=== PATIENT | male | born 1985 | race Caucasian/White ===

== ENCOUNTER → 2018-05-05 10:52 | Outpatient (CLI) | payer OTHER, SELFPAY ==
--- NOTE | 2018-05-05 15:41 | RAD_ITS ---
STUDY: X-RAY CHEST REASON FOR EXAM: Male, 33 years old. Cough TECHNIQUE: PA and lateral views of the chest. COMPARISON: 07/14/2015 FINDINGS: The lungs are clear and expanded. There is no demonstrated pleural abnormality. Normal size heart. Normal mediastinum and brie. Normal visualized pulmonary arteries. Normal visualized aortic arch and descending thoracic aorta. Normal visualized thoracic spine. Normal visualized ribs, clavicles, and shoulders. There is no demonstrated abnormality of the visualized soft tissue structures of the upper abdomen. RAD/Chest PA and Lateral IMPRESSION: No airspace consolidation or pleural effusion. Electronically Signed: Mushtaq Steele MD at 16:48 EST , Service support ,
[2018-05-10 04:09] LABS: Alternaria tenuis 0.23 kU/L (Class 0/I); Ash, White <0.10 kU/L (Class 0); Aspergillus fumigatus 0.19 kU/L (Class 0/I); Bermuda Grass <0.10 kU/L (Class 0); Birch <0.10 kU/L (Class 0); Black Walnut <0.10 kU/L (Class 0); Cat Hair / Dander,Stand 6.62 kU/L (Class IV); Cedar, Mountain <0.10 kU/L (Class 0); Cladosporium herbarum <0.10 kU/L (Class 0); Cottonwood <0.10 kU/L (Class 0); D farinae Mite 4.16 kU/L (Class IV); D pteronyssinus 4.68 kU/L (Class IV); Dog Epithelia 2.27 kU/L (Class III); Elm, American White 0.16 kU/L (Class 0/I); Maple/Box Elder 0.51 kU/L (Class I); Mulberry, White <0.10 kU/L (Class 0); Oak, White <0.10 kU/L (Class 0); Pecan <0.10 kU/L (Class 0); Pigweed, Rough <0.10 kU/L (Class 0); Russian Thistle <0.10 kU/L (Class 0); Sheep Sorrel <0.10 kU/L (Class 0); Sycamore, American <0.10 kU/L (Class 0); Timothy Grass 3.92 kU/L (Class IV)
[2018-05-10 05:07] LABS: Banana <0.10 kU/L (Class 0); Barley, Whole Grain 0.54 kU/L (Class I); Beef <0.10 kU/L (Class 0); Carrot <0.10 kU/L (Class 0); Cashew <0.10 kU/L (Class 0); Chicken <0.10 kU/L (Class 0); Clam <0.10 kU/L (Class 0); Codfish <0.10 kU/L (Class 0); Corn <0.10 kU/L (Class 0); Crab <0.10 kU/L (Class 0); Egg, White <0.10 kU/L (Class 0); Egg, Whole <0.10 kU/L (Class 0); Egg, Yolk <0.10 kU/L (Class 0); Garlic <0.10 kU/L (Class 0); Gluten <0.10 kU/L (Class 0); Hazelnut/Filbert <0.10 kU/L (Class 0); Lobster <0.10 kU/L (Class 0); Milk (Cow) <0.10 kU/L (Class 0); Oat <0.10 kU/L (Class 0); Onion <0.10 kU/L (Class 0); Orange <0.10 kU/L (Class 0); Pea <0.10 kU/L (Class 0); Peanut <0.10 kU/L (Class 0); Pecan <0.10 kU/L (Class 0); Pork <0.10 kU/L (Class 0); Potato, White <0.10 kU/L (Class 0); Rice <0.10 kU/L (Class 0); SCALLOP <0.10 kU/L (Class 0); SESAME SEED 0.12 kU/L (Class 0/I); Salmon <0.10 kU/L (Class 0); Shrimp 0.12 kU/L (Class 0/I); Soybean <0.10 kU/L (Class 0); Strawberry <0.10 kU/L (Class 0); Tomato <0.10 kU/L (Class 0); Tuna <0.10 kU/L (Class 0); Wheat <0.10 kU/L (Class 0); Yeast 0.24 kU/L (Class 0/I)
[2018-05-10 11:42] LABS: Peanut <0.10 kU/L (Class 0); Turkey <0.10 kU/L (Class 0); Wheat <0.10 kU/L (Class 0)
[2018-05-10 11:43] LABS: Immunoglobulin E 423 IU/mL (6-495); Mouse Urine <0.10 kU/L (Class 0)
[2018-05-12 17:45] LABS: Milk (Cow) <0.10; Soybean <0.10
== END ==
PROVIDERS: Family Provider Internal Medicine; PCP Internal Medicine; Referring Provider Otolaryngology; Visit Provider Otolaryngology
DX: T78.40XA Allergy, unspecified, initial encounter (principal); R05 Cough
CPT/HCPCS: 36415; 71046; 82785; 86003

== ENCOUNTER → 2018-05-06 07:40 | Outpatient (CLI) | payer OTHER, SELFPAY ==
[2018-05-06 09:44] LABS: Absolute Lymphocyte Count 1.82 X10^3/ul (0.83-4.51); Absolute Neutrophil Count 3.9 X10^3/uL (2.0-7.7); Basophil# 0.15 X10^3/uL; Basophil% 1.9 % (0-1); Eosinophil# 0.97 X10^3/uL; Eosinophils% 12.5 % (0-5); Hematocrit 47.4 % (40-54); Hemoglobin 15.7 g/dl (13.0-16.5); Lymphocyte # 1.82 X10^3/ul (4.0); Lymphocyte % 23.4 % (19-41); Mean Corp Hgb Conc 33.1 g/gl (32-36); Mean Corpuscular Hgb 30.6 pg (27.0-32.0); Mean Corpuscular Volume 92.4 fL (80-94); Monocyte# 0.88 X10^3/uL; Monocyte% 11.3 % (0-10); Neutrophil # 3.93 X10^3/uL (2.7-7.7); Neutrophil % 50.4 % (47-70); Platelet Count 238 K/mm3 (150-450); RBC Distribution Width CV 12.5 % (11.6-14.6); RBC Distribution Width SD 41.8 fl (35.1-43.9); Red Blood Count 5.13 M/mm3 (4.6-6.2); White Blood Count 7.8 K/mm3 (4.4-11.0)
[2018-05-06 09:54] LABS: POSITIVE COUNT NO; POSITIVE DIFFERENTIAL NO; POSITIVE MORPHOLOGY NO
[2018-05-06 09:59] LABS: ALB/GLOB Ratio 1.2 RATIO (0.9-2.4); AST(SGOT) 23 U/L (15-37); Alanine Aminotransfer ALT/SGPT 64 U/L (16-61); Albumin, Serum 3.8 g/dL (3.2-5.0); Alkaline Phosphatase 60 U/L (45-117); Anion Gap 7 (5-15); BUN 15 mg/dL (7-18); BUN/Creat Ratio 16.8 RATIO (10-20); Calcium,Total 8.4 mg/dL (8.5-10.1); Chloride 107 mmol/L (98-107); Cholesterol 170 mg/dL (200); Creatinine, Serum 0.89 mg/dL (0.70-1.30); EST Glomerular Filtration Rate 103 mL/min (>60); Est Glom Filt Rate - Afr Amer 124 mL/min (>60); Globulin 3.2 g/dL (2.2-4.2); Glucose 107 mg/dL (74-106); High Density Lipoprotein 36 mg/dL; Potassium 4.1 mmol/L (3.5-5.1); Sodium Level 141 mmol/L (136-145); Triglycerides 118 mg/dL; Very Low Density Lipoprotein 24 mg/dL (5-40)
[2018-05-06 10:38] LABS: Vitamin D,25 Hydroxy 18.5 ng/mL (29.95-100.01)
== END ==
PROVIDERS: Family Provider Nurse Practitioner; PCP Nurse Practitioner; Referring Provider Nurse Practitioner; Visit Provider Nurse Practitioner
DX: E78.00 Pure hypercholesterolemia, unspecified (principal); E55.9 Vitamin D deficiency, unspecified; R05 Cough
CPT/HCPCS: 36415; 80053; 80061; 82306; 85025

== ENCOUNTER → 2018-05-13 07:48 | Outpatient (CLI) | payer OTHER, SELFPAY ==
[2016-11-23 13:29] VITALS: BMI 35.3
[2018-05-15 14:32] LABS: PROEL- A/G Ratio 1.5 (0.7-1.7); PROEL- Albumin 3.8 g/dL (2.9-4.4); PROEL- Alpha-1 Globulin 0.2 g/dL (0.0-0.4); PROEL- Alpha-2 Globulin 0.7 g/dL (0.4-1.0); PROEL- Gamma Globulin 0.7 g/dL (0.4-1.8); PROEL- Globulin, Total 2.5 g/dL (2.2-3.9); PROEL- TOTAL PROTEIN 6.3 g/dL (6.0-8.5)
[2018-05-16 22:07] LABS: PROELU- Albumin, Urine 28.6 % (.); PROELU- Alpha-2-Globulin,Ur 22.5 % (.); PROELU- Beta Globulin, Ur 22.6 % (.); PROELU- Gamma Globulin, Ur 20.3 % (.); Total Protein, Ur 12.2 mg/dL (Not Estab.)
== END ==
PROVIDERS: Family Provider Nurse Practitioner; PCP Nurse Practitioner; Referring Provider Nurse Practitioner; Visit Provider Nurse Practitioner
DX: D72.1 Eosinophilia (principal)
CPT/HCPCS: 36415; 84165; 84166

== ENCOUNTER 2018-05-19 20:29 | Inpatient (IN) | payer OTHER, SELFPAY ==
[2018-05-19] VITALS (8 sets, daily range): BP systolic 127–154; BP diastolic 75–90; PULSE 88–118; RESP 16–20; TEMP 36.7–36.9; O2SAT 91–97; BMI 37.0
[2018-05-19] MEDS: Acetaminophen 325 MG Tablet 650 MG PO (20:49)
[2018-05-19] MEDS: Ipratropium/Albuterol Sulfate 3 ML AMPUL.NEB INHALATION (21:04)
[2018-05-19] MEDS: Albuterol 2.5 MG/3 ML VIAL.NEB. INHALATION ×5 (21:21→23:39)
[2018-05-19 21:28] LABS: Absolute Lymphocyte Count 2.07 X10^3/ul (0.83-4.51); Absolute Neutrophil Count 4.2 X10^3/uL (2.0-7.7); Basophil# 0.11 X10^3/uL; Basophil% 1.2 % (0-1); Eosinophil# 1.41 X10^3/uL; Hematocrit 45.7 % (40-54); Lymphocyte # 2.07 X10^3/ul (4.0); Lymphocyte % 23.5 % (19-41); Mean Corpuscular Hgb 31.3 pg (27.0-32.0); Mean Corpuscular Volume 89.4 fL (80-94); Mean Platelet Vol. 9.5 fl (6.2-12.0); Monocyte# 1.04 X10^3/uL; Monocyte% 11.8 % (0-10); Neutrophil # 4.15 X10^3/uL (2.7-7.7); Platelet Count 245 K/mm3 (150-450); RBC Distribution Width CV 12.4 % (11.6-14.6); RBC Distribution Width SD 40.1 fl (35.1-43.9); Red Blood Count 5.11 M/mm3 (4.6-6.2); White Blood Count 8.8 K/mm3 (4.4-11.0)
[2018-05-19 21:29] LABS: POSITIVE COUNT NO; POSITIVE DIFFERENTIAL NO; POSITIVE MORPHOLOGY NO
[2018-05-19 21:35] LABS: Anion Gap 3 (5-15); BUN 15 mg/dL (7-18); BUN/Creat Ratio 16.6 RATIO (10-20); Calcium,Total 8.3 mg/dL (8.5-10.1); Chloride 109 mmol/L (98-107); EST Glomerular Filtration Rate 101 mL/min (>60); Est Glom Filt Rate - Afr Amer 123 mL/min (>60); Estimated Creatinine Clearance 125.74 ml/min; Glucose 105 mg/dL (74-106); Potassium 3.6 mmol/L (3.5-5.1); Sodium Level 140 mmol/L (136-145)
--- NOTE | 2018-05-19 21:39 | ED.DCSUM_ITS ---
History of Present Illness Chief Complaint: Shortness of Breath Detail of Chief Complaint: History of asthma and respiratory failure Informant: Patient Context: Onset with activity, Sudden Onset Timing: Continuous Quality: Difficulty breathing with wheezing and cough Location: Respiratory Current Severity: Severe Maximum Severity: Severe Worsened by: Activity and coughing Relieved by: Nothing Associated Symptoms: Runny nose, aches, subjective fever Narrative: Patient is a 33-year-old gentleman has history of asthma. He presents with difficult to breathing and wheezing. Onset several days ago. He does have URI type symptoms. Denies headache, photophobia, neck pain or neck stiffness. He denies chest pain. He denies GI or symptoms. He denies rash. He denies any neurologic symptoms. - Past Medical History (1) Acute asthma exacerbation Status: Acute (2) Acute hypoxic respiratory insufficiency Status: Resolved (3) Allergic rhinitis Status: Chronic (4) Bronchial asthma Status: Chronic Past Medical History - Allergies and Home Meds Allergies/Adverse Reactions: Allergies No Known Allergies Allergy (Verified 05/19/18 20:31) Primary Care Physician: Marleni Holly NP-C [Primary Care Provider] - Prior records reviewed: Yes Surgical History: no surgical history Lives: Alone Smoking Status: Former smoker Alcohol: None - Family History Maternal Family History: Family History (Last Updated 05/18/18 @ 10:54 by Leia Boykin) Father Asthma Diabetes Hypertension Grandmother Asthma Family History: Reports: No pertinent history Paternal Family History: Family History (Last Updated 05/18/18 @ 10:54 by Leia Boykin) Father Asthma Diabetes Hypertension Grandmother Asthma Family History: Reports: Asthma, Diabetes, Hypertension Review of Systems General: Reports: Chills, Fever, Subjective, Sweats. Denies: Weight loss Eyes: Denies: Visual changes - bilaterally, Blurred vision - left, Diplopia ENT: Denies: Rhinorrhea, Sore throat Cardiovascular: Reports: Palpitations. Denies: Chest pain Respiratory: Reports: Dyspnea, Cough, Sputum, Dyspnea on exertion. Denies: Orthopnea, Paroxysmal nocturnal dyspnea Gastrointestinal: Denies: Abdominal pain, Nausea, Vomiting, Diarrhea, Melena, Hematochezia Genitourinary: Denies: Dysuria, Hematuria, Frequency Musculoskeletal: Denies: Back pain, Extremity Pain Skin: Denies: Rash, Wounds Neurological: Denies: Headache, Weakness, Numbness Allergy: Denies: Uticaria, Swelling of the mouth Physical Exam Vital Signs/Narrative: Vital Signs Temp Pulse Resp BP Pulse Ox 05/19/18 21:23 118 H 20 H 95 05/19/18 20:45 98.4 F 95 18 154/83 H 94 05/19/18 20:36 102 H 16 138/88 H 97 05/19/18 20:30 98.1 F 110 H 16 127/90 H 91 Inital Vital Signs reviewed: Yes General: Well nourished, Well developed, Acute Distress Head: Normocephalic, Atraumatic Eyes: Perrl, EOMI. Negative for: Pale conjunctiva, Scleral icterus ENT: Moist mucous membranes, TM's clear, Nasal congestion Neck: Supple, Nontender, No lymphadenopathy, No JVD Cardiovascular: Regular rhythm, No murmurs, Normal S1, Normal S2, Tachycardia Respiratory: Wheezing, Decreased Air Movement, - - With respiratory distress and use of accessory muscles. Abdomen: Soft, Nontender, Nondistended, Normal bowel sounds, No masses Rectal: Deferred Back: Nontender, Normal Inspection Extremities: Nontender, No edema. Negative for: Calf Tenderness Skin: Normal color, No rash, - - Face is flushed Neurological: Alert, Oriented x3, Cranial nerves II-XII grossly intact, Normal Strength, Normal Sensation Psychological: Normal affect, Normal Mood Diagnostic/Tx/Re-eval Chest X-Ray - ED: 2 View, Read by ED Physician, Normal, Heart, Lungs, Mediastinum, Bony Structures, No Acute Disease 05/19/18 21:55 Chest PA and Lateral [RAD] Stat 05/19/18 20:37 Mucosa - Nasopharyngeal Influenza Types A,B Direct FA (DEUCE) - Final Laboratory Results 05/19/18 05/19/18 05/19/18 21:00 21:00 21:00 WBC 8.8 RBC 5.11 Hgb 16.0 Hct 45.7 MCV 89.4 MCH 31.3 MCHC 35.0 RDW 12.4 RDW Differential 40.1 Plt Count 245 MPV 9.5 Immature Gran % (Auto) 0.500 Neut % (Auto) 47.0 Lymph % (Auto) 23.5 [place] % (Auto) 11.8 H Eos % (Auto) 16.0 H Baso % (Auto) 1.2 H Absolute Neuts (auto) 4.2 Absolute Lymphs (auto) 2.07 Total Counted Not Reportable Sodium 140 Potassium 3.6 Chloride 109 H Carbon Dioxide 28.0 Anion Gap 3 L BUN 15 Creatinine 0.90 Estim Creat Clear Calc 125.74 Est GFR (MDRD) Af Amer 123 Est GFR (MDRD) Non-Af 101 BUN/Creatinine Ratio 16.6 Glucose 105 Lactic Acid 0.7 Calcium 8.3 L - Medical Decision Making Patient with acute exacerbation of asthma secondary to respiratory infection. Baseline blood work was obtained and chest x-ray to evaluate for pneumonia. He was treated with DuoNeb, albuterol systemic steroids. He was reassessed at 21: 35. He is still tachypneic with wheezing heard throughout. He is still tachycardic. Patient has been examined multiple times. He is presently on oxygen. He still tachypneic with significant wheezing. Will administer fourth and fifth aerosol treatment and hospitalist has been paged for admission. ED Disposition - Plan for ED Patient: Disposition: Acute Care Hospital [facility] Diagnosis: Asthma with status asthmaticus, Viral upper respiratory infection Referrals: Marleni Holly, CRUSHER AND BLENDER OPERATOR-C [Primary Care Provider] -
[2018-05-19 21:42] LABS: Lactic Acid 0.7 mmol/L (0.4-2.0)
--- NOTE | 2018-05-19 21:55 | RAD_ITS ---
STUDY: X-RAY CHEST REASON FOR EXAM: Male, 33 years old. Cough, fever and hypoxia. TECHNIQUE: PA and lateral views of the chest. COMPARISON: 05/05/2018. FINDINGS: The lungs are clear and expanded. There is no demonstrated pleural abnormality. Normal size heart. Normal mediastinum and brie. Normal visualized pulmonary arteries. Normal visualized aortic arch and descending thoracic aorta. Normal visualized thoracic spine. Normal visualized ribs, clavicles, and shoulders. There is no demonstrated abnormality of the visualized soft tissue structures of the upper abdomen. RAD/Chest PA and Lateral IMPRESSION: Normal x-ray examination of the chest. Electronically Signed: Pop Helms MD at 23:26 EDT Tel , Service support ,
[2018-05-19] MEDS: MethylPREDNISolone 125 MG/2 ML Vial IV (22:22)
--- NOTE | 2018-05-19 23:11 | HP.PCM_ITS ---
Problem List (1) Asthma with status asthmaticus Status: Acute (2) Allergic rhinitis Status: Chronic (3) Viral upper respiratory infection Status: Inactive History of Present Illness Date of Admission: 05/20/18 Chief Complaint: Shortness of breath The patient is a 33 year old M with a significant history of tobacco abuse;allergic rhinitis; nasal polyps status post removal; asthma who presented with with 2 weeks of progressively worsening shortness of breath at rest which increases markedly with exertion. Associated with his symptoms is chest tightness, wheezing and nonproductive cough. Patient has been using his breathing treatments without any real relief. Also he recently completed clarithromycin treatment. His home treatment includes Breo Ellipta; albuterol inhaler and nebulizer. Patient follows up with Dr. Muniz, cyber defense forensics analyst and he has a scheduled appointment on May 25 2018. Also he has a schedule appointment with an ENT doctor for allergy test. At the emergency department patient received Solu-Medrol and breathing treatment. Because his symptoms persisted he received magnesium and terbutaline. He has a family history of asthma and allergies. Past Medical History Past Medical History (Chronic Problems): Chronic Problems (Last Reviewed 05/20/18 @ 06:10 by Sha Young MD) Allergic rhinitis (Chronic) Bronchial asthma (Chronic) Medical History: Medical History (Last Reviewed 05/20/18 @ 06:10 by Sha Young MD) Acute hypoxic respiratory insufficiency (Resolved) Acute asthma exacerbation (Acute) J45.901 Allergic rhinitis (Chronic) J30.9 Bronchial asthma (Chronic) J45.909 Acute bronchitis J20.9 Maxillary sinusitis J32.0 Allergies No Known Allergies Allergy (Verified 05/19/18 20:31) Home Medications: Ambulatory Orders Medication Instructions Recorded Albuterol Inhaler [Ventolin Hfa] 2 puff INHALATION Q4H PRN PRN 05/20/13 Fexofenadine/Pseudoephedrine 1 each PO DAILY 11/16/16 [Chelly-D 12 Hour Tablet] fluticasone 100 mcg-vilanterol 25 1 inh INHALATION DAILY #1 device 02/07/17 mcg/dose powder for inhalation Surgical History: Surgical History (Last Updated 05/18/18 @ 10:54 by Leia Boykin) H/O sinus surgery Z98.890 08/07/2015 Surgical History: - - Sinus polyps were removed. Patient has bilateral knee surgery for ACL/MENISCUS. Patient has had a jaw surgery and right earlobe surgery. Lives: Alone Smoking Status: Current every day smoker Tobacco Use: Chew Alcohol: None - *Family History Maternal Family History: Family History (Last Reviewed 05/20/18 @ 06:04 by Sha Young MD) Father Asthma Diabetes Hypertension Grandmother Asthma History Items: No pertinent history Paternal Family History: Family History (Last Reviewed 05/20/18 @ 06:04 by Sha Young MD) Father Asthma Diabetes Hypertension Grandmother Asthma History Items: Asthma, Diabetes, Hypertension Review of Systems Constitutional: Denies: Chills, Fever, Weight Change HEENT: Reports: Sinus Drainage. Denies: Head Aches, Sinus Congestion Cardiovascular: Denies: Chest Pain, Palpitations Respiratory: Reports: Cough, Shortness of breath at rest. Denies: Sputum production Gastrointestinal: Denies: Abdominal Pain, Nausea, Vomiting Genitourinary: Denies: Dysuria Musculoskeletal: Denies: Joint Pain, Joint Tenderness Skin: Denies: Rash, Wounds Neurological: Denies: Numbness, Tingling, Focal weakness Psychiatric: Denies: Anxiety, Depression, Homicidal Ideations, Suicidal Ideations Hematologic/ Lymphatic: Denies: Easy Bruising, Easy Bleeding VTE Information - Inpt Only VTE Present on Admission: No VTE Pharm Prophylaxis ordered?: No Reason prophylaxis not ordered:: Treatment Not Indicated - Low risk ambulate Patient Problems: Active and Suspected Problems (Last Reviewed 05/20/18 @ 06:10 by Sha Young MD) Asthma with status asthmaticus (Acute) - Physical Exam General: Alert, Oriented x3, Cooperative HEENT: Atraumatic, PERRLA, EOMI, Normocephalic Neck: Supple, No JVD, Negative Carotid Bruits Lungs: Tachypneic, Wheezes Cardiovascular: No murmurs, Tachycardic Abdomen: Bowel Sounds Present, Soft, Non Tender Extremities: No edema, Capillary Refill Less than 3 Seconds Skin: No rashes, No breakdown Musculoskeletal: No Tenderness to Palpation of Joints or Extremities Neurological: Neuro grossly intact Psych/Mental Status: Normal Affect, Appropriate Vital Signs Temp Pulse Resp BP Pulse Ox 98.4 F 118 H 20 H 154/83 H 95 05/19/18 20:45 05/19/18 21:23 05/19/18 21:23 05/19/18 20:45 05/19/18 21:23 Oxygen Flow Rate (L/min) 2 Oxygen Delivery Method Nasal Cannula Weight: 123.8 kg Body Mass Index (BMI) 37.0 Microbiology Past 72 Hours 05/19/18 20:37 Influenza Types A,B Direct FA (DEUCE) - Final Mucosa - Nasopharyngeal Laboratory Tests Past 24 Hrs 05/19/18 05/19/18 05/19/18 21:00 21:00 21:00 WBC 8.8 RBC 5.11 Hgb 16.0 Hct 45.7 MCV 89.4 MCH 31.3 MCHC 35.0 RDW 12.4 RDW Differential 40.1 Plt Count 245 MPV 9.5 Immature Gran % (Auto) 0.500 Neut % (Auto) 47.0 Lymph % (Auto) 23.5 [place] % (Auto) 11.8 H Eos % (Auto) 16.0 H Baso % (Auto) 1.2 H Absolute Neuts (auto) 4.2 Absolute Lymphs (auto) 2.07 Total Counted Not Reportable Sodium 140 Potassium 3.6 Chloride 109 H Carbon Dioxide 28.0 Anion Gap 3 L BUN 15 Creatinine 0.90 Estim Creat Clear Calc 125.74 Est GFR (MDRD) Af Amer 123 Est GFR (MDRD) Non-Af 101 BUN/Creatinine Ratio 16.6 Glucose 105 Lactic Acid 0.7 Calcium 8.3 L Assessment/Plan All Active Problems (Last Reviewed 05/20/18 @ 06:10 by Sha Young MD) Asthma with status asthmaticus (Acute) Acute hypoxic respiratory insufficiency (Resolved) Acute asthma exacerbation (Acute) The patient is a 33 year old M with a significant history of allergic rhinitis; nasal polyps status post removal; asthma who presented with with 2 weeks of progressively worsening shortness of breath at rest which increases markedly with exertion; and who continued to wheeze after steroid treatment; multiple inhalers; terbutaline and magnesium infusion consistent with status asthmaticus. Status asthmaticus We will admit patient to the PCU stepdown. Patient noted to be talking in short sentences and with use of accessory muscles of respiration with diffuse wheezing. We will continue patient on Solu-Medrol. Scheduled DuoNeb and albuterol. Chest physiotherapy ordered. Patient is a known patient of Dr. Muniz and has a scheduled appointment coming up with Dr. Muniz. Emergency department doctor ordered inpatient consult. Rapid influenza screen was negative. Will order a comprehensive respiratory pathogen panel. Home fluticasone-vilanterol held since patient is on DuoNeb and is getting systemic steroids. Mucinex ordered Allergic rhinitis On home Chelly-D. While inpatient loratadine and pseudoephedrine ordered. Flonase ordered. Tobacco abuse Patient is a former smoker. He used to smoke cigarettes. He quit smoking about 8 years ago. Presently he chews tobacco. Smoking cessation was discussed. Patient declined nicotine patch patch stating that he will request a nicotine patch if he has intense craving. Patient chews tobacco. DVT Prophylaxis Low risk. Encouraged to ambulate.. Code Visit Inpatient E&M: 68856 Init Hosp L3
[2018-05-19] MEDS: Terbutaline 1 MG/ML Vial 0.25 MG SC (23:58)
[2018-05-20] VITALS (23 sets, daily range): BP systolic 104–181; BP diastolic 44–80; PULSE 82–125; RESP 13–21; TEMP 36.7–37.2; O2SAT 91–99; BMI 37.2
[2018-05-20] MEDS: Ipratropium/Albuterol Sulfate 3 ML AMPUL.NEB INHALATION ×6 (03:06→22:51)
[2018-05-20] MEDS: 0.9% NaCl Peripheral Flush Adult/Peds IV ×3 (05:18→21:42)
[2018-05-20 06:41] LABS: Anion Gap 10 (5-15); BUN 14 mg/dL (7-18); Calcium,Total 8.3 mg/dL (8.5-10.1); Chloride 108 mmol/L (98-107); Creatinine, Serum 1.17 mg/dL (0.70-1.30); EST Glomerular Filtration Rate 75 mL/min (>60); Est Glom Filt Rate - Afr Amer 91 mL/min (>60); Estimated Creatinine Clearance 96.72 ml/min; Glucose 226 mg/dL (74-106); Potassium 3.9 mmol/L (3.5-5.1); Sodium Level 141 mmol/L (136-145)
[2018-05-20] MEDS: guaiFENesin 1,200 MG Tablet 1200 MG PO ×2 (08:44→21:41)
[2018-05-20] MEDS: Loratadine 10 MG Tablet PO (08:44)
[2018-05-20] MEDS: Fluticasone 0.05% 1 SPRAY NASAL.SRY 2 SPRAY NASAL (08:44)
--- NOTE | 2018-05-20 09:56 | CON.PCM_ITS ---
Problem List (1) Asthma with status asthmaticus Status: Acute Qualifiers: Asthma severity: moderate Asthma persistence: persistent Qualified Code(s): J45.42 - Moderate persistent asthma with status asthmaticus (2) Viral upper respiratory infection Status: Suspected (3) Allergic rhinitis Status: Chronic Qualifiers: Allergic rhinitis trigger: pollen Allergic rhinitis seasonality: seasonal Qualified Code(s): J30.1 - Allergic rhinitis due to pollen Reason for Consult Date of Consultation: 05/20/18 Reason for Consultation: Asthma exacerbation History of Present Illness: The patient is a 33 year old M, with past medical history listed below and well- known to me from outpatient office, who presented to [facility] on 05/20/2018 secondary to 2 weeks of progressive shortness of breath. Patient states he started to have some sinus congestion that fell into his chest and had developed a nonproductive cough and wheezing. Patient has been using nebulized aerosols at home with no real relief. Patient was recently on clarithromycin, but reported very little change in overall condition. Patient had called our office for evaluation, but did not report that he was in exacerbation, so was given an appointment for this week. In the emergency room, patient was treated with aerosols and IV steroids. Patient continues to had significant wheezing, so was admitted to the floor for further evaluation. Patient reports subjective improvement in overall condition, but still has significant coughing and shortness of breath with minimal exertion. Patient denies any current nausea or vomiting, but reports history of threatened posttussive emesis. Patient typically uses a combination inhaler at home. Patient does have albuterol and a nebulizer for breakthrough. Patient states his nebulizers have not been working very well up and to this point. Patient does have an appointment scheduled with an ENT doctor for allergy testing. Patient denies any new medical history since her last visit. Review of systems otherwise negative x10 systems. Patient continues to use smokeless tobacco. Past Medical History Past Medical History (Chronic Problems): Chronic Problems (Last Reviewed 05/20/18 @ 06:10 by Sha Young MD) Allergic rhinitis (Chronic) Bronchial asthma (Chronic) Medical History: Medical History (Last Reviewed 05/20/18 @ 06:10 by Sha Young MD) Acute hypoxic respiratory insufficiency (Resolved) Acute asthma exacerbation (Acute) J45.901 Allergic rhinitis (Chronic) J30.9 Bronchial asthma (Chronic) J45.909 Acute bronchitis J20.9 Maxillary sinusitis J32.0 Allergies No Known Allergies Allergy (Verified 05/19/18 20:31) Home Medications: Ambulatory Orders Medication Instructions Recorded Albuterol Inhaler [Ventolin Hfa] 2 puff INHALATION Q4H PRN PRN 05/20/13 Fexofenadine/Pseudoephedrine 1 each PO DAILY 11/16/16 [Chelly-D 12 Hour Tablet] fluticasone 100 mcg-vilanterol 25 1 inh INHALATION DAILY #1 device 02/07/17 mcg/dose powder for inhalation Surgical History: Surgical History (Last Updated 05/18/18 @ 10:54 by Leia Boykin) H/O sinus surgery Z98.890 08/07/2015 Surgical History: - - Sinus polyps were removed. Patient has bilateral knee surgery for ACL/MENISCUS. Patient has had a jaw surgery and right earlobe surgery. Lives: Alone Smoking Status: Current every day smoker Tobacco Use: Chew Alcohol: None - *Family History Maternal Family History: Family History (Last Reviewed 05/20/18 @ 06:04 by Sha Young MD) Father Asthma Diabetes Hypertension Grandmother Asthma History Items: No pertinent history Paternal Family History: Family History (Last Reviewed 05/20/18 @ 06:04 by Sha Young MD) Father Asthma Diabetes Hypertension Grandmother Asthma History Items: Asthma, Diabetes, Hypertension Review of Systems Comment: See HPI Patient Problems: Active and Suspected Problems (Last Reviewed 05/20/18 @ 06:10 by Sha Young MD) Asthma with status asthmaticus (Acute) Viral upper respiratory infection (Suspected) Objective: Chest x-ray was personally reviewed and shows no acute infiltrate. - Physical Exam General: Alert, Oriented x3, Cooperative, - - Mild respiratory distress and conversational dyspnea. Obese. HEENT: Atraumatic, PERRLA, EOMI, Normocephalic, - - Slight scleral injection without icterus Oral: Moist Mucosa, No Gingival or Mucosal Lesions/ Ulcerations, - - Good dentition. Neck: Supple, No JVD, No Nodes, Trachea Midline Lungs: No rhonchi, No rales, Diminished, Wheezes - Globally with fair air exchange, - - Symmetric expansion. No dullness to percussion. Cardiovascular: Normal S1, Normal S2, No murmurs, No rub noted, No Gallop, Tachycardic Abdomen: Bowel Sounds Present, Soft, Non Tender, Non-Distended, Obese Extremities: No clubbing, No cyanosis, No edema Skin: No rashes, No breakdown Musculoskeletal: No Tenderness to Palpation of Joints or Extremities Lymphatic: No Cervical, Supraclavicular, or Inguinal Adenopathy Neurological: Cranial nerves II-XII grossly intact, Neuro grossly intact, Motor Exam 5/5 strength throughout Psych/Mental Status: Alert and oriented to time, place, person, mood and affect Vital Signs Temp Pulse Resp BP Pulse Ox 36.7 C 93 16 142/75 H 94 05/20/18 05:00 05/20/18 07:07 05/20/18 07:07 05/20/18 06:40 05/20/18 07:07 Oxygen Flow Rate (L/min) 1 Oxygen Delivery Method Room Air Weight: 124.5 kg Body Mass Index (BMI) 37.2 Intake and Output for Last 24 Hours 05/18/18 05/19/18 05/20/18 23:59 23:59 23:59 Intake Total 480 / 480 Balance 480 / 480 Microbiology Past 72 Hours 05/19/18 20:37 Influenza Types A,B Direct FA (DEUCE) - Final Mucosa - Nasopharyngeal Laboratory Tests Past 24 Hrs 05/19/18 05/19/18 05/19/18 21:00 21:00 21:00 WBC 8.8 RBC 5.11 Hgb 16.0 Hct 45.7 MCV 89.4 MCH 31.3 MCHC 35.0 RDW 12.4 RDW Differential 40.1 Plt Count 245 MPV 9.5 Immature Gran % (Auto) 0.500 Neut % (Auto) 47.0 Lymph % (Auto) 23.5 [place] % (Auto) 11.8 H Eos % (Auto) 16.0 H Baso % (Auto) 1.2 H Absolute Neuts (auto) 4.2 Absolute Lymphs (auto) 2.07 Total Counted Not Reportable Sodium 140 Potassium 3.6 Chloride 109 H Carbon Dioxide 28.0 Anion Gap 3 L BUN 15 Creatinine 0.90 Estim Creat Clear Calc 125.74 Est GFR (MDRD) Af Amer 123 Est GFR (MDRD) Non-Af 101 BUN/Creatinine Ratio 16.6 Glucose 105 Lactic Acid 0.7 Calcium 8.3 L 05/20/18 05:20 WBC RBC Hgb Hct MCV MCH MCHC RDW RDW Differential Plt Count MPV Immature Gran % (Auto) Neut % (Auto) Lymph % (Auto) [place] % (Auto) Eos % (Auto) Baso % (Auto) Absolute Neuts (auto) Absolute Lymphs (auto) Total Counted Sodium 141 Potassium 3.9 Chloride 108 H Carbon Dioxide 23.0 Anion Gap 10 BUN 14 Creatinine 1.17 Estim Creat Clear Calc 96.72 Est GFR (MDRD) Af Amer 91 Est GFR (MDRD) Non-Af 75 BUN/Creatinine Ratio 12.0 Glucose 226 H Lactic Acid Calcium 8.3 L Clinical Impression(s) from Imaging Studies Chest X-Ray 05/19/18 21:55 IMPRESSION: Normal x-ray examination of the chest. Electronically Signed: Pop Helms MD at 23:26 EDT Tel , Service support , Assessment/Plan All Active Problems (Last Reviewed 05/20/18 @ 06:10 by Sha Young MD) Asthma with status asthmaticus (Acute) Acute hypoxic respiratory insufficiency (Resolved) Acute asthma exacerbation (Acute) RECOMMENDATIONS: 1. Continue IV steroids, mucolytic and bronchodilators 2. Await respiratory viral panel 3. Increase activity as tolerated 4. Walking oximetry prior to discharge IMPRESSIONS: 1. Acute exacerbation of moderate persistent asthma secondary to suspected viral illness Patient was treated with antibiotics previously, but has continued to decompensate. Patient was appropriately given bronchodilators and IV steroids in the emergency room and has had some improvement. We will continue with this therapy for now. Viral panel is currently pending. Patient does not show any signs or symptoms of respiratory muscle fatigue requiring noninvasive therapy at this time. Anticipate 24-48 hours of hospital care prior to discharge. Patient will need a walking oximetry prior to discharge given amount of wheezing and diminished breath sounds on exam. Code Visit Inpatient E&M: 42363 Init Hosp L2
--- NOTE | 2018-05-20 11:41 | PCM.PROGNOTE ---
<Darwin Rosen - Last Filed: 05/20/18 11:41> Patient Problems: Active and Suspected Problems (Last Reviewed 05/20/18 @ 06:10 by Sha Young MD) Asthma with status asthmaticus (Acute) Viral upper respiratory infection (Suspected) Subjective: Pt has been sick with sinus congestion and wheezing worsening for about 2 weeks. He is feeling improved already. He does follow [facility] as an outpatient. He is still wheezy with paroxysmal coughing bouts. No fever or chills. Pain in chest and back with coughing - Physical Exam General: Alert, Oriented x3, Cooperative HEENT: Atraumatic, PERRLA, EOMI, Normocephalic Neck: Supple, No JVD, Negative Carotid Bruits Lungs: Normal air movement, Wheezes - diffuse Cardiovascular: Regular rate, No murmurs Abdomen: Bowel Sounds Present, Soft, Non Tender, Obese Extremities: No edema, Capillary Refill Less than 3 Seconds Skin: No rashes, No breakdown Musculoskeletal: No Tenderness to Palpation of Joints or Extremities Neurological: Cranial nerves II-XII grossly intact Psych/Mental Status: Normal Affect, Appropriate, Alert and oriented to time, place, person, mood and affect Vital Signs Temp Pulse Resp BP Pulse Ox 98.1 F 108 H 16 112/56 L 96 05/20/18 11:00 05/20/18 11:00 05/20/18 11:00 05/20/18 11:00 05/20/18 11:00 Oxygen Flow Rate (L/min) 1 Oxygen Delivery Method Room Air Weight: 274 lb 7.608 oz Body Mass Index (BMI) 37.2 Intake and Output for Last 24 Hours 05/18/18 05/19/18 05/20/18 23:59 23:59 23:59 Intake Total 480 / 480 Balance 480 / 480 Microbiology Past 72 Hours 05/20/18 03:02 Respiratory Panel (PCR) - Final Mucosa - Nasopharyngeal Human [place] 05/19/18 20:37 Influenza Types A,B Direct FA (DEUCE) - Final Mucosa - Nasopharyngeal Laboratory Tests Past 24 Hrs 05/19/18 05/19/18 05/19/18 21:00 21:00 21:00 WBC 8.8 RBC 5.11 Hgb 16.0 Hct 45.7 MCV 89.4 MCH 31.3 MCHC 35.0 RDW 12.4 RDW Differential 40.1 Plt Count 245 MPV 9.5 Immature Gran % (Auto) 0.500 Neut % (Auto) 47.0 Lymph % (Auto) 23.5 [place] % (Auto) 11.8 H Eos % (Auto) 16.0 H Baso % (Auto) 1.2 H Absolute Neuts (auto) 4.2 Absolute Lymphs (auto) 2.07 Total Counted Not Reportable Sodium 140 Potassium 3.6 Chloride 109 H Carbon Dioxide 28.0 Anion Gap 3 L BUN 15 Creatinine 0.90 Estim Creat Clear Calc 125.74 Est GFR (MDRD) Af Amer 123 Est GFR (MDRD) Non-Af 101 BUN/Creatinine Ratio 16.6 Glucose 105 Lactic Acid 0.7 Calcium 8.3 L 05/20/18 05:20 WBC RBC Hgb Hct MCV MCH MCHC RDW RDW Differential Plt Count MPV Immature Gran % (Auto) Neut % (Auto) Lymph % (Auto) [place] % (Auto) Eos % (Auto) Baso % (Auto) Absolute Neuts (auto) Absolute Lymphs (auto) Total Counted Sodium 141 Potassium 3.9 Chloride 108 H Carbon Dioxide 23.0 Anion Gap 10 BUN 14 Creatinine 1.17 Estim Creat Clear Calc 96.72 Est GFR (MDRD) Af Amer 91 Est GFR (MDRD) Non-Af 75 BUN/Creatinine Ratio 12.0 Glucose 226 H Lactic Acid Calcium 8.3 L Medical Necessity - Tobacco Use Smoking Status: Current every day smoker Tobacco Use: Chew Assessment/Plan All Active Problems (Last Reviewed 05/20/18 @ 06:10 by Sha Young MD) Asthma with status asthmaticus (Acute) Acute hypoxic respiratory insufficiency (Resolved) Acute asthma exacerbation (Acute) 1. Asthma exacerbation 2/2 Human metapneumovirus - improved. Continue steroids and duonebs overnight. + resp panel. Anion gap is normalizing. 2. Hx nicotine abuse, former smoker, now chews. Patch if desired. 3. Obesity - dietary eval. Several instances of hyperglycemia in past. Will check a1c. Current rise is 2/2 steroids, however it is significantly elevated for a non diabetic. DVT ppx: early ambulation DC planning: Likely home tomorrow, walking pulse ox prior to dc. This patient was seen by Darwin Rosen PA-C under the supervision of Doctor John. <Navarro Lopez - Last Filed: 05/20/18 12:25> Subjective: Feeling better, but to baseline yet. - Physical Exam General: Alert, Cooperative HEENT: Atraumatic, Normocephalic Oral: Moist Mucosa, No Gingival or Mucosal Lesions/ Ulcerations Lungs: Normal air movement, Wheezes Cardiovascular: Regular rate, Regular Rhythm, Normal S1, Normal S2, No murmurs Abdomen: Soft, Non Tender, Obese Vital Signs Temp Pulse Resp BP Pulse Ox 36.7 C 108 H 16 112/56 L 96 05/20/18 11:00 05/20/18 11:00 05/20/18 11:00 05/20/18 11:00 05/20/18 11:00 Oxygen Flow Rate (L/min) 1 Oxygen Delivery Method Room Air Weight: 124.5 kg Body Mass Index (BMI) 37.2 Intake and Output for Last 24 Hours 05/18/18 05/19/18 05/20/18 23:59 23:59 23:59 Intake Total 820 / 820 Balance 820 / 820 Microbiology Past 72 Hours 05/20/18 03:02 Respiratory Panel (PCR) - Final Mucosa - Nasopharyngeal Human [place] 05/19/18 20:37 Influenza Types A,B Direct FA (DEUCE) - Final Mucosa - Nasopharyngeal Laboratory Tests Past 24 Hrs 05/19/18 05/19/18 05/19/18 21:00 21:00 21:00 WBC 8.8 RBC 5.11 Hgb 16.0 Hct 45.7 MCV 89.4 MCH 31.3 MCHC 35.0 RDW 12.4 RDW Differential 40.1 Plt Count 245 MPV 9.5 Immature Gran % (Auto) 0.500 Neut % (Auto) 47.0 Lymph % (Auto) 23.5 [place] % (Auto) 11.8 H Eos % (Auto) 16.0 H Baso % (Auto) 1.2 H Absolute Neuts (auto) 4.2 Absolute Lymphs (auto) 2.07 Total Counted Not Reportable Sodium 140 Potassium 3.6 Chloride 109 H Carbon Dioxide 28.0 Anion Gap 3 L BUN 15 Creatinine 0.90 Estim Creat Clear Calc 125.74 Est GFR (MDRD) Af Amer 123 Est GFR (MDRD) Non-Af 101 BUN/Creatinine Ratio 16.6 Glucose 105 Hemoglobin A1c Lactic Acid 0.7 Calcium 8.3 L 05/20/18 05/20/18 05:20 05:20 WBC RBC Hgb Hct MCV MCH MCHC RDW RDW Differential Plt Count MPV Immature Gran % (Auto) Neut % (Auto) Lymph % (Auto) [place] % (Auto) Eos % (Auto) Baso % (Auto) Absolute Neuts (auto) Absolute Lymphs (auto) Total Counted Sodium 141 Potassium 3.9 Chloride 108 H Carbon Dioxide 23.0 Anion Gap 10 BUN 14 Creatinine 1.17 Estim Creat Clear Calc 96.72 Est GFR (MDRD) Af Amer 91 Est GFR (MDRD) Non-Af 75 BUN/Creatinine Ratio 12.0 Glucose 226 H Hemoglobin A1c 5.4 Lactic Acid Calcium 8.3 L Assessment/Plan Patient seen and examined independently. Data reviewed. I agree with the above note by the physician engineer first assistant. 1. Acute asthma exacerbation: improved likely exacerbated by UTI (Human metapneumovirus) continue steroids and BDs pulm on consult Code Visit Inpatient E&M: 13846 Subs Hosp L2
--- NOTE | 2018-05-20 11:48 | PN_ITS ---
<Darwin Rosen - Last Filed: 05/20/18 11:41> Patient Problems: Active and Suspected Problems (Last Reviewed 05/20/18 @ 06:10 by Sha Young MD) Asthma with status asthmaticus (Acute) Viral upper respiratory infection (Suspected) Subjective: Pt has been sick with sinus congestion and wheezing worsening for about 2 weeks. He is feeling improved already. He does follow [facility] as an outpatient. He is still wheezy with paroxysmal coughing bouts. No fever or chills. Pain in chest and back with coughing - Physical Exam General: Alert, Oriented x3, Cooperative HEENT: Atraumatic, PERRLA, EOMI, Normocephalic Neck: Supple, No JVD, Negative Carotid Bruits Lungs: Normal air movement, Wheezes - diffuse Cardiovascular: Regular rate, No murmurs Abdomen: Bowel Sounds Present, Soft, Non Tender, Obese Extremities: No edema, Capillary Refill Less than 3 Seconds Skin: No rashes, No breakdown Musculoskeletal: No Tenderness to Palpation of Joints or Extremities Neurological: Cranial nerves II-XII grossly intact Psych/Mental Status: Normal Affect, Appropriate, Alert and oriented to time, place, person, mood and affect Vital Signs Temp Pulse Resp BP Pulse Ox 98.1 F 108 H 16 112/56 L 96 05/20/18 11:00 05/20/18 11:00 05/20/18 11:00 05/20/18 11:00 05/20/18 11:00 Oxygen Flow Rate (L/min) 1 Oxygen Delivery Method Room Air Weight: 274 lb 7.608 oz Body Mass Index (BMI) 37.2 Intake and Output for Last 24 Hours 05/18/18 05/19/18 05/20/18 23:59 23:59 23:59 Intake Total 480 / 480 Balance 480 / 480 Microbiology Past 72 Hours 05/20/18 03:02 Respiratory Panel (PCR) - Final Mucosa - Nasopharyngeal Human [place] 05/19/18 20:37 Influenza Types A,B Direct FA (DEUCE) - Final Mucosa - Nasopharyngeal Laboratory Tests Past 24 Hrs 05/19/18 05/19/18 05/19/18 21:00 21:00 21:00 WBC 8.8 RBC 5.11 Hgb 16.0 Hct 45.7 MCV 89.4 MCH 31.3 MCHC 35.0 RDW 12.4 RDW Differential 40.1 Plt Count 245 MPV 9.5 Immature Gran % (Auto) 0.500 Neut % (Auto) 47.0 Lymph % (Auto) 23.5 [place] % (Auto) 11.8 H Eos % (Auto) 16.0 H Baso % (Auto) 1.2 H Absolute Neuts (auto) 4.2 Absolute Lymphs (auto) 2.07 Total Counted Not Reportable Sodium 140 Potassium 3.6 Chloride 109 H Carbon Dioxide 28.0 Anion Gap 3 L BUN 15 Creatinine 0.90 Estim Creat Clear Calc 125.74 Est GFR (MDRD) Af Amer 123 Est GFR (MDRD) Non-Af 101 BUN/Creatinine Ratio 16.6 Glucose 105 Lactic Acid 0.7 Calcium 8.3 L 05/20/18 05:20 WBC RBC Hgb Hct MCV MCH MCHC RDW RDW Differential Plt Count MPV Immature Gran % (Auto) Neut % (Auto) Lymph % (Auto) [place] % (Auto) Eos % (Auto) Baso % (Auto) Absolute Neuts (auto) Absolute Lymphs (auto) Total Counted Sodium 141 Potassium 3.9 Chloride 108 H Carbon Dioxide 23.0 Anion Gap 10 BUN 14 Creatinine 1.17 Estim Creat Clear Calc 96.72 Est GFR (MDRD) Af Amer 91 Est GFR (MDRD) Non-Af 75 BUN/Creatinine Ratio 12.0 Glucose 226 H Lactic Acid Calcium 8.3 L Medical Necessity - Tobacco Use Smoking Status: Current every day smoker Tobacco Use: Chew Assessment/Plan All Active Problems (Last Reviewed 05/20/18 @ 06:10 by Sha Young MD) Asthma with status asthmaticus (Acute) Acute hypoxic respiratory insufficiency (Resolved) Acute asthma exacerbation (Acute) 1. Asthma exacerbation 2/2 Human metapneumovirus - improved. Continue steroids and duonebs overnight. + resp panel. Anion gap is normalizing. 2. Hx nicotine abuse, former smoker, now chews. Patch if desired. 3. Obesity - dietary eval. Several instances of hyperglycemia in past. Will check a1c. Current rise is 2/2 steroids, however it is significantly elevated for a non diabetic. DVT ppx: early ambulation DC planning: Likely home tomorrow, walking pulse ox prior to dc. This patient was seen by Darwin Rosen PA-C under the supervision of Doctor John. <Navarro Lopez - Last Filed: 05/20/18 12:25> Subjective: Feeling better, but to baseline yet. - Physical Exam General: Alert, Cooperative HEENT: Atraumatic, Normocephalic Oral: Moist Mucosa, No Gingival or Mucosal Lesions/ Ulcerations Lungs: Normal air movement, Wheezes Cardiovascular: Regular rate, Regular Rhythm, Normal S1, Normal S2, No murmurs Abdomen: Soft, Non Tender, Obese Vital Signs Temp Pulse Resp BP Pulse Ox 36.7 C 108 H 16 112/56 L 96 05/20/18 11:00 05/20/18 11:00 05/20/18 11:00 05/20/18 11:00 05/20/18 11:00 Oxygen Flow Rate (L/min) 1 Oxygen Delivery Method Room Air Weight: 124.5 kg Body Mass Index (BMI) 37.2 Intake and Output for Last 24 Hours 05/18/18 05/19/18 05/20/18 23:59 23:59 23:59 Intake Total 820 / 820 Balance 820 / 820 Microbiology Past 72 Hours 05/20/18 03:02 Respiratory Panel (PCR) - Final Mucosa - Nasopharyngeal Human [place] 05/19/18 20:37 Influenza Types A,B Direct FA (DEUCE) - Final Mucosa - Nasopharyngeal Laboratory Tests Past 24 Hrs 05/19/18 05/19/18 05/19/18 21:00 21:00 21:00 WBC 8.8 RBC 5.11 Hgb 16.0 Hct 45.7 MCV 89.4 MCH 31.3 MCHC 35.0 RDW 12.4 RDW Differential 40.1 Plt Count 245 MPV 9.5 Immature Gran % (Auto) 0.500 Neut % (Auto) 47.0 Lymph % (Auto) 23.5 [place] % (Auto) 11.8 H Eos % (Auto) 16.0 H Baso % (Auto) 1.2 H Absolute Neuts (auto) 4.2 Absolute Lymphs (auto) 2.07 Total Counted Not Reportable Sodium 140 Potassium 3.6 Chloride 109 H Carbon Dioxide 28.0 Anion Gap 3 L BUN 15 Creatinine 0.90 Estim Creat Clear Calc 125.74 Est GFR (MDRD) Af Amer 123 Est GFR (MDRD) Non-Af 101 BUN/Creatinine Ratio 16.6 Glucose 105 Hemoglobin A1c Lactic Acid 0.7 Calcium 8.3 L 05/20/18 05/20/18 05:20 05:20 WBC RBC Hgb Hct MCV MCH MCHC RDW RDW Differential Plt Count MPV Immature Gran % (Auto) Neut % (Auto) Lymph % (Auto) [place] % (Auto) Eos % (Auto) Baso % (Auto) Absolute Neuts (auto) Absolute Lymphs (auto) Total Counted Sodium 141 Potassium 3.9 Chloride 108 H Carbon Dioxide 23.0 Anion Gap 10 BUN 14 Creatinine 1.17 Estim Creat Clear Calc 96.72 Est GFR (MDRD) Af Amer 91 Est GFR (MDRD) Non-Af 75 BUN/Creatinine Ratio 12.0 Glucose 226 H Hemoglobin A1c 5.4 Lactic Acid Calcium 8.3 L Assessment/Plan Patient seen and examined independently. Data reviewed. I agree with the above note by the physician marketing administrative assistant. 1. Acute asthma exacerbation: * improved * likely exacerbated by UTI (Human metapneumovirus) * continue steroids and BDs * pulm on consult Code Visit Inpatient E&M: 68575 Subs Hosp L2
[2018-05-20 12:13] LABS: Hemoglobin A1c 5.4 % (4.2-6.3)
--- NOTE | 2018-05-20 15:31 | CM.UR ---
RN CM Assessment Met face to face with patient for initial transition planning/care coordination assessment. Introduced myself and my role. Verb understanding and agreement for assessment. Presentation: Asthma exacerbation PCP: rashad Specialists: Dr. Muniz Preferred Pharmacy: [facility] Insurance: [email or web address] Prescription Benefit: Yes LNOK: Mother, Isa Baumann Home: apartment. ADLs: completely independent. Transportation: drives self DME: nebulizer. No preference for company. SNF/HHC: None Passport/waiver network mgr: NA Advance Directives: None, Declined additional information. States he has already talked to an customs and immigration officer and started process. DC PLAN: Nader, JORGE. Hi Machuca RN, CCM.
--- NOTE | 2018-05-20 18:59 | NURSING ---
care & documentation provided by SN Anabella, done under the supervision of this RN.
[2018-05-20] MEDS: Benzonatate 100 MG Capsule PO (19:35)
[2018-05-21] VITALS (8 sets, daily range): BP systolic 132–148; BP diastolic 55–59; PULSE 95–113; RESP 16–18; TEMP 36.4–36.7; O2SAT 90–96
[2018-05-21] MEDS: Ipratropium/Albuterol Sulfate 3 ML AMPUL.NEB INHALATION ×2 (03:12→07:03)
[2018-05-21] MEDS: Benzonatate 100 MG Capsule PO ×2 (04:05→08:27)
--- NOTE | 2018-05-21 08:06 | PN_ITS ---
Patient Problems: Active and Suspected Problems (Last Reviewed 05/20/18 @ 06:10 by Sha Young MD) Asthma with status asthmaticus (Acute) Viral upper respiratory infection (Suspected) Subjective: Patient did well overnight. Patient reports subjective improvement in overall condition, but is still having periodic coughing. Patient denies any chest pain, abdominal pain, nausea or vomiting. - Physical Exam General: Alert, Oriented x3, Cooperative, No apparent distress, Well developed, Well nourished, - - Slightly hoarse voice. Speaking in full sentences. HEENT: Atraumatic, PERRLA, EOMI, Normocephalic, - - Scleral injection without icterus Oral: Moist Mucosa, No Gingival or Mucosal Lesions/ Ulcerations Neck: Supple, No JVD, No Nodes, Trachea Midline Lungs: No rhonchi, No rales, Wheezes - At end exhalation, but much improved air exchange compared to yesterday Cardiovascular: Regular Rhythm, Normal S1, Normal S2, No murmurs, No rub noted, No Gallop, Tachycardic Abdomen: Bowel Sounds Present, Soft, Non Tender, Non-Distended, Obese Extremities: No clubbing, No cyanosis, Edema - Trace lower extremity Skin: No rashes, No breakdown, - - Multiple tattoos Musculoskeletal: No Tenderness to Palpation of Joints or Extremities Lymphatic: No Cervical, Supraclavicular, or Inguinal Adenopathy Neurological: Cranial nerves II-XII grossly intact, Neuro grossly intact, Motor Exam 5/5 strength throughout Psych/Mental Status: Alert and oriented to time, place, person, mood and affect Vital Signs Temp Pulse Resp BP Pulse Ox 36.7 C 97 16 148/55 H 96 05/21/18 03:40 05/21/18 07:03 05/21/18 07:03 05/21/18 03:40 05/21/18 07:03 Oxygen Flow Rate (L/min) 1 Oxygen Delivery Method Room Air Weight: 124.5 kg Body Mass Index (BMI) 37.2 Intake and Output for Last 24 Hours 05/19/18 05/20/18 05/21/18 23:59 23:59 23:59 Intake Total 1260 / 1260 720 / 720 Balance 1260 / 1260 720 / 720 Microbiology Past 72 Hours 05/20/18 03:02 Respiratory Panel (PCR) - Final Mucosa - Nasopharyngeal Human [place] 05/19/18 20:37 Influenza Types A,B Direct FA (DEUCE) - Final Mucosa - Nasopharyngeal Laboratory Tests Past 24 Hrs 05/20/18 05:20 Hemoglobin A1c 5.4 Medical Necessity - Tobacco Use Smoking Status: Current every day smoker Tobacco Use: Chew Assessment/Plan All Active Problems (Last Reviewed 05/20/18 @ 06:10 by Sha Young MD) Asthma with status asthmaticus (Acute) Acute hypoxic respiratory insufficiency (Resolved) Acute asthma exacerbation (Acute) RECOMMENDATIONS: 1. Continue mucolytic and bronchodilators 2. Transition to p.o. steroids and wean over 7-10 days 3. Increase activity as tolerated 4. Walking oximetry prior to discharge 5. If no desaturation, patient can be discharged with follow-up in our office in 2 weeks with nurse practitioner IMPRESSIONS: 1. Acute exacerbation of moderate persistent asthma secondary to Human Metapneumovirus Patient appears to be responding well to IV steroids. Patient still has some wheezing, so cough would be expected. Will transition over to prednisone therapy. Patient should have a walking oximetry to be sure that he does not desaturate below 90%, but otherwise can be discharged with a 7-10-day taper and follow-up in our office in 2 weeks. Patient understands that coughing will be expected, but given young age and lack of comorbidities, he can likely do without hospitalization. Code Visit Inpatient E&M: 81390 Subs Hosp L2
[2018-05-21] MEDS: predniSONE 20 MG Tablet 40 MG PO (08:27)
[2018-05-21] MEDS: Loratadine 10 MG Tablet PO (08:27)
[2018-05-21] MEDS: guaiFENesin 1,200 MG Tablet 1200 MG PO (08:27)
[2018-05-21] MEDS: Fluticasone 0.05% 1 SPRAY NASAL.SRY 2 SPRAY NASAL (08:28)
--- NOTE | 2018-05-21 10:05 | DCINST_ITS ---
- Discharge Diagnoses Current Active Problems: Current Active and Chronic Problems (Last Reviewed 05/20/18 @ 06:10 by Sha Young MD) Asthma with status asthmaticus (Acute) You will use the following diet at home:: No restrictions Your food should be the consistency of: Regular Discharge Activity: Return to Normal Activity Call your doctor if you observe: Fever of 101 or Higher, Shortness of breath Allergies/Adverse Reactions: Allergies No Known Allergies Allergy (Verified 05/19/18 20:31) Medications to take at Discharge Albuterol Inhaler [Ventolin Hfa] 2 puff INHALATION Q4H PRN PRN 05/20/13 Fexofenadine/Pseudoephedrine [Chelly-D 12 Hour Tablet] 1 each PO DAILY 11/16/16 fluticasone 100 mcg-vilanterol 25 mcg/dose powder for inhalation 1 inh INHALATION DAILY #1 device 02/07/17 Acetaminophen [Tylenol Tablet] 500 mg PO Q4H PRN tablet 05/21/18 Guaifenesin/Codeine [Robitussin AC] 10 ml PO Q6H PRN PRN #250 ml 05/21/18 predniSONE tablet 10 mg PO DAILY@0800 #25 tablet 05/21/18 The following prescriptions were given: Guaifenesin/Codeine [Robitussin AC] 10 ml PO Q6H PRN PRN #250 ml PRN Reason: coughing fits predniSONE tablet 10 mg PO DAILY@0800 #25 tablet Primary Care Physician: Marleni Holly NP-C [Primary Care Provider] - Within 2 Weeks Test Results: Test results from this visit will be discussed in further detail at your follow- up appointment, if applicable. Please Follow Up With: Catina Lainez NP-C - Pulmonology When: 1-2 weeks Proposed Discharge Date: 05/21/18
--- NOTE | 2018-05-21 10:05 | PCM.DC.SUM ---
Discharge Date and Diagnosis - Problem List Patient Problems: Active and Suspected Problems (Last Reviewed 05/20/18 @ 06:10 by Sha Young MD) Asthma with status asthmaticus (Acute) Viral upper respiratory infection (Acute) Date of Admission: 05/20/18 Date of Discharge: 05/21/18 - Primary Discharge Diagnosis Active and Suspected Problems (Last Reviewed 05/20/18 @ 06:10 by Sha Young MD) Asthma with status asthmaticus (Acute) Viral upper respiratory infection (Suspected) - Secondary Discharge Diagnosis Chronic Problems (Last Reviewed 05/20/18 @ 06:10 by Sha Young MD) Allergic rhinitis (Chronic) Bronchial asthma (Chronic) Hospital Course and Treatment Imaging Results: Clinical Impression(s) from Imaging Studies Chest X-Ray 05/19/18 21:55 IMPRESSION: Normal x-ray examination of the chest. Electronically Signed: Pop Helms MD at 23:26 EDT Tel , Service support , Chilo Muniz MD: pulmonology. Operations: None Procedures: None Summary of Care Provided: The patient is a 33 year old M presents with shortness of breath. Has been going on for 2 weeks and progressively getting worse. Presented to the emergency room, was not hypoxic but was wheezing. Started on bronchodilators as well as steroids with IV Solu-Medrol. Patient was seen in consultation by Dr. Muniz, pulmonology. Patient did have a respiratory viral panel came back positive for human metaphneumo virus. This virus is the etiology of his acute exacerbation of asthma. No treatment is indicated for it. Today patient is feeling better. He was ambulate in the hallway and dropped down to only 90%. Patient be discharged home with a prednisone taper, follow-up at the pulmonary office. [] Patient Problems: Active and Suspected Problems (Last Reviewed 05/20/18 @ 06:10 by Sha Young MD) Asthma with status asthmaticus (Acute) Viral upper respiratory infection (Acute) - Physical Exam General: Alert, No apparent distress HEENT: Atraumatic, Normocephalic Oral: Moist Mucosa, No Gingival or Mucosal Lesions/ Ulcerations Neck: No Nodes, Thyroid Normal Size and Texture Lungs: Normal air movement, Wheezes Cardiovascular: Regular rate, Regular Rhythm, Normal S1, Normal S2, No murmurs Vital Signs Temp Pulse Resp BP Pulse Ox 36.4 C L 100 16 132/59 H 94 05/21/18 09:39 05/21/18 09:39 05/21/18 09:39 05/21/18 09:39 05/21/18 09:39 Oxygen Flow Rate (L/min) 1 Oxygen Delivery Method Room Air Weight: 124.5 kg Body Mass Index (BMI) 37.2 Intake and Output for Last 24 Hours 05/19/18 05/20/18 05/21/18 23:59 23:59 23:59 Intake Total 1260 / 1260 720 / 720 Balance 1260 / 1260 720 / 720 Microbiology Past 72 Hours 05/20/18 03:02 Respiratory Panel (PCR) - Final Mucosa - Nasopharyngeal Human [place] 05/19/18 20:37 Influenza Types A,B Direct FA (DEUCE) - Final Mucosa - Nasopharyngeal Laboratory Tests Past 24 Hrs 05/20/18 05:20 Hemoglobin A1c 5.4 Discharge Diet: No Restrictions Discharge Activity: Return to Normal Activity Call your doctor if you observe: Fever of 101 or Higher, Shortness of breath Home Medications: Medications to take at Discharge Albuterol Inhaler [Ventolin Hfa] 2 puff INHALATION Q4H PRN PRN 05/20/13 Fexofenadine/Pseudoephedrine [Chelly-D 12 Hour Tablet] 1 each PO DAILY 11/16/16 fluticasone 100 mcg-vilanterol 25 mcg/dose powder for inhalation 1 inh INHALATION DAILY #1 device 02/07/17 Acetaminophen [Tylenol Tablet] 500 mg PO Q4H PRN tablet 05/21/18 Guaifenesin/Codeine [Robitussin AC] 10 ml PO Q6H PRN PRN #250 ml 05/21/18 predniSONE tablet 10 mg PO DAILY@0800 #25 tablet 05/21/18 Following Prescrptions Were Given to Patient: Guaifenesin/Codeine [Robitussin AC] 10 ml PO Q6H PRN PRN #250 ml PRN Reason: coughing fits predniSONE tablet 10 mg PO DAILY@0800 #25 tablet Primary Care Physician: Marleni Holly NP-C [Primary Care Provider] - Within 2 Weeks Please Follow Up With: Lainez,Catina, CLERICAL PROOFREADER-C - Pulmonology When: 1-2 weeks Disposition: Home Minutes spent on discharge:: 28 Patient Condition:: Good Medical Necessity - Tobacco Use Smoking Status: Current every day smoker Tobacco Use: Chew Meaningful Use Info Meaningful Use Diagnoses (Choose all that apply): None applicable Code Visit Inpatient E&M: 08362 Disch Hosp
--- NOTE | 2018-05-21 10:08 | DS.PCM_ITS ---
Discharge Date and Diagnosis - Problem List Patient Problems: Active and Suspected Problems (Last Reviewed 05/20/18 @ 06:10 by Sha Young MD) Asthma with status asthmaticus (Acute) Viral upper respiratory infection (Acute) Date of Admission: 05/20/18 Date of Discharge: 05/21/18 - Primary Discharge Diagnosis Active and Suspected Problems (Last Reviewed 05/20/18 @ 06:10 by Sha Young MD) Asthma with status asthmaticus (Acute) Viral upper respiratory infection (Suspected) - Secondary Discharge Diagnosis Chronic Problems (Last Reviewed 05/20/18 @ 06:10 by Sha Young MD) Allergic rhinitis (Chronic) Bronchial asthma (Chronic) Hospital Course and Treatment Imaging Results: Clinical Impression(s) from Imaging Studies Chest X-Ray 05/19/18 21:55 IMPRESSION: Normal x-ray examination of the chest. Electronically Signed: Pop Helms MD at 23:26 EDT Tel , Service support , Chilo Muniz MD: pulmonology. Operations: None Procedures: None Summary of Care Provided: The patient is a 33 year old M presents with shortness of breath. Has been going on for 2 weeks and progressively getting worse. Presented to the emergency room, was not hypoxic but was wheezing. Started on bronchodilators as well as steroids with IV Solu-Medrol. Patient was seen in consultation by Dr. Muniz, pulmonology. Patient did have a respiratory viral panel came back positive for human metaphneumo virus. This virus is the etiology of his acute exacerbation of asthma. No treatment is indicated for it. Today patient is feeling better. He was ambulate in the hallway and dropped down to only 90%. Patient be discharged home with a prednisone taper, follow-up at the pulmonary office. [] Patient Problems: Active and Suspected Problems (Last Reviewed 05/20/18 @ 06:10 by Sha Young MD) Asthma with status asthmaticus (Acute) Viral upper respiratory infection (Acute) - Physical Exam General: Alert, No apparent distress HEENT: Atraumatic, Normocephalic Oral: Moist Mucosa, No Gingival or Mucosal Lesions/ Ulcerations Neck: No Nodes, Thyroid Normal Size and Texture Lungs: Normal air movement, Wheezes Cardiovascular: Regular rate, Regular Rhythm, Normal S1, Normal S2, No murmurs Vital Signs Temp Pulse Resp BP Pulse Ox 36.4 C L 100 16 132/59 H 94 05/21/18 09:39 05/21/18 09:39 05/21/18 09:39 05/21/18 09:39 05/21/18 09:39 Oxygen Flow Rate (L/min) 1 Oxygen Delivery Method Room Air Weight: 124.5 kg Body Mass Index (BMI) 37.2 Intake and Output for Last 24 Hours 05/19/18 05/20/18 05/21/18 23:59 23:59 23:59 Intake Total 1260 / 1260 720 / 720 Balance 1260 / 1260 720 / 720 Microbiology Past 72 Hours 05/20/18 03:02 Respiratory Panel (PCR) - Final Mucosa - Nasopharyngeal Human [place] 05/19/18 20:37 Influenza Types A,B Direct FA (DEUCE) - Final Mucosa - Nasopharyngeal Laboratory Tests Past 24 Hrs 05/20/18 05:20 Hemoglobin A1c 5.4 Discharge Diet: No Restrictions Discharge Activity: Return to Normal Activity Call your doctor if you observe: Fever of 101 or Higher, Shortness of breath Home Medications: Medications to take at Discharge Albuterol Inhaler [Ventolin Hfa] 2 puff INHALATION Q4H PRN PRN 05/20/13 Fexofenadine/Pseudoephedrine [Chelly-D 12 Hour Tablet] 1 each PO DAILY 11/16/16 fluticasone 100 mcg-vilanterol 25 mcg/dose powder for inhalation 1 inh INHALATION DAILY #1 device 02/07/17 Acetaminophen [Tylenol Tablet] 500 mg PO Q4H PRN tablet 05/21/18 Guaifenesin/Codeine [Robitussin AC] 10 ml PO Q6H PRN PRN #250 ml 05/21/18 predniSONE tablet 10 mg PO DAILY@0800 #25 tablet 05/21/18 Following Prescrptions Were Given to Patient: Guaifenesin/Codeine [Robitussin AC] 10 ml PO Q6H PRN PRN #250 ml PRN Reason: coughing fits predniSONE tablet 10 mg PO DAILY@0800 #25 tablet Primary Care Physician: Marleni Holly NP-C [Primary Care Provider] - Within 2 Weeks Please Follow Up With: Lainez,Catina, CLOUD SERVICES ARCHITECT-C - Pulmonology When: 1-2 weeks Disposition: Home Minutes spent on discharge:: 28 Patient Condition:: Good Medical Necessity - Tobacco Use Smoking Status: Current every day smoker Tobacco Use: Chew Meaningful Use Info Meaningful Use Diagnoses (Choose all that apply): None applicable Code Visit Inpatient E&M: 22293 Disch Hosp
--- NOTE | 2018-05-21 17:44 | NURSING ---
pt care & documentation provided by SN Anabella, done under the supervision of this RN.
--- NOTE | 2018-05-22 14:39 | CASEMGMT ---
RN CM Discharge F/U Phone Call LACE: 10 Strata: 3 Discharge date: 05/21/18 Call date: 05/22/18 Call time: [id number] Attempted to reach pt without success at this time, message left for pt to call this RN CM back, if able. SStaten RN CM Admission dx: Asthmaticus
== END 2018-05-21 11:14 | disposition home or self-care (01) | DRG 203 ==
LOC: ED 22:54 → PCU 23:45
PROVIDERS: Physician Assistant; Admitting Provider Hospitalist; Emergency Provider Emergency Medicine; Family Provider Nurse Practitioner; PCP Nurse Practitioner
DX: J45.42 Moderate persistent asthma with status asthmaticus (principal); J06.9 Acute upper respiratory infection, unspecified; B97.81 Human metapneumovirus as the cause of diseases classified elsewhere; Z72.0 Tobacco use; E66.9 Obesity, unspecified; Z68.37 Body mass index [BMI] 37.0-37.9, adult
CPT/HCPCS: 36415; 71046; 80048; 83036; 83605; 85025; 87633; 87804; 94640; 94667; 94668; 97802; 99283; J7030; A4216; J3475

== ENCOUNTER → 2019-01-19 15:42 | Outpatient (CLI) | payer OTHER, SELFPAY ==
[2019-01-19 15:06] VITALS: BMI 37.1
[2019-01-19 17:04] LABS: Eosinophil# 0.76 X10^3/uL; Eosinophils% 7.9 % (0-5); Hemoglobin 15.7 g/dL (13.0-16.5); Lymphocyte % 29.2 % (19-41); Mean Corp Hgb Conc 33.4 g/dL (32-36); Mean Corpuscular Hgb 30.7 pg (27.0-32.0); Mean Platelet Vol. 10.1 fl (6.2-12.0); Monocyte# 0.84 X10^3/uL; Monocyte% 8.8 % (0-10); NRBC Flagged by Analyzer 0 % (0-5); Neutrophil # 5.04 X10^3/uL (2.7-7.7); Neutrophil % 52.6 % (47-70); Platelet Count 280 K/mm3 (150-450); RBC Distribution Width CV 12.3 % (11.6-14.6); RBC Distribution Width SD 41.7 fl (35.1-43.9); Red Blood Count 5.11 M/mm3 (4.6-6.2); White Blood Count 9.6 K/mm3 (4.4-11.0)
== END ==
PROVIDERS: Family Provider Nurse Practitioner; PCP Nurse Practitioner; Referring Provider Nurse Practitioner Acute Care; Visit Provider Nurse Practitioner Acute Care
DX: J45.901 Unspecified asthma with (acute) exacerbation (principal)
CPT/HCPCS: 36415; 85025

== ENCOUNTER 2019-04-21 06:54 | Emergency (ER) | payer OTHER, SELFPAY ==
[2019-04-05 08:34] VITALS: BMI 35.2
[2019-04-21 06:56] VITALS: BP 142/80; PULSE 76; RESP 16; TEMP 36.8; O2SAT 96; BMI 36.1
--- NOTE | 2019-04-21 07:08 | ED.DCSUM_ITS ---
- ER Visit Summary Date of Service: 04/21/19 Chief Complaint: [Dental pain] History of Present Illness: The patient is a 34 M [presents to the emergency department complaint of dental pain that started this morning. Patient states that he had wisdom teeth extracted from the right side of his mouth 5 days ago. The dentist also attempted to remove the left wisdom teeth unsuccessfully. Patient was started on amoxicillin and given Tylenol with codeine for pain. He had been doing relatively well until this morning he woke up with severe pain to the left side of his face and a hard time opening his mouth secondary to the pain. He denies any fevers.] Physical Examination: [HEENT-PERRLA, EOMI. Cranial nerves II through XII grossly intact. TMs clear. Mucous membranes moist. No adenopathy. Dental extractions noted to the right upper and lower molars numbers 1 and 32. Evalu ation of the left side of the dentition notes that he has some tenderness to palpation over the left #16 and 17 molars however I do not appreciate any soft tissue swelling or abscess. There is some minimal erythema noted. Patient has no facial swelling that is noted or facial cellulitis. Uvula is in the midline. Significant adenopathy noted. Cardiovascular-regular rate and rhythm without murmur or ectopy Lungs-clear to auscultation, chest wall stable without crepitus or subcu emphysema Abdomen-normoactive bowel sounds, soft, nontender, no rebound or rigidity, no peritoneal signs. Extremities-intact ?4, normal range of motion, normal pulses, atraumatic] Test Results: [None indicated] Emergency Department Course and Treatment: [Patient was given a dose of clindamycin in the emergency department. He is to continue with the Tylenol with codeine as well as the Advil. Patient will attempt to contact his oral surgeon today. Patient advised to return if fever, increased swelling, or condition should worsen anyway.] Treatment Plan: [Patient to follow-up with his oral surgeon. We will switch him to clindamycin.] Disposition: [Discharged home in stable condition] Impression: [Dental pain status post attempted extraction of left upper and lower molars] This note was generated with [employer] dictation software. It may contain incorrect words, spelling, and punctuation that were not noted in review of the chart prior to signing ED Disposition - Plan for ED Patient: Referrals: Marleni Holly, PHYSICAL EDUCATION TEACHER-C [Primary Care Provider] -
--- NOTE | 2019-04-21 07:13 | ED.DEP ---
ED Disposition - Plan for ED Patient: Instructions: Dental Pain Prescriptions: Clindamycin HCl [Cleocin] 300 mg PO Q6H #40 cap Transmission Status: Pending to [id number] Referrals: Marleni Holly NP-C [Primary Care Provider] - Additional Instructions: call your dentist for follow up appointment
[2019-04-21] MEDS: Clindamycin HCl 150 MG Capsule 300 MG PO (07:20)
== END 2019-04-21 07:28 | disposition home or self-care (01) ==
LOC: ED 07:12
PROVIDERS: Emergency Provider Emergency Medicine; PCP Nurse Practitioner
DX: K08.89 Other specified disorders of teeth and supporting structures (principal); Z98.818 Other dental procedure status; J45.909 Unspecified asthma, uncomplicated
CPT/HCPCS: 99283

== ENCOUNTER → 2020-01-11 17:44 | Outpatient (CLI) | payer OTHER, SELFPAY ==
[2019-11-30 08:21] VITALS: BMI 36.1
== END ==
PROVIDERS: PCP Nurse Practitioner; Visit Provider Nurse Practitioner Acute Care
DX: J45.901 Unspecified asthma with (acute) exacerbation (principal)
CPT/HCPCS: 87632; 87633; C9803

== ENCOUNTER 2020-11-17 08:50 | Emergency (ER) | payer OTHER, SELFPAY ==
[2020-11-17 08:50] VITALS: BP 135/82; PULSE 80; RESP 16; TEMP 36.9; O2SAT 96; BMI 35.2
--- NOTE | 2020-11-17 09:17 | RAD_ITS ---
STUDY: X-RAY - RIGHT KNEE REASON FOR EXAM: Sudden onset of posterior knee pain, no specific injury. TECHNIQUE: 4 view(s) of the knee. COMPARISON: Radiographs 05/31/2013. FINDINGS: There are postoperative changes of the distal femur and proximal tibia from anterior cruciate ligament reconstruction. Normal proximal tibiofibular articulation. Normal medial femorotibial compartment. There are marginal osteophytes and moderate to severe joint space narrowing of the lateral femorotibial compartment, increased since the prior study. There are small marginal osteophytes and preservation of joint space of the patellofemoral articulation. There is a joint effusion. There are small intra-articular bodies in the distal popliteus tendon sheath. RAD/Knee 4 or More Views IMPRESSION: Arthrosis of the lateral femorotibial compartment. Joint effusion. Small intra-articular bodies. Electronically Signed: Aquilino Perkins MD at 11:17 EDT Tel , Service support ,
--- NOTE | 2020-11-17 09:17 | VDLE_ITS ---
Reason For Study: Pain RIGHT GSV is normal. CFV is compressible, spontaneous, phasic, competent and demonstrates normal augmentation. FV is compressible, spontaneous, phasic, competent and demonstrates normal augmentation. POP V is compressible, spontaneous, phasic, competent and demonstrates normal augmentation. T/P Trunk is compressible. PTV is compressible. RT PerV is compressible. Procedure This is a venous duplex using B-mode, color flow and spectral Doppler. Exam performed portable in ED. A preliminary report was called and/or faxed to Dr. Scanlon. VL/Venous Duplex US, Unilateral Interpretation Summary Deep veins of the right lower extremity are patent and compressible segmentally . There is no evidence of right lower extremity deep vein thrombosis. Valvular competence david ears intact within the proximal deep venous system on the right . The right great saphenous vein a ppears patent and compressible segmentally. Ordering Physician: Matheus Scanlon Referring Physician: Marleni Holly Performed By: Gina Brooks, DAVIONCS, RVT
[2020-11-17] MEDS: Ondansetron ODT 4 MG Tablet PO (10:34)
[2020-11-17] MEDS: Morphine 4 MG/ML Syringe 8 MG IM (10:34)
--- NOTE | 2020-11-17 12:47 | EDS_ITS ---
HPI History of Present Illness Chief Complaint: Lower Extremity Injury Narrative Narrative: Patient states he was walking around at the [employer] football game on Tuesday. He states there is no injury but on Tuesday afternoon he was standing when he felt pain in his right knee. He states since that time is been pain and swelling of the right knee and makes it difficult to ambulate. He denies any fevers or chills any history of DVT/PE. He does report a history of a Hoang's cyst in the left leg and has concern for that secondary to his pain in the right and therefore comes in for evaluation [facility] Medical History (Updated 11/17/20 @ 12:[address] Matheus Scanlon, ) Acute asthma exacerbation Acute bronchitis Acute hypoxic respiratory insufficiency Allergic rhinitis Bronchial asthma Maxillary sinusitis Home Medications calcium phos,dibas-vitamin D3 [Vitamin D (with calcium)] tab PO 11/17/20 [History Last Taken Unknown] hydrocodone-acetaminophen 1 tab PO Q6H PRN 3 Days #12 tab 11/17/20 [Rx Last Taken Unknown] Allergy/AdvReac Type Severity Reaction Status Date / Time No Known Allergies Allergy Verified 11/17/20 08:53 Family History Father Asthma Diabetes Hypertension Grandmother Asthma Surgical History H/O sinus surgery Social History Smoking Status: Former smoker Tobacco: How many years used: 10 how long ago did patient quit smokin, 1ppd second hand exposure: Yes alcohol intake: never substance use type: does not use ROS ROS ED Constitutional Constitutional ED: Denies chills or fever(s) ENT ENT ED: Denies sore throat Cardiovascular Cardiovascular: Denies chest pain Respiratory/Chest Respiratory/Chest: Denies cough or dyspnea Gastrointestinal Gastrointestinal: Denies abdominal pain, diarrhea, nausea or vomiting Genitourinary Genitourinary ED: Denies dysuria Musculoskeletal Musculoskeletal: Reports other Details: Positive right knee pain ; Denies myalgias Integumentary Denies rash Neurologic Neurologic: Denies headache(s) Hematologic/Lymphatic Hematologic/Lymphatic: Denies easy bleeding or easy bruising EXAM Physical Exam Const Vital Signs: 11/17/20 08:50 Temperature 98.5 F Temperature Source Temporal Pulse Rate 80 Respiratory Rate 16 Blood Pressure 135/82 H Blood Pressure Mean 99 Pulse Ox 96 Oxygen Delivery Method Room Air Positive well nourished and well developed General Appearance ED: well developed HEENT Reports moist mucous membranes Eyes PERRL and EOMs intact bilaterally Neck supple Resp normal respiratory effort and clear to auscultation bilaterally Cardio regular rate and regular rhythm GI non-tender and non-distended Auscultation: normoactive bowel sounds Palpation: soft Extremity Extremity Narrative: Right lower extremity is neurovascularly intact. Patient has soft tissue swelling to the anterior aspect of the right knee consistent with a joint effusion. There is no overlying erythema or warmth no ecchymosis noted. Patellar tendon is intact knee ligaments are stable. No asymmetric edema in the calf noted and negative Homans' sign bilaterally Neuro oriented x3 and CN's II-XII intact bilaterally Sensorium / Orientation: alert Psych mental status grossly normal Skin no rashes or lesions noted MDM MDM MDM Narrative Medical decision making narrative: Patient presented to the ER with nontraumatic pain to his right knee. Clinically it was swollen consistent with a joint effusion and there was no report or signs of trauma or overlying infectious process. Therefore have low concern for septic joint do not feel there is need for laboratory studies. Venous duplex was obtained which showed no acute DVT or Hoang's cyst. X-ray confirmed joint effusion consistent with exam but no bony trauma. Therefore at this time I feel patient has a joint effusion secondary to overuse from walking around at the football game. He will be placed in an Avila wrap and given pain medication and can follow-up with orthopedics if symptoms persist Radiography Diagnostic Testing: Radiology Impression Knee X-Ray 11/17/20 09:17 IMPRESSION: Arthrosis of the lateral femorotibial compartment. Joint effusion. Small intra-articular bodies. Electronically Signed: Aquilino Perkins MD at 11:17 EDT Tel , Service support , Discharge Plan Triage Chief Complaint: Lower Extremity Injury ED Provider: Matheus Scanlon Dx/Rx/DC Orders Clinical Impression: Effusion of knee joint right Instructions: ED Knee Effusion Prescriptions: New hydrocodone-acetaminophen 5-325 mg tablet 1 tab PO Q6H PRN (Reason: pain) 3 Days Qty: 12 RF: 0 No Action Vitamin D (with calcium) 77-400 mg-unit Tablet PO RF: 0 Primary Care Provider: Rosario Murphy Referrals: Rosario Murphy MD [Primary Care Provider] - Disposition Disposition: Home, Self Care
== END 2020-11-17 13:06 | disposition home or self-care (01) ==
PROVIDERS: Emergency Provider Emergency Medicine; PCP Internal Medicine
DX: M25.461 Effusion, right knee (principal); M25.561 Pain in right knee; M79.604 Pain in right leg; J45.909 Unspecified asthma, uncomplicated; Z87.891 Personal history of nicotine dependence
CPT/HCPCS: 73564; 93971; 96372; 99283

== ENCOUNTER 2021-03-20 00:59 | Emergency (ER) | payer OTHER, SELFPAY ==
[2021-03-20 01:00] VITALS: BP 135/92; PULSE 111; RESP 18; TEMP 36; O2SAT 100; BMI 38.5
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
[2021-03-20] MEDS: Albuterol 2.5 MG/3 ML VIAL.NEB. INHALATION (01:15)
[2021-03-20] MEDS: Acetaminophen 500 MG Tablet 1000 MG PO (01:28)
[2021-03-20] MEDS: predniSONE 20 MG Tablet 60 MG PO (01:29)
[2021-03-20 01:35] VITALS: PULSE 108; RESP 20
[2021-03-20 01:37] LABS: Carboxyhemoglobin Frac (CO) 1.9 % (0.0-1.5)
[2021-03-20 01:58] VITALS: BP 141/72; PULSE 103; RESP 18; O2SAT 97
== END 2021-03-20 01:59 | disposition home or self-care (01) ==
LOC: ED 01:27
PROVIDERS: Emergency Provider Emergency Medicine; PCP Internal Medicine; Visit Provider Emergency Medicine
DX: T59.811A Toxic effect of smoke, accidental (unintentional), initial encounter (principal); J70.5 Respiratory conditions due to smoke inhalation; J45.901 Unspecified asthma with (acute) exacerbation; R51.9 Headache, unspecified; Z87.891 Personal history of nicotine dependence
CPT/HCPCS: 82375; 94640; 99284

== ENCOUNTER 2022-01-13 11:32 | Inpatient (IN) | payer OTHER, SELFPAY ==
[2022-01-13 11:32] VITALS: BP 139/67; PULSE 67; RESP 16; TEMP 37; O2SAT 99; BMI 32.5
--- NOTE | 2022-01-13 12:28 | EDS_ITS ---
HPI History of Present Illness Chief Complaint: Flank Pain Informant: patient Narrative Narrative: 37-year-old male presenting to the emergency department with chief complaint of right flank pain. Patient states that 2 weeks ago he had a left knee surgery that went well. He states that yesterday while working in [employer] he developed a sharp stabbing constant pain in the right flank. He notes that it has not gone away and is not waxing and waning. He went to [facility] had a noncontrasted CT blood and urine and was diagnosed with musculoskeletal pain and given a prescription for Flexeril. He states he did not fill that. He is presenting today with continued pain. He denies any testicular pain. He notes his urine is darker than normal. No fevers. He denies any abdominal pain. He notes that the pain is worse with movements and touch. He denies any rashes or known trauma. He denies any chest pain or shortness of breath. No prior history of DVT or PE. He states that leaning forward does seem to help his pain. [facility] Medical History (Updated 01/13/22 @ 16:[address] Mone Luciano DO) Acute asthma exacerbation Acute bronchitis Acute hypoxic respiratory insufficiency Allergic rhinitis Bronchial asthma Maxillary sinusitis Home Medications benralizumab 30 mg/mL subcutaneous syringe (Fasenra) 30 mg subcut Q60D ASTHMA 03/20/21 [History Last Taken 11/15/21] albuterol sulfate 2.5 mg/3 mL (0.083 %) solution for nebulization 2.5 mg inhalation Q4H PRN Shortness Of Breath Or Wheezing 01/13/22 [History Last Taken Unknown] dextroamphetamine-amphetamine ER 10 mg 24hr capsule,extend release (Adderall XR) 10 mg PO DAILY ADHD 01/13/22 [History Last Taken 01/11/22] Allergy/AdvReac Type Severity Reaction Status Date / Time No Known Allergies Allergy Verified 01/13/22 11:35 Family History Father Asthma Diabetes Hypertension Grandmother Asthma Surgical History H/O sinus surgery Social History Smoking Status: Former smoker Tobacco: How many years used: 10 how long ago did patient quit smokin, 1ppd second hand exposure: Yes alcohol intake: never substance use type: does not use ROS ROS ED Constitutional Constitutional ED: Denies chills or weight loss Eyes Eyes: Denies change in vision or diplopia ENT ENT ED: Denies ear pain, rhinorrhea or sore throat Cardiovascular Cardiovascular: Denies chest pain, orthopnea, palpitations or racing heartbeat Respiratory/Chest Respiratory/Chest: Denies cough, dyspnea or orthopnea Gastrointestinal Gastrointestinal: Denies abdominal pain, diarrhea, nausea or vomiting Genitourinary Genitourinary ED: Denies dysuria, hematuria or urinary frequency Musculoskeletal Musculoskeletal: Reports back pain; Denies arthralgias or myalgias Integumentary Denies abscess or rash Neurologic Neurologic: Denies headache(s) or weakness Psychiatric Psychiatric: Denies anxiety, depression, suicidal ideation or suicidal thoughts Endocrine Endocrinology: Denies polydipsia, polyphagia or polyuria Allergic/Immunologic Allergic/Immunologic ED: Denies mouth swelling, tongue swelling or urticaria EXAM Physical Exam Const Vital Signs: 01/13/22 11:32 Temperature 98.6 F Temperature Source Temporal Pulse Rate 67 Respiratory Rate 16 Blood Pressure 139/67 H Blood Pressure Mean 91 Pulse Ox 99 Oxygen Delivery Method Room Air Positive well nourished and well developed General Appearance ED: well developed HEENT Reports normocephalic, head/scalp atraumatic and moist mucous membranes Eyes PERRL and EOMs intact bilaterally Neck no lymphadenopathy, supple and no JVD Resp normal respiratory effort and clear to auscultation bilaterally Cardio regular rate, regular rhythm and no murmurs GI normal to inspection, nondistended, normoactive bowel sounds and non-tender Palpation: soft Back/Spine no CVA tenderness Back/Spine Narrative: Tender to palpation in the right flank paraspinal musculature. There is no alex hes. There is no CVA tenderness. Extremity normal to inspection General Extremety ED: Negative for edema General Extremity: Negative for edema Neuro oriented x3 and CN's II-XII intact bilaterally Sensorium / Orientation: alert Motor Exam: strength 5/5 throughout Psych mental status grossly normal Mood & Affect: Negative for depressed or tearful Skin no rashes or lesions noted and no wounds MDM MDM MDM Narrative Medical decision making narrative: White count elevated 15.5. D-dimer is elevated at 0.57. Urinalysis shows 25-50 red blood cells. Creatinine is 1.51 on my concerns was for a pulmonary embolism masquerading as flank pain. CTA of the chest was obtained and was negative. CT of the abdomen pelvis with IV contrast was obtained which demonstrates multiple areas of renal infarct on the right. The patient has no history of DVT or PE. He does do some extensive [place] and had surgery 2 weeks ago. He obtained an EKG given a dose of Lovenox after we draw a hypercoagulable panel and plan will be admission Lab Data Attestation: I reviewed the patient's lab results. Labs: Laboratory Results - last 24 hr 01/13/22 01/13/22 01/13/22 11:42 11:45 11:45 WBC 15.5 H RBC 4.62 Hgb 14.1 Hct 41.4 MCV 89.6 MCH 30.5 MCHC 34.1 RDW Std Deviation 37.9 RDW Coeff of Brandee 11.8 Plt Count 215 MPV 9.5 Immature Gran % (Auto) 0.800 Neut % (Auto) 75.7 H Lymph % (Auto) 11.8 L [place] % (Auto) 11.4 H Eos % (Auto) 0.0 Baso % (Auto) 0.3 Absolute Neuts (auto) 11.7 H Absolute Lymphs (auto) 1.82 Nucleated RBC % 0 Diff Path Review May foll Platelet Estimate ADEQUATE RBC Morphology N CYTIC D-Dimer Quant (PE/DVT) 0.57 H* Sodium Potassium Chloride Carbon Dioxide Anion Gap BUN Creatinine Estim Creat Clear Calc Est GFR (MDRD) Af Amer Est GFR (MDRD) Non-Af BUN/Creatinine Ratio Glucose Calcium Total Bilirubin Direct Bilirubin AST ALT Alkaline Phosphatase Total Protein Albumin Globulin Lipase Urine Color Yellow Urine Clarity Clear Urine pH 6.0 Ur Specific [place] 1.020 Urine Protein 30 H Urine Glucose (UA) Normal Urine Ketones 5 H Urine Occult Blood 250 H Urine Nitrite Negative Urine Bilirubin Negative Urine Urobilinogen 4 H Ur Leukocyte Esterase 25 H Urine RBC 25-50 SEEN Urine WBC 0-5 SEEN Ur Squamous Epith Cells 0 SEEN Urine Bacteria 0 SEEN Urine Mucus 0 SEEN 01/13/22 11:45 WBC RBC Hgb Hct MCV MCH MCHC RDW Std Deviation RDW Coeff of Brandee Plt Count MPV Immature Gran % (Auto) Neut % (Auto) Lymph % (Auto) [place] % (Auto) Eos % (Auto) Baso % (Auto) Absolute Neuts (auto) Absolute Lymphs (auto) Nucleated RBC % Diff Path Review Platelet Estimate RBC Morphology D-Dimer Quant (PE/DVT) Sodium 137 Potassium 3.9 Chloride 104 Carbon Dioxide 26.0 Anion Gap 7 BUN 11 Creatinine 1.15 Estim Creat Clear Calc 100.27 Est GFR (MDRD) Af Amer 91 Est GFR (MDRD) Non-Af 75 BUN/Creatinine Ratio 9.6 L Glucose 124 H Calcium 8.9 Total Bilirubin 1.30 H Direct Bilirubin 0.28 AST 55 H ALT 74 H Alkaline Phosphatase 54 Total Protein 7.1 Albumin 3.5 Globulin 3.6 Lipase 95 Urine Color Urine Clarity Urine pH Ur Specific [place] Urine Protein Urine Glucose (UA) Urine Ketones Urine Occult Blood Urine Nitrite Urine Bilirubin Urine Urobilinogen Ur Leukocyte Esterase Urine RBC Urine WBC Ur Squamous Epith Cells Urine Bacteria Urine Mucus Radiography Diagnostic Testing: Clinical Impression(s) from Imaging Studies Abdomen/Pelvis CT 01/13/22 13:29 IMPRESSION: Heterogeneous enhancement of the right kidney as described preferentially along its lateral and upper mid poles. This may represent either an inflammatory process such as acute pyelonephritis versus possible infarcts. Follow-up is recommended. Electronically Signed: Anderson Payne MD at 14:02 EST , Chest CTA 01/13/22 13:29 IMPRESSION: Normal CTA chest examination, without a demonstrated pulmonary embolism or arterial dissection. Mild linear atelectasis at the right lung base. Electronically Signed: Anderson Payne MD at 14:04 EST , EKG Initial EKG: Attestation: I personally reviewed and interpreted this EKG as follows: Comments: Sinus bradycardia with a ventricular rate of 56 bpm Discharge Plan Dx/Rx/DC Orders Clinical Impression: Renal infarct, Acute right flank pain Disposition Disposition: Acute Care [facility]
[2022-01-13 12:34] LABS: Bacteria 0 SEEN /hpf (None Seen); Mucous, Urine 0 SEEN /hpf (<or=2+); Squamous Epithelial Cells - UA 0 SEEN /hpf (0-5)
[2022-01-13 12:37] LABS: Absolute Lymphocyte Count 1.82 X10^3/uL (0.83-4.51); Absolute Neutrophil Count 11.7 X10^3/uL (2.0-7.7); Basophil# 0.04 X10^3/uL; Basophil% 0.3 % (0-1); Hematocrit 41.4 % (40-54); Hemoglobin 14.1 g/dL (13.0-16.5); Lymphocyte # 1.82 X10^3/ul (0.83-4.51); Lymphocyte % 11.8 % (19-41); Mean Corp Hgb Conc 34.1 g/dL (32-36); Mean Corpuscular Hgb 30.5 pg (27.0-32.0); Mean Corpuscular Volume 89.6 fL (80-94); Mean Platelet Vol. 9.5 fl (6.2-12.0); Monocyte# 1.76 X10^3/uL; Monocyte% 11.4 % (0-10); NRBC Flagged by Analyzer 0 % (0-5); Neutrophil # 11.71 X10^3/uL (2.7-7.7); Neutrophil % 75.7 % (47-70); POSITIVE DIFFERENTIAL YES; Platelet Count 215 K/mm3 (150-450); RBC Distribution Width CV 11.8 % (11.6-14.6); RBC Distribution Width SD 37.9 fl (35.1-43.9); Red Blood Count 4.62 M/mm3 (4.6-6.2); White Blood Count 15.5 K/mm3 (4.4-11.0)
[2022-01-13] MEDS: Ketorolac 30 MG/ML Syringe IV (12:38)
[2022-01-13] MEDS: Ondansetron 4 MG/2 ML Vial IV (12:38)
[2022-01-13] MEDS: HYDROmorphone 1 MG/ML Syringe IV (12:38)
[2022-01-13 12:40] LABS: Differential Indicated SCAN CRITERIA MET
[2022-01-13 12:40] LABS: Color, Urine Yellow (Yellow); Glucose, Dipstick Normal (Normal); Ketone-Dipstick 5 mg/dl (Negative); Leukocyte Esterase-Dipstick 25 /ul (Negative); Nitrite-Dipstick Negative (Negative); Occult Blood-Urine 250 /ul (Negative); Protein-Dipstick 30 mg/dl (Negative); Urine Bilirubin Dipstick Negative (Negative); Urine Clarity Clear (Clear); Urine Urobilinogen 4 mg/dl (Normal)
[2022-01-13 12:46] LABS: Red Blood Cells-Urine 25-50 SEEN /hpf (0-5); White Blood Cells 0-5 SEEN /hpf (0-5)
[2022-01-13 12:52] LABS: D-Dimer Quantitative (DVT/PE) 0.57 FEU/ug/m (0.27-0.49)
[2022-01-13 12:55] LABS: AST(SGOT) 55 U/L (15-37); Alanine Aminotransfer ALT/SGPT 74 U/L (16-61); Albumin, Serum 3.5 g/dL (3.2-5.0); Alkaline Phosphatase 54 U/L (45-117); Anion Gap 7 (5-15); BUN 11 mg/dL (7-18); BUN/Creat Ratio 9.6 RATIO (10-20); Bilirubin, Direct 0.28 mg/dL (0.00-0.30); Calcium,Total 8.9 mg/dL (8.5-10.1); Chloride 104 mmol/L (98-107); Creatinine, Serum 1.15 mg/dL (0.70-1.30); EST Glomerular Filtration Rate 75 mL/min (>60); Est Glom Filt Rate - Afr Amer 91 mL/min (>60); Estimated Creatinine Clearance 100.27 ml/min; Globulin 3.6 g/dL (2.2-4.2); Glucose 124 mg/dL (74-106); Lipase 95 U/L (73-393); Potassium 3.9 mmol/L (3.5-5.1); Protein, Total 7.1 g/dL (6.4-8.2); Sodium Level 137 mmol/L (136-145)
[2022-01-13 13:09] LABS: Platelet Estimate ADEQUATE (ADEQ); Red Cell Morphology N CYTIC NORMAL (NORM C&C)
--- NOTE | 2022-01-13 13:29 | CT_ITS ---
STUDY: CTA CHEST REASON FOR EXAM: Male, 37 years old. Right flank pain. Dark urine. Nausea and vomiting. RADIATION DOSAGE (If Supplied By Facility): CTDIvol = ( 25.08 ) mGy, DLP = ( 3257.42 ) mGycm TECHNIQUE: The examination was performed with the intravenous administration of IV 100mL Isovue-370. Post-processing of the angiographic images was performed, with multiplanar reformation and 3D reconstruction. Individualized dose optimization techniques were used for this CT. COMPARISON: None. FINDINGS: There are small benign appearing bilateral axillary lymph nodes Normal enhancement of the main pulmonary artery and right and left pulmonary arteries. Normal enhancement of the bilateral peripheral pulmonary arteries. There is no demonstrated pulmonary embolism. Normal thoracic aorta and visualized great vessels. There is no demonstrated aortic dissection. Normal heart and pericardium. Normal mediastinum. Calcified right hilar lymph nodes Normal visualized trachea and bronchi. The lungs are well expanded. Minimal increased linear markings at the right lung base suggestive of linear atelectasis. Normal pleura. Normal chest wall structures. Normal osseous structures. Fatty infiltration of the liver CT/CTA Chest W/WO Contrast IMPRESSION: Normal CTA chest examination, without a demonstrated pulmonary embolism or arterial dissection. Mild linear atelectasis at the right lung base. Electronically Signed: Anderson Payne MD at 14:04 [facility] ,
--- NOTE | 2022-01-13 13:29 | CT_ITS ---
STUDY: CT ABDOMEN AND PELVIS WITH CONTRAST REASON FOR EXAM: Male, 37 years old. Right flank pain. Dark urine. Nausea and vomiting. RADIATION DOSAGE (If Supplied By Facility): CTDIvol = ( 25.08 ) mGy, DLP = ( 3257.42 ) mGycm TECHNIQUE: Transaxial images were obtained from the dome of the diaphragm to the symphysis pubis without oral contrast. IV 100mL Isovue-370 was administered. Sagittal and coronal images were reconstructed. Individualized dose optimization techniques were used for this CT. COMPARISON: Comparison is made with prior examination dated 02/20/2012. FINDINGS: The visualized lung bases are unremarkable. The visualized portions of the heart are within normal limits. Normal liver. Normal gallbladder and extrahepatic biliary system. Normal spleen. Normal pancreas. Normal bilateral adrenal glands. Heterogeneous enhancement of the right kidney more prominent in the upper and mid poles. This may represent either findings suggestive of a pyelonephritis versus possible renal infarcts. Normal left kidney. Normal visualized stomach. Normal small intestine. Normal colon. The appendix is visualized and appears normal. There is scattered atherosclerotic calcification of the abdominal aorta, without a demonstrated aneurysm. Normal inferior vena cava. There is borderline retroperitoneal lymphadenopathy with enlarged nodes no greater than 10mm in the short axis diameter. Normal urinary bladder. Normal abdominal wall. There are mild degenerative changes of the visualized lumbar spine. CT/Abdomen/Pelvis W IV Cont ONLY IMPRESSION: Heterogeneous enhancement of the right kidney as described preferentially along its lateral and upper mid poles. This may represent either an inflammatory process such as acute pyelonephritis versus possible infarcts. Follow-up is recommended. Electronically Signed: Anderson Payne MD at 14:02 EST ,
--- NOTE | 2022-01-13 16:09 | NURSING ---
DR JAMILA HAGER
--- NOTE | 2022-01-13 16:19 | NURSING ---
PC[facility]
--- NOTE | 2022-01-13 16:28 | ECHOCS_ITS ---
Reason For Study: Rt. flank pain Procedure This was a 2D Doppler, Color Flow transthoracic echocardiogram. The study was technically difficult. Exam performed portable in patient room. Left Ventricle Normal size and thickness. The left ventricular ejection fraction is 60 %. Normal diastololic function. Right Ventricle Normal right ventricle. Atria The left and right atria are normal. Mitral Valve The mitral valve is structurally normal. No prolapse or stenosis seen. Tricuspid Valve Normal tricuspid valve. Aortic Valve Normal aortic valve. Pulmonic Valve The pulmonic valve is not well visualized. Great Vessels Normal sized aortic root. Pericardium/Pleural No pericardial effusion. Medication Diluted definity 2ml given slow IV push to enhance endocardial definition. MMode/2D Measurements & Calculations LVIDd: 4.9 cm IVSd: 1.1 cm Ao root diam: 3.3 cm LVIDs: 3.0 cm LVPWd: 1.3 cm FS: 39.2 % LAV(MOD-bp): 46.1 ml LVAd ap4: 36.5 cm2 LVAd ap2: 32.8 cm2 LAV(MOD-bp) Indexed: 19.2 ml/m2 LVLd ap4: 9.5 cm LVLd ap2: 8.8 cm LAV(MOD-sp2): 45.8 ml EDV(MOD-sp4): 116.9 ml EDV(MOD-sp2): 103.8 ml LAV(MOD-sp4): 46.8 ml EDV(sp4-el): 118.3 ml EDV(sp2-el): 104.1 ml LVAs ap4: 19.9 cm2 LVAs ap2: 19.1 cm2 LVLs ap4: 7.5 cm LVLs ap2: 7.4 cm ESV(MOD-sp4): 46.3 ml ESV(MOD-sp2): 42.3 ml ESV(sp4-el): 45.1 ml ESV(sp2-el): 41.8 ml EF(MOD-sp4): 60.4 % EF(MOD-sp2): 59.3 % EF(sp4-el): 61.9 % SV(MOD-sp4): 70.6 ml SV(MOD-sp2): 61.5 ml SV(sp4-el): 73.2 ml LA A4 area: 17.8 cm2 LA dimension(2D): 4.1 cm RA A4 area: 17.8 cm2 Time Measurements MV dec time: 0.22 sec Doppler Measurements & Calculations MV E max brian: 82.3 cm/sec Lat Peak E' Brian: 16.6 cm/sec Med Peak E' Brian: 15.6 cm/sec MV A max brian: 40.9 cm/sec E/E' lat: 4.9 E/E' med: 5.3 MV E/A: 2.0 MV V2 max: 86.9 cm/sec Ao V2 max: 115.6 cm/sec MV max P.0 mmHg MV dec slope: 385.9 cm/sec2 Ao max P.4 mmHg MV V2 mean: 47.0 cm/sec Ao V2 mean: 82.8 cm/sec MV mean P.1 mmHg Ao mean P.2 mmHg MV V2 VTI: 23.0 cm Ao V2 VTI: 24.6 cm LV V1 max: 97.5 cm/sec PA V2 max: 93.9 cm/sec LV V1 max P.8 mmHg PA V2 mean: 71.0 cm/sec LV V1 mean P.3 mmHg LV V1 mean: 70.8 cm/sec LV V1 VTI: 18.2 cm ECHO/Echo Complete W/ Contrast Interpretation Summary The left ventricular ejection fraction is 60 %. Ordering Physician: Mone Luciano Performed By: Dee Dee Giron RCS
--- NOTE | 2022-01-13 16:28 | VDLE_ITS ---
Reason For Study: Pain RIGHT LEFT GSV is normal. GSV is normal. CFV is compressible, spontaneous, phasic, CFV is compressible, spontaneous, phasic, competent and demonstrates normal competent, and demonstrates normal augmentation. augmentation. FV is compressible, spontaneous, phasic, FV is compressible, spontaneous, phasic, competent and demonstrates normal competent and demonstrates normal augmentation. augmentation. POP V is compressible, spontaneous, phasic, POP V is compressible, spontaneous, phasic, competent and demonstrates normal competent and demonstrates normal augmentation. augmentation. T/P Trunk is compressible. T/P Trunk is compressible. PTV is compressible. PTV is compressible. RT PerV is compressible. LT PerV is compressible. Procedure This is a venous duplex using B-mode, color flow and spectral Doppler. Exam performed portable in ED. The exam was diagnostic. A preliminary report was called and/or faxed to ED Nurse. VL/Venous Duplex US - Jan Extrem Interpretation Summary Deep veins of the bilateral lower extremities are patent and compressible segme ntally. There is no evidence of bilateral lower extremity deep vein thrombosis. The bilateral great saphenous veins appear patent and compressible segmentally. Ordering Physician: Mone Luciano Referring Physician: Rosario Murphy M.D. Performed By: Adriano Liang RVT
[2022-01-13] MEDS: Enoxaparin 120 MG/0.8 ML Syringe SC (16:36)
--- NOTE | 2022-01-13 16:40 | HP.PCM.HOS_ITS ---
HPI - General General Date of Admission: 01/13/22 Date of Service: 01/13/22 Chief Complaint: Right flank pain HPI Narrative MART MARY, is a 37 M who presented to the emergency department [facility] on 01/13/2022 complaining of right flank pain. Patient reports that yesterday while working in [employer] (he works for the [employer] and has a fairly sedentary job) he developed a sharp stabbing constant pain in the right flank. He went to the emergency department at [facility] and had a noncontrasted CT of his abdomen and pelvis as well as a UA and was diagnosed with a musculoskeletal strain and given a prescription for Flexeril. Patient reports that he did not fill that prescription and he had ongoing pain th roughout the day today. He denied any testicular pain but did note that his urine was darker than typical. He has had no fever or chills. He did have a recent left arthroscopic knee surgery approximately 2 1/2 weeks ago and has been doing well. He had no significant downtime related to this and denies any calf pain or swelling. He denies any family history of hypercoagulability and no personal history of DVT or PE. Vital signs at the time of presentation demonstrated a temperature of 98.6, heart rate of 67, blood pressure 139/67, respiratory 16, sats are 99% on room air. CBC shows a leukocytosis with a white count of 15.5 that is neutrophilic predominant and left shift is present. His chemistry panel was overall unremarkable other than mildly elevated AST and ALT at 55 and 74 respectively and this appears to be chronic when compared to lab from 2019. His lipase was normal at 95. A D-dimer was obtained and slightly elevated at 0.57 therefore a CTA of his chest was performed and was negative for pulmonary embolism or any other acute findings. His UA showed no signs of infection but did show microscopic hematuria. Given the negative CT of his abdomen pelvis which was done yesterday a contrasted CT of his abdomen pelvis was done today and demonstrated right renal infarct versus acute pyelonephritis. The images were reviewed with urology by the emergency department physician and they indicated that this was renal infarct. In the emergency department a hypercoagulable panel was obtained and the patient was started on Lovenox 120 mg x 1 dose. [facility] Medical History Acute asthma exacerbation Acute bronchitis Acute hypoxic respiratory insufficiency Allergic rhinitis Bronchial asthma Maxillary sinusitis Home Medications benralizumab 30 mg/mL subcutaneous syringe (Fasenra) 30 mg subcut QMONTH 03/20/21 [History Last Taken Unknown] albuterol sulfate 2.5 mg/3 mL (0.083 %) solution for nebulization 2.5 mg inhala tion Q4H PRN Shortness Of Breath Or Wheezing 01/13/22 [History Last Taken Unknown] dextroamphetamine-amphetamine ER 10 mg 24hr capsule,extend release (Adderall XR) 10 mg PO DAILY ADHD 01/13/22 [History Last Taken 01/11/22] Allergy/AdvReac Type Severity Reaction Status Date / Time No Known Allergies Allergy Verified 01/13/22 11:35 Family History Father Asthma Diabetes Hypertension Grandmother Asthma Surgical History (Updated 01/13/22 @ 16:[address] Mone Luciano DO) H/O sinus surgery History of ankle surgery History of repair of anterior cruciate ligament of right knee S/P left knee arthroscopy Social History Smoking Status: Former smoker Tobacco: How many years used: 10 how long ago did patient quit smokin, 1ppd second hand exposure: Yes alcohol intake: never substance use type: does not use ROS Constitutional Constitutional: Denies anorexia, change in weight, chills, fatigue, fever(s), malaise, night sweats, weakness or other Eyes Eyes: Denies blurry vision, change in eye color, change in vision, discharge from eye(s), double vision, erythema, eye pain, loss of vision or other ENT HEENT: Denies abnormal hearing, dysphagia, ear pain, epistaxis, headache(s), hearing loss, nasal congestion, nasal discharge, post nasal drip, sinus pressure, sore throat or other Cardiovascular Cardiovascular: Denies chest pain, claudication, dyspnea on exertion, edema, lightheadedness, orthopnea, palpitations, paroxysmal nocturnal dyspnea, rapid heart rate, syncope or other Respiratory/Chest Respiratory/Chest: Denies cough, dyspnea, excessive phlegm production, hemoptysis, productive cough, shortness of breath at rest, shortness of breath with exertion, wheezing or other Gastrointestinal Gastrointestinal: Reports nausea, vomiting and other Details: Flank pain ; Denies abdominal pain, coffee ground emesis, constipation, diarrhea, dyspepsia, hematemesis, hematochezia, loose stools or melena Genitourinary Genitourinary: Reports other Details: Dark urine ; Denies burning urination, difficulty urinating, dysuria, hematuria, nocturia, urinary frequency, urinary hesitancy, urinary incontinence or urinary urgency Musculoskeletal Musculoskeletal: Reports back pain; Denies arthralgias, joint pain, joint stiffness, joint swelling, myalgias, neck pain or other Neurologic Neurologic: Denies abnormal gait, abnormal speech, confusion, disequilibrium, dizziness, focal weakness, headache(s), numbness, paresthesias, seizure-like activity, seizures, syncope, tingling, tremor(s) or other Psychiatric Psychiatric: Denies anxiety, depression, homicidal ideation, suicidal ideation or other Endocrine Endocrinology: Denies change in body appearance, cold intolerance, excessive sweating, heat intolerance, polydipsia, polyuria or other Hematologic/Lymphatic Hematologic/Lymphatic: Denies anemia, easy bleeding, easy bruising, lymphadenopathy or other Allergic/Immunologic Allergic/Immunologic: Denies rhinitis, hives, eczemia, asthma or other Vital Signs Vital Signs Vital Signs: 01/13/22 11:32 Temperature 98.6 F Temperature Source Temporal Pulse Rate 67 Respiratory Rate 16 Blood Pressure 139/67 H Blood Pressure Mean 91 Pulse Ox 99 Oxygen Delivery Method Room Air Weight Weight: 114.759 kg Body Mass Index (BMI) 32.5 Physical Exam Const alert, oriented x3, no apparent distress, healthy appearing and well nourished Constitutional Narrative: Obese, middle-aged, white male sitting up in bed, appears slightly uncomfortable but very pleasant and nontoxic-appearing General Appearance: cooperative HEENT normocephalic, head/scalp atraumatic, hearing grossly normal bilaterally and moist oral mucous membranes HEENT Narrative: Mallampati 3, dentition is good, no thrush Eyes PERRL, EOMs intact bilaterally and conjunctivae normal Eyes Narrative: No scleral icterus Neck no lymphadenopathy and supple Neck Narrative: Trachea midline, no thyroid enlargement Resp normal respiratory effort, no retractions, no use of accessory muscles and clear to auscultation bilaterally Auscultation: Negative for crackles, rales, rhonchi or wheezes Cardio regular rate, regular rhythm, S1 normal heart sound, S2 normal heart sound, no murmurs, no rub, no gallops and no clicks GI normal to inspection, nondistended, normoactive bowel sounds and soft to palpation GI Narrative: Extremely tender at distal right flank, no abdominal tenderness Extremity no clubbing, cyanosis or edema Extremity Narrative: 2+ pedal pulses, Homans' sign is negative, left lower knee arthroscopy incisions well-healing without any drainage or signs of infection Skin no rashes or lesions noted, skin turgor normal, no jaundice, no petechiae and no mottling Skin Narrative: Surgical incisions on left knee as noted above Neuro oriented x3, CN's II-XII intact bilaterally, moves all extremities and no focal motor deficits Speech: speech normal Psych affect normal Psych Narrative: Very pleasant Results Lab / Micro Data Result Diagrams: 01/13/22 11:45 01/13/22 11:45 Labs: Laboratory Results - last 24 hr 01/13/22 11:42: Urine Color Yellow, Urine Clarity Clear, Urine pH 6.0, Ur Specific [place] 1.020, Urine Protein 30 H, Urine Glucose (UA) Normal, Urine Ketones 5 H, Urine Occult Blood 250 H, Urine Nitrite Negative, Urine Bilirubin Negative, Urine Urobilinogen 4 H, Ur Leukocyte Esterase 25 H, Urine RBC 25-50 SEEN, Urine WBC 0-5 SEEN, Ur Squamous Epith Cells 0 SEEN, Urine Bacteria 0 SEEN, Urine Mucus 0 SEEN 01/13/22 11:45: WBC 15.5 H, RBC 4.62, Hgb 14.1, Hct 41.4, MCV 89.6, MCH 30.5, MCHC 34.1, RDW Std Deviation 37.9, RDW Coeff of Brandee 11.8, Plt Count 215, MPV 9.5, Immature Gran % (Auto) 0.800, Neut % (Auto) 75.7 H, Lymph % (Auto) 11.8 L, [place] % (Auto) 11.4 H, Eos % (Auto) 0.0, Baso % (Auto) 0.3, Absolute Neuts (auto) 11.7 H, Absolute Lymphs (auto) 1.82, Nucleated RBC % 0, Diff Path Review May foll, Platelet Estimate ADEQUATE, RBC Morphology N CYTIC 01/13/22 11:45: D-Dimer Quant (PE/DVT) 0.57 H* 01/13/22 11:45: Sodium 137, Potassium 3.9, Chloride 104, Carbon Dioxide 26.0, Anion Gap 7, BUN 11, Creatinine 1.15, Estim Creat Clear Calc 100.27, Est GFR (MDRD) Af Amer 91, Est GFR (MDRD) Non-Af 75, BUN/Creatinine Ratio 9.6 L, Glucose 124 H, Calcium 8.9, Total Bilirubin 1.30 H, Direct Bilirubin 0.28, AST 55 H, ALT 74 H, Alkaline Phosphatase 54, Total Protein 7.1, Albumin 3.5, Globulin 3.6, Lipase 95 Radiology Impression Abdomen/Pelvis CT 01/13/22 13:29 IMPRESSION: Heterogeneous enhancement of the right kidney as described preferentially along its lateral and upper mid poles. This may represent either an inflammatory process such as acute pyelonephritis versus possible infarcts. Follow-up is recommended. Electronically Signed: Anderson Payne MD at 14:02 EST , Chest CTA 01/13/22 13:29 IMPRESSION: Normal CTA chest examination, without a demonstrated pulmonary embolism or arterial dissection. Mild linear atelectasis at the right lung base. Electronically Signed: Anderson Payne MD at 14:04 EST , Assessment & Plan Assessment/Plan (1) Renal infarct: (2) Acute right flank pain: (3) Leukocytosis: (4) Microscopic hematuria: PLAN: Plan Acute right flank pain secondary to right renal infarct -No identifiable etiology at this time -CTA of the abdomen and pelvis as well as CT of the chest showed no clot burden and any arterial source and no PE -Check hypercoagulable panel--> this was obtained prior to Lovenox dosing -Check lower extremity Dopplers -Check echocardiogram with bubble study for signs of PFO or left atrial clot -Also may consider FIGUEROA depending on quality of echo to assess LA more thoroughly -Lovenox 150 mg twice daily subcu -As needed oxycodone as well as morphine for breakthrough pain -Antiemetics -As needed bowel regimen -Monitor on telemetry if normal throughout his hospital stay will recommend event monitor at discharge -We will consider vascular surgery consult depending on above work-up Leukocytosis -Suspect reactive -No signs of systemic infection and UA does not suggest infection -Repeat CBC in a.m. Microscopic hematuria -Suspect related to acute infarct -We will continue to monitor renal function as it is currently normal -BMP in a.m. History of asthma -Hold subcu injection -As needed albuterol DVT prophylaxis -Full anticoagulation with Lovenox CODE STATUS -Full code Charges/Coding Visit Charges Inpatient E&M: 40434 Init Hosp L3
[2022-01-13 17:02] VITALS: BP 122/66; PULSE 59; RESP 20; TEMP 36.9; O2SAT 96
[2022-01-13 17:24] VITALS: BMI 34.6
[2022-01-13 17:30] VITALS: BP 122/81; PULSE 58; RESP 16; TEMP 36.5; O2SAT 98
[2022-01-13 19:00] VITALS: PULSE 77
[2022-01-13] MEDS: oxyCODONE 5 MG Tablet PO (19:06)
[2022-01-13] MEDS: Acetaminophen 325 MG Tablet 650 MG PO (19:07)
[2022-01-13 19:15] VITALS: O2SAT 98
[2022-01-13 19:21] LABS: Troponin-I HS 10 pg/mL (3.0-78.0)
[2022-01-13 21:39] LABS: Troponin-I HS 10 pg/mL (3.0-78.0)
[2022-01-13 21:50] VITALS: BP 130/87; PULSE 61; RESP 18; TEMP 36.9; O2SAT 95
[2022-01-14] VITALS (7 sets, daily range): BP systolic 130–140; BP diastolic 76–88; PULSE 60–83; RESP 16–18; TEMP 36.4–37.2; O2SAT 95–98
[2022-01-14 00:49] LABS: Troponin-I HS 8 pg/mL (3.0-78.0)
[2022-01-14 05:23] LABS: Absolute Lymphocyte Count 1.73 X10^3/uL (0.83-4.51); Basophil# 0.02 X10^3/uL; Basophil% 0.2 % (0-1); Hemoglobin 13.6 g/dL (13.0-16.5); Lymphocyte # 1.73 X10^3/ul (0.83-4.51); Lymphocyte % 16.9 % (19-41); Mean Corpuscular Hgb 31.3 pg (27.0-32.0); Mean Corpuscular Volume 92.2 fL (80-94); Mean Platelet Vol. 9.1 fl (6.2-12.0); Monocyte# 1.39 X10^3/uL; Monocyte% 13.6 % (0-10); NRBC Flagged by Analyzer 0 % (0-5); Neutrophil # 7.02 X10^3/uL (2.7-7.7); Neutrophil % 68.6 % (47-70); Platelet Count 188 K/mm3 (150-450); RBC Distribution Width CV 11.9 % (11.6-14.6); RBC Distribution Width SD 39.9 fl (35.1-43.9); Red Blood Count 4.34 M/mm3 (4.6-6.2); White Blood Count 10.2 K/mm3 (4.4-11.0)
[2022-01-14] MEDS: Enoxaparin 120 MG/0.8 ML Syringe 115 MG SC (05:33)
[2022-01-14 05:56] LABS: ALB/GLOB Ratio 0.9 RATIO (0.9-2.4); AST(SGOT) 50 U/L (15-37); Alanine Aminotransfer ALT/SGPT 75 U/L (16-61); Albumin, Serum 3.2 g/dL (3.2-5.0); Alkaline Phosphatase 58 U/L (45-117); Anion Gap 5 (5-15); BUN 13 mg/dL (7-18); Calcium,Total 8.4 mg/dL (8.5-10.1); Chloride 100 mmol/L (98-107); Creatinine, Serum 1.18 mg/dL (0.70-1.30); EST Glomerular Filtration Rate 73 mL/min (>60); Est Glom Filt Rate - Afr Amer 88 mL/min (>60); Estimated Creatinine Clearance 92.25 ml/min; Globulin 3.6 g/dL (2.2-4.2); Glucose 105 mg/dL (74-106); Magnesium 2.6 mg/dL (1.6-2.6); Phosphorus 2.3 mg/dL (2.5-4.9); Potassium 3.7 mmol/L (3.5-5.1); Protein, Total 6.8 g/dL (6.4-8.2); Sodium Level 135 mmol/L (136-145); Thyroid Stim Hormone (TSH) 3.75 uIU/mL (0.358-3.74)
[2022-01-14] MEDS: Acetaminophen 325 MG Tablet 650 MG PO (09:24)
--- NOTE | 2022-01-14 11:40 | CASEMGMT ---
RN CM Face to Face with patient for initial transition planning/care coordination assessment. RN CM introduced self and role at [facility]. Patient lying in bed, alert and oriented, girlfriend at bedside. Patient willing to participate in assessment and is able to answer all questions appropriately. Care providers, pharmacy, and demographics verified. Patient wishes to discharge home, denies need for home health at this time. Patient states he has no further needs or concerns at this time. CM to follow for discharge planning needs that may arise. PCP: Katherine Specialists: Bruno Lowe, social science instructor Preferred [facility]acy: [facility] Insurance: MMO Prescription Benefit: yes Living Will/HPOA: none LNOK: parents Living Arrangements: Patient lives with girlfriend in a single story home with 2 steps to enter. Patient states he is independent at home. Transportation: self, girlfriend DME/HHC: Patient states he has crutches at home. Patient denies previous HHC Disposition Plan: Patient to discharge home with family support and follow-up plans in place. Sunitha STEVENSON, RN, CM
[2022-01-14 14:13] LABS: Pathologist Review Reviewed
--- NOTE | 2022-01-14 14:20 | PCM.DC.SUM ---
Providers Date of Admission: 01/13/22 Date of Discharge: 01/14/22 Primary Care Physician: Dr. Rosario Murphy MD Reason For Visit: RENAL INFARCT Diagnosis Discharge Diagnosis (1) Renal infarct: Status: Acute Code(s): N28.0 - Ischemia and infarction of kidney (2) Acute right flank pain: Status: Acute Code(s): R10.9 - Unspecified abdominal pain (3) Leukocytosis: Status: Acute Code(s): D72.829 - Elevated white blood cell count, unspecified (4) Microscopic hematuria: Status: Acute Code(s): R31.29 - Other microscopic hematuria Medications at Discharge Home Medications benralizumab 30 mg/mL subcutaneous syringe (Fasenra) 30 mg subcut Q60D ASTHMA 03/20/21 albuterol sulfate 2.5 mg/3 mL (0.083 %) solution for nebulization 2.5 mg inhalation Q4H PRN Shortness Of Breath Or Wheezing 01/13/22 dextroamphetamine-amphetamine ER 10 mg 24hr capsule,extend release (Adderall XR) 10 mg PO DAILY ADHD 01/13/22 apixaban 5 mg tablet (Eliquis) 5 mg PO BID #60 tabs 01/14/22 apixaban 5 mg tablet (Eliquis) 10 mg PO BID #28 tabs 01/14/22 oxycodone 5 mg tablet 5 mg PO Q4H PRN PRN Pain Score 4-10 3 days #18 tabs 01/14/22 Hospital Course Procedures 2-D Echocardiogram and - (Bilateral lower extremity Dopplers/CTA of the chest/CTA of the abdomen pelvis) Summary of Care Provided Minutes Spent on Discharge: 37 Hospital Course: Mr. Baumann is a 37-year-old white male who presented to the emergency department [facility] on 01/13/2022 with a chief complaint of right flank pain. He reported that it occurred the day prior while working in [employer] at which time he developed sharp stabbing constant pain in the right flank. He went to the emergency department at [facility] and had a noncontrasted CT of his abdomen pelvis as well as a UA and was diagnosed with a musculoskeletal strain and given a prescription for Flexeril. The patient reported that he did not fill that prescription and had ongoing pain throughout the day that was severe. He denied any testicular pain but did note that his urine was darker than typical. He denied fever or chills. He admitted to recent left arthroscopic knee surgery that was done approximately 2-1/2 weeks ago at [facility] and indicated he had been doing quite well with regards to this. He denied any significant downtime related to his surgery and denied calf pain or swelling during his postoperative course. He denied any past family history of hypercoagulability and no personal or family history of DVT or PE. Vital signs at the time of presentation demonstrated a temperature of 98.6, heart rate of 67, blood pressure 139/67, respiratory 16, sats are 99% on room air.? CBC shows a leukocytosis with a white count of 15.5 that is neutrophilic predominant and left shift is present.? His chemistry panel was overall unremarkable other than mildly elevated AST and ALT at 55 and 74 respectively and this appears to be chronic when compared to lab from 2019.? His lipase was normal at 95.? A D-dimer was obtained and slightly elevated at 0.57 therefore a CTA of his chest was performed and was negative for pulmonary embolism or any other acute findings.? His UA showed no signs of infection but did show microscopic hematuria.? Given the negative CT of his abdomen pelvis which was done yesterday a contrasted CT of his abdomen pelvis was done today and demonstrated right renal infarct versus acute pyelonephritis.? The images were reviewed with urology by the emergency department physician and they indicated that this was renal infarct. He was admitted the medical floor after being giving a one-time dose of Lovenox in the emergency department. I did maintain him on Lovenox initially and discussed the case with vascular surgery. They reviewed the imaging and saw no embolus or atherosclerotic disease that would contribute to renal infarction. We did obtain a hypercoagulable panel in the emergency department prior to Lovenox being initiated. Bilateral lower extremity Dopplers were performed and negative for any DVT. An echocardiogram was performed and showed an EF of 60% with no valvular abnormalities and a negative bubble study. His telemetry revealed normal sinus rhythm throughout his hospital course. Thus far I have no etiology for his renal infarction, we will obtain of 30-day event monitor at discharge to assess for atrial fibrillation or other cardiac arrhythmia that could contribute to this. His blood pressure prior to discharge was 130 systolic. I have recommended close follow-up with his primary care physician for ongoing blood pressure monitoring as blood pressure elevations can be seen with renal infarction. He was discharged on apixaban 10 mg p.o. twice daily x7 days with conversion to 5 mg p.o. twice daily indefinitely. I did give him a 3-day supply of oxycodone however his pain had significantly improved since admission and he was only requiring Tylenol before discharge. I did advise him to avoid NSAIDs with his renal infarction and he voiced understanding. I have instructed him to follow-up with Dr. Murphy within the next week. I discussed his case with her and she was notified of discharge. Discharge diagnoses: Acute right flank pain secondary to right renal infarct Leukocytosis-resolved Microscopic hematuria History of asthma Physical Exam Const alert, oriented x3, no apparent distress, healthy appearing and well nourished Constitutional Narrative: Obese, middle-aged, white male sitting up in bed, appears much more comfortable today, nontoxic General Appearance: cooperative, comfortable, well kempt and well developed Orientation / Consciousness: awake, oriented to person, oriented to place and oriented to time Exam Limitations: no limitations HEENT normocephalic, head/scalp atraumatic, hearing grossly normal bilaterally and moist oral mucous membranes HEENT Narrative: Mallampati 2-3, dentition is good, no thrush Eyes PERRL, EOMs intact bilaterally and conjunctivae normal Eyes Narrative: No scleral icterus Neck no lymphadenopathy and supple Neck Narrative: Trachea midline, no thyroid enlargement Resp normal respiratory effort, no retractions, no use of accessory muscles and clear to auscultation bilaterally Auscultation: Negative for crackles, rales, rhonchi or wheezes Cardio regular rate, regular rhythm, S1 normal heart sound, S2 normal heart sound, no murmurs, no rub, no gallops and no clicks GI normal to inspection, nondistended, normoactive bowel sounds and soft to palpation GI Narrative: Right flank tenderness is diminished dramatically and almost resolved Extremity no clubbing, cyanosis or edema Extremity Narrative: 2+ pedal pulses, Homans' sign is negative, left lower knee arthroscopy incisions well-healing without any drainage or signs of infection Skin no rashes or lesions noted, skin turgor normal, no jaundice, no petechiae and no mottling Skin Narrative: Surgical incisions on left knee as noted above Neuro oriented x3, CN's II-XII intact bilaterally, moves all extremities and no focal motor deficits Speech: speech normal Motor Exam: strength 5/5 throughout Psych affect normal Psych Narrative: Very pleasant Weight / BMI Weight Weight: 115.9 kg Body Mass Index (BMI) 34.6 ABG / Lab / Microbiology Data Result Diagrams: 01/14/22 05:09 01/14/22 05:09 Laboratory: Laboratory Results - last 24 hr 01/13/22 11:45: Diff Path Review Reviewed 01/13/22 18:43: Troponin I High Sens 10 01/13/22 20:50: Troponin I High Sens 10 01/14/22 00:15: Troponin I High Sens 8 01/14/22 05:09: WBC 10.2, RBC 4.34 L, Hgb 13.6, Hct 40.0, MCV 92.2, MCH 31.3, MCHC 34.0, RDW Std Deviation 39.9, RDW Coeff of Brandee 11.9, Plt Count 188, MPV 9.1, Immature Gran % (Auto) 0.700, Neut % (Auto) 68.6, Lymph % (Auto) 16.9 L, [place] % (Auto) 13.6 H, Eos % (Auto) 0.0, Baso % (Auto) 0.2, Absolute Neuts (auto) 7.0, Absolute Lymphs (auto) 1.73, Nucleated RBC % 0 01/14/22 05:09: Sodium 135 L, Potassium 3.7, Chloride 100, Carbon Dioxide 30.0, Anion Gap 5, BUN 13, Creatinine 1.18, Estim Creat Clear Calc 92.25, Est GFR (MDRD) Af Amer 88, Est GFR (MDRD) Non-Af 73, BUN/Creatinine Ratio 11.0, Glucose 105, Calcium 8.4 L, Phosphorus 2.3 L, Magnesium 2.6, Total Bilirubin 0.90, AST 50 H, ALT 75 H, Alkaline Phosphatase 58, Total Protein 6.8, Albumin 3.2, Globulin 3.6, Albumin/Globulin Ratio 0.9, TSH 3.75 H Microbiology: Microbiology 01/13/22 18:00 Nasal Secretion SARS-CoV-2 Antigen (Rapid) - Final Radiography Diagnostic Testing: Radiology Impression Echocardiogram 01/13/22 16:28 Interpretation Summary The left ventricular ejection fraction is 60 %. Ordering Physician: Mone Luciano Performed By: Dee Dee Giron RCS Venous Doppler Study 01/13/22 16:28 Interpretation Summary Deep veins of the bilateral lower extremities are patent and compressible segmentally. There is no evidence of bilateral lower extremity deep vein thrombosis. The bilateral great saphenous veins appear patent and compressible segmentally. Ordering Physician: Mone Luciano Referring Physician: Rosario Murphy M.D. Performed By: Adriano Liang RVT D/C Instructions Discharge Diet: No restrictions Discharge Activity: Return to Normal Activity Meaningful Use Info Meaningful Use Diagnoses (Choose all that apply): None applicable Discharge Plan Admission Admit Date/Time: 01/13/22 16:12 Primary Reason for Your Visit: R Flank Pain Attending Provider: Mone Luciano Primary Care Provider: Rosario Murphy Instructions Additional Instructions / Restrictions: Okay to get Fasenra injection tomorrow Discharge Orders/Prescriptions Prescriptions: New oxycodone 5 mg Tablet 5 mg PO Q4H PRN PRN (Reason: Pain Score 4-10) 3 Days Qty: 18 0RF Eliquis 5 mg tablet 5 mg PO BID Qty: 60 1RF Rx Instructions: start when 10 mg dose complete in 7 days Eliquis 5 mg tablet 10 mg PO BID Qty: 28 0RF Continued Fasenra 30 mg/mL Syringe 30 mg SUBCUT Q60D dextroamphetamine-amphetamine [Adderall XR] 10 mg Capsule,Extended Release 24hr 10 mg PO DAILY albuterol sulfate 2.5 MG/3 ML solution for nebulization 2.5 mg inhalation Q4H PRN (Reason: Shortness Of Breath Or Wheezing) Other Ambulatory Orders: 30 Day Event Recorder Preventi (Urgent) Timeframe: 1 Day Facility: [facility] - Location: Cardiovascular Services Ordered By: Dr. Mone Luciano Referrals / Follow Up: Rosario Murphy MD [Primary Care Provider] - In 1 Week Disposition Disposition (needs filled in before D/C Order can be placed): Home, Self Care Charges/Coding Visit Charges Inpatient E&M: 38985 Disch Hosp
--- NOTE | 2022-01-14 14:26 | CASEMGMT ---
ROSEMARIE CALLE called [facility] regarding Eliquis prescriptions. 10mg prescription was $300 and 5mg prescription was covered at 100%. ROSEMARIE CALLE provided Eliquis savings card of 30 day free trial to 10mg prescription to pharmacist over the phone. Saving card applied and no copay. ROSEMARIE CALLE provided savings cards to patient and updated regarding copay. Patient had no further questions or concerns at this time.
--- NOTE | 2022-01-14 15:58 | ECHOL_ITS ---
Reason For Study: OTHER Procedure This was a 2D Doppler, Color Flow transthoracic echocardiogram. Exam performed in department. Atria Bubble contrast study negative for right to left interatrial shunt. Medication Performed a rapid injection of agitated mix of 9 cc saline and 1cc air to assess for atrial septal defect. ECHO/Echo, Limited Study Interpretation Summary Bubble contrast study negative for right to left interatrial shunt. Ordering Physician: Mone Luciano Performed By: Dee Dee Giron RCS
[2022-01-19 19:07] LABS: Protein C Antigen 85 % (60-150); Protein C, Functional 112 % (73-180)
[2022-01-19 20:39] LABS: Anti-Thrombin 3 AG, Immunol 80 % (72-124); Antithrombin 3 Function 112 % (75-135)
[2022-01-20 16:47] LABS: Anti-Cardiolipin Ab, IgG, Qn < 9 GPL U/mL (0-14); Anti-Cardiolipin Ab, IgM, Qn < 9 MPL U/mL (0-12); Beta-2-Glycoprotein I IgA <9 (0-25); Beta-2-Glycoprotein I IgG <9 (0-20); Beta-2-Glycoprotein I IgM <9 (0-32)
== END 2022-01-14 17:09 | disposition home or self-care (01) | DRG 700 ==
LOC: ED 16:07 → PCU 16:43
PROVIDERS: Admitting Provider Internal Medicine; Emergency Provider Emergency Medicine; PCP Internal Medicine; Visit Provider Internal Medicine
DX: N28.0 Ischemia and infarction of kidney (principal); D72.829 Elevated white blood cell count, unspecified; J45.909 Unspecified asthma, uncomplicated; R31.29 Other microscopic hematuria; Z20.822 Contact with and (suspected) exposure to COVID-19; Z87.891 Personal history of nicotine dependence; Z79.899 Other long term (current) drug therapy
CPT/HCPCS: 36415; 71275; 74177; 80048; 80053; 80076; 81001; 81240; 81241; 83690; 83735; 84100; 84443; 84484; 85025; 85300; 85301; 85302; 85303; 85379; 86146; 86147; 87811; 93005; 93306; 93308; 93970; 99251; 99283; J7040; J7050; Q9957; Q9967; A4216; C8929; G0463; J2405

== ENCOUNTER 2022-11-20 22:06 | Emergency (ER) | payer OTHER, SELFPAY ==
[2022-11-20 22:07] VITALS: BP 137/88; PULSE 97; RESP 16; TEMP 36.4; O2SAT 95; BMI 34.5
--- NOTE | 2022-11-20 22:23 | EDS_ITS ---
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 He was on Eliquis and then they took him off of them. He has never had a PE or DVT. He has had prior leg ultrasounds all of which were negative. Basically for 2 days since yesterday he has had right calf discomfort. Denies any injury or trauma. Denies any swelling. Chief Complaint: Lower Extremity Injury Informant: patient Occured/Mechanism Mechanism/Context: No injury and No blunt trauma Onset/Context/Timing Onset: Today and Yesterday Context: Gradual Onset Timing: Continuous Quality of Pain: Dull and Aching Current Severity: Mild Maximum Severity: Mild Associated Symptoms Associated Symptoms: Negative for Parasthesia, Weakness or Loss of Funtion Narrative Narrative: 37-year-old male prior renal infarct. Complaining of right calf pain. Denies injury or trauma. He has never had a DVT. Is never had a PE. He denies any recent travel, surgery or immobilization. He did have a renal infarct. He said he is anxious that he may develop a clot. He was previously on blood thinners for 6 months and then taken off by his doctors. Prior similar symptoms: No Recent Illness/Hospitalization: No PFSH PFSH Medical History Acute asthma exacerbation Acute bronchitis Acute hypoxic respiratory insufficiency Allergic rhinitis Bronchial asthma Maxillary sinusitis Microscopic hematuria Renal infarct Home Medications albuterol sulfate 2.5 mg/3 mL (0.083 %) solution for nebulization 2.5 mg inhalation Q4H PRN Shortness Of Breath Or Wheezing 01/13/22 [History Last Taken Unknown] benralizumab 30 mg/mL subcutaneous syringe (Fasenra) 30 mg subcut Q60D ASTHMA #1 mL 03/05/22 [Rx Last Taken Unknown] Allergy/AdvReac Type Severity Reaction Status Date / Time No Known Allergies Allergy Verified 11/20/22 22:09 Family History Father Asthma Diabetes Hypertension Grandmother Asthma Surgical History H/O sinus surgery History of ankle surgery History of repair of anterior cruciate ligament of right knee S/P left knee arthroscopy Social History Smoking Status: Former smoker Tobacco: How many years used: 10 how long ago did patient quit smokin, 1ppd second hand exposure: Yes alcohol intake: never substance use type: does not use ROS ROS ED ROS Narrative Is any recent illness. Review of Systems ROS Unobtainable: Denies due to encephalopathy Constitutional Constitutional ED: Denies chills or fever(s) Eyes Eyes: Denies blurry vision ENT ENT ED: Denies ear pain Cardiovascular Cardiovascular: Denies chest pain Respiratory/Chest Respiratory/Chest: Denies cough or dyspnea Gastrointestinal Gastrointestinal: Denies abdominal pain Genitourinary Genitourinary ED: Denies dysuria or hematuria Musculoskeletal Musculoskeletal: Denies arthralgias Integumentary Denies abscess or Abrasions Neurologic Neurologic: Denies headache(s) Psychiatric Psychiatric: Denies anxiety or depression Endocrine Endocrinology: Denies polydipsia Hematologic/Lymphatic Hematologic/Lymphatic: Denies easy bleeding or easy bruising Allergic/Immunologic Allergic/Immunologic ED: Denies mouth swelling or tongue swelling EXAM Physical Exam Narrative Exam Narrative: 37-year-old male vital signs stable afebrile. Pulse ox 95% on room air no signs hypoxia. He is in no distress. Mom present in room. HEENT exam unremarkable. Neck nontender no JVD. Lungs clear to auscultation bilateral. Heart regular rhythm no murmur. Abdomen soft nontender. Moving all 4 extremities. Neurovascular intact. Specifically right lower extremity he has full range of motion to his right hip, knee and ankle. There is no swelling. He has minimal tenderness to his right proximal lateral calf. There is no redness or warmth. There is no swelling. There is no cord. Right foot is neurovascular intact with normal DP pulse. The appearance of the right leg is normal. Const Vital Signs: 11/20/22 22:07 Temperature 97.5 F L Temperature Source Temporal Pulse Rate 97 Respiratory Rate 16 Blood Pressure 137/88 H Blood Pressure Mean 104 Pulse Ox 95 Oxygen Delivery Method Room Air Positive well nourished and well developed; Negative for cachectic, contractures or unkempt General Appearance ED: well developed and NAD; Negative for unkempt, cachectic or contractures Nutritional Appearance: Negative for cachectic HEENT Reports moist mucous membranes normocephalic and atraumatic; Negative for trauma or tenderness Eyes PERRL General Eye ED: Negative for other Neck full ROM and supple Thyroid: Negative for tender Lymph Lymphatic: Negative for other Chest Wall inspection of chest normal and palpation of chest normal Chest: Negative for other Resp normal respiratory effort, no retractions and clear to auscultation bilaterally Effort and Inspection: Negative for pain with movement Auscultation: Negative for rales, rhonchi or wheezes Cardio regular rate, regular rhythm, S1 normal heart sound, S2 normal heart sound and no murmurs Rate: Negative for bradycardia or tachycardic Rhythm: Negative for abnormal rhythm Bruits: Negative for other GI non-tender, non-distended and no masses Inspection: Negative for abdominal distention Auscultation: normoactive bowel sounds Palpation: soft; Negative for tender or guarding Bladder / Kidney Exam: No other Back/Spine no CVA tenderness General Back: Negative for CVA tenderness Cervical Spine: Negative for cervical spine tenderness Thoracic Spine / Upper Back: Negative for thoracic spinal tenderness Lumbar Spine / Lower Back: Negative for lumbar spinal tenderness Extremity normal to inspection and full ROM Extremity Narrative: Right lower leg normal appearance. Normal range of motion. No swelling. No redness or warmth. Right foot is neurovascular intact. Normal DP pulse. Joints are nontender nonswollen. There is no ecchymosis. Very minimal right proximal lateral calf tenderness. General Extremety ED: Negative for cyanosis or edema General Extremity: Negative for cyanosis or edema Neuro oriented x3, CN's II-XII intact bilaterally, moves all extremities and no sens ory deficits noted Sensorium / Orientation: alert, oriented to person, oriented to place and oriented to time; Negative for orientation impaired, confused, lethargic or stuporous Motor Exam: strength 5/5 throughout Psych mental status grossly normal Appearance: Negative for unkempt Speech: No other Mood & Affect: Negative for anxious Skin no wounds Lesions: no lesions Rashes: no rashes Trauma: Negative for abrasion or laceration MDM MDM MDM Narrative Medical decision making narrative: 37-year-old male with atraumatic right calf discomfort. His exam is benign. He had a prior renal infarct there is never had a DVT or PE. I have ordered a noninvasive study that will be done Tuesday morning. Risk benefits I do not think he should be put on anticoagulation at this time until a blood clot would be confirmed. My clinical suspicion is very low. It is also below the knee. He had no trauma and has no bony tenderness or swelling I do not think he warrants any x-rays. There is no signs of infection. Patient and his mom are comfortable with the plan. They will follow-up with noninvasive testing on Tuesday. Tylenol and Motrin for pain. History & Record Review Discussion w/independent historian: Patient and Family Discharge Plan Triage Chief Complaint: Lower Extremity Injury ED Provider: Bert Castanon Dx/Rx/DC Orders Clinical Impression: Leg pain, right Prescriptions: No Action albuterol sulfate 2.5 MG/3 ML solution for nebulization 2.5 mg inhalation Q4H PRN (Reason: Shortness Of Breath Or Wheezing) Fasenra 30 mg/mL syringe 30 mg SUBCUT Q60D Qty: 1 6RF Primary Care Provider: Rosario Murphy Referrals: Rosario Murphy MD [Primary Care Provider] - As Needed Activity Restrictions/Additional Instructions: Motrin and Tylenol for pain. At this time I think it is very unlikely there will be a blood clot in your leg. We will call you Tuesday morning. If they do not call you by 11 AM on Tuesday morning call the emergency department and we will make sure that the ultrasound of your leg gets done. Typically they call in the morning and set it up that same morning. Disposition Disposition: Home, Self Care
== END 2022-11-20 22:39 | disposition home or self-care (01) ==
LOC: ED 22:33
PROVIDERS: Emergency Provider Emergency Medicine; PCP Internal Medicine; Visit Provider Emergency Medicine
DX: M79.661 Pain in right lower leg (principal); Z87.891 Personal history of nicotine dependence
CPT/HCPCS: 99282

== ENCOUNTER 2024-08-18 14:38 | Emergency (ER) | payer OTHER, SELFPAY ==
[2024-08-18 14:39] VITALS: BP 133/79; PULSE 85; RESP 16; TEMP 36.8; O2SAT 97; BMI 33.6
[2024-08-18 15:39] VITALS: BP 128/73; PULSE 80; RESP 14; O2SAT 95
--- NOTE | 2024-08-18 15:39 | CT_ITS ---
PROCEDURE: CTA CHST, ABD, PEL W AND/OR WO 08/18/2024 REASON FOR EXAM: ? RLL PE VS L RENAL INFARCT TECHNIQUE: CTA CHST, ABD, PEL W AND/OR WO coronal and Sagittal reconstruction series were provided. One or more dose reduction techniques were used (e.g., Automated exposure control, adjustment of the mA and/or kV according to patient size, use of iterative reconstruction technique. CONTRAST: Isovue 370 VOLUME: 100 mL RADIATION DOSE SUMMARY: CTDlvol: 150 mGy DLP: 3600 mGycm COMPARISON: CTA chest, CT abdomen pelvis 01/13/2022. FINDINGS: CHEST: Lymph nodes: No axillary, mediastinal or hilar lymphadenopathy. Heart: The heart is normal in size without pericardial effusion. The great vessels are normal in caliber. No central filling defect within the segmental or subsegmental pulmonary arteries. No coronary artery or thoracic aortic calcifications. Lungs and Airways: The central airways are patent. No suspicious pulmonary nodule. Right lower lobe calcified granuloma. No pleural effusion or pneumothorax. Mild bibasilar atelectasis. Bones: Mild thoracic spondylosis. ABDOMEN AND PELVIS: Liver: The liver is normal in size without suspicious hepatic mass on arterial or delayed phase imaging. The major portal veins are patent. No biliary ductal dilation. Gallbladder: No radiopaque stones within the gallbladder. Spleen: Normal in size. Pancreas: Unremarkable. Adrenals: No adrenal mass. Kidneys: Mild asymmetric right upper pole renal cortical scarring secondary to remote infection. No hydronephrosis, nephrolithiasis, or nephrogram on delayed phase imaging. Bladder: The urinary bladder is distended and unremarkable. Reproductive Organs: Unremarkable. Bowel: The bowel loops are nondilated. No ascites or pneumoperitoneum. Normal appendix. Vasculature: Minimal calcific plaque of the abdominal aorta. No aneurysm or ectasia. Standard branch pattern of the celiac trunk, which is widely patent without narrowing or calcification. The SMA and CHASTITY are widely patent without focal narrowing or calcification. The single bilateral renal arteries are widely patent. The bilateral common iliac, internal and external iliac arteries are widely patent and normal caliber. Bones: Mild lumbar spondylosis. CT/CTA Chst, Abd, Pel W and/or WO IMPRESSION: No acute findings in the chest, abdomen or pelvis. Reading Location: [facility]
--- NOTE | 2024-08-18 15:41 | EDS_ITS ---
HPI History of Present Illness Chief Complaint: Flank Pain Informant: patient and family Narrative Narrative: 39-year-old male presenting to the emergency room with left flank pain. Patient states that midmorning he developed the pain in the left flank. It is worse with movement and deep breathing. He denies any cough. He denies hematuria. No abdominal pain. No testicular pain. I saw this gentleman a few years ago and was diagnosed with a right renal infarct. He states he was on anticoagulants for a few months. He states he has been doing well since. He does have a history of asthma which has been stable. He continues to work on the [employer]. He denies any trauma. No hemoptysis no emesis. [facility] Medical History Microscopic hematuria Renal infarct Maxillary sinusitis Acute bronchitis Acute hypoxic respiratory insufficiency Acute asthma exacerbation Allergic rhinitis Bronchial asthma Home Medications ?Medication ?Instructions ?Recorded ?Last Taken ?Type albuterol sulfate 2.5 mg/3 mL 2.5 mg inhalation Q4H MT N 01/13/22 Unknown History (0.083 %) solution for nebulization Shortness Of Breat h Or Wheezing benralizumab 30 mg/mL subcutaneous 30 mg subcut Q8W #1 mL 06/13/23 Unknown Rx auto-injector (Fasenra Pen) fluticasone furoate 200 1 inh inhalation QDAY #60 ea 06/17/23 Unknown Rx mcg-vilanterol 25 mcg/dose inhalation powder (Breo Ellipta) montelukast 10 mg tablet 10 mg PO QPM #30 tabs Unknown Rx oxycodone-acetaminophen 5 mg-325 1 tab PO Q6H PRN PRN Pain 3 days 08/18/24 Unknown Rx mg tablet #12 TABLETS Allergy/AdvReac Type Severity Reaction Status Date / Time No Known Allergies Allergy Verified 08/18/24 14:39 Family History Father Asthma Diabetes Hypertension Grandmother Asthma Surgical History S/P left knee arthroscopy History of ankle surgery History of repair of anterior cruciate ligament of right knee H/O sinus surgery Social History Smoking Status: Former smoker Tobacco: How many years used: 10 how long ago did patient quit smokin, 1ppd second hand exposure: Yes alcohol intake: never substance use type: does not use ROS ROS ED Constitutional Constitutional ED: Denies chills, fever(s) or weight loss Eyes Eyes: Denies change in vision or diplopia ENT ENT ED: Denies ear pain, rhinorrhea or sore throat Cardiovascular Cardiovascular: Denies chest pain, orthopnea, palpitations or racing heartbeat Respiratory/Chest Respiratory/Chest: Denies cough, dyspnea or orthopnea Gastrointestinal Gastrointestinal: Denies abdominal pain, diarrhea, nausea or vomiting Genitourinary Genitourinary ED: Denies dysuria, hematuria or urinary frequency Musculoskeletal Musculoskeletal: Reports back pain; Denies arthralgias, myalgias or neck pain Integumentary Denies abscess or rash Neurologic Neurologic: Denies headache(s), paresthesias or weakness Psychiatric Psychiatric: Denies anxiety, depression, suicidal ideation or suicidal thoughts Endocrine Endocrinology: Denies polydipsia, polyphagia or polyuria Allergic/Immunologic Allergic/Immunologic ED: Denies mouth swelling, tongue swelling or urticaria EXAM Physical Exam Const Vital Signs: 08/18/24 14:39 08/18/24 15:39 08/18/24 16:00 Temperature 98.3 F Temperature Source Oral Pulse Rate 85 80 80 Respiratory Rate 16 14 12 Blood Pressure 133/79 H 128/73 H 126/72 H Blood Pressure Mean 97 91 90 Pulse Ox 97 95 94 Oxygen Delivery Method Room Air Room Air Room Air 08/18/24 17:00 08/18/24 18:00 08/18/24 19:00 Temperature 98.5 F Temperature Source Pulse Rate 66 61 98 Respiratory Rate 14 14 12 Blood Pressure 128/63 H 118/61 128/82 H Blood Pressure Mean 84 80 97 Pulse Ox 98 96 98 Oxygen Delivery Method Room Air Room Air Positive well nourished and well developed General Appearance ED: well developed HEENT Reports normocephalic, head/scalp atraumatic and moist mucous membranes Eyes PERRL and EOMs intact bilaterally Neck no lymphadenopathy, supple and no JVD Resp normal respiratory effort and clear to auscultation bilaterally Cardio regular rate, regular rhythm and no murmurs GI normal to inspection, nondistended, normoactive bowel sounds and non-tender Palpation: soft Back/Spine Back/Spine Narrative: Painful range of motion when I have him sit up in the bed. There is tenderness to percussion in the left CVA region. The paraspinal musculature is nontender. There are no rashes or ecchymosis. General Back: CVA tenderness left Extremity normal to inspection General Extremety ED: Negative for edema General Extremity: Negative for edema Neuro oriented x3 and CN's II-XII intact bilaterally Sensorium / Orientation: alert Motor Exam: strength 5/5 throughout Psych mental status grossly normal Mood & Affect: Negative for depressed or tearful Skin no rashes or lesions noted and no wounds MDM MDM MDM Narrative Medical decision making narrative: Differential diagnosis includes but not limited to kidney stone UTI pyelonephritis renal infarct splenic infarct pulmonary infarct pleural effusion pneumonia dissection aneurysm retroperitoneal hematoma Basic blood work was rather unremarkable normal LFTs. Normal hemoglobin normal white count normal renal function. Urinalysis negative. CTA of the chest abdomen pelvis was also negative for acute findings. Patient received a milligram of Dilaudid. I spoke with the patient given the above results I think we can discharge him home. I can write for pain medication. This could be musculoskeletal but given how closely the symptoms felt to his prior symptoms is very reasonable that he get evaluated on an emergent basis. Patient is comfortable with follow-up return if worsening or concerns History & Record Review Discussion w/independent historian: Patient and Family Additional record(s) reviewed:: Prior inpatient record, Prior ED visit and Prior labs Lab Data Attestation: I reviewed the patient's lab results. Labs: Laboratory Results - last 24 hr 08/18/24 08/18/24 14:57 15:32 WBC 8.5 RBC 4.84 Hgb 14.9 Hct 43.7 MCV 90.3 MCH 30.8 MCHC 34.1 RDW Std Deviation 40.3 RDW Coeff of Brandee 12.1 Plt Count 269 MPV 9.4 Immature Gran % (Auto) 0.500 Neut % (Auto) 64.8 Lymph % (Auto) 24.9 [place] % (Auto) 9.6 Eos % (Auto) 0.0 Baso % (Auto) 0.2 Absolute Neuts (auto) 5.5 Absolute Lymphs (auto) 2.11 Nucleated RBC % 0 PT 12.7 INR 0.9 APTT 26.4 Sodium 138 Potassium 4.0 Chloride 104 Carbon Dioxide 22.9 Anion Gap 12 BUN 17 Creatinine 1.04 Estim Creat Clear Calc 121.05 Est GFR (MDRD) Non-Af 93 BUN/Creatinine Ratio 16.0 Glucose 90 Calcium 9.3 Total Bilirubin 0.43 Direct Bilirubin 0.16 AST 24 ALT 33 Alkaline Phosphatase 66 Total Protein 7.2 Albumin 4.3 Globulin 2.9 Urine Color Straw Urine Clarity Clear Urine pH 6.0 Ur Specific [place] 1.010 Urine Protein Negative Urine Glucose (UA) Normal Urine Ketones Negative Urine Occult Blood Negative Urine Nitrite Negative Urine Bilirubin Negative Urine Urobilinogen Normal Ur Leukocyte Esterase Negative Urine RBC 0-5 SEEN Urine WBC 0-5 SEEN Ur Squamous Epith Cells 0-5 SEEN Urine Bacteria 0 SEEN Urine Mucus 0 SEEN Radiography Diagnostic Testing: Clinical Impression(s) from Imaging Studies Chest/Abdomen/Pelvis CTA 08/18/24 15:39 IMPRESSION: No acute findings in the chest, abdomen or pelvis. Reading Location: [facility] Discharge Plan Triage Chief Complaint: Flank Pain ED Provider: Oc Botello Dx/Rx/DC Orders Clinical Impression: Acute flank pain Instructions: ED Flank Pain, Uncertain Cause Prescriptions: New oxycodone-acetaminophen 5-325 mg tablet 1 tab PO Q6H PRN PRN (Reason: Pain) 3 Days Qty: 12 0RF No Action albuterol sulfate 2.5 MG/3 ML solution for nebulization 2.5 mg inhalation Q4H PRN (Reason: Shortness Of Breath Or Wheezing) Fasenra Pen 30 mg/mL auto-injector 30 mg subcut Q8W Qty: 1 12RF fluticasone furoate-vilanterol [Breo Ellipta] 200-25 mcg/dose blister with device 1 inh inhalation QDAY Qty: 60 6RF Rx Instructions: after inhalation, rinse mouth with water and spit out; do not swallow montelukast 10 mg tablet 10 mg PO QPM Qty: 30 3RF Primary Care Provider: Rosario Murphy Referrals: Rosario Murphy MD [Primary Care Provider] - 3-5 Days if not improving Print Language: Lithuanian Disposition Disposition: Home, Self Care
[2024-08-18] MEDS: 0.9% Normal Saline (1000mL) 1,000 ML 1000 ML IV (15:56)
[2024-08-18] MEDS: Ondansetron 4 MG/2 ML Vial IV (15:57)
[2024-08-18] MEDS: HYDROmorphone 1 MG/ML Syringe IV (15:57)
[2024-08-18 16:00] VITALS: BP 126/72; PULSE 80; RESP 12; O2SAT 94
--- OUTSIDE RECORDS SUMMARY | 2024-08-18 16:36 | XMS RPT_ITS | CCD ---
Author Organization [facility] Care Team Providers Care Credit Review Analyst Name Role Phone MELINA KALEY Levon Unavailable Unavailable DOCTOR, NO F. Unavailable Unavailable Elayne Kristi Unavailable Fritz Murphy Unavailable Luann Jason Unavailable Unavailable Unavailable Unavailable Tessa Ward Unavailable Unavailable Marine Ybarra Unavailable Unavailable MICHAEL Parkinson Unavailable Unavailable El Baumann Unavailable Unavailable MICHAEL Parkinson Unavailable Unavailable El Mitchell Unavailable Unavailable Leisa Harrison Unavailable Unavailable Ciesa BEN, Kristi Unavailable Iggy CABA, MICHAEL Unavailable Unavailable Tessa Ward Unavailable Unavailable Unavailable Unavailable Fritz Murphy MD Unavailable Elayne Marleni Unavailable Fritz Murphy MD Unavailable Elayne Marleni Unavailable Gravius LOTUS NOTES DEVELOPER, Tran Unavailable Unavailable Darius CNP, Charmaine Unavailable Slakev THAKURN, Luann Unavailable Unavailable Darius BEN, Charmaine Unavailable CAM PENA Attending Unavailable Dr. Fritz Murphy Primary Care Provider [phone] Jeremy Lowe Attending Provider [phone] Dr. Jeremy Lowe Referring Provider [phone] Migel WELDING MACHINE OPERATOR ELECTROSLAG, WELDING MACHINE OPERATOR ELECTROSLAG-C Catina Attending Provider Migel WELDING MACHINE OPERATOR ELECTROSLAG, WELDING MACHINE OPERATOR ELECTROSLAG-C Catina Referring Provider Dr. Oc Botello Emergency Provider Dr. Mone Luciano Admit Provider Dr. Mone Luciano Attending Provider Dr. Mone Luciano Other Provider Sabina CABA, Tiffany Unavailable Unavailable Dr. Navarro Jeter Attending Provider Dr. Marybeth Handy Attending Provider Arjun Anton MD, Titi Unavailable Darius NICKING MACHINE OPERATOR, Charmaine Attending Unavailable Darius NICKING MACHINE OPERATOR, Charmaine Referring Unavailable Darius NICKING MACHINE OPERATOR, Charmaine Consulting Unavailable Dr. Fritz Murphy Primary Care Provider Dr. Fritz Murphy Referring Provider Dr. Chilo Thomas Attending Provider Migel WELDING MACHINE OPERATOR ELECTROSLAG, WELDING MACHINE OPERATOR ELECTROSLAG-C Catina Attending Provider Katherine DWYER, Fritz Johnston Primary Care Provider Katherine DWYER, Fritz Johnston Primary Care Provider Bonezzi, Fritz Primary Care Unavailable Bonezzi, Fritz Referring Unavailable Migel WELDING MACHINE OPERATOR ELECTROSLAG, Catina Attending Unavailable Bonezzi, Fritz Referring Unavailable Bonezzi, Fritz Primary Care Unavailable Jeremy Lowe Attending Unavailable Lainez WELDING MACHINE OPERATOR ELECTROSLAG, Catina Attending Unavailable Bonezzi, Fritz Referring Unavailable Bonezzi, Fritz Primary Care Unavailable Lainez WELDING MACHINE OPERATOR ELECTROSLAG, Catina Attending Unavailable Bonezzi, Fritz Referring Unavailable Bonezzi, Fritz Primary Care Unavailable Bonezzi, Fritz Referring Unavailable Lainez WELDING MACHINE OPERATOR ELECTROSLAG, Catina Attending Unavailable Bonezzi, Fritz Primary Care Unavailable Bonezzi, Fritz Referring Unavailable Lainez WELDING MACHINE OPERATOR ELECTROSLAG, Catina Attending Unavailable Bonezzi, Fritz Primary Care Unavailable Bonezzi, Fritz Referring Unavailable Lainez WELDING MACHINE OPERATOR ELECTROSLAG, Catina Attending Unavailable Bonezzi, Fritz Primary Care Unavailable Bonezzi, Fritz Referring Unavailable Bonezzi, Fritz Primary Care Unavailable Lainez WELDING MACHINE OPERATOR ELECTROSLAG, Catina Attending Unavailable Unavailable Primary Care Provider UnavailAPOLONIA Brown Attending Unavailable BONEZZI, FRITZ M Primary Care Unavailable BONEZZI, FRITZ M Primary Care Unavailable Medications Current Medications Medication Drug Class(es) Dates Sig (Normalized) Sig (Original) [id number] actuat albuterol 0.09 mg/actuat metered dose inhaler (20 sources) beta2-Adrenergic Agonist Start: 01-30-2023 take 2 puff(s) by inhalation every four hours as needed for wheezing albuterol HFA (PROVENTIL HFA, VENTOLIN HFA) 90 mcg/actuation inhaler Indications: History of asthma Inhale 2 Puffs as instructed every 4 hours as needed for wheezing/shortnes s of breath. 1 Each 01/30/2023 Active Start: 03-20-2021 End: 01-13-2022 take 2.5 mg by inhalation every four hours Albuterol Sulfate Active 2.5 MG INHALATION Q4H January 13, 2022 5:31pm Start: 11-30-2013 End: 02-14-2017 take 2 puff(s) by inhalation three times daily ProAir HFA 108 (90 Base) MCG/ACT Inhalation Aerosol Solution 2 (two) Puff Puff tid for 0 days Quantity: 1 {Puff} Refills: 0 Ordered: 14-Feb-2017 Luann Jason LPN Start : 30-Nov-2013 End : 14-Feb-2017 Inactive Start: 11-30-2013 End: 02-14-2017 take 2 puff(s) by inhalation three times daily ProAir HFA 108 (90 Base) MCG/ACT Inhalation Aerosol Solution 2 (two) Puff Puff tid for 0 days Quantity: 1 {Puff} Refills: 0 Ordered: 14-Feb-2017 Luann Jason LPN Start : 30-Nov-2013 End : 14-Feb-2017 Inactive Ventolin HFA 108 (90 Base) MCG/ACT Inhalation Aerosol Solution prn (108 (90 Base) MCG/ACT) Active Ventolin HFA 108 (90 Base) MCG/ACT Inhalation Aerosol Solution prn (108 (90 Base) MCG/ACT) Active Ventolin HFA 108 (90 Base) MCG/ACT Inhalation Aerosol Solution prn (108 (90 Base) MCG/ACT) Active Comment on above: Inhale 2 Puffs as in structed every 4 hours as needed for wheezing/shortness of breath. 1 ml benralizumab 30 mg/ml prefilled syringe (20 sources) Interleukin-5 Receptor alpha-directed Cytolytic Antibody Start: 03-20-2021 End: 03-05-2022 Benralizumab (Fasenra) 30 mg/mL syringe Active 30 MG SC Q60D March 05, 2022 9:41am Start: 03-08-2019 Fasenra Pen 30 MG/ML Subcutaneous Solution Auto-injector 1 (one) Solution Auto-injector every month x3 than every 2month for 0 days Quantity: 1 {Each} Refills: 0 Ordered: 23-Nov-2019 Luann Jason LPN Start : 08-Mar-2019 Active Start: 01-23-2019 End: 03-08-2019 Benralizumab (Fasenra) 30 mg /mL syringe Discontinued 30 MG SC every 4 weeks 1 January 23, 2019 1:00am March 08, 2019 3:11pm benralizumab (FASENRA PEN FERNÁNDEZ BCUTANEOUS) (4 sources) benralizumab (FA SENRA PEN SUBCUTANEOUS) Inject subcutaneously. Active benralizumab (FA SENRA PEN SUBCUTANEOUS) Inject subcutaneously. 0 Active Comment on above: Inject subcutaneousl y. doxycycline monohydrate 100 mg oral tablet (3 sources) Tetracycline-class Drug Start: 03-26-19 End: 04-02-19 take 1 tablet by mouth twice daily doxycycline monohydrate 100 mg tablet Indications: Sinobronchitis Take 1 tablet by mouth two times a day for 7 days. 14 tablet 03/26/2024 04/02/2024 Active Start: 01-30-2023 End: 02-06-2023 take 1 tablet by mouth twice daily doxycycline monohydrate 100 mg tablet Indications: Lower resp. tract infection Take 1 tablet by mouth two times a day for 7 days. 14 tablet 0 01/30/2023 02/06/2023 Active Comment on above: Take 1 tablet by [facility] two times a day for 7 days. predniSONE 20 mg oral tablet (20 sources) Start: 03-26-2024 End: 03-31-2024 take 2 tablets by mouth once daily predniSONE (DELTASONE) 20 mg tablet Indications: Sinobronchitis Take 2 tablets by mouth once daily for 5 days. 10 tablet 03/26/2024 03/31/2024 Active Start: 01-30-2023 End: 02-08-2023 predniSONE (DELTASONE) 10 mg tablet Indications: History of asthma Take 4 tabs daily for 3 days, then 2 tabs daily for 3 days, then 1 tab daily for 3 days with food. 21 tablet 0 01/30/2023 02/08/2023 Active Start: 06-15-2022 End: 07-02-2022 take 60 mg by mouth once daily at mealtime Prednisone Discontinued 60 MG PO daily June 15, 2022 12:00am July 02, 2022 7:26am administer with food or milk Start: 03-20-2021 End: 07-31-2021 take 60 mg by mouth once daily Prednisone Discontinued 60 MG PO DAILY March 20, 2021 1:00am July 31, 2021 8:04am Start: 01-09-2020 End: 07-07-2020 take 60 mg by mouth once daily at mealtime Prednisone Discontinued 60 MG PO daily January 09, 2020 1:00am July 07, 2020 8:11am administer with food or milk Start: 01-19-2019 End: 02-05-2019 take 60 mg by mouth once daily at mealtime Prednisone Discontinued 60 MG PO daily January 19, 2019 1:00am February 05, 2019 8:08am administer with food or milk Start: 05-21-2018 End: 06-05-2018 Prednisone Discontinued 10 M G PO DAILY@0800 May 21, 2018 12:00am June 05, 2018 11:58am 4 tabs daily x 2, then 3 tabs daily x 3, then 2 tabs daily x 3, then 1 tab daily x2 Start: 07-17-2015 End: 11-16-2016 Prednisone Discontinued 40 M G PO DAILY 50 July 17, 2015 12:00am November 16, 2016 11:24am Take 4 tablets once a day for 5 days, then take 3 tablets once a day for 5 days, then take 2 tablets once a day for 5 days, then take 1 tablets once a day for 5 days, then stop Start: 04-10-2015 End: 04-25-2015 take 2 tablets by mouth once daily, then take 1 tablet by mouth once daily, then take 0.5 tablet by mouth once daily PREDNISONE, 20MG (Oral Tablet) 1 (one) Tablet uad for 15 days Refills: 0 Ordered: 10-Apr-2015 Fritz Murphy MD Start : 10-Apr-2015 End : 25-Apr-2015 Inactive Comments: 2 a d for 5 d, 1 a d for 5d, 1/2 a d for 5 d Start: 11-30-2013 End: 12-14-2013 PREDNISONE (PEPE), 10MG (Oral Tablet) 1 (one) Tablet 3 x 3 days, 2 x 3 days, 1 x 3 days for 0 days Quantity: 9 {Tablet} Refills: 0 Ordered: 14-Dec-2013 Start : 30-Nov-2013 End : 14-Dec-2013 Discontinued Comment on above: 2 a d for 5 d, 1 a d for 5d, 1/2 a d for 5 d Take 4 tabs daily fo r 3 days, then 2 tabs daily for 3 days, then 1 tab daily for 3 days with food. Completed/Discontinued Medications Medication Drug Class(es) Dates Sig (Normalized) Sig (Original) amoxicillin 875 mg / clavulanate 125 mg oral tablet (20 sources) Penicillin-class Antibacterial Start: 11-30-2013 End: 12-14-2013 take 1 tablet by mouth twice daily AUGMENTIN, 875-125MG (Oral Tablet) 1 (one) Tablet bid for 14 days Quantity: 28 {Tablet} Refills: 0 Ordered: 30-Nov-2013 Marleni Holly Start : 30-Nov-2013 End : 14-Dec-2013 Inactive 24 hr amphetamine aspartate 2.5 mg / amphetamine sulfate 2.5 mg / dextroamphetamine saccharate 2.5 mg / dextroamphetamine sulfate 2.5 mg extended release oral capsule (20 sources) Central Nervous System Stimulant Start: 01-13-2022 End: 10-21-2022 take 1 capsule by mouth once daily, then take 1 capsule by mouth every twenty-four hours Dextroamphetamine -Amphetamine (Adderall Xr) 10 mg Capsule,Extended Release 24hr Discontinued 10 MG PO DAILY January 13, 2022 1:00am October 21, 2022 2:07pm Start: 01-04-2022 take 1 capsule by mo [facility] every twenty-four hours in the morning Adderall XR 10 MG Oral Capsule Extended Release 24 Hour 1 (one) Capsule in am for 0 days Quantity: 30 {Capsule} Refills: 0 Ordered: 04-Jan-2022 Fritz Murphy MD Start : 04-Jan-2022 Active Comments: Disp: ThirtyDX: F98. Start: 08-27-2021 take 1 capsule by mo [facility] every twenty-four hours in the morning Adderall XR 15 MG Oral Capsule Extended Release 24 Hour 1 (one) Capsule in am for 0 days Quantity: 30 {Capsule} Refills: 0 Ordered: 27-Aug-2021 Fritz Murphy MD Start : 27-Aug-2021 Active Comments: Disp: ThirtyDX: F98.fill for 10-23-21 Start: 08-04-2021 take 1 capsule by mo uth every twenty-four hours in the morning Adderall XR 15 MG Oral Capsule Extended Release 24 Hour 1 (one) Capsule in am for 0 days Quantity: 30 {Capsule} Refills: 0 Ordered: 04-Aug-2021 Fritz Murphy MD Start : 04-Aug-2021 Active Comments: Disp: ThirtyDX: F98. Start: 08-04-2021 take 1 capsule by mo uth every twenty-four hours in the morning Adderall XR 15 MG Oral Capsule Extended Release 24 Hour 1 (one) Capsule in am for 0 days Quantity: 30 {Capsule} Refills: 0 Ordered: 04-Aug-2021 Fritz Murphy MD Start : 04-Aug-2021 Active Comments: Disp: ThirtyDX: F98. Start: 07-29-2021 take 1 capsule by mo uth every twenty-four hours in the morning Adderall XR 15 MG Oral Capsule Extended Release 24 Hour 1 (one) Capsule in am for 0 days Quantity: 30 {Capsule} Refills: 0 Ordered: 29-Jul-2021 Fritz Murphy MD Start : 29-Jul-2021 Active Comments: Disp: ThirtyDX: F98. Start: 03-06-2021 take 1 capsule by mo uth every twenty-four hours in the morning Adderall XR 15 MG Oral Capsule Extended Release 24 Hour 1 (one) Capsule in am for 0 days Quantity: 30 {Capsule} Refills: 0 Ordered: 06-Mar-2021 Fritz Murphy MD Start : 06-Mar-2021 Active Comments: Disp: ThirtyDX: F98. fill for 05-01-21 Start: 08-29-2020 take 1 capsule by mo uth every twenty-four hours in the morning Adderall XR 15 MG Oral Capsule Extended Release 24 Hour 1 (one) Capsule in am for 0 days Quantity: 30 {Capsule} Refills: 0 Ordered: 29-Aug-2020 Fritz Murphy MD Start : 29-Aug-2020 Active Comments: Disp: ThirtyDX: F98.8 Start: 06-03-2020 take 1 capsule by mo uth every twenty-four hours in the morning Adderall XR 15 MG Oral Capsule Extended Release 24 Hour 1 (one) Capsule in am for 0 days Quantity: 30 {Capsule} Refills: 0 Ordered: 03-Jun-2020 Fritz Murphy MD Start : 03-Jun-2020 Active Comments: Disp: ThirtyDX: F98.8 Start: 11-23-2019 take 1 capsule by mo uth every twenty-four hours in the morning Adderall XR 15 MG Oral Capsule Extended Release 24 Hour 1 (one) Capsule in am for 0 days Quantity: 30 {Capsule} Refills: 0 Ordered: 23-Nov-2019 MICHAEL Parkinson LPN Start : 23-Nov-2019 Active Comments: Disp: thirty DX: F98.8 Start: 11-23-2019 take 1 capsule by mo uth once daily Adderall XR 15 MG Oral Capsule Extended Release 24 Hour 1 (one) Capsule at 1pm daily for 0 days Quantity: 30 {Capsule} Refills: 0 Ordered: 23-Nov-2019 Fritz Murphy MD Start : 23-Nov-2019 Active Comments: Disp: thirty DX: F98.8 Start: 09-04-2018 take 1 capsule by mo uth once daily Adderall XR 15 MG Oral Capsule Extended Release 24 Hour 1 (one) Capsule at 1pm daily for 0 days Quantity: 30 {Capsule} Refills: 0 Ordered: 04-Sep-2018 MICHAEL Parkinson Start : 04-Sep-2018 Active Comments: thirtyDX: F98.8 Start: 05-26-2018 take 1 capsule by mo uth once daily Adderall XR 15 MG Oral Capsule Extended Release 24 Hour 1 (one) Capsule at 1pm daily for 0 days Quantity: 30 {Capsule} Refills: 0 Ordered: 26-May-2018 El Baumann Start : 26-May-2018 Active Comments: thirty End: 01-06-2024 take 1 tablet by mouth once daily amphetamine-dextroam phetamine (ADDERALL) 15 mg tablet Take 15 mg by mouth once daily. 01/06/2024 Discontinued (Course of therapy completed) Comment on above: thirty thirtyDX: F98.8 Disp: thirty DX: F98 .8 Disp: ThirtyDX: F98. 8 Disp: ThirtyDX: F98. fill for 05-01-21 Disp: ThirtyDX: F98. Disp: ThirtyDX: F98. fill for 10-23-21 Take 15 mg by mouth once daily. apixaban 5 mg oral tablet (13 sources) Factor Xa Inhibitor Start: 01-20-2022 take 1 tablet by mouth twice daily, then take 1 tablet by mouth twice daily Eliquis 5 MG Oral Tablet 1 (one) Tablet 2 tabs bid x 7 days then 1 tab bid for 0 days Quantity: 180 {Tablet} Refills: 0 Ordered: 20-Jan-2022 Charmaine Mccoy CNP Start : 20-Jan-2022 Active Start: 01-14-2022 End: 10-21-2022 take 2 tablets by mouth twice daily Apixaban (Eliquis) 5 mg tablet Discontinued 5 MG PO TWICE A DAY 60 January 14, 2022 1:00am October 21, 2022 2:07pm start when 10 mg dose complete in 7 days atomoxetine 60 mg oral capsule (20 sources) Norepinephrine Reuptake Inhibitor Start: 03-08-2019 End: 03-08-2019 take 1 capsule by mouth once in the morning Strattera 60 MG Oral Capsule 1 (one) Capsule in am for 0 days Quantity: 30 {Capsule} Refills: 6 Ordered: 08-Mar-2019 Fritz Murphy MD Start : 08-Mar-2019 End : 08-Mar-2019 Discontinued Comments: once wean back on Start: 05-26-2018 End: 06-09-2018 take 1 capsule by mouth in the morning Strattera 25 MG Oral Capsule 1 (one) Capsule in am then increase 2 in am for another week than go to the 60 mg for 14 days Refills: 0 Ordered: 26-May-2018 Fritz Murphy MD Start : 26-May-2018 End : 09-Jun-2018 Inactive Start: 05-26-2018 take 1 capsule by mo [facility] once in the morning Strattera 60 MG Oral Capsule 1 (one) Capsule in am for 0 days Quantity: 30 {Capsule} Refills: 6 Ordered: 26-May-2018 Fritz Murphy MD Start : 26-May-2018 Active Comments: once wean back on Start: 04-11-2017 take 1 capsule by mo uth in the morning Strattera 60 MG Oral Capsule 1 (one) Capsule in am for 0 days Quantity: 30 {Capsule} Refills: 6 Ordered: 11-Apr-2017 Fritz Murphy MD Start : 11-Apr-2017 Active Start: 02-25-2017 End: 04-11-2017 take 1 capsule by mouth in the morning Strattera 40 MG Oral Capsule 1 (one) Capsule in am for 0 days Quantity: 14 {Capsule} Refills: 0 Ordered: 11-Apr-2017 Luann Jason LPN Start : 25-Feb-2017 End : 11-Apr-2017 Inactive Start: 02-25-2017 End: 04-11-2017 take 1 capsule by mouth in the morning Strattera 25 MG Oral Capsule 1 (one) Capsule in am for 0 days Quantity: 14 {Capsule} Refills: 0 Ordered: 11-Apr-2017 Luann Jason LPN Start : 25-Feb-2017 End : 11-Apr-2017 Inactive Comment on above: once wean back on beclomethasone dipropionate 0.08 mg/actuat metered dose nasal spray (20 sources) Corticosteroid Start: 014 End: 017 Qnasl 80 MCG/ACT Nasal Aerosol Solution 2 (two) Puff Puff daily for 0 days Quantity: 1 {Puff} Refills: 0 Ordered: 14-Feb-2017 Luann Jason LPN Start : 30-Nov-2013 End : 14-Feb-2017 Inactive 120 actuat budesonide 0.08 mg/actuat / formoterol fumarate 0.0045 mg/actuat metered dose inhaler (20 sources) Corticosteroid, beta2-Adrenergic Agonist Start: 014 End: 017 take 2 puff(s) by inhalation twice daily Symbicort 80-4.5 MCG/ACT Inhalation Aerosol 2 (two) Puff Puff bid for 0 days Quantity: 1 {Inhaler} Refills: 3 Ordered: 14-Feb-2017 Luann Jason LPN Start : 14-Dec-2013 End : 14-Feb-2017 Inactive Start: 12-14-2013 End: 02-14-2017 take 2 puff(s) by inhalation twice daily Symbicort 80-4.5 MCG/ACT Inhalation Aerosol 2 (two) Puff Puff bid for 0 days Quantity: 1 {Inhaler} Refills: 3 Ordered: 14-Feb-2017 Luann Jason LPN Start : 14-Dec-2013 End : 14-Feb-2017 Inactive cholecalciferol 1.25 mg oral capsule (20 sources) Vitamin D Start: 05-15-2018 End: 01-20-2022 take 1 capsule by mouth once daily Vitamin D3 1.25 MG (47786 UT) Oral Capsule 1 (one) Capsule Capsule qd for 30 days Quantity: 30 {Capsule} Refills: 3 Ordered: 20-Jan-2022 Luann Jason LPN Start : 24-May-2018 End : 20-Jan-2022 Inactive clarithromycin 500 mg oral tablet (20 sources) Macrolide Antimicrobial Start: 05-05-2018 End: 05-15-2018 take 1 tablet by mouth twice daily Clarithromycin 500 MG Oral Tablet 1 Tablet bid for 10 days Quantity: 20 {Tablet} Refills: 0 Ordered: 05-May-2018 Mandielarissalevon Marleni Start : 05-May-2018 End : 15-May-2018 Inactive clindamycin 300 mg oral capsule (3 sources) Lincosamide Antibacterial Start: 04-21-2019 End: 07-27-2019 take 300 mg by mouth every six hours Clindamycin Hcl Discontinued 300 MG PO EVERY 6 HOURS 40 April 21, 2019 1:00am July 27, 2019 8:06am clotrimazole 10 mg oral lozenge (20 sources) Azole Antifungal Start: 05-05-2018 End: 05-15-2018 Clotrimazole 10 MG Mouth/Throat Lozenge 1 (one) Devyn 5 x daily for 10 days Quantity: 50 {Devyn} Refills: 0 Ordered: 05-May-2018 Mandielarissalevon Marleni Start : 05-May-2018 End : 15-May-2018 Inactive Start: 12-14-2013 End: 12-24-2013 CLOTRIMAZOLE, 10MG (Mouth/Th roat Devyn) 1 (one) Devyn 5 times daily for 10 days Quantity: 50 {Devyn} Refills: 0 Ordered: 14-Dec-2013 Elayne Marleni Start : 14-Dec-2013 End : 24-Dec-2013 Inactive codeine phosphate 2 mg/ml / guaiFENesin 20 mg/ml oral solution (20 sources) Opioid Agonist Start: 04-10-2015 End: 02-14-2017 Cheratussin AC 100-10 MG/5ML Oral Solution 1 (one) Solution 1-2 tsp every 6hours prn for 0 days Quantity: 8 {Fluid_Ounce} Refills: 0 Ordered: 14-Feb-2017 Luann Jason LPN Start : 10-Apr-2015 End : 14-Feb-2017 Inactive Comments: eight Comment on above: eight ergocalciferol 1.25 mg oral capsule (20 sources) Provitamin D2 Compound Start: 02-15-2017 End: 05-05-2018 take 1 [IU] by mouth two times weekly Ergocalciferol 63328 UNIT Oral Capsule 1 (one) Unit Unit twice weekly for 0 days Quantity: 24 {Tablet} Refills: 0 Ordered: 05-May-2018 Tessa Ward Start : 15-Feb-2017 End : 05-May-2018 Discontinued Fasenra Pen 30 MG/ML Subcutaneous Solution Auto-injector (9 sources) Start: 03-08-2019 Fasenra Pen 30 MG/ML Subcutaneous Solution Auto-injector 1 (one) Solution Auto-injector every month x3 than every 2month for 0 days Quantity: 1 {Each} Refills: 0 Ordered: 23-Nov-2019 Luann Jason LPN Start : 08-Mar-2019 Active Start: 03-08-2019 Fasenra Pen 30 MG/ML Subcutaneous Solution Auto-injector 1 (one) Solution Auto-injector every month x3 than every 2month for 0 days Quantity: 1 {Each} Refills: 0 Ordered: 08-Mar-2019 Fritz Murphy MD Start : 08-Mar-2019 Active fexofenadine hydrochloride 60 mg oral tablet (20 sources) Histamine-1 Receptor Antagonist Start: 12-14-2013 End: 02-14-2017 take 1 tablet by mouth twice daily Fexofenadine HCl 60 MG Oral Tablet 1 (one) Tablet Tablet bid for 0 days Quantity: 60 {Tablet} Refills: 0 Ordered: 14-Feb-2017 Luann Jason LPN Start : 14-Dec-2013 End : 14-Feb-2017 Inactive Start: 11-30-2013 End: 08-28-2021 take 1 tablet by mouth once daily Chelly Allergy 180 MG Oral Tablet 1 (one) Tablet Tablet daily for 0 days Quantity: 30 {Tablet} Refills: 0 Ordered: 28-Aug-2021 Luann Jason LPN Start : 30-Nov-2013 End : 28-Aug-2021 Inactive fluticasone propionate 0.05 mg/actuat metered dose nasal spray (3 sources) Corticosteroid Start: 06-05-2018 End: 01-19-2019 Fluticasone Propionate Discontinued 1 SPRAY INTRANASAL DAILY June 05, 2018 12:00am January 19, 2019 3:56pm 30 actuat fluticasone furoate 0.1 mg/actuat / vilanterol 0.025 mg/actuat dry powder inhaler (20 sources) Corticosteroid, beta2-Adrenergic Agonist Start: 02-07-2017 End: 06-06-2018 Fluticasone Furoate-Vilanterol Discontinued 1 INH INHALATION DAILY February 07, 2017 4:33pm June 06, 2018 10:19am Rinse mouth after each use Start: 11-16-2016 End: 02-07-2017 take 1 puff(s) by inhalation once daily Fluticasone Furoate-Vilanterol Discontinued 1 PUFF IH DAILY November 16, 2016 12:00am February 07, 2017 4:35pm Breo Ellipta 200 -25 MCG/INH Inhalation Aerosol Powder Breath Activated daily (200-25 MCG/INH) Inactive Breo Ellipta 200 -25 MCG/INH Inhalation Aerosol Powder Breath Activated daily (200-25 MCG/INH) Inactive levoFLOXacin 500 mg oral tablet (20 sources) Quinolone Antimicrobial Start: 04-10-2015 End: 04-24-2015 take 1 tablet by mouth once daily LEVAQUIN, 500MG (Oral Tablet) 1 (one) Tablet daily for 14 days Quantity: 14 {Tablet} Refills: 0 Ordered: 10-Apr-2015 Fritz Murphy MD Start : 10-Apr-2015 End : 24-Apr-2015 Inactive lisinopril 5 mg oral tablet (9 sources) Angiotensin Converting Enzyme Inhibitor Start: 01-20-2022 End: 02-19-2022 take 1 tablet by mouth once daily Lisinopril 5 MG Oral Tablet 1 (one) Tablet daily for 30 days Quantity: 30 {Tablet} Refills: 0 Ordered: 20-Jan-2022 Charmaine Mccoy CNP Start : 20-Jan-2022 End : 19-Feb-2022 Inactive montelukast 10 mg oral tablet (20 sources) Leukotriene Receptor Antagonist take 1 mg by mouth once daily Montelukast Sodium 10 MG Oral Tablet daily (10 MG) Inactive Comments: rx by pulm Comment on above: rx by pulm omeprazole 20 mg delayed release oral tablet (20 sources) Proton Pump Inhibitor Start: 05-05-2018 End: 08-28-2021 take 1 tablet by mouth once daily before mealtime PriLOSEC OTC 20 MG Oral Tablet Delayed Release 1 (one) Tablet Tablet 1 daily before a meal for 0 days Quantity: 30 {Tablet} Refills: 0 Ordered: 28-Aug-2021 Eren THAKURLuann Saldana Start : 05-May-2018 End : 28-Aug-2021 Inactive oxyCODONE hydrochloride 5 mg oral tablet (2 sources) Opioid Agonist Start: 01-14-2022 End: 07-02-2022 take 5 mg by mouth every four hours as needed Oxycodone Discontinued 5 MG PO EVERY 4 HOURS NEEDED 18 January 14, 2022 July 02, 2022 7:26am Problems Active Problems Problem Classification Problem Date Documented Date Episodic/Chronic Abdominal pain (7 sources) Unspecified abdominal pain; Translations: [Right flank pain] Onset: 2 Episodic Acute bronchitis (3 sources) Acute bronchitis; Translations: [Acute bronchitis, unspecified] 01-19-2019 Episodic Anxiety disorders (20 sources) Anxiety; Translations: [Anxiety] 04-11-2017 Chronic Comment on above: he labels himself mo re depression either way i think related to his ADD Asthma (20 sources) Acute exacerbation of asthma; Translations: [Allergic asthma] Resolved: 7 04-18-2018 Chronic Comment on above: use mucinex. 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 Chilo Thomas and ENT Dr. Obrien, alix Attention-deficit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 status: Former Smokeless tobacco: Current Types: Chew Career: [employer] MEDICATIONS Current Outpatient Medications Medication Sig albuterol HFA (PROVENTIL HFA, VENTOLIN HFA) 90 mcg/actuation inhaler Inhale 2 Puffs as instructed every 4 hours as needed for wheezing/shortness of breath. benralizumab (FASENRA PEN SUBCUTANEOUS) Inject subcutaneously. amphetamine-dextroamph etamine (ADDERALL) 15 mg tablet Take 15 mg by mouth once daily. (Patient not taking: Reported on 01/30/2023) No current facility-administered medications for this visit. CURRENT ALLERGIES Allergies As of Date: 01/06/2024 (No Known Allergies) Fully Assessed 01/06/2024 REVIEW OF SYSTEMS A ROS was performed and pertinent negatives and positives can be found in the HPI PHYSICAL EXAM There were no vitals filed for this visit. There is no height or weight on file to calculate BMI. Exam: Consents General: Well-nourished Psychiatric: Normal affect Neurologic: AANDOx3 HEENT: Normocephalic, EOMI CV: Hemodynamically stable, warm and well-perfused Resp: Breathing comfortably on RA Abdomen: Soft, nontender, no masses, no organomegaly Extremities: No significant edema noted Skin: Skin color, texture, turgor normal Inguinal: No adenopathy, no hernia noted Phallus: circumcised, no palpable plaques, normal elasticity Meatus: Orthotopic Scrotum: No lesions, normal rugae Right Left Testicle 22mL 22mL Epididymis Palpable, unremarkable Palpable unremarkable Vas Deferens Palpable Palpable Varicocele - - The sensitive examination was discussed with the Patient or Patient's Authorized High Climber. As applicable, any other physician, advance practice provider, medical student, or other health professional student that will be observing or involved in the sensitive examination for educational or training purposes was discussed with the Patient or Authorized High Climber. The Patient or Authorized High Climber has agreed to proceed with the sensitive examination. (Sensitive examination includes inspection and/or palpation of the breasts, pelvis, prostate and anorectal regions) DATA Pertinent Labs No results found for: KARYOTYPE, CHRMY, CHYINT, TESTOST, FSH, LH, PROL, ESTRAD, HCT, PSA, HBA1C No results found for: TESTOST No results found for: TESTFREE No results found for: PSA No results found for: HCT ASSESSMENT 1. 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 Risk factor for infertility include: prior testosterone OTC supplement. Previous work-up notable for none. We discussed the definition and prevalence of infertility and specifically of male factor infertility. We discussed the known ris (more content not included)... Normal [facility] Office Visit Reporton [address] [facility] [address] [place] [address] OFFICE VISIT Date of Service: 01/06/24 MR#: [id number] Acct: [id number] Patient: MART BAUMANN Rep #: [id number] : 1985 Provider: MOUNA Lainez Age/Sex: 38/M Location: [facility].PMW Status: Signed Intake Vital Signs 11/11/23 06:59 11/15/23 09:05 01/06/24 08:12 Height 6 ft 6 ft 6 ft BP 147/80 H 134/84 H Blood Pressure Location Rt brachial Rt brachial Position Sitting Sitting Respiration 20 H 20 H Pulse 86 61 Pulse Source Monitor Monitor Temp 97.4 F L 97.4 F L Temp Source Temporal Temporal Pulse Oximetry (%) 97 96 Oxygen Delivery Method room air room air Intake Visit Reasons: Asthma- Severe Persistent Asthma Chief Complaint: Asthma Director Systems Required: No DME Vendor: n/a Accompanied by: Self Is patient in pain?: No Allergies No Known Allergies Allergy (Verified 01/06/24 08:09) Office Procedures Asthma Injection Procedure: Details:: Patient presented for Fasenra injection. Patient tolerated treatment well. The patient was monitored for 15 minutes after treatment. Patient shows no signs of adverse reaction. Reviewed signs and sy mptoms of reaction. Patient instructed to call the office with new or worsening symptoms. Patient advised to report to the emergency department during after hours if necessary. Patient departed from the office with no signs of distress. Injections Is this a patient provided medication?: Yes Office Meds benralizumab 30 mg/mL subcutaneous syringe Performing Provider: Catina Lainez NP, KELLYC Performing Location: [facility] Administered by: Belkys Rascon on 01/06/24 08:13 Dose Route Admin Location Dispensed Lot Number Expiration Date ND Man ufacturer 30 mg subcut right arm 1 mL [id number] 10/29/25 8085-6856-97 [employer] Assessment and Plan Assessment and Plan Orders: Orders Fasenra Injection Today J45.50 - Severe persistent asthma, uncomplicated 01/06/24 1253 Date Catina FREIRE Cosigner Signature: Date (if applicable) CC: Normal [facility] Office Visit Reporton 2023 Office Visit Report [facility] [address] [place] [address] OFFICE VISIT Date of Service: 11/15/23 MR#: [id number] Acct: [id number] Patient: MART BAUMANN Rep #: [id number] : 1985 Provider: MOUNA Lainez Age/Sex: 38/M Location: [facility].W Status: Signed Intake Vital Signs 11/11/23 06:59 11/15/23 09:05 Height 6 ft 6 ft BP 147/80 H Blood Pressure Location Rt brachial Position Sitting Respiration 20 H Pulse 86 Pulse Source Monitor Temp 97.4 F L Temp Source Temporal Pulse Oximetry (%) 97 Oxygen Delivery Method room air Intake Visit Reasons: Asthma Chief Complaint: Asthma Director Systems Required: No DME Vendor: n/a Accompanied by: Self Is patient in pain?: No Allergies No Known Allergies Allergy (Verified 11/15/23 09:06) Office Procedures Asthma Injection Procedure: Details:: Patient presented for Fasenra injection. Patient tolerated treatment well. The patient was monitored for 15 minutes after treatment. Patient shows no signs of adverse reaction. Reviewed signs and symptoms of reaction. Patient instructed to call the office with new or worsening symptoms. Patient advised to report to the emergency department during after hours if necessary. Patient departed from the office with no signs of distress. Injections Is this a patient provided medication?: Yes Office Meds benralizumab 30 mg/mL subcutaneous syringe Performing Provider: MOUNA Gutierrez NP Performing Location: [facility] Administered by: Belkys Rascon on 11/15/23 09:07 Dose Route Admin Location Dispensed Lot Number Expiration Date NDC Man ufacturer 30 mg subcut right arm 1 mL [id number] 10/29/25 2829-2433-63 [employer] Assessment and Plan Assessment and Plan (1) Bronchial asthma: Status: Chronic Qualifiers: Asthma complication type: with acute exacerbation Asthma severity: severe persistent Qualified Code(s): J45.51 - Severe persistent asthma with (acute) exacerbation Orders: Orders Fasenra Injection Today J45.50 - Severe persistent asthma, uncomplicated 11/15/23 1131 Date Catina Sorenson Signature: Date (if applicable) CC: Normal [facility] Pulmonary Visit Reporton Pulmonary Visit Report [facility] [address] [place] [address] OFFICE VISIT Date of Service: 10/20/23 MR#: [id number] Acct: [id number] Name: MART BAUMANN Rep #: [id number] : 1985 Provider: MOUNA Lainez Age/Sex: 38/M Location: [facility].PMW Status: Signed Assessment and Plan Assessment and Plan (1) Severe asthma: Status: Chronic Qualifiers: Asthma persistence: persistent Asthma complication type: unspecified Qualified Code(s): J45.50 - Severe persistent asthma, uncomplicated Comment: On Fasenra Plan: Stable, no signs of exacerbation of asthma today. No change in maintenance medications, including Fasenra. The patient's number of exacerbations has been dramatically decreased on Fasenra. His quality of life has also been significantly improved with the use of Fasenra. No additional testing at this time. Contact the office with any signs of new or worsening symptoms. Follow-up in 1 year. Plan Details Follow Up: 1 Year ([facility]) HPI 1 Y FU Chief Complaint: routine follow up HPI Comments Details: This patient presents to the office today for follow-up of his severe persistent asthma. He is ambulatory and currently on room air. He has not recently been seen in the ED or urgent care for any respiratory illness. He has not required any antibiotics or prednisone for any breathing problems. He is compliant with use of Fasenra bimonthly injections. He has not recently needed to use his albuterol rescue inhaler. He denies any shortness of breath. He denies any cough, sputum production or hemoptysis. He denies any wheezing,chest tightness, chest pain or palpitations. He has not had any fever, chills or body aches. Intake Vital Signs 10/21/22 07:54 09/16/23 08:31 10/20/23 07:38 Height 6 ft 6 ft 6 ft Weight: 265 lb BMI 35.9 BP 128/77 H Blood Pressure Location Lt brachial Position Sitting Respiration 20 H Pulse 61 Pulse Source Monitor Temp 97.0 F L Temperature Source Temporal Artery Pulse Oximetry (%) 96 Oxygen Delivery Method room air Intake Visit Reasons: 1 Y FU Chief Complaint: Asthma Director Systems Required: No DME Vendor: n/a Accompanied by: Self Is patient in pain?: No Allergies No Known Allergies Allergy (Verified 10/20/23 07:38) Medications ???Medication ???Instructions ???Recorded ???Confirmed ???Type albuterol sulfate 2.5 mg/3 mL 2.5 mg inhalation Q4H PRN 01/13/22 10/20/23 History (0.083 %) solution for nebulization Shortness Of Breath Or Wheezing benralizumab 30 mg/mL subcutaneous 30 mg subcut Q8W #1 mL 06/13/23 10/20/23 Rx auto-injector (Fasenra Pen) fluticasone furoate 200 1 inh inhalation QDAY #60 ea 06/17/23 10/20/23 Rx mcg-vilanterol 25 mcg/dose inhalation powder (Breo Ellipta) montelukast 10 mg tablet 10 mg PO QPM #30 tabs 06/17/23 10/20/23 Rx PFSH Medical History Microscopic hematuria Renal infarct Maxillary sinusitis Acute bronchitis Acute hypoxic respiratory insufficiency Acute asthma exacerbation Allergic rhinitis Bronchial asthma Surgical History S/P left knee arthroscopy History of ankle surgery History of repair of anterior cruciate ligament of right knee H/O sinus surgery Family History Father Asthma Diabetes Hypertension Grandmother Asthma Social History Smoking Status: Former smoker Tobacco: How many years used: 10 how long ago did patient quit smokin, 1ppd second hand exposure: Yes alcohol intake: never substance use type: does not use Review of Systems Resp Respiratory: Yes as per HPI Exam Const Constitutional: Positive conversant, cooperative, in no acute respiratory distress, healthy appearing, well developed, well nourished, good hygiene and obese Head Head: Yes normocephalic, Yes atraumatic and No cyanosis of lips/distal nose Eyes Eye: Positive clear conjunctiva; Negative nystagmus Ears Ear: Positive hearing normal and external ears normal Nose Nose: Yes external nose normal Mouth Mouth: Positive oral mucosae normal Neck Neck: Positive normal visual inspection, full ROM and trachea midline; Negative JVD Chest Wall Chest: Positive normal inspection of the chest and symmetric chest movement Resp lung sounds: Positive clear to auscultation, good air exchange, normal expiratory time and normal respiratory effort; Negative rhonchi or rales Cardio Cardiac: Positive regular rate, regular rhythm, S1 normal, S2 normal and normal PMI; Negative murmur GI GI: Positive normal to inspection and obes (more content not included)... Normal [facility] Office Visit Reporton 2023 Office Visit Report [facility] [address] [place] [address] OFFICE VISIT Date of Service: 09/16/23 MR#: [id number] Acct: [id number] Patient: MART BAUMANN Rep #: [id number] : 1985 Provider: MOUNA Lainez Age/Sex: 38/M Location: [facility].PMW Status: Signed Intake Vital Signs 06/06/23 07:49 09/16/23 08:31 Height 6 ft 6 ft BP 149/84 H 134/73 H Blood Pressure Location Rt brachial Rt brachial Position Sitting Sitting Respiration 18 16 Pulse 99 72 Pulse Source Monitor Monitor Temp 97.6 F L 97.6 F L Temp Source Temporal Temporal Pulse Oximetry (%) 96 96 Oxygen Delivery Method room air room air Intake Visit Reasons: Asthma Severe Persistent Asthma, Injection Chief Complaint: Asthma Director Systems Required: No Accompanied by: Self Is patient in pain?: No Allergies No Known Allergies Allergy (Verified 09/16/23 08:33) Medications ???Medication ???Instructions ???Recorded ???Confirmed ???Type albuterol sulfate 2.5 mg/3 mL 2.5 mg inhalation Q4H PRN 01/13/22 09/16/23 History (0.083 %) solution for nebulization Shortness Of Breath Or Wheezing benralizumab 30 mg/mL subcutaneous 30 mg subcut Q8W #1 mL 06/13/23 09/16/23 Rx auto-injector (Fasenra Pen) fluticasone furoate 200 1 inh inhalation QDAY #60 ea 06/17/23 09/16/23 Rx mcg-vilanterol 25 mcg/dose inhalation powder (Breo Ellipta) montelukast 10 mg tablet 10 mg PO QPM #30 tabs 06/17/23 09/16/23 Rx Office Procedures Asthma Injection Procedure: Details:: Patient presented for Fasenra injection. Patient tolerated treatment well. The patient was monitored for 15 minutes after treatment. Patient shows no signs of adverse reaction. Reviewed signs and symptoms of reaction. Patient instructed to call the office with new or worsening symptoms. Patient advised to report to the emergency department during after hours if necessary. Patient departed from the office with no signs of distress. Pt provided medication via specialty pharmacy Injections Procedure performed by: Bushra Castanon Lot number: [id number] Partner Manager: [employer] date: 10/28/25 Dose of injection: 30mg Site of injection: Sub-Q Medication Given: Yes Is this Buy Bill?: No Office Meds benralizumab 30 mg/mL subcutaneous syringe Performing Provider: Catina Lainez WELDING MACHINE OPERATOR ELECTROSLAG, WELDING MACHINE OPERATOR ELECTROSLAG-C Performing Location: [facility] Administered by: Bushra Castanon on 09/16/23 08:36 Dose Route Admin Location Dispensed Lot Number Expiration Date ND Blayne ufacturer 30 mg subcut [facility] 1 mL [id number] 10/28/25 6605-9184-57 [employer] Assessment and Plan Assessment and Plan Orders: Orders Fasenra Injection Today J45.50 - Severe persistent asthma, uncomplicated 09/16/23 1325 Date Catina FREIRE Cosigner Signature: Date (if applicable) CC: Normal [facility] Office Visit Reporton 2023 Office Visit Report [facility] [address] [place] [address] OFFICE VISIT Date of Service: 07/26/23 MR#: [id number] Acct: [id number] Patient: MART BAUMANN Rep #: [id number] : 1985 Provider: MOUNA Lainez Age/Sex: 38/M Location: [facility].PMW Status: Signed with Addenda ADDENDUM by Leia Nettles on 07/26/23 at 1039 Office Procedure Documentation entered by Leia Nettles 07/26/23 10:39: Asthma Injection Procedure: Details:: Patient presented for Fasenra injection. Patient tolerated treatment well. The patient was monitored for 15 minutes after treatment. Patient shows no signs of adverse reaction. Reviewed signs and symptoms of reaction. Patient instructed to call the office with new or worsening symptoms. Patient advised to report to the emergency department during after hours if necessary. Patient departed from the office with no signs of distress. Injections Procedure performed by: Leia Nettles Lot number: [id number] Partner Manager: [employer] date: 03/31/25 Dose of injection: 30mg/ml Site of injection: Sub-Q (Right arm) Medication Given: Yes Is this Buy Bill?: No Office Meds benralizumab 30 mg/mL subcutaneous syringe Performing Provider: Catina Lainez WELDING MACHINE OPERATOR ELECTROSLAG, WELDING MACHINE OPERATOR ELECTROSLAG-C Performing Location: [facility] Administered by: Leia Nettles on 07/26/23 08:37 Dose Route Admin Location Dispensed Lot Number Expiration Date KRISTIE Cisneros ufacturer 30 mg subcut Right arm 1 mL [id number] 03/31/25 6598-8625-90 [employer] Comments: Patient presented for Fasenra injection. Patient tolerated treatment well. The patient was monitored for 15 minutes after treatment. Patient shows no signs of adverse reaction. Reviewed signs and symptoms of reaction. Patient instructed to call the office with new or worsening symptoms. Patient advised to report to the emergency department during after hours if necessary. Patient departed from the office with no signs of distress. Date cc: * Signed Intake Vital Signs 04/08/23 07:06 07/26/23 08:41 Height 6 ft Weight: 256 lb 9 oz BMI 34.7 BP 131/80 H 128/79 H Blood Pressure Location Rt brachial Rt brachial Position Sitting Sitting Respiration 18 14 Pulse 84 66 Pulse Source Monitor Monitor Temp 97.4 F L 97.7 F L Temp Source Temporal Temporal Pulse Oximetry (%) 97 97 Oxygen Delivery Method room air room air Intake Visit Reasons: Asthma- severe persistent asthma Chief Complaint: Asthma Allergies No Known Allergies Allergy (Verified 07/26/23 08:35) Office Procedures Asthma Injection Procedure: Details:: Patient presented for [] injection. Patient tolerated treatment well. The patient was monitored for [] minutes after treatment. Patient shows no signs of adverse reaction. Reviewed signs and symptoms of reaction. Patient instructed to call the office with new or worsening symptoms. Patient advised to report to the emergency department during after hours if necessary. Patient departed from the office with no signs of distress. Injections Procedure performed by: Leia Nettles Lot number: [id number] Partner Manager: [employer] date: 03/31/25 Dose of injection: 30mg/ml Site of injection: Sub-Q (Right arm) Is this Buy Bill?: Yes Injections allergy injection single: Procedure performed by: Leia Nettles Site of injection: Sub-Q (right arm) Dose of injection: 30mg/ml Office Meds benralizumab 30 mg/mL subcutaneous syringe Performing Provider: MOUNA Gutierrez NP Performing Location: [facility] Administered by: Leia Nettles on 07/26/23 08:37 Dose Route Admin Location Dispensed Lot Number Expiration Date KRISTIE Cisneros ufacturer 30 mg subcut Right arm 1 mL [id number] 03/31/25 1580-8561-56 [employer] Comments: Patient presented for Fasenra injection. Patient tolerated treatment well. The patient was monitored for 15 minutes after treatment. Patient shows no signs of adverse reaction. Reviewed signs and symptoms of reaction. Patient instructed to call the office with new or worsening symptoms. Patient advised to report to the emergency department during after hours if necessary. Patient departed from the office with no signs of distress. Patient provided [facility]. Assessment and Plan Assessment and Plan (1) Severe asthma: Status: Acute Qualifiers: Asthma complication type: unspecified Asthma persistence: persistent Qualified Code(s): J45.50 - Severe persistent asthma, uncomplicated Orders: Orders Fasenra Injection Today J45.50 - Severe persistent asthma, uncomplicated 07/26/23917 Date Catina FREIRE Cosigner Signature: Date ___ (more content not included)... Normal [facility] Office Visit Reporton 2023 Office Visit Report [facility] [address] [place] [address] OFFICE VISIT Date of Service: 06/06/23 MR#: [id number] Acct: [id number] Patient: MART BAUMANN Rep #: [id number] : 1985 Provider: MOUNA Lainez Age/Sex: 38/M Location: [facility].PMW Status: Signed Intake Vital Signs 04/08/23 07:06 06/06/23 07:49 Height 6 ft 6 ft BP 149/84 H Blood Pressure Location Rt brachial Position Sitting Respiration 18 Pulse 99 Pulse Source Monitor Temp 97.6 F L Temp Source Temporal Pulse Oximetry (%) 96 Oxygen Delivery Method room air Intake Visit Reasons: Asthma Chief Complaint: Asthma Director Systems Required: No Accompanied by: Self Is patient in pain?: No Allergies No Known Allergies Allergy (Verified 06/06/23 07:49) Office Procedures Asthma Injection Procedure: Details:: Patient presented for Fasenra injection. Patient tolerated treatment well. The patient was monitored for 15 minutes after treatment. Patient shows no signs of adverse reaction. Reviewed signs and symptoms of reaction. Patient instructed to call the office with new or worsening symptoms. Patient advised to report to the emergency department during after hours if necessary. Patient departed from the office with no signs of distress. Patient provided medication via [facility]. Injections Is this Buy Bill?: No Office Meds benralizumab 30 mg/mL subcutaneous syringe Performing Provider: Catina Lainez NP, ADAM-C Performing Location: [facility] Administered by: Belkys Rascon on 06/06/23 07:52 Dose Route Admin Location Dispensed Lot Number Expiration Date NDC Man ufacturer 30 mg subcut right arm 1 mL [id number] 04/28/25 2934-9857-36 [employer] Quality Reporting Tobacco Screening ([facility] 138) Smoking Status: Former smoker Assessment and Plan Assessment and Plan (1) Bronchial asthma: Status: Chronic Qualifiers: Asthma complication type: with acute exacerbation Asthma severity: severe persistent Qualified Code(s): J45.51 - Severe persistent asthma with (acute) exacerbation Orders: Orders Fasenra Injection Today J45.50 - Severe persistent asthma, uncomplicated 06/06/23 0805 Date Catina Lainez NP WELDING MACHINE OPERATOR ELECTROSLAG-C Cosigner Signature: Date (if applicable) CC: Normal [facility] Office Visit Reporton 2023 Office Visit Report [facility] [address] [place] [address] OFFICE VISIT Date of Service: 04/08/23 MR#: [id number] Acct: [id number] Patient: MART BAUMANN Rep #: [id number] : 1985 Provider: Dr. Jeremy Lowe DO Age/Sex: 38/M Location: [facility].PMW Status: Signed Intake Vital Signs 02/10/23 07:35 04/08/23 07:06 Height 6 ft 6 ft Weight: 256 lb 9 oz BMI 34.7 BP 131/80 H Blood Pressure Location Rt brachial Position Sitting Respiration 18 Pulse 84 Pulse Source Monitor Temp 97.4 F L Temp Source Temporal Pulse Oximetry (%) 97 Oxygen Delivery Method room air Intake Visit Reasons: Asthma- severe persistent asthma Chief Complaint: Asthma Director Systems Required: No Accompanied by: Self Is patient in pain?: No Allergies No Known Allergies Allergy (Verified 04/08/23 07:06) Office Procedures Asthma Injection Procedure: Details:: Patient presented for Fasenra injection. Patient tolerated treatment well. The patient was monitored for 15 minutes after treatment. Patient shows no signs of adverse reaction. Reviewed signs and symptoms of reaction. Patient instructed to call the office with new or worsening symptoms. Patient advised to report to the emergency department during after hours if necessary. Patient departed from the office with no signs of distress. Office Meds benralizumab 30 mg/mL subcutaneous syringe Performing Provider: Jeremy Lowe DO Performing Location: Pulmonary Medicine [facility] Administered by: Belkys Rascon on 04/08/23 07:14 Dose Route Admin Location Dispensed Lot Number Expiration Date NDC Man ufacturer 30 mg subcut right arm 1 mL [id number] 01/08/25 5857-0207-38 [employer] Quality Reporting Tobacco Screening ([facility] 138) Smoking Status: Former smoker Assessment and Plan Assessment and Plan Orders: Orders Fasenra Injection Today J45.50 - Severe persistent asthma, uncomplicated 04/08/23 0753 Date Jeremy Haroignju Signature: Date (if applicable) CC: Normal [facility] STREP A MOLECULAR (POC)on Procedural Control Valid [facility] Strep A (POCT) Negative Negative [facility] CBC, PLATELETS & AUT DIFF (5 1528)Ordered By: Balance Wheel Screw Hole Tapper on 01-20-2022 Basophils (Bld) [#/Vol] 0.0 10*3/uL Normal 0.0-0.2 [facility]; [facility] Work Phone: Comment on above: PATIENT NOT FASTINGP ERFORMED BY: CB [facility] Jdyxwf54[address] [place] [id number] Basophils/100 WBC (Bld) 0 % Normal [facility]; [facility] Work Phone: Comment on above: PATIENT NOT FASTINGP ERFORMED BY: CB [facility] Xssvow1943 [address] [place] [id number] Eosinophils (Bld) [#/Vol] 0.0 10*3/uL Normal 0.0-0.4 [facility]; [facility] Work Phone: Comment on above: PATIENT NOT FASTINGP ERFORMED BY: CB [facility] Zusadz7[address] [place] [id number] Eosinophils/100 WBC (Bld) 0 % Normal [facility]; [facility] Work Phone: Comment on above: PATIENT NOT FASTINGP ERFORMED BY: CB [facility] Atgkhl1909 [address] [place] [id number] Erythrocyte distribution width (RBC) [Ratio] 12.1 % Normal 11.6-15.4 [facility]; [facility] Work Phone: Comment on above: PATIENT NOT FASTINGP ERFORMED BY: CB [facility] Hkrgxl2[address] [place] [id number] Hematocrit (Bld) [Volume fraction] 44.5 % Normal 37.5-51.0 [facility]; [facility] Work Phone: Comment on above: PATIENT NOT FASTINGP ERFORMED BY: CB [facility] Jrrzlb15[address] [place] [id number] Hemoglobin (Bld) [Mass/Vol] 14.7 g/dL Normal 13.0-17.7 [facility]; [facility] Work Phone: Comment on above: PATIENT NOT FASTINGP ERFORMED BY: ONEIL Scott6[address]Dublin [place] [id number] Immature granulocytes (Bld) [#/Vol] 0.1 10*3/uL Normal 0.0-0.1 [facility]; [facility] Work Phone: Comment on above: PATIENT NOT FASTINGP ERFORMED BY: CB [facility] Xvetzh36[address] [place] [id number] Immature granulocytes/100 WBC (Bld) 1 % Normal [facility]; [facility] Work Phone: Comment on above: PATIENT NOT FASTINGP ERFORMED BY: ONEIL Camposlin6[address]Formerly [facility]in [place] [id number] Lymphocytes (Bld) [#/Vol] 1.8 10*3/uL Normal 0.7-3.1 [facility]; [facility] Work Phone: Comment on above: PATIENT NOT FASTINGP ERFORMED BY: ONEIL Labmari CamposKnnxjj4[address]Formerly [facility]in [place] [id number] Lymphocytes/100 WBC (Bld) 26 % Normal [facility]; [facility] Work Phone: Comment on above: PATIENT NOT FASTINGP ERFORMED BY: ONEIL [facility] Nakynv[address] [facility]in [place] [id number] MCH (RBC) [Entitic mass] 30.2 pg Normal 26.6-33.0 [facility]; [facility] Work Phone: Comment on above: PATIENT NOT FASTINGP ERFORMED BY: CB [facility] Dzxuje2[address] [place] [id number] MCHC (RBC) [Mass/Vol] 33.0 g/dL Normal 31.5-35.7 [facility]; [facility] Work Phone: Comment on above: PATIENT NOT FASTINGP ERFORMED BY: CB [facility] Drpypt2923 [address]Dublin [place] [id number] MCV (RBC) [Entitic vol] 92 fL Normal 79-97 [facility]; [facility] Work Phone: Comment on above: PATIENT NOT FASTINGP ERFORMED BY: CB [facility] Phhaqp6555 [address] [place] [id number] Monocytes (Bld) [#/Vol] 0.8 10*3/uL Normal 0.1-0.9 [facility]; [facility] Work Phone: Comment on above: PATIENT NOT FASTINGP ERFORMED BY: CB [facility] Oqhkdr4022 [address] [place] [id number] Monocytes/100 WBC (Bld) 11 % Normal [facility]; [facility] Work Phone: Comment on above: PATIENT NOT FASTINGP ERFORMED BY: CB [facility] Ujxcqf38[address] [place] [id number] Neutrophils (Bld) [#/Vol] 4.4 10*3/uL Normal 1.4-7.0 [facility]; [facility] Work Phone: Comment on above: PATIENT NOT FASTINGP ERFORMED BY: CB [facility] Vgejbv6422 [address] [place] [id number] Neutrophils/100 WBC (Bld) 62 % Normal [facility]; [facility] Work Phone: Comment on above: PATIENT NOT FASTINGP ERFORMED BY: CB [facility] Qhzzib3[address] [place] [id number] Platelets (Bld) [#/Vol] 355 10*3/uL Normal 150-450 [facility]; [facility] Work Phone: Comment on above: PATIENT NOT FASTINGP ERFORMED BY: CB [facility] Nmjpzx26[address] [place] [id number] RBC (Bld) [#/Vol] 4.86 10*6/uL Normal 4.14-5.80 [facility]; [facility] Work Phone: Comment on above: PATIENT NOT FASTINGP ERFORMED BY: CB [facility] Qczbua1733 [address]Dublin [place] [id number] WBC (Bld) [#/Vol] 7.1 10*3/uL Normal 3.4-10.8 [facility]; [facility] Work Phone: Comment on above: PATIENT NOT FASTINGP ERFORMED BY: CB [facility] Adfalw0359 [address] [place] [id number] METABOLIC PANEL, COMPREHENSI VE ([id number])Ordered By: Balance Wheel Screw Hole Tapper on 01-20-2022 Albumin [Mass/Vol] 4.5 g/dL Normal 4.0-5.0 [facility]; [facility] Work Phone: Comment on above: PATIENT NOT FASTINGP ERFORMED BY: [facility] Zkysar9[address] [place] [id number] Albumin/Globulin [Mass ratio] 1.9 {ratio} Normal 1.2-2.2 [facility]; [facility] Work Phone: Comment on above: PATIENT NOT FASTINGP ERFORMED BY: [facility] Hjuvnt6[address] [place] [id number] ALP [Catalytic activity/Vol] 81 U/L Normal 44-121 [facility]; [facility] Work Phone: Comment on above: PATIENT NOT FASTINGP ERFORMED BY: [facility] Lnxalv8528 [address] [place] [id number] ALT [Catalytic activity/Vol] 73 U/L Abnormal 0-44 [facility]; [facility] Work Phone: Comment on above: PATIENT NOT FASTINGP ERFORMED BY: [facility] Sitaqs97[address] [place] [id number] AST [Catalytic activity/Vol] 30 U/L Normal 0-40 [facility]; [facility] Work Phone: Comment on above: PATIENT NOT FASTINGP ERFORMED BY: [facility] Hyjzcc8[address] [place] [id number] Bilirubin [Mass/Vol] 0.3 mg/dL Normal 0.0-1.2 Comp [facility]; [facility] Work Phone: Comment on above: PATIENT NOT FASTINGP ERFORMED BY: CB [facility] Ltjkwh2[address]Dublin [place] [id number] Calcium [Mass/Vol] 9.3 mg/dL Normal 8.7-10.2 Compre [facility]; [facility] Work Phone: Comment on above: PATIENT NOT FASTINGP ERFORMED BY: CB [facility] Wqzswq5966 [address]Dublin [place] [id number] Chloride [Moles/Vol] 102 mmol/L Normal 96-106 Comp rehensive [facility]; [facility] Work Phone: Comment on above: PATIENT NOT FASTINGP ERFORMED BY: CB [facility] Nivkpp9543 [address] [place] [id number] CO2 [Moles/Vol] 22 mmol/L Normal 20-29 Comprehen [facility]; [facility] Work Phone: Comment on above: PATIENT NOT FASTINGP ERFORMED BY: CB [facility] Ufqeaz0992 [address] [place] [id number] Creatinine [Mass/Vol] 1.04 mg/dL Normal 0.76-1.27 [facility]; [facility] Work Phone: Comment on above: PATIENT NOT FASTINGP ERFORMED BY: CB [facility] Oreura37[address]Dublin [place] [id number] GFR/1.73 sq M.predicted among non-blacks MDRD (S/P/Bld) [Vol rate/Area] 94 mL/min/{1.73_m2} Normal Comprehensiv e [facility]; [facility] Work Phone: Comment on above: PATIENT NOT FASTINGP ERFORMED BY: CB [facility] Dgsxyn2866 [address]Dublin [place] [id number] Globulin (S) [Mass/Vol] 2.4 g/dL Normal 1.5-4.5 [facility]; [facility] Work Phone: Comment on above: PATIENT NOT FASTINGP ERFORMED BY: CB [facility] Fzodwa8[address] [place] [id number] Glucose [Mass/Vol] 96 mg/dL Normal 70-99 [facility]; [facility] Work Phone: Comment on above: PATIENT NOT FASTINGP ERFORMED BY: ONEIL Labmari CamposPbzjna3516 [address]Dublin [place] [id number] Potassium [Moles/Vol] 4.4 mmol/L Normal 3.5-5.2 [facility]; [facility] Work Phone: Comment on above: PATIENT NOT FASTINGP ERFORMED BY: ONEIL [facility] Iuzjso9616 [address] [place] [id number] Protein [Mass/Vol] 6.9 g/dL Normal 6.0-8.5 [facility]; [facility] Work Phone: Comment on above: PATIENT NOT FASTINGP ERFORMED BY: ONEIL Labflacoaly CamposXmpeex6[address]Dublin [place] [id number] Sodium [Moles/Vol] 137 mmol/L Normal 134-144 [facility]; [facility] Work Phone: Comment on above: PATIENT NOT FASTINGP ERFORMED BY: ONEIL Labmari Wppmzf10[address] [place] [id number] Urea nitrogen [Mass/Vol] 17 mg/dL Normal 6-20 [facility]; [facility] Work Phone: Comment on above: PATIENT NOT FASTINGP ERFORMED BY: ONEIL [facility] Rougmv7061 [address] [place] [id number] Urea nitrogen/Creatinine [Mass ratio] 16 mg/mg Normal 9-20 [facility]; [facility] Work Phone: Comment on above: PATIENT NOT FASTINGP ERFORMED BY: ONEIL [facility] Xvlcyp2843 [address]Dublin [place] [id number] URINALYSIS, W/ MICRO ([id number]) Ordered By: Balance Wheel Screw Hole Tapper on 01-20-2022 Appearance (U) Clear Normal Comprehens [facility]a [facility]; [facility] Work Phone: Comment on above: PATIENT NOT FASTINGP ERFORMED BY: CB [facility] Rejcwc[address] [facility] [id number] Bilirubin Ql (U) Negative Normal Comprehe nsive Internal Medicine; [facility] Work Phone: Comment on above: PATIENT NOT FASTINGP ERFORMED BY: ONEIL Camposlin[address] [facility] [id number] Color (U) Yellow Normal [facility]; [facility] Work Phone: Comment on above: PATIENT NOT FASTINGP ERFORMED BY: ONEIL Camposlin[address] [facility] [id number] Glucose Ql (U) Negative Normal Comprehens [facility]; [facility] Work Phone: Comment on above: PATIENT NOT FASTINGP ERFORMED BY: ONEIL Camposlin6370 [facility] [id number] Hemoglobin Ql (U) Negative Normal Compreh ensive Internal Medicine; [facility] Work Phone: Comment on above: PATIENT NOT FASTINGP ERFORMED BY: ONEIL Camposlin6370 [facility] [place] [id number] Ketones Ql (U) Negative Normal Comprehens [facility]; [facility] Work Phone: Comment on above: PATIENT NOT FASTINGP ERFORMED BY: ONEIL Camposlin6370 [facility] [place] [id number] Leukocyte esterase Test strip Ql (U) Negative Normal [facility]; [facility] Work Phone: Comment on above: PATIENT NOT FASTINGP ERFORMED BY: ONEIL Bravo Ifepwi7581 [facility] [id number] Microscopic observation LM Nom (Urine sed) MICRON Normal [facility]; [facility] Work Phone: Comment on above: Microscopic follows if indicated. PATIENT NOT FASTINGP ERFORMED BY: ONEIL Bravo Anmort[address] [facility] [place] [id number] Microscopic observation LM Nom (Urine sed) See below: Normal [facility]; [facility] Work Phone: Comment on above: Microscopic was baljit cated and was performed. PATIENT NOT FASTINGP ERFORMED BY: ONEIL Labjohn [facility] Dtkxaq[address] [facility] [place] [id number] Nitrite Ql (U) Negative Normal Comprehens [facility]; [facility] Work Phone: Comment on above: PATIENT NOT FASTINGP ERFORMED BY: ONEIL Bravo Szzgym[address] [facility] [place] [id number] pH (U) 7.0 [pH] Normal 5.0-7.5 [facility]; [facility] Work Phone: Comment on above: PATIENT NOT FASTINGP ERFORMED BY: Labjohn [facility]. [facility] Gxdpjb45[address] [facility] [place] [id number] Protein Ql (U) Negative Normal Comprehens [facility]; [facility] Work Phone: Comment on above: PATIENT NOT FASTINGP ERFORMED BY: Rafaeljohn [facility]. [facility] Sbildx6781 [facility] [id number] Specific gravity (U) [Rel density] 1.020 1 Normal 1.005-1.030 [facility]; [facility] Work Phone: Comment on above: PATIENT NOT FASTINGP ERFORMED BY: Rafaeljohn [facility]. [facility] Ynjmvr7440 [facility] [id number] Urobilinogen (U) [Mass/Vol] 0.2 mg/dL Normal 0.2-1.0 [facility]; [facility] Work Phone: Comment on above: PATIENT NOT FASTINGP ERFORMED BY: Lab[facility]6370 [facility] [id number] Absolute lymphocyte counton 01-14-2022 Lymphocytes Auto (Unsp spec) [#/Vol] 1.73 10*3/uL 0.83-4.51 [facility] Work Phone: Basophil percentageon 2021 Basophil percentage 2.3 mg/dL 2.5-4.9 [facility]: Basophils/100 WBC (Bld) 0.2 % 0-1 [facility] Work Phone: Bilirubin [Mass/Vol] 0.90 mg/dL 0.20-1.00 [facility] Work Phone: Comment on above: For patients on eltr ombopag therapy, use of Dimension [place] TBIL is not recommended. Chloride [Moles/Vol] 100 mmol/L 98-107 [facility] Work Phone: Eosinophils/100 WBC (Bld) 0.0 % 0-5 [facility] Work Phone: Glucose [Mass/Vol] 105 mg/dL 74-106 [facility] Work Phone: Comment on above: Fasting Glucose resu lt from 100 to 125 mg/dL suggests IMPAIRED HOMEOSTASIS per A.D.A. criteria. Neutrophils (Bld) [#/Vol] 7.0 10*3/uL 2.0-7.7 [facility] Work Phone: Neutrophils/100 WBC (Bld) 68.6 % 47-70 [facility] Work Phone: Potassium [Moles/Vol] 3.7 mmol/L 3.5-5.1 [facility] Work Phone: Protein [Mass/Vol] 6.8 g/dL 6.4-8.2 [facility] Work Phone: Sodium [Moles/Vol] 135 mmol/L 136-145 [facility] Work Phone: WBC (Bld) [#/Vol] 10.2 10*3/uL 4.4-11.0 [facility] Work Phone: Blood erythrocytes count (nu mber/volume)on 01-14-2022 RBC (Bld) [#/Vol] 4.34 10*6/uL 4.6-6.2 [facility] Work Phone: Blood hemoglobin measurement (mass/volume)on 01-14-2022 Hemoglobin (Bld) [Mass/Vol] 13.6 g/dL 13.0-16.5 [facility] Work Phone: Blood lymphocytes/100 leukoc yteson 01-14-2022 Lymphocytes/100 WBC (Bld) 16.9 % 19-41 [facility] Work Phone: Blood monocytes/100 leukocyt eson 01-14-2022 Monocytes/100 WBC (Bld) 13.6 % 0-10 [facility] Work Phone: Blood platelet mean volumeon 01-14-2022 Platelet mean volume (Bld) [Entitic vol] 9.1 fL 6.2-12.0 [facility] Work Phone: Determination of erythrocyte mean corpuscular volume (MCV)on 01-14-2022 MCV (RBC) [Entitic vol] 92.2 fL 80-94 [facility] Work Phone: Hematocrit Auto (Bld) [Volum e fraction]on 01-14-2022 Hematocrit (Bld) [Volume fraction] 40.0 % 40-54 [facility] Work Phone: Laboratory - Chemistry and C hemistry - challengeon 01-14-2022 ALP [Catalytic activity/Vol] 58 U/L 45-117 [facility] Work Phone: ALT [Catalytic activity/Vol] 75 U/L 16-61 [facility] Work Phone: CO2 [Moles/Vol] 30.0 mmol/L 21.0-32.0 [facility] Work Phone: Globulin (S) [Mass/Vol] 3.6 g/dL 2.2-4.2 [facility] Work Phone: Magnesium [Mass/Vol] 2.6 mg/dL 1.6-2.6 [facility] Work Phone: Urea nitrogen/Creatinine [Mass ratio] 11.0 mg/mg 10-20 [facility] Work Phone: Laboratory - Hematology and Cell countson 01-14-2022 Erythrocyte distribution width (RBC) [Entitic vol] 39.9 fL 35.1-43.9 [facility] Work Phone: Erythrocyte distribution width (RBC) [Ratio] 11.9 % 11.6-14.6 [facility] Work Phone: Immature granulocytes/100 WBC (Bld) 0.700 % 0.0-0.9 [facility] Work Phone: Comment on above: IG% - Immature Granu locytes (promyelocytes, myelocytes and metamyelocytes) > 1% indicates that a LEFT SHIFT is Present. MCH (RBC) [Entitic mass] 31.3 pg 27.0-32.0 [facility] Work Phone: Nucleated RBC/100 WBC (Bld) [Ratio] 0 % 0-5 [facility] Work Phone: MCHC Auto (RBC) [Mass/Vol]on 01-14-2022 MCHC (RBC) [Mass/Vol] 34.0 g/dL 32-36 [facility] Work Phone: No Panel Informationon 01-14 Estimated Creatinine Clearance Calc 92.25 ml/min [facility] Work Phone: Estimated GFR (MDRD) Amer 88 mL/min >60 [facility] Work Phone: Comment on above: GFR Calc Estimated GFR (MDRD) Non-Af Amer 73 mL/min >60 [facility] Work Phone: Comment on above: Non- GFR Calc Thyroid Stimulating Hormone (TSH) 3.75 uIU/mL 0.358-3.74 [facility] Work Phone: Troponin I High Sensitivity 8 pg/mL 3.0-78.0 [facility] Work Phone: Comment on above: Please Note: New Mery t Units and Gender Specific Reference Ranges. For more information see Policy Stat Procedure [place] High Sensitivity Troponin (TNIH) and attachments. Platelets bldon 01-14-2022 Platelets (Bld) [#/Vol] 188 10*3/uL 150-450 [facility] Work Phone: Serum or plasma albumin bhargav urement (mass/volume)on 01-14-2022 Albumin [Mass/Vol] 3.2 g/dL 3.2-5.0 [facility] Work Phone: Serum or plasma albumin/glob ulin mass ratioon 01-14-2022 Albumin/Globulin [Mass ratio] 0.9 {ratio} 0.9-2.4 [facility] Work Phone: Serum or plasma calcium bhargav urement (mass/volume)on 01-14-2022 Calcium [Mass/Vol] 8.4 mg/dL 8.5-10.1 [facility] Work Phone: Serum or plasma creatinine m easurement (mass/volume)on 01-14-2022 Creatinine [Mass/Vol] 1.18 mg/dL 0.70-1.30 [facility] Work Phone: Comment on above: The validity of the calculated GFR & GFRAA in patients over 70 years has not been determined. Clinical correlation is essential. Serum or plasma urea nitroge n measurement (mass/volume)on 01-14-2022 Urea nitrogen [Mass/Vol] 13 mg/dL 7-18 [facility] Work Phone: Thin prep Papanicolaou smear with manual screeningon 01-14-2022 Thin prep Papanicolaou smear with manual screening 50 U/L 15-37 [facility] Work Phone: Thin prep Papanicolaou smear with manual screening 5 5-15 [facility] Work Phone: Absolute lymphocyte counton 01-13-2022 Lymphocytes Auto (Unsp spec) [#/Vol] 1.82 10*3/uL 0.83-4.51 [facility] Work Phone: Basophil percentageon 2021 Basophils/100 WBC (Bld) 0.3 % 0-1 [facility] Work Phone: Bilirubin [Mass/Vol] 1.30 mg/dL 0.20-1.00 [facility] Work Phone: Comment on above: For patients on eltr ombopag therapy, use of Dimension [place] TBIL is not recommended. Chloride [Moles/Vol] 104 mmol/L 98-107 [facility] Work Phone: Eosinophils/100 WBC (Bld) 0.0 % 0-5 [facility] Work Phone: Glucose [Mass/Vol] 124 mg/dL 74-106 [facility] Work Phone: Comment on above: Fasting Glucose resu lt from 100 to 125 mg/dL suggests IMPAIRED HOMEOSTASIS per A.D.A. criteria. Neutrophils (Bld) [#/Vol] 11.7 10*3/uL 2.0-7.7 [facility] Work Phone: Neutrophils/100 WBC (Bld) 75.7 % 47-70 [facility] Work Phone: Potassium [Moles/Vol] 3.9 mmol/L 3.5-5.1 [facility] Work Phone: Protein [Mass/Vol] 7.1 g/dL 6.4-8.2 [facility] Work Phone: Sodium [Moles/Vol] 137 mmol/L 136-145 [facility] Work Phone: WBC (Bld) [#/Vol] 15.5 10*3/uL 4.4-11.0 [facility] Work Phone: Basophil percentage 0-5 SEEN /hpf 0-5 Wo [facility] Work Phone: Bilirubin Test strip Ql (U)o n 01-13-2022 Bilirubin Ql (U) Negative Negative [facility] Work Phone: Blood erythrocytes count (nu mber/volume)on 01-13-2022 RBC (Bld) [#/Vol] 4.62 10*6/uL 4.6-6.2 [facility] Work Phone: Blood hemoglobin measurement (mass/volume)on 01-13-2022 Hemoglobin (Bld) [Mass/Vol] 14.1 g/dL 13.0-16.5 [facility] Work Phone: Blood lymphocytes/100 leukoc yteson 01-13-2022 Lymphocytes/100 WBC (Bld) 11.8 % 19-41 [facility] Work Phone: Blood monocytes/100 leukocyt eson 01-13-2022 Monocytes/100 WBC (Bld) 11.4 % 0-10 [facility] Work Phone: Blood platelet adequacy dete ction by light microscopyon 01-13-2022 Platelets LM Ql (Bld) ADEQUATE ADEQ [facility] Work Phone: Blood platelet mean volumeon 01-13-2022 Platelet mean volume (Bld) [Entitic vol] 9.5 fL 6.2-12.0 [facility] Work Phone: Determination of erythrocyte mean corpuscular volume (MCV)on 01-13-2022 MCV (RBC) [Entitic vol] 89.6 fL 80-94 [facility] Work Phone: Direct bilirubinon 2 Bilirubin.direct [Mass/Vol] 0.28 mg/dL 0.00-0.30 [facility] Work Phone: Hematocrit Auto (Bld) [Volum e fraction]on 01-13-2022 Hematocrit (Bld) [Volume fraction] 41.4 % 40-54 [facility] Work Phone: Ketones Test strip Ql (U)on 01-13-2022 Ketones Ql (U) 5 mg/dl Negative [facility] Work Phone: Laboratory - Chemistry and C hemistry - challengeon 01-13-2022 ALP [Catalytic activity/Vol] 54 U/L 45-117 [facility] Work Phone: ALT [Catalytic activity/Vol] 74 U/L 16-61 [facility] Work Phone: CO2 [Moles/Vol] 26.0 mmol/L 21.0-32.0 [facility] Work Phone: Globulin (S) [Mass/Vol] 3.6 g/dL 2.2-4.2 [facility] Work Phone: Lipase [Catalytic activity/Vol] 95 U/L 73-393 [facility] Work Phone: Urea nitrogen/Creatinine [Mass ratio] 9.6 mg/mg 10-20 [facility] Work Phone: Laboratory - Hematology and Cell countson 01-13-2022 Erythrocyte distribution width (RBC) [Entitic vol] 37.9 fL 35.1-43.9 [facility] Work Phone: Erythrocyte distribution width (RBC) [Ratio] 11.8 % 11.6-14.6 [facility] Work Phone: Immature granulocytes/100 WBC (Bld) 0.800 % 0.0-0.9 [facility] Work Phone: Comment on above: IG% - Immature Granu locytes (promyelocytes, myelocytes and metamyelocytes) > 1% indicates that a LEFT SHIFT is Present. MCH (RBC) [Entitic mass] 30.5 pg 27.0-32.0 [facility] Work Phone: Nucleated RBC/100 WBC (Bld) [Ratio] 0 % 0-5 [facility] Work Phone: MCHC Auto (RBC) [Mass/Vol]on 01-13-2022 MCHC (RBC) [Mass/Vol] 34.1 g/dL 32-36 [facility] Work Phone: Mucus LM Ql (Urine sed)on Mucus Ql (Urine sed) 0 SEEN /hpf [facility] Work Phone: Nitrite Test strip Ql (U)on 01-13-2022 Nitrite Ql (U) Negative Negative [facility] Health Work Phone: No Panel Informationon 01-13 D-Dimer Quantitative (PE/DVT) 0.57 FEU/ug/m 0.27-0.49 [facility] Work Phone: Comment on above: D-Dimer ELEVATED (>0 .49): Additional studies and clinicalassessments are indicated to conclude diagnosis of:Deep Vein Thrombosis (DVT) or Pulmonary Embolism (PE)CRITICAL VALUE VERIFIED. CALLED TO KAYLAN HOUSTON (ER)01/13/22 1251 Mart Martin.RESULTS READ BACK BY SAME. Estimated Creatinine Clearance Calc 100.27 ml/min [facility] Work Phone: Estimated GFR (MDRD) Amer 91 mL/min >60 [facility] Work Phone: Comment on above: GFR Calc Estimated GFR (MDRD) Non-Af Amer 75 mL/min >60 [facility] Work Phone: Comment on above: Non- GFR Calc Platelets bldon 01-13-2022 Platelets (Bld) [#/Vol] 215 10*3/uL 150-450 [facility] Work Phone: Protein Test strip Ql (U)on 01-13-2022 Protein Ql (U) 30 mg/dl Negative [facility] Work Phone: RBC morphologyon 01-13-2022 RBC morphology finding Nom (Bld) N CYTIC NORMAL NORM C&C [facility] Work Phone: Review by pathologiston 12-29 Pathologist review Jh (Unsp spec) [Interp] Jinny garcia [facility] Work Phone: Pathologist review Jh (Unsp spec) [Interp] Reviewed [facility] Work Phone: Comment on above: Previous reported re sult: Jinny garcia Edited by: MARIEL on 01/14/22:1413Neutrophilic leukocytosis.Clinical correlation necessary.Juventino Lopez M.D. 01/14/22 AMENDED REPORT 01/14/22 1413 PATH REV previously reported as: Jinny garcia Serum or plasma albumin bhargav urement (mass/volume)on 01-13-2022 Albumin [Mass/Vol] 3.5 g/dL 3.2-5.0 [facility] Work Phone: Serum or plasma calcium bhargav urement (mass/volume)on 01-13-2022 Calcium [Mass/Vol] 8.9 mg/dL 8.5-10.1 [facility] Work Phone: Serum or plasma creatinine m easurement (mass/volume)on 01-13-2022 Creatinine [Mass/Vol] 1.15 mg/dL 0.70-1.30 [facility] Work Phone: Comment on above: The validity of the calculated GFR & GFRAA in patients over 70 years has not been determined. Clinical correlation is essential. Serum or plasma urea nitroge n measurement (mass/volume)on 01-13-2022 Urea nitrogen [Mass/Vol] 11 mg/dL 7-18 [facility] Work Phone: Squamous epithelial cells de tection in urine sediment by light microscopyon 01-13-2022 Epithelial cells.squamous LM Ql (Urine sed) 0 SEEN /hpf 0-5 [facility] Work Phone: Thin prep Papanicolaou smear with manual screeningon 01-13-2022 Thin prep Papanicolaou smear with manual screening 55 U/L 15-37 [facility] Work Phone: Thin prep Papanicolaou smear with manual screening 7 5-15 [facility] Work Phone: Urine blood detectionon 12-29 RBC Ql (U) 250 /ul Negative [facility] Work Phone: RBC Ql (U) 25-50 SEEN /hpf 0-5 [facility] Work Phone: Urine clarityon 01-13-2022 Clarity (U) Clear Clear [facility] Work Phone: Urine color determinationon 01-13-2022 Color (U) Yellow Yellow [facility] Work Phone: Urine glucose detectionon Glucose Ql (U) Normal mg/dl Normal [facility] Work Phone: Urine leukocyte esterase det ection by dipstickon 01-13-2022 Leukocyte esterase Test strip Ql (U) 25 /ul Negative [facility] Work Phone: Urine pHon 01-13-2022 pH (U) 6.0 [pH] 5.0 - 8.0 [facility] Work Phone: Urine sediment bacteria coun t by microscopy (number/high power field)on 01-13-2022 Bacteria LM.HPF (Urine sed) [#/Area] 0 /[HPF] None Seen [facility] Work Phone: Urine specific gravity measu rementon 01-13-2022 Specific gravity (U) [Rel density] 1.020 1.002-1.030 [facility] Work Phone: Urobilinogen Auto test strip Ql (U)on 01-13-2022 Urobilinogen Ql (U) 4 mg/dl Normal [facility] Work Phone: ED Nursing Noteon 01-12-2022 ED Nursing Note SOBEIDA Kelley ok with patient being discharged without urine sample. Rachel Aguila RN 01/12/22 1327 Rachel Aguila RN 01/12/22 1327 Normal [facility] ED Nursing Note Pt at CT Krystyna Johnston ROSEMARIE Mejia 01/12/22 1139 Normal [facility] CALCIFEDIOL (88730)Ordered B y: Balance Wheel Screw Hole Tapper on 09-01-2021 25-hydroxyvitamin D [Mass/Vol] 32.9 ng/mL Normal 30.0-100.0 [facility]; [facility] Work Phone: Comment on above: Vitamin D deficiency has been defined by the Agency ofMedicine and an Endocrine Society practice guideline as alevel of serum 25-OH vitamin D less than 20 ng/mL (1,2).The Endocrine Society went on to further define vitamin Dinsufficiency as a level between 21 and 29 ng/mL (2).1. IOM (Agency of Medicine). 2010. Dietary reference intakes for calcium and D. [place]: The National Academies Press.2. Rodriguez DESOUZA, Jewell PHILLIPS, Miguel BALDWIN, et al. Evaluation, treatment, and prevention of vitamin D deficiency: an Endocrine Society clinical practice guideline. JCEM. 2010; 96(7):1911-30. PATIENT WAS FASTINGP ERFORMED BY: [facility] Kaeogr[address] [place] [id number] CBC with auto diff ([id number])Or dered By: Balance Wheel Screw Hole Tapper on 09-01-2021 Basophils (Bld) [#/Vol] 0.0 10*3/uL Normal 0.0-0.2 [facility]; [facility] Work Phone: Comment on above: PATIENT WAS FASTINGP ERFORMED BY: [facility] Mpdbxn6[address]blin [place] [id number] Basophils/100 WBC (Bld) 0 % Normal [facility]; [facility] Work Phone: Comment on above: PATIENT WAS FASTINGP ERFORMED BY: [facility] Vgenuo[address] [facility] [place] [id number] Eosinophils (Bld) [#/Vol] 0.1 10*3/uL Normal 0.0-0.4 [facility]; [facility] Work Phone: Comment on above: PATIENT WAS FASTINGP ERFORMED BY: [facility] Ifgakf12[address]bl[address] [place] [id number] Eosinophils/100 WBC (Bld) 2 % Normal [facility]; [facility] Work Phone: Comment on above: PATIENT WAS FASTINGP ERFORMED BY: [facility] Upsgfk[address] [facility] [id number] Erythrocyte distribution width (RBC) [Ratio] 12.1 % Normal 11.6-15.4 [facility]; [facility] Work Phone: Comment on above: PATIENT WAS FASTINGP ERFORMED BY: [facility] Xpxrvk[address] [facility] [place] [id number] Hematocrit (Bld) [Volume fraction] 46.5 % Normal 37.5-51.0 [facility]; [facility] Work Phone: Comment on above: PATIENT WAS FASTINGP ERFORMED BY: [facility] Biznzc9[address]Dublin [place] [id number] Hemoglobin (Bld) [Mass/Vol] 15.4 g/dL Normal 13.0-17.7 [facility]; [facility] Work Phone: Comment on above: PATIENT WAS FASTINGP ERFORMED BY: ONEIL Scott[address] [facility] [place] [id number] Immature granulocytes (Bld) [#/Vol] 0.0 10*3/uL Normal 0.0-0.1 [facility]; [facility] Work Phone: Comment on above: PATIENT WAS FASTINGP ERFORMED BY: [facility] Jadofy[address]Formerly [facility]in [place] [id number] Immature granulocytes/100 WBC (Bld) 1 % Normal [facility]; [facility] Work Phone: Comment on above: PATIENT WAS FASTINGP ERFORMED BY: Lawrence Fduijf[address] [facility] [place] [id number] Lymphocytes (Bld) [#/Vol] 2.0 10*3/uL Normal 0.7-3.1 [facility]; [facility] Work Phone: Comment on above: PATIENT WAS FASTINGP ERFORMED BY: [facility] Vvcybx6484 [address] [facility] [id number] Lymphocytes/100 WBC (Bld) 34 % Normal [facility]; [facility] Work Phone: Comment on above: PATIENT WAS FASTINGP ERFORMED BY: [facility] [facility] [id number] MCH (RBC) [Entitic mass] 30.9 pg Normal 26.6-33.0 [facility]; [facility] Work Phone: Comment on above: PATIENT WAS FASTINGP ERFORMED BY: [facility] Wmbsmk[address] [facility] [place] [id number] MCHC (RBC) [Mass/Vol] 33.1 g/dL Normal 31.5-35.7 [facility]; [facility] Work Phone: Comment on above: PATIENT WAS FASTINGP ERFORMED BY: [facility] Hyoblu[address] [facility] [place] [id number] MCV (RBC) [Entitic vol] 93 fL Normal 79-97 [facility]; [facility] Work Phone: Comment on above: PATIENT WAS FASTINGP ERFORMED BY: CB [facility] Lowong17[address]Dublin [place] [id number] Monocytes (Bld) [#/Vol] 0.6 10*3/uL Normal 0.1-0.9 [facility]; [facility] Work Phone: Comment on above: PATIENT WAS FASTINGP ERFORMED BY: CB [facility] Qirchf57[address]Dublin [place] [id number] Monocytes/100 WBC (Bld) 10 % Normal [facility]; [facility] Work Phone: Comment on above: PATIENT WAS FASTINGP ERFORMED BY: CB [facility] Qbclrc7247 [address]Dublin [place] [id number] Neutrophils (Bld) [#/Vol] 3.2 10*3/uL Normal 1.4-7.0 [facility]; [facility] Work Phone: Comment on above: PATIENT WAS FASTINGP ERFORMED BY: CB [facility] Rtytyh2144 [address]Dublin [place] [id number] Neutrophils/100 WBC (Bld) 53 % Normal [facility]; [facility] Work Phone: Comment on above: PATIENT WAS FASTINGP ERFORMED BY: CB [facility] Ujrgut5054 [address]Dublin [place] [id number] Platelets (Bld) [#/Vol] 243 10*3/uL Normal 150-450 [facility]; [facility] Work Phone: Comment on above: PATIENT WAS FASTINGP ERFORMED BY: CB [facility] Wgksbt2457 [address] RoadDublin [place] [id number] RBC (Bld) [#/Vol] 4.99 10*6/uL Normal 4.14-5.80 [facility]; [facility] Work Phone: Comment on above: PATIENT WAS FASTINGP ERFORMED BY: CB [facility] Ndkmtk4[address]Dublin [place] [id number] WBC (Bld) [#/Vol] 6.0 10*3/uL Normal 3.4-10.8 [facility]; [facility] Work Phone: Comment on above: PATIENT WAS FASTINGP ERFORMED BY: ONEIL Rafaelmari Qrmaiv[address] [facility]blB[facility] [id number] LIPID PANEL ([id number])Ordered B y: Balance Wheel Screw Hole Tapper on 09-01-2021 Cholesterol [Mass/Vol] 199 mg/dL Normal 100-199 [facility]; [facility] Work Phone: Comment on above: PATIENT WAS FASTINGP ERFORMED BY: ONEIL Camposlin6370 [facility]in [place] [id number] Cholesterol in HDL [Mass/Vol] 42 mg/dL Normal [facility]; [facility] Work Phone: Comment on above: PATIENT WAS FASTINGP ERFORMED BY: ONEIL Camposlin6370 [facility] [id number] Triglyceride [Mass/Vol] 98 mg/dL Normal 0-149 [facility]; [facility] Work Phone: Comment on above: PATIENT WAS FASTINGP ERFORMED BY: ONEIL Camposlin6370 [facility] [id number] LIPID PANEL (48339) 18 mg/dL Normal 5-40 [facility]; [facility] Work Phone: Comment on above: PATIENT WAS FASTINGP ERFORMED BY: ONEIL Labmari Ajvzeu4096 [facility] [id number] LIPID PANEL (94706) 139 mg/dL Abnormal 0-99 [facility]; [facility] Work Phone: Comment on above: PATIENT WAS FASTINGP ERFORMED BY: ONEIL Labmari CamposXbuyig0961 [facility] [id number] LIPID PANEL (71591) 3.3 {ratio} Normal 0.0-3.6 [facility]; [facility] Work Phone: Comment on above: LDL/HDL Ratio Men Wo men 1/2 Avg.Risk 1.0 1.5 Avg.Risk 3.6 3.2 2X Avg.Risk 6.2 5.0 3X Avg.Risk 8.0 6.1 PATIENT WAS FASTINGP ERFORMED BY: ONEIL Lawrencealy Bnwgqu9858 [facility] [id number] METABOLIC PANEL, COMPREHENSI VE ([id number])Ordered By: Balance Wheel Screw Hole Tapper on 09-01-2021 Albumin [Mass/Vol] 4.2 g/dL Normal 4.0-5.0 [facility]; [facility] Work Phone: Comment on above: PATIENT WAS FASTINGP ERFORMED BY: ONEIL Labflaco Wmvkqq4662 [facility] [id number] Albumin/Globulin [Mass ratio] 1.8 {ratio} Normal 1.2-2.2 [facility]; [facility] Work Phone: Comment on above: PATIENT WAS FASTINGP ERFORMED BY: ONEIL Lawrence Eaypbr2487 [facility] [id number] ALP [Catalytic activity/Vol] 61 U/L Normal 44-121 [facility]; [facility] Work Phone: Comment on above: PATIENT WAS FASTINGP ERFORMED BY: ONEIL Lawrencealy Sjwrxp8214 [facility] [id number] ALT [Catalytic activity/Vol] 26 U/L Normal 0-44 [facility]; [facility] Work Phone: Comment on above: PATIENT WAS FASTINGP ERFORMED BY: ONEIL Lawrence Znzxnd2808 [facility] [id number] AST [Catalytic activity/Vol] 21 U/L Normal 0-40 [facility]; [facility] Work Phone: Comment on above: PATIENT WAS FASTINGP ERFORMED BY: ONEIL Rafaelmari Kngdor2029 [facility] [id number] Bilirubin [Mass/Vol] 0.6 mg/dL Normal 0.0-1.2 [facility]; [facility] Work Phone: Comment on above: PATIENT WAS FASTINGP ERFORMED BY: ONEIL [facility] Rzvzhk94[address]Dublin [place] [id number] Calcium [Mass/Vol] 9.0 mg/dL Normal 8.7-10.2 [facility]; [facility] Work Phone: Comment on above: PATIENT WAS FASTINGP ERFORMED BY: [facility] Lcfleh3705 [address]Dublin [place] [id number] Chloride [Moles/Vol] 103 mmol/L Normal 96-106 [facility]; [facility] Work Phone: Comment on above: PATIENT WAS FASTINGP ERFORMED BY: [facility] Vqfapb7[address]Dublin [place] [id number] CO2 [Moles/Vol] 25 mmol/L Normal 20-29 [facility]; [facility] Work Phone: Comment on above: PATIENT WAS FASTINGP ERFORMED BY: [facility] Cezynw8675 [address]Dublin [place] [id number] Creatinine [Mass/Vol] 0.84 mg/dL Normal 0.76-1.27 [facility]; [facility] Work Phone: Comment on above: PATIENT WAS FASTINGP ERFORMED BY: [facility] Uklisb7646 [address]Dublin [place] [id number] GFR/1.73 sq M.predicted among non-blacks MDRD (S/P/Bld) [Vol rate/Area] 114 mL/min/{1.73_m2} Normal Comprehensi [facility]; [facility] Work Phone: Comment on above: PATIENT WAS FASTINGP ERFORMED BY: [facility] Opfvxl37[address]Dublin [place] [id number] Globulin (S) [Mass/Vol] 2.4 g/dL Normal 1.5-4.5 [facility]; [facility] Work Phone: Comment on above: PATIENT WAS FASTINGP ERFORMED BY: [facility] Ibrnjc9779 [address]Dublin [place] [id number] Glucose [Mass/Vol] 104 mg/dL Abnormal 65-99 [facility]; [facility] Work Phone: Comment on above: PATIENT WAS FASTINGP ERFORMED BY: CB [facility] Ytbicw4876 [address]Dublin [place] [id number] Potassium [Moles/Vol] 4.1 mmol/L Normal 3.5-5.2 [facility]; [facility] Work Phone: Comment on above: PATIENT WAS FASTINGP ERFORMED BY: CB [facility] Puhqah4558 [address]Dublin [place] [id number] Protein [Mass/Vol] 6.6 g/dL Normal 6.0-8.5 [facility]; [facility] Work Phone: Comment on above: PATIENT WAS FASTINGP ERFORMED BY: CB [facility] Svseoa1089 [address]Dublin [place] [id number] Sodium [Moles/Vol] 140 mmol/L Normal 134-144 [facility]; [facility] Work Phone: Comment on above: PATIENT WAS FASTINGP ERFORMED BY: CB [facility] Gqzaez9603 [address]Dublin [place] [id number] Urea nitrogen [Mass/Vol] 12 mg/dL Normal 6-20 [facility]; [facility] Work Phone: Comment on above: PATIENT WAS FASTINGP ERFORMED BY: CB [facility] Lykxcz9145 [address]Dublin [place] [id number] Urea nitrogen/Creatinine [Mass ratio] 14 mg/mg Normal 9-20 [facility]; [facility] Work Phone: Comment on above: PATIENT WAS FASTINGP ERFORMED BY: CB [facility] Hzhiel3668 [address]Dublin [place] [id number] TSH ([id number])Ordered By: Shalini Paris on 09-01-2021 TSH Qn 1.780 {uIU/mL} Normal 0.450-4.500 [facility]; [facility] Work Phone: Comment on above: PATIENT WAS FASTINGP ERFORMED BY: CB [facility] Eknuuy8565 [address]Dublin [place] [id number] URINALYSIS, W/ MICRO ([id number]) Ordered By: Balance Wheel Screw Hole Tapper on 09-01-2021 Appearance (U) Clear Normal Comprehens [facility]; [facility] Work Phone: Comment on above: PATIENT WAS FASTINGP ERFORMED BY: ONEIL Labflacoaly Onwfuj4806 [address]Dublin [place] [id number] Bilirubin Ql (U) Negative Normal Comprehe nsive Internal Medicine; [facility] Work Phone: Comment on above: PATIENT WAS FASTINGP ERFORMED BY: ONEIL [facility] Hyrxfe5[address] [place] [id number] Color (U) Yellow Normal [facility]; [facility] Work Phone: Comment on above: PATIENT WAS FASTINGP ERFORMED BY: ONEIL Labmari CamposByncdl9817 [address]Dublin [place] [id number] Glucose Ql (U) Negative Normal Comprehens [facility]; [facility] Work Phone: Comment on above: PATIENT WAS FASTINGP ERFORMED BY: ONEIL Labcoaly CamposIgpddr5046 [address]Dublin [place] [id number] Hemoglobin Ql (U) Negative Normal Compreh ensive [facility]; [facility] Work Phone: Comment on above: PATIENT WAS FASTINGP ERFORMED BY: ONEIL Labmari CamposOzlxly5865 [address] [place] [id number] Ketones Ql (U) Negative Normal Comprehens [facility]; [facility] Work Phone: Comment on above: PATIENT WAS FASTINGP ERFORMED BY: ONEIL [facility] Ujkgfm0623 [address]Dublin [place] [id number] Leukocyte esterase Test strip Ql (U) Negative Normal [facility]; [facility] Work Phone: Comment on above: PATIENT WAS FASTINGP ERFORMED BY: ONEIL [facility] Uhnjsk3174 [address]Dublin [place] [id number] Microscopic observation LM Nom (Urine sed) MICRON Normal [facility]; [facility] Work Phone: Comment on above: Microscopic follows if indicated. PATIENT WAS FASTINGP ERFORMED BY: ONEIL Labcoaly Fbyyvd0785 [address]Dublin [place] [id number] Microscopic observation LM Nom (Urine sed) See below: Normal [facility]; [facility] Work Phone: Comment on above: Microscopic was baljit cated and was performed. PATIENT WAS FASTINGP ERFORMED BY: CB [facility] Zpvder2133 [address]Dublin [place] [id number] Nitrite Ql (U) Negative Normal Comprehens [facility]; [facility] Work Phone: Comment on above: PATIENT WAS FASTINGP ERFORMED BY: ONEIL [facility] Wanohs50[address]blin [place] [id number] pH (U) 7.5 [pH] Normal 5.0-7.5 [facility]; [facility] Work Phone: Comment on above: PATIENT WAS FASTINGP ERFORMED BY: [facility] Amcpnx8979 [address] [place] [id number] Protein Ql (U) Negative Normal Comprehens [facility]; [facility] Work Phone: Comment on above: PATIENT WAS FASTINGP ERFORMED BY: ONEIL Labflaco Brqdkz6[address] [facility] [place] [id number] Specific gravity (U) [Rel density] 1.018 1 Normal 1.005-1.030 [facility]; [facility] Work Phone: Comment on above: PATIENT WAS FASTINGP ERFORMED BY: [facility] Kyudff7948 [address] [facility] [place] [id number] Urobilinogen (U) [Mass/Vol] 0.2 mg/dL Normal 0.2-1.0 [facility]; [facility] Work Phone: Comment on above: PATIENT WAS FASTINGP ERFORMED BY: [facility] Irqwbe[address] [facility] HospitalD[facility] [place] [id number] Urine Drug Screen -Medicare (Office - Urine Drug Screen 9 Panel) ([id number])Ordered By: Tran Cleveland on 08-27-2021 Barbiturates Ql (S/P/Bld) Negative Normal [facility]; [facility] Work Phone: Comment on above: negative for all exc ept amphetamines had 2 count adderall 15mg capsules on him. walter faraha Benzodiazepines Ql (U) Negative Normal [facility]; [facility] Work Phone: Comment on above: negative for all exc ept amphetamines had 2 count adderall 15mg capsules on him. ayden farah Benzoylecgonine Confirm Ql Negative Normal [facility]; [facility] Work Phone: Comment on above: negative for all exc ept amphetamines had 2 count adderall 15mg capsules on him. ayden farah Cannabinoids Confirm Ql (U) Negative Normal [facility]; [facility] Work Phone: Comment on above: negative for all exc ept amphetamines had 2 count adderall 15mg capsules on him. ayden farah Methadone [Mass/Vol] Negative Normal Comp rehensive [facility]; [facility] Work Phone: Comment on above: negative for all exc ept amphetamines had 2 count adderall 15mg capsules on him. ayden farah Methamphetamine Ql Positive Normal Compre hensive [facility]; [facility] Work Phone: Comment on above: negative for all exc ept amphetamines had 2 count adderall 15mg capsules on him. ayden farah Opiates Ql (U) Negative Normal Comprehens [facility]; [facility] Work Phone: Comment on above: negative for all exc ept amphetamines had 2 count adderall 15mg capsules on him. ayden farah Urine Drug Screen -Medicare (Office - Urine Drug Screen 6 Panel) ([id number])Ordered By: MICHAEL Parkinson on 08-04-2021 Amphetamines Ql (U) Negative Normal Compr ehensive [facility]; [facility] Work Phone: COVIDon 10-31-2020 Date of Onset [id number] [facility] Comment on above: Performed By: #### C OVID #### [place] [address] Employed in Healthcare No [facility] ([place] Comment on above: Performed By: #### C OVID #### [place] [address] First Test No [facility] ([place] Comment on above: Performed By: #### C OVID #### [place] [address] Hospitalized No [facility] ([place] Comment on above: Performed By: #### C OVID #### [place] [address] ICU No [facility] ([place] Comment on above: Performed By: #### C OVID #### [place] [address] Not [facility] [place] Comment on above: Performed By: #### C OVID #### [place] [address] Resides in Congregate Care Setting No [facility] ([place]) Comment on above: Performed By: #### C OVID #### [place] [address] SARS-CoV-2 (COVID-19) RNA CONG+probe Ql (Unsp spec) See Below [facility] ([place]) Comment on above: Result Comment: Naso pharyngeal Swab Performed By: [facility] [address] [place] [address] Inductor Tester: Dawood Munoz III#: [id number] Phone#: Performed By: #### C OVID #### [place] [address] Result Comment: Nega tive Negative for COVID19 (SARS CoV2) by RT-PCR or equivalent method. This test was developed and its performance characteristics determined by [facility]. This test has been authorized by FDA under an Emergency Use Authorization (EUA). This test has been validated in accordance with the FDA's Guidance Document Policy for Diagnostics Testing in Laboratories Certified to Perform High Complexity Testing under CLIA prior to Emergency use Authorization for Coronavirus Disease 2019 during the Public Health Emergency issued on April 28, 2019. Test performed by [facility], [facility], [address] [address]. Performed By: [address] [place] [address] Inductor Tester: Toribio Segundo III, M.D. CLIA#: [id number] Phone#: Symptomatic as Defined by CDC Yes Normal [facility] ([place]) Comment on above: Performed By: #### C OVID #### [facility] [address] [place] [id number] Drug Screen (7drug + Alcohol ) (11222)Ordered By: Leisa Harrison on 05-16-2020 Drug Screen (7drug + Alcohol) (05782) Negative Normal [facility]; [facility] Work Phone: Drug Screen (7drug + Alcohol) (58595) Negative Normal [facility]; [facility] Work Phone: Urine Drug Screen -Medicare (Office - Urine Drug Screen 9 Panel) (05187)on 05-26-2018 Barbiturates Ql (S/P/Bld) Negative Normal [facility] Work Phone: Barbiturates Ql (S/P/Bld) Negative Normal [facility]; [facility] Work Phone: Benzodiazepines Ql (U) Negative Normal [facility] Work Phone: Benzodiazepines Ql (U) Negative Normal [facility]; [facility] Work Phone: Benzoylecgonine Confirm Ql Negative Normal [facility] Work Phone: Benzoylecgonine Confirm Ql Negative Normal [facility]; [facility] Work Phone: Methadone [Mass/Vol] Negative Normal Comp rehensive [facility] Work Phone: Methadone [Mass/Vol] Negative Normal [facility]; [facility] Work Phone: Methamphetamine Ql Negative Normal Compre hensive [facility] Work Phone: Methamphetamine Ql Negative Normal Compre hens[facility]; [facility] Work Phone: Opiates Ql (U) Negative Normal Comprehens [facility] Work Phone: Opiates Ql (U) Negative Normal [facility]; [facility] Work Phone: Basic Metabolic Profile (BMP )Ordered By: Balance Wheel Screw Hole Tapper on 05-19-2018 Basic metabolic 2000 panel 140 mmol/L Normal 136-145 [facility] Work Phone: Comment on above: [facility] [address] [place], [place], [phone] Basic metabolic 2000 panel 8.3 mg/dL Abnormal 8.5-10.1 [facility] Work Phone: Comment on above: [facility] [address] [place], [place], [phone] Basic metabolic 2000 panel 16.6 {RATIO} Normal 10-20 [facility] Work Phone: Comment on above: [facility] [address] [place], [place], [phone] Basic metabolic 2000 panel 125.74 ml/min Normal [facility] Work Phone: Comment on above: [facility] [address] [place], [place], [phone] Basic metabolic 2000 panel 123 mL/min Normal [facility] Work Phone: Comment on above: GFR Calc [facility] [address] [place], [place], [phone] Basic metabolic 2000 panel 3 1 Abnormal 5-15 [facility] Work Phone: Comment on above: [facility] [address] [place], [place], [phone] Basic metabolic 2000 panel 109 mmol/L Abnormal 98-107 [facility] Work Phone: Comment on above: [facility] [address] [place], [place], [phone] Basic metabolic 2000 panel 3.6 mmol/L Normal 3.5-5.1 [facility] Work Phone: Comment on above: [facility] [address] [place], [place], [phone] Basic metabolic 2000 panel 105 mg/dL Normal 74-106 [facility] Work Phone: Comment on above: Fasting Glucose resu lt from 100 to 125 mg/dLsuggests IMPAIRED HOMEOSTASIS per A.D.A. criteria.Please note revised GLUCOSE reference range [id number]/02/2018. [facility] [address] [place], [place], [phone] Basic metabolic 2000 panel 15 mg/dL Normal 7-18 [facility] Work Phone: Comment on above: [facility] [address] [place], [place], [phone] Basic metabolic 2000 panel 0.90 mg/dL Normal 0.70-1.30 [facility] Work Phone: Comment on above: The validity of the calculated GFR AND GFRAA in patients over70 years has not been determined. Clinical correlation isessential. [facility] [address] [place], [place], [phone] Basic metabolic 2000 panel 101 mL/min Normal [facility] Work Phone: Comment on above: Non- GFR Calc [facility] [address] [place], [place], [phone] Basic metabolic 2000 panel 28.0 mmol/L Normal 21.0-32.0 [facility] Work Phone: Comment on above: [facility] [address] [place], [place], [phone] CBC W/Diff, AutomatedOrdered By: Balance Wheel Screw Hole Tapper on 05-19-2018 Absolute Neut 4.2 {X10_3/uL} Normal 2.0-7.7 Compreh ensive [facility] Work Phone: Comment on above: [facility] [address] [place], [address] Basophils/100 WBC (Bld) 1.2 % Abnormal 0-1 [facility] Work Phone: Comment on above: [facility] [address] [place], [address] Eosinophils/100 WBC (Bld) 16.0 % Abnormal 0-5 [facility] Work Phone: Comment on above: [facility] [address] [place], [place], [phone] Erythrocyte distribution width (RBC) [Ratio] 12.4 % Normal 11.6-14.6 [facility] Work Phone: Comment on above: [facility] [address] [place], [place], [phone] Hematocrit (Bld) [Volume fraction] 45.7 % Normal 40-54 [facility] Work Phone: Comment on above: [facility] [address] [place], [address] Hemoglobin (Bld) [Mass/Vol] 16.0 g/dL Normal 13.0-16.5 [facility] Work Phone: Comment on above: [facility] [address] [place], [address] IM GRAN % 0.500 % Normal 0.0-0.9 [facility] Work Phone: Comment on above: IG% - Immature Granu locytes (promyelocytes, myelocytes andmetamyelocytes) > 1% indicates that a LEFT SHIFT is Present. [facility] [address] [place], [address] Lymphocytes (Bld) [#/Vol] 2.07 {X10_3/ul} Normal 0.83-4.51 [facility] Work Phone: Comment on above: [facility] [address] [place], [address] Lymphocytes/100 WBC (Bld) 23.5 % Normal 19-41 [facility] Work Phone: Comment on above: [facility] [address] [place], [address] MCH (RBC) [Entitic mass] 31.3 pg Normal 27.0-32.0 [facility] Work Phone: Comment on above: [facility] [address] [place], [address] MCHC (RBC) [Mass/Vol] 35.0 {g/gl} Normal 32-36 [facility] Work Phone: Comment on above: [facility] [address] [place], [address] MCV (RBC) [Entitic vol] 89.4 fL Normal 80-94 [facility] Work Phone: Comment on above: [facility] [address] [place], [address] Monocytes/100 WBC (Bld) 11.8 % Abnormal 0-10 [facility] Work Phone: Comment on above: [facility] [address] [place], [address] Neutrophils/100 WBC (Bld) 47.0 % Normal 47-70 [facility] Work Phone: Comment on above: [facility] [address] [place], [address] Platelet mean volume (Bld) [Entitic vol] 9.5 fL Normal 6.2-12.0 Comprehensiv e [facility] Work Phone: Comment on above: [facility] [address] [place], [address] Platelets (Bld) [#/Vol] 245 10*3/uL Normal 150-450 [facility] Work Phone: Comment on above: [facility] [address] [place], [address] RBC (Bld) [#/Vol] 5.11 {M/mm3} Normal 4.6-6.2 [facility] Internal Medicine Work Phone: Comment on above: [facility] [address] [place], [address] RDW SD 40.1 fL Normal 35.1-43.9 [facility] Internal Medicine Work Phone: Comment on above: [facility] [address] [place], [address] WBC (Bld) [#/Vol] 8.8 10*3/uL Normal 4.4-11.0 [facility] Internal [facility] Work Phone: Comment on above: [facility] [address] [place], [address] Lactic AcidOrdered By: Shalini johnston Fruit Vendor on 05-19-2018 Lactate [Moles/Vol] 0.7 mmol/L Normal 0.4-2.0 [facility] Internal Medicine Work Phone: Comment on above: Yes/No query for Sep sis Lactate Rule [facility] [address] [place], [address] Protein Electro.Ur-RandomOrd ered By: Balance Wheel Screw Hole Tapper on 05-13-2018 Protein [Mass/Vol] 12.2 mg/dL Normal [facility] Internal [facility] Work Phone: Comment on above: [facility] (refer to re port for specific site)refer to report for address and phone number Protein Electro.Ur-Random 28.6 % Normal [facility] Work Phone: Comment on above: [facility] (refer to re port for specific site)refer to report for address and phone number Protein Electro.Ur-Random 6.0 % Normal [facility] Work Phone: Comment on above: [facility] (refer to re port for specific site)refer to report for address and phone number Protein Electro.Ur-Random 22.5 % Normal [facility] Work Phone: Comment on above: [facility] (refer to re port for specific site)refer to report for address and phone number Protein Electro.Ur-Random 22.6 % Normal [facility] Work Phone: Comment on above: [facility] (refer to re port for specific site)refer to report for address and phone number Protein Electro.Ur-Random 20.3 % Normal [facility] Work Phone: Comment on above: [facility] (refer to re port for specific site)refer to report for address and phone number Protein Electroph, SOrdered By: Balance Wheel Screw Hole Tapper on 05-13-2018 Albumin mass conc 3.8 g/dL Normal 2.9-4.4 Compreh ensive [facility] Work Phone: Comment on above: [facility] (refer to re port for specific site)refer to report for address and phone number Albumin/Globulin mass ratio 1.5 {ratio} Normal 0.7-1.7 [facility] Work Phone: Comment on above: [facility] (refer to re port for specific site)refer to report for address and phone number Globulin mass conc (S) 2.5 g/dL Normal 2.2-3.9 [facility] Work Phone: Comment on above: [facility] (refer to re port for specific site)refer to report for address and phone number Protein mass conc 6.3 g/dL Normal 6.0-8.5 Compreh ensive [facility] Work Phone: Comment on above: [facility] (refer to re port for specific site)refer to report for address and phone number Protein Electroph, S 0.7 g/dL Normal 0.4-1.0 Comp rehensive [facility] Work Phone: Comment on above: [facility] (refer to re port for specific site)refer to report for address and phone number Protein Electroph, S 1.0 g/dL Normal 0.7-1.3 Comp rehensive [facility] Work Phone: Comment on above: [facility] (refer to re port for specific site)refer to report for address and phone number Protein Electroph, S Comment Normal Comp rehens[facility] Work Phone: Comment on above: Protein electrophore sis scan will follow via computer,mail, or tick inspector delivery. [facility] (refer to re port for specific site)refer to report for address and phone number The SPE pattern appe ars essentially unremarkable. Evidenceof monoclonal protein is not apparent.Performed at: [facility] [address] [id number] Director: Long Stallings PhD, Phone: [phone] Protein electrophore sis scan will follow via computer,mail, or tick inspector delivery.Performed at: [facility] [address] [id number] Director: Long Stallings PhD, Phone: [phone] Protein Electroph, S 0.2 g/dL Normal 0.0-0.4 Comp rehens[facility] Work Phone: Comment on above: [facility] (refer to re port for specific site)refer to report for address and phone number Protein Electroph, S Normal Comp rehensive [facility] Work Phone: Comment on above: NOT OBSERVED [facility] (refer to re port for specific site)refer to report for address and phone number CBC W/Diff, AutomatedOrdered By: Balance Wheel Screw Hole Tapper on 05-06-2018 Absolute Neut 3.9 {X10_3/uL} Normal 2.0-7.7 Compreh ensive [facility] Work Phone: Comment on above: [facility] [address] [place], [place], [phone] Basophils/100 WBC (Bld) 1.9 % Abnormal 0-1 [facility] Work Phone: Comment on above: [facility] [address] [place], [address] Eosinophils/100 WBC (Bld) 12.5 % Abnormal 0-5 [facility] Work Phone: Comment on above: [facility] [address] [place], [address] Erythrocyte distribution width Ratio (RBC) 12.5 % Normal 11.6-14.6 [facility] Work Phone: Comment on above: [facility] [address] [place], [address] Hematocrit Volume Fraction (Bld) 47.4 % Normal 40-54 [facility] Work Phone: Comment on above: [facility] [address] [place], [address] Hemoglobin mass conc (Bld) 15.7 g/dL Normal 13.0-16.5 [facility] Work Phone: Comment on above: [facility] [address] [place], [address] IM GRAN % 0.500 % Normal 0.0-0.9 [facility] Work Phone: Comment on above: IG% - Immature Granu locytes (promyelocytes, myelocytes andmetamyelocytes) > 1% indicates that a LEFT SHIFT is Present. [facility] [address] [place], [address] Lymphocytes #/vol (Bld) 1.82 {X10_3/ul} Normal 0.83-4.51 [facility] Work Phone: Comment on above: [facility] [address] [place], [address] Lymphocytes/100 WBC (Bld) 23.4 % Normal 19-41 [facility] Work Phone: Comment on above: [facility] [address] [place], [address] MCH Entitic mass (RBC) 30.6 pg Normal 27.0-32.0 [facility] Work Phone: Comment on above: [facility] [address] [place], [address] MCHC mass conc (RBC) 33.1 {g/gl} Normal 32-36 [facility] prehensive Internal Medicine Work Phone: Comment on above: [facility] [address] [place], [address] MCV Entitic volume (RBC) 92.4 fL Normal 80-94 [facility] Work Phone: Comment on above: [facility] [address] [place], [address] Monocytes/100 WBC (Bld) 11.3 % Abnormal 0-10 [facility] Work Phone: Comment on above: [facility] [address] [place], [address] Neutrophils/100 WBC (Bld) 50.4 % Normal 47-70 [facility] Work Phone: Comment on above: [facility] [address] [place], [address] Platelet mean volume Entitic volume (Bld) 10.0 fL Normal 6.2-12.0 Comprehensi ve Internal Medicine Work Phone: Comment on above: [facility] [address] [place], [address] Platelets #/vol (Bld) 238 10*3/uL Normal 150-450 [facility] Work Phone: Comment on above: [facility] [address] [place], [address] RBC #/vol (Bld) 5.13 {M/mm3} Normal 4.6-6.2 Compreh ensive [facility] Work Phone: Comment on above: [facility] [address] [place], [place], [phone] RDW SD 41.8 fL Normal 35.1-43.9 [facility] Work Phone: Comment on above: [facility] [address] [place], [place], [phone] WBC #/vol (Bld) 7.8 10*3/uL Normal 4.4-11.0 Comprehe nsive Internal Medicine Work Phone: Comment on above: [facility] [address] [place], [place], [phone] Comprehensive Metabolic Prof ilOrdered By: Balance Wheel Screw Hole Tapper on 05-06-2018 Comprehensive metabolic 2000 panel 3.8 g/dL Normal 3.2-5.0 Comprehensi ve Internal Medicine Work Phone: Comment on above: [facility] [address] [place], [place], [phone] Comprehensive metabolic 2000 panel 27.0 mmol/L Normal 21.0-32.0 Comprehensi ve [facility] Medicine Work Phone: Comment on above: [facility] [address] [place], [place], [address] Comprehensive metabolic 2000 panel 141 mmol/L Normal 136-145 Comprehensi ve Internal Medicine Work Phone: Comment on above: [facility] [address] [place], [place], [address] Comprehensive metabolic 2000 panel 0.70 mg/dL Normal 0.20-1.00 Comprehensi ve Internal Medicine Work Phone: Comment on above: [facility] [address] [place], [place], [phone] Comprehensive metabolic 2000 panel 107 mg/dL Abnormal 74-106 Comprehensi ve Internal Medicine Work Phone: Comment on above: Fasting Glucose resu lt from 100 to 125 mg/dLsuggests IMPAIRED HOMEOSTASIS per A.D.A. criteria.Please note revised GLUCOSE reference range [id number]/02/2018. [facility] [address] [place], [place], [address] Comprehensive metabolic 2000 panel 15 mg/dL Normal 7-18 Comprehensi ve Internal Medicine Work Phone: Comment on above: [facility] [address] [place], [place], [phone] Comprehensive metabolic 2000 panel 0.89 mg/dL Normal 0.70-1.30 Comprehensi ve Internal Medicine Work Phone: Comment on above: The validity of the calculated GFR AND GFRAA in patients over70 years has not been determined. Clinical correlation isessential. [facility] [address] [place], [place], [address] Comprehensive metabolic 2000 panel 103 mL/min Normal Comprehensi ve Internal Medicine Work Phone: Comment on above: Non- GFR Calc [facility] [address] [place], [place], [phone] Comprehensive metabolic 2000 panel 107 mmol/L Normal 98-107 Comprehensi ve Internal Medicine Work Phone: Comment on above: [facility] [address] [place], [place], [phone] Comprehensive metabolic 2000 panel 64 U/L Abnormal 16-61 Comprehensi ve Internal Medicine Work Phone: Comment on above: [facility] [address] [place], [place], [phone] Comprehensive metabolic 2000 panel 60 U/L Normal 45-117 Comprehensi ve Internal Medicine Work Phone: Comment on above: [facility] [address] [place], [place], [phone] Comprehensive metabolic 2000 panel 124 mL/min Normal Comprehensi ve Internal Medicine Work Phone: Comment on above: GFR Calc [facility] spital [address] [place], [address] Comprehensive metabolic 2000 panel 23 U/L Normal 15-37 Comprehensi ve Internal Medicine Work Phone: Comment on above: [facility] spital [address] [place], [address] Comprehensive metabolic 2000 panel 8.4 mg/dL Abnormal 8.5-10.1 Comprehensi ve Internal Medicine Work Phone: Comment on above: [facility] spital [address] [place], [place], [phone] Comprehensive metabolic 2000 panel 1.2 {RATIO} Normal 0.9-2.4 Comprehensi ve Internal Medicine Work Phone: Comment on above: [facility] [address] [place], [address] Comprehensive metabolic 2000 panel 4.1 mmol/L Normal 3.5-5.1 Comprehensi ve Internal Medicine Work Phone: Comment on above: [facility] [address] [place], [address] Comprehensive metabolic 2000 panel 7 1 Normal 5-15 Comprehensi ve Internal Medicine Work Phone: Comment on above: [facility] [address] [place], [address] Comprehensive metabolic 2000 panel 3.2 g/dL Normal 2.2-4.2 Comprehensi ve Internal Medicine Work Phone: Comment on above: [facility] [address] [place], [address] Comprehensive metabolic 2000 panel 7.0 g/dL Normal 6.4-8.2 Comprehensi ve Internal Medicine Work Phone: Comment on above: [facility] spital [address] [place], [address] Comprehensive metabolic 2000 panel 16.8 {RATIO} Normal 10-20 Comprehensi ve Internal Medicine Work Phone: Comment on above: [facility] [address] [place], [place], [address] Lipid ProfileOrdered By: Bambi tem Fruit Vendor on 05-06-2018 Cholesterol in HDL mass conc 36 mg/dL Abnormal [facility] Work Phone: Comment on above: The drugs N-Acetylcy steine and Metamizole may falselydepress this assay. Reference Range HDL <40 mg/dL Low HDL Cholesterol HDL >or= 60 mg/dL High HDL Cholesterol [facility] [address] [place], [place], [address] Cholesterol in LDL mass conc 110 mg/dL Normal 0-130 [facility] Work Phone: Comment on above: [facility] [address] [place], [address] Cholesterol in VLDL mass conc 24 mg/dL Normal 5-40 [facility] Work Phone: Comment on above: [facility] [address] [place], [place], [address] Cholesterol mass conc 170 mg/dL Normal [facility] Work Phone: Comment on above: <200 mg/dL Desirable 200-240 mg/dL Borderline >240 mg/dL High Risk [facility] [address] [place], [place], [address] Triglyceride mass conc 118 mg/dL Normal [facility] Work Phone: Comment on above: The drugs N-Acetylcy steine and Metamizole may falselydepress this assay.Serum Triglycerides Reference Interval Normal <150 mg/dL Borderline high 150 - 199 mg/dL High 200 - 499 mg/dL Very High > or = 500 mg/dL [facility] [address] [place], [place], [address] Vitamin D,25 HydroxyOrdered By: Balance Wheel Screw Hole Tapper on 05-06-2018 Vitamin D,25 Hydroxy 18.5 ng/mL Abnormal 29.95-100.01 Co mprehensive [facility] Work Phone: Comment on above: Vitamin D 25(OH) Sta tus Range Deficiency <20 ng/mL (50nmol/L) Insufficiency 20 - 30 ng/mL (50 - 75 nmol/L) Sufficiency 30 - 100 ng/mL (75 - 250 nmol/L) Toxicity >100 ng/mL (>250 nmol/L) [facility] [facility] [address] [place], [address] Allergen Resp. Area 5Ordered By: Balance Wheel Screw Hole Tapper on 05-05-2018 Allergen Resp. Area 5 7.50 kU/L Abnormal [facility] Work Phone: Comment on above: [facility] (refer to re port for specific site)refer to report for address and phone number Allergen Resp. Area 5 0.51 kU/L Abnormal [facility] Work Phone: Comment on above: [facility] (refer to re port for specific site)refer to report for address and phone number Allergen Resp. Area 5 0.16 kU/L Abnormal [facility] Work Phone: Comment on above: [facility] (refer to re port for specific site)refer to report for address and phone number Allergen Resp. Area 5 0.40 kU/L Abnormal [facility] Work Phone: Comment on above: [facility] (refer to re port for specific site)refer to report for address and phone number Allergen Resp. Area 5 0.10 kU/L Abnormal [facility] Work Phone: Comment on above: [facility] (refer to re port for specific site)refer to report for address and phone number [facility] [facility] (refer to report for specific site)refer to report for address and phone number Allergen Resp. Area 5 0.19 kU/L Abnormal [facility] Work Phone: Comment on above: [facility] (refer to re port for specific site)refer to report for address and phone number Allergen Resp. Area 5 0.23 kU/L Abnormal [facility] Work Phone: Comment on above: [facility] (refer to re port for specific site)refer to report for address and phone number Allergen Resp. Area 5 3.92 kU/L Abnormal [facility] Work Phone: Comment on above: [facility] (refer to re port for specific site)refer to report for address and phone number Allergen Resp. Area 5 4.68 kU/L Abnormal [facility] Work Phone: Comment on above: [facility] (refer to re port for specific site)refer to report for address and phone number Allergen Resp. Area 5 4.16 kU/L Abnormal [facility] Work Phone: Comment on above: [facility] (refer to re port for specific site)refer to report for address and phone number Allergen Resp. Area 5 2.27 kU/L Abnormal [facility] Work Phone: Comment on above: [facility] (refer to re port for specific site)refer to report for address and phone number Allergen Resp. Area 5 6.62 kU/L Abnormal [facility] Work Phone: Comment on above: [facility] (refer to re port for specific site)refer to report for address and phone number Allergen Resp. Area 5 Comment Normal [facility] Work Phone: Comment on above: Levels of Specific I gE Class Description of Class ----- < 0.10 0 Negative 0.10 - 0.31 0/I Equivocal/Low 0.32 - 0.55 I Low 0.56 - 1.40 II Moderate 1.41 - 3.90 III High 3.91 - 19.00 IV Very High 19.01 - 100.00 V Very High >100.00 Very High [facility] (refer to re port for specific site)refer to report for address and phone number [facility] (refer to report for specific site)refer to report for address and phone number Allergen Resp. Area 5 423 {IU/mL} Normal 6-495 [facility] Work Phone: Comment on above: Please note refere nce interval change [facility] (refer to re port for specific site)refer to report for address and phone number Allergen, Food ProfileOrdere d By: Balance Wheel Screw Hole Tapper on 05-05-2018 Allergen, Food Profile 0.12 kU/L Abnormal [facility] Work Phone: Comment on above: [facility] (refer to report for specific site)refer to report for address and phone number Barley, Whole GrainOrdered B y: Balance Wheel Screw Hole Tapper on 05-05-2018 Barley, Whole Grain 0.54 kU/L Abnormal Compr ehensive Internal Medicine Work Phone: Comment on above: [facility] (refer to report for specific site)refer to report for address and phone number Miscellaneous Lab ProcedureO rdered By: Balance Wheel Screw Hole Tapper on 05-05-2018 [facility] [place] Normal Comprehensi ve Internal Medicine Work Phone: Comment on above: TEST RESULT LIMITSF0 95-IgE [place] <0.10 kU/L Class 0 TESTING PERFORMED AT [facility]. ORIGINAL REPORT ON FILE IN LAB CONTAINS ADDITIONAL TEST SITE INFORMATION. ____ Comments: PEACH lc60 2744 SER/RTTest(s) Ordered: PEACH [id number] SER/RTWooMet[facility] [address]qsgbfeon[address] [place], [id number] Miscellaneous Lab Procedure 2Ordered By: Balance Wheel Screw Hole Tapper on 05-05-2018 [facility] TEST 2 Normal Comprehen sive Internal Medicine Work Phone: Comment on above: TEST RESULT LIMITSF2 03-IgE Pistachio Nut 0.11 Abnormal kU/L Class 0/I TESTING PERFORMED AT [facility]. ORIGINAL REPORT ON FILE IN LAB CONTAINS ADDITIONAL TEST SITE INFORMATION. ____ Comments: [facility] lc60 2744 SER/RTList Test(s) Ordered by Physician: DENG [id number] [facility]WJ[facility] [id number] Low[address]ottY[address] [place], [place], [address] Potato, WhiteOrdered By: Bambi tem Fruit Vendor on 05-05-2018 Potato, White <0.10 Normal Comprehensi ve Internal Medicine Work Phone: Comment on above: [facility] (refer to report for specific site)refer to report for address and phone number Performed at: [address] [id number] Director: Amada Tenorio MD, Phone: [phone] [facility] (refer to re port for specific site)refer to report for address and phone number Levels of Specific I gE Class Description of Class ----- < 0.10 0 Negative 0.10 - 0.31 0/I Equivocal/Low 0.32 - 0.55 I Low 0.56 - 1.40 II Moderate 1.41 - 3.90 III High 3.91 - 19.00 IV Very High 19.01 - 100.00 V Very High >100.00 Very High YeastOrdered By: Matt rosa on 05-05-2018 Yeast LM Ql (Urine sed) 0.24 kU/L Abnormal [facility] Work Phone: Comment on above: [facility] (refer to report for specific site)refer to report for address and phone number DUONG ([phone])Ordered B y: Balance Wheel Screw Hole Tapper on 02-14-2017 25-Hydroxyvitamin D2+25-Hydroxyvitamin D3 mass conc 29.5 ng/mL Abnormal 30.0-100.0 [facility] Work Phone: Comment on above: Vitamin D deficiency has been defined by the Agency ofMedicine and an Endocrine Society practice guideline as alevel of serum 25-OH vitamin D less than 20 ng/mL (1,2).The Endocrine Society went on to further define vitamin Dinsufficiency as a level between 21 and 29 ng/mL (2).1. IOM (Agency of Medicine). 2010. Dietary reference intakes for calcium and D. [place]: The National Academies Press.2. Rodriguez MF, Jewell PHILLIPS, Miguel BALDWIN, et al. Evaluation, treatment, and prevention of vitamin D deficiency: an Endocrine Society clinical practice guideline. JCEM. 2010; 96(7):1911-30. PATIENT WAS FASTINGP ERFORMED BY: SplitGigs[address] [place] [id number] CBC, Platelets & Auto Diff ( [id number])Ordered By: Balance Wheel Screw Hole Tapper on 02-14-2017 Basophils #/vol (Bld) 0.1 {x10E3/uL} Normal 0.0-0.2 [facility] Work Phone: Comment on above: PATIENT WAS FASTINGP ERFORMED BY: [place] [id number] Basophils (Bld) [#/Vol] 0.1 10*3/uL Normal 0.0-0.2 [facility]; [facility] Work Phone: Comment on above: PATIENT WAS FASTINGP ERFORMED BY: Invoiceable[address]bl[address] [place] [id number] Basophils/100 WBC (Bld) 1 % Normal [facility] Work Phone: Comment on above: PATIENT WAS FASTINGP ERFORMED BY: [employer] [place] Appsbl[place] [id number] Eosinophils #/vol (Bld) 0.4 {x10E3/uL} Normal 0.0-0.4 [facility] Work Phone: Comment on above: PATIENT WAS FASTINGP ERFORMED BY: [facility] Thkfbd0633 [address]Dublin [place] [id number] Eosinophils (Bld) [#/Vol] 0.4 10*3/uL Normal 0.0-0.4 [facility]; [facility] Work Phone: Comment on above: PATIENT WAS FASTINGP ERFORMED BY: [facility] Sqdyow8780 [address] RoadDublin [place] [id number] Eosinophils/100 WBC (Bld) 6 % Normal [facility] Work Phone: Comment on above: PATIENT WAS FASTINGP ERFORMED BY: [facility] Zfpodz[address] [facility] [place] [id number] Erythrocyte distribution width Ratio (RBC) 13.1 % Normal 12.3-15.4 [facility] Work Phone: Comment on above: PATIENT WAS FASTINGP ERFORMED BY: [facility] Qxdakt25[address] [facility] [place] [id number] Hematocrit Volume Fraction (Bld) 46.6 % Normal 37.5-51.0 [facility] Work Phone: Comment on above: PATIENT WAS FASTINGP ERFORMED BY: [facility] Qdbxch9[address] [facility] [place] [id number] Hemoglobin mass conc (Bld) 15.7 g/dL Normal 13.0-17.7 [facility] Work Phone: Comment on above: PATIENT WAS FASTINGP ERFORMED BY: [facility] Vnhovo0198 [address] RoadDublin [place] [id number] Immature granulocytes #/vol (Bld) 0.0 {x10E3/uL} Normal 0.0-0.1 [facility] Work Phone: Comment on above: PATIENT WAS FASTINGP ERFORMED BY: [facility] Hmotqq6911 [address]Dublin [place] [id number] Immature granulocytes (Bld) [#/Vol] 0.0 10*3/uL Normal 0.0-0.1 [facility]; [facility] Work Phone: Comment on above: PATIENT WAS FASTINGP ERFORMED BY: ONEIL LabAsc[facility]6[address] [facility] [id number] Immature granulocytes/100 WBC (Bld) 0 % Normal [facility] Work Phone: Comment on above: PATIENT WAS FASTINGP ERFORMED BY: [facility]Asc[facility]6[address] [facility] [id number] Lymphocytes #/vol (Bld) 2.1 {x10E3/uL} Normal 0.7-3.1 [facility] Work Phone: Comment on above: PATIENT WAS FASTINGP ERFORMED BY: [facility]6370 [facility] [id number] Lymphocytes (Bld) [#/Vol] 2.1 10*3/uL Normal 0.7-3.1 [facility]; [facility] Work Phone: Comment on above: PATIENT WAS FASTINGP ERFORMED BY: [facility]6[address] [facility] [id number] Lymphocytes/100 WBC (Bld) 29 % Normal [facility] Work Phone: Comment on above: PATIENT WAS FASTINGP ERFORMED BY: [facility]Asc[facility]6[address] [facility] [id number] MCH Entitic mass (RBC) 30.4 pg Normal 26.6-33.0 [facility] Work Phone: Comment on above: PATIENT WAS FASTINGP ERFORMED BY: [facility]6370 [facility] [id number] MCHC mass conc (RBC) 33.7 g/dL Normal 31.5-35.[address] [facility] Internal [facility] Work Phone: Comment on above: PATIENT WAS FASTINGP ERFORMED BY: [facility]Asc[facility]6370 [facility] [id number] MCV Entitic volume (RBC) 90 fL Normal 79-97 [facility] Work Phone: Comment on above: PATIENT WAS FASTINGP ERFORMED BY: CB [facility] Tmmfqh5949 [address] RoadDublin [place] [id number] Monocytes #/vol (Bld) 0.5 {x10E3/uL} Normal 0.1-0.9 [facility] Work Phone: Comment on above: PATIENT WAS FASTINGP ERFORMED BY: CB [facility] Fqpwmy8812 [address]Dublin [place] [id number] Monocytes (Bld) [#/Vol] 0.5 10*3/uL Normal 0.1-0.9 [facility]; [facility] Work Phone: Comment on above: PATIENT WAS FASTINGP ERFORMED BY: [facility] Ipravu16[address]Dublin [place] [id number] Monocytes/100 WBC (Bld) 7 % Normal [facility] Work Phone: Comment on above: PATIENT WAS FASTINGP ERFORMED BY: [facility] Zzumeg4084 [address]Dublin [place] [id number] Neutrophils #/vol (Bld) 4.2 {x10E3/uL} Normal 1.4-7.0 [facility] Work Phone: Comment on above: PATIENT WAS FASTINGP ERFORMED BY: [facility] Omvnza7740 [address]Dublin [place] [id number] Neutrophils (Bld) [#/Vol] 4.2 10*3/uL Normal 1.4-7.0 [facility]; [facility] Work Phone: Comment on above: PATIENT WAS FASTINGP ERFORMED BY: CB [facility] Iyxquh6124 [address]Dublin [place] [id number] Neutrophils/100 WBC (Bld) 57 % Normal [facility] Work Phone: Comment on above: PATIENT WAS FASTINGP ERFORMED BY: CB [facility] Lzaxze9305 [address]Dublin [place] [id number] Platelets #/vol (Bld) 297 {x10E3/uL} Normal 150-379 [facility] Work Phone: Comment on above: PATIENT WAS FASTINGP ERFORMED BY: CB [facility] Vocgfz5153 [address]Dublin [place] [id number] Platelets (Bld) [#/Vol] 297 10*3/uL Normal 150-379 [facility]; [facility] Work Phone: Comment on above: PATIENT WAS FASTINGP ERFORMED BY: CB [facility] Yphtxh0850 [address] RoadDublin [place] [id number] RBC #/vol (Bld) 5.16 {x10E6/uL} Normal 4.14-5.80 Comp [facility] Work Phone: Comment on above: PATIENT WAS FASTINGP ERFORMED BY: CB [facility] Wenqmw7057 [address] RoadDublin [place] [id number] RBC (Bld) [#/Vol] 5.16 10*6/uL Normal 4.14-5.80 Compr [facility] Internal Medicine; [facility] Work Phone: Comment on above: PATIENT WAS FASTINGP ERFORMED BY: CB [facility] Cdwuzi3453 [address]Dublin [place] [id number] WBC #/vol (Bld) 7.4 {x10E3/uL} Normal 3.4-10.8 Compr [facility] Internal Medicine Work Phone: Comment on above: PATIENT WAS FASTINGP ERFORMED BY: CB [facility] Yxljfw7123 [address]Dublin [place] [id number] WBC (Bld) [#/Vol] 7.4 10*3/uL Normal 3.4-10.8 [facility]; [facility] Work Phone: Comment on above: PATIENT WAS FASTINGP ERFORMED BY: CB [facility] Pppkaa1628 [address]Dublin [place] [id number] Lipid Panel ([id number])Ordered B y: Balance Wheel Screw Hole Tapper on 02-14-2017 Cholesterol in HDL mass conc 39 mg/dL Abnormal [facility] Work Phone: Comment on above: PATIENT WAS FASTINGP ERFORMED BY: CB [facility] Ktmmyk8322 [address]Dublin [place] [id number] Cholesterol in LDL mass conc 144 mg/dL Abnormal 0-99 [facility] Work Phone: Comment on above: PATIENT WAS FASTINGP ERFORMED BY: ONEIL Camposlin6370 [facility] [id number] Cholesterol in LDL/Cholesterol in HDL mass ratio 3.7 {ratio_units} Abnormal 0.0-3.6 [facility] Work Phone: Comment on above: LDL/HDL Ratio Men Wo men 1/2 Avg.Risk 1.0 1.5 Avg.Risk 3.6 3.2 2X Avg.Risk 6.2 5.0 3X Avg.Risk 8.0 6.1 PATIENT WAS FASTINGP ERFORMED BY: ONEIL Camposlin6370 [facility] [id number] Cholesterol in VLDL mass conc 20 mg/dL Normal 5-40 [facility] Work Phone: Comment on above: PATIENT WAS FASTINGP ERFORMED BY: ONEIL Camposlin6370 [facility] [id number] Cholesterol mass conc 203 mg/dL Abnormal 100-199 [facility] Work Phone: Comment on above: PATIENT WAS FASTINGP ERFORMED BY: ONEIL Camposlin6370 [facility] [id number] Triglyceride mass conc 100 mg/dL Normal 0-149 [facility] Work Phone: Comment on above: PATIENT WAS FASTINGP ERFORMED BY: ONEIL Camposlin6370 [facility] [id number] Metabolic Panel, Comprehensi ve (10251)Ordered By: Balance Wheel Screw Hole Tapper on 02-14-2017 Albumin mass conc 4.5 g/dL Normal 3.5-5.5 Compreh ensive Internal Medicine Work Phone: Comment on above: PATIENT WAS FASTINGP ERFORMED BY: ONEIL Camposlin6370 [facility] [id number] Albumin/Globulin mass ratio 1.9 {ratio} Normal 1.2-2.2 [facility] Work Phone: Comment on above: PATIENT WAS FASTINGP ERFORMED BY: ONEIL [facility] Lxterc9354 [address] RoadDublin [place] [id number] ALP [Catalytic activity/Vol] 67 U/L Normal 39-117 [facility]; [facility] Internal Medicine Work Phone: Comment on above: PATIENT WAS FASTINGP ERFORMED BY: ONEIL [facility] Ysnefp5958 [address] RoadDublin [place] [id number] ALP enzyme act/vol 67 [iU]/L Normal 39-117 [facility] Internal Medicine Work Phone: Comment on above: PATIENT WAS FASTINGP ERFORMED BY: ONEIL [facility] Flyesd1750 [address]Dublin [place] [id number] ALT [Catalytic activity/Vol] 38 U/L Normal 0-44 [facility] Internal Medicine; [facility] Internal Medicine Work Phone: Comment on above: PATIENT WAS FASTINGP ERFORMED BY: ONEIL [facility] Uobtkw5704 [address]Dublin [place] [id number] ALT enzyme act/vol 38 [iU]/L Normal 0-44 [facility] Internal Medicine Work Phone: Comment on above: PATIENT WAS FASTINGP ERFORMED BY: ONEIL [facility] Kksieh3380 [address] RoadDublin [place] [id number] AST [Catalytic activity/Vol] 22 U/L Normal 0-40 [facility] Internal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 Body mass index (BMI) [Ratio] 35.26 kg/m2 MICHAEL Parkinson LPN [facility]; [facility] Work Phone: 08-04-2021 08:44-0400 Body surface area Derived from formula 2.38 m2 MICHAEL Parkinson LPN [facility]; [facility] Work Phone: 08-04-2021 08:44-0400 Body temperature 97.9 [degF] MICHAEL Parkinson LPN [facility]; [facility] Work Phone: Comment on above: Method: Temporal 08-04-2021 08:44-0400 Body weight 117.94 kg MICHAEL Parkinson LPN [facility]; [facility] Work Phone: 08-04-2021 08:44-0400 Diastolic blood pressure 80 mm[Hg] MICHAEL Parkinson GERTRUDIS [facility]; [facility] Work Phone: Comment on above: Patient Position: Sitting; Cuff Location : Left Arm; Cuff Size: Large 08-04-2021 08:44-0400 Heart rate 78 /min MICHAEL Parkinson GERTRUDIS [facility]; [facility] Work Phone: Comment on above: Pattern: Regular 08-04-2021 08:44-0400 Respiratory rate 20 /min MICHAEL Parkinson GERTRUDIS [facility]; [facility] Work Phone: Comment on above: Pattern: Unlabored 08-04-2021 08:44-0400 SaO2% (BldA) [Mass fraction] 98 % MICHAELDEWAYNE Parkinson LPN [facility]; [facility] Work Phone: Comment on above: Room air 08-04-2021 08:44-0400 Systolic blood pressure 120 mm[Hg] MICHAEL Parkinson LPN [facility]; [facility] Work Phone: Comment on above: Patient Position: Sitting; Cuff Location : Left Arm; Cuff Size: Large 03-06-2021 13:10-0500 Body height 182.88 cm MICHAEL Parkinson LPN [facility]; [facility] Work Phone: 03-06-2021 13:10-0500 Body mass index (BMI) [Ratio] 35.8 kg/m2 MICHAEL Parkinson LPN [facility]; [facility] Work Phone: 03-06-2021 13:10-0500 Body surface area Derived from formula 2.4 m2 MICHAEL Parkinson LPN [facility]; [facility] Work Phone: 03-06-2021 13:10-0500 Body temperature 97.9 [degF] MICHAEL Iggy GERTRUDIS [facility]; [facility] Work Phone: Comment on above: Method: Temporal 03-06-2021 13:10-0500 Body weight 119.75 kg MICHAEL Parkinson LPN [facility]; [facility] Work Phone: 03-06-2021 13:10-0500 Diastolic blood pressure 68 mm[Hg] MICHAEL Iggy CABA [facility]; [facility] Work Phone: Comment on above: Patient Position: Sitting; Cuff Location : Left Arm; Cuff Size: Large 03-06-2021 13:10-0500 Heart rate 74 /min MICHAEL Parkinson LPN [facility]; [facility] Work Phone: Comment on above: Pattern: Regular 03-06-2021 13:10-0500 Respiratory rate 20 /min MICHAEL Parkinson GERTRUDIS [facility]; [facility] Work Phone: Comment on above: Pattern: Unlabored 03-06-2021 13:10-0500 SaO2% (BldA) [Mass fraction] 98 % MICHAEL Parkinson LPN [facility]; [facility] Work Phone: Comment on above: Room air 03-06-2021 13:10-0500 Systolic blood pressure 122 mm[Hg] MICHAEL Parkinson LPN [facility]; [facility] Work Phone: Comment on above: Patient Position: Sitting; Cuff Location : Left Arm; Cuff Size: Large 08-29-2020 09:-0400 Body height 182.88 cm MICHAEL Parkinson LPN [facility]; [facility] Work Phone: 08-29-2020 09:19-0400 Body mass index (BMI) [Ratio] 35.26 kg/m2 MICHAEL Parkinson LPN [facility]; [facility] Work Phone: 08-29-2020 09:19-0400 Body surface area Derived from formula 2.38 m2 MICHAEL Parkinsno LPN [facility]; [facility] Work Phone: 08-29-2020 09:19-0400 Body temperature 97.9 [degF] MICHAEL Parkinson LPN [facility]; [facility] Work Phone: Comment on above: Method: Temporal 08-29-2020 09:19-0400 Body weight 117.94 kg MICHAEL Parkinson LPN [facility]; [facility] Work Phone: 08-29-2020 09:19-0400 Diastolic blood pressure 84 mm[Hg] MICHAEL Parkinson LPN [facility]; [facility] Work Phone: Comment on above: Patient Position: Sitting; Cuff Location : Left Arm; Cuff Size: Large 08-29-2020 09:19-0400 Heart rate 96 /min MICHAEL Parkinson LPN [facility]; [facility] Work Phone: Comment on above: Pattern: Regular 08-29-2020 09:19-0400 Respiratory rate 20 /min MICHAEL Parkinson LPN [facility]; [facility] Work Phone: Comment on above: Pattern: Unlabored 08-29-2020 09:19-0400 SaO2% (BldA) [Mass fraction] 98 % MICHAEL Parkinson LPN [facility]; [facility] Work Phone: Comment on above: Room air 08-29-2020 09:19-0400 Systolic blood pressure 132 mm[Hg] MICHAEL Parkinson LPN [facility]; [facility] Work Phone: Comment on above: Patient Position: Sitting; Cuff Location : Left Arm; Cuff Size: Large 06-03-2020 10:56-0400 BMI (Body Mass Index) 37.3 kg/m2 Luann Jason LPN [facility]; [facility] Work Phone: 06-03-2020 10:56-0400 Body Temperature 97.8 [degF] Luann Jason LPN [facility]; [facility] Work Phone: 06-03-2020 10:56-0400 Body weight 124.74 kg Luann Mairb [employer] INSTRUCTIONAL [employer]ACH [facility]; [facility] Work Phone: 06-03-2020 10:56-0400 BP Diastolic 76 mm[Hg] Luann Jason LPN [facility]; [facility] Work Phone: Comment on above: Patient Position: Sitting; Cuff Location : Left Arm; Cuff Size: Standard 06-03-2020 10:56-0400 BP Systolic 124 mm[Hg] Luann Slarb [employer]LEMENTARY INSTRUCTIONAL COACH [facility]; [facility] Work Phone: Comment on above: Patient Position: Sitting; Cuff Location : Left Arm; Cuff Size: Standard 06-03-2020 10:56-0400 BSA (Body Surface Area) 2.44 m2 Luann Slarb [employer]LEMENTARY INSTRUCTIONAL COACH [facility]; [facility] Work Phone: 06-03-2020 10:56-0400 Height 182.88 cm Luann Slarb ELEMENTARY INSTRUCTIONAL COACH [facility]; [facility] Work Phone: 06-03-2020 10:56-0400 Pulse (Heart Rate) 92 /min Luann Slarb [employer]LEMENTARY INSTRUCTIONAL COACH [facility]; [facility] Work Phone: Comment on above: Pattern: Regular 06-03-2020 10:56-0400 Pulse Oximetry 96 % Marleni Holly [facility]; [facility] Work Phone: Comment on above: Room air 06-03-2020 10:56-0400 Respiratory Rate 16 /min Luann Slarb [employer]LEMENTARY INSTRUCTIONAL COACH [facility]; [facility] Work Phone: Comment on above: Pattern: Unlabored 06-03-2020 10:56-0400 SaO2% (BldA) [Mass fraction] 96 % Luann Slarb [employer]LEMENTARY INSTRUCTIONAL COACH [facility]; [facility] Work Phone: Comment on above: Room air 11-23-2019 08:39-0400 BMI (Body Mass Index) 37.16 kg/m2 Luann Slarb [employer]LE[employer]ARY INSTRUCTIONAL COACH [facility] Work Phone: 11-23-2019 08:39-0400 Body Temperature 97.3 [degF] Luann Slarb ELEMENTARY INSTRUCTIONAL COACH [facility] Work Phone: 11-23-2019 08:39-0400 Body weight 124.29 kg Luann Slarb ELEMENTARY INSTRUCTIONAL COACH [facility] Work Phone: 11-23-2019 08:39-0400 BP Diastolic 82 mm[Hg] Luann Slarb [employer]LEMENTARY INSTRUCTIONAL COACH [facility] Work Phone: Comment on above: Patient Position: Sitting; Cuff Location : Left Arm; Cuff Size: Standard 11-23-2019 08:39-0400 BP Systolic 132 mm[Hg] Luann Jason [employer]LEMENTARY INSTRUCTIONAL COACH [facility] Work Phone: Comment on above: Patient Position: Sitting; Cuff Location : Left Arm; Cuff Size: Standard 11-23-2019 08:39-0400 BSA (Body Surface Area) 2.44 m2 Luann Jason GERTRUDIS [facility] Work Phone: 11-23-2019 08:39-0400 Height 182.88 cm Luann Jason [employer]LEMENTARY INSTRUCTIONAL COACH [facility] Work Phone: 11-23-2019 08:39-0400 Pulse (Heart Rate) 86 /min Luann Jason LPN [facility] Work Phone: Comment on above: Pattern: Regular 11-23-2019 08:39-0400 Pulse Oximetry 96 % Marleni Lockwoodlevon [facility] Work Phone: Comment on above: Room air 11-23-2019 08:39-0400 Respiratory Rate 16 /min Luann Jason LPN [facility] Work Phone: Comment on above: Pattern: Unlabored 11-23-2019 08:39-0400 SaO2% (BldA) [Mass fraction] 96 % Luann Jason [employer]LEMENTARY INSTRUCTIONAL COACH [facility]; [facility] Work Phone: Comment on above: Room air 03-08-2019 14:31-0500 BMI (Body Mass Index) 35.53 kg/m2 MICHAEL Iggy CABA [facility] Work Phone: 03-08-2019 14:31-0500 Body Temperature 97.9 [degF] MICHAEL Parkinson GERTRUDIS [facility] Work Phone: Comment on above: Method: Temporal 03-08-2019 14:31-0500 Body weight 118.84 kg MICHAEL Parkinson GERTRUDIS [facility] Work Phone: 03-08-2019 14:31-0500 BP Diastolic 80 mm[Hg] MICHAEL Parkinson LPN [facility] Work Phone: Comment on above: Patient Position: Sitting; Cuff Location : Left Arm; Cuff Size: Large 03-08-2019 14:31-0500 BP Systolic 126 mm[Hg] MICHAEL Parkinson LPN [facility] Work Phone: Comment on above: Patient Position: Sitting; Cuff Location : Left Arm; Cuff Size: Large 03-08-2019 14:31-0500 BSA (Body Surface Area) 2.39 m2 MICHAEL Parkinson LPN [facility] Work Phone: 03-08-2019 14:31-0500 Height 182.88 cm MICHAEL Parkinson LPN [facility] Work Phone: 03-08-2019 14:31-0500 Pulse (Heart Rate) 78 /min MICHAEL Parkinson LPN [facility] Work Phone: Comment on above: Pattern: Regular 03-08-2019 14:31-0500 Pulse Oximetry 98 % Marleni Lockwoodciro [facility] Work Phone: Comment on above: Room air 03-08-2019 14:31-0500 Respiratory Rate 20 /min MICHAEL Parkinson LPN [facility] Work Phone: Comment on above: Pattern: Unlabored 03-08-2019 14:31-0500 SaO2% (BldA) [Mass fraction] 98 % MICHAEL Parkinson LPN [facility]; [facility] Work Phone: Comment on above: Room air 10-13-2018 06:38-0400 BMI (Body Mass Index) 35.53 kg/m2 Marleni Lockwoodciro [facility] Work Phone: 10-13-2018 06:38-0400 Body weight 118.84 kg Marleni Lockwoodlevon [facility] Work Phone: 10-13-2018 06:38-0400 BSA (Body Surface Area) 2.39 m2 Marleni Grandelevon [facility] Work Phone: 10-13-2018 06:38-0400 Height 182.88 cm Marleni Lockwoodlevon [facility] Work Phone: 09-04-2018 09:04-0400 BMI (Body Mass Index) 35.53 kg/m2 MICHAEL Parkinson LPN [facility] Work Phone: 09-04-2018 09:04-0400 Body Temperature 97.6 [degF] MICHAEL Parkinson LPN [facility] Work Phone: Comment on above: Method: Temporal 09-04-2018 09:04-0400 Body weight 118.84 kg MICHAEL Parkinson LPN [facility] Work Phone: 09-04-2018 09:04-0400 BP Diastolic 80 mm[Hg] MICHAEL Parkinson LPN [facility] Work Phone: Comment on above: Patient Position: Sitting; Cuff Location : Left Arm; Cuff Size: Large 09-04-2018 09:04-0400 BP Systolic 122 mm[Hg] MICHAEL Parkinson LPN [facility] Work Phone: Comment on above: Patient Position: Sitting; Cuff Location : Left Arm; Cuff Size: Large 09-04-2018 09:04-0400 BSA (Body Surface Area) 2.39 m2 MICHAEL Parkinson LPN [facility] Work Phone: 09-04-2018 09:04-0400 Height 182.88 cm MICHAEL Parkinson LPN [facility] Work Phone: 09-04-2018 09:04-0400 Pulse (Heart Rate) 70 /min MICHAEL Parkinson LPN [facility] Work Phone: Comment on above: Pattern: Regular 09-04-2018 09:04-0400 Pulse Oximetry 98 % Marleni Holly [facility] Work Phone: Comment on above: Room air 09-04-2018 09:04-0400 Respiratory Rate 20 /min MICHAEL Parkinson LPN [facility] Work Phone: Comment on above: Pattern: Unlabored 09-04-2018 09:04-0400 SaO2% (BldA) [Mass fraction] 98 % MICHAEL Parkinson LPN [facility]; [facility] Work Phone: Comment on above: Room air 07-10-2018 08:21-0400 BMI (Body Mass Index) 35.54 kg/m2 El Stephen CABA [facility] Work Phone: 07-10-2018 08:21-0400 Body Temperature 97.6 [degF] El Stephen CABA [facility] Work Phone: Comment on above: Method: Temporal 07-10-2018 08:21-0400 Body weight 118.85 kg El Stephen CABA [facility] Work Phone: 07-10-2018 08:21-0400 BP Diastolic 76 mm[Hg] El Mitchell LPN [facility] Work Phone: Comment on above: Patient Position: Sitting; Cuff Location : Left Arm; Cuff Size: Standard 07-10-2018 08:21-0400 BP Systolic 120 mm[Hg] El Mitchell LPN [facility] Work Phone: Comment on above: Patient Position: Sitting; Cuff Location : Left Arm; Cuff Size: Standard 07-10-2018 08:21-0400 BSA (Body Surface Area) 2.39 m2 El Mitchell LPN [facility] Work Phone: 07-10-2018 08:21-0400 Height 182.88 cm El Mitchell LPN [facility] Work Phone: 07-10-2018 08:21-0400 Pulse (Heart Rate) 81 /min El Mitchell LPN [facility] Work Phone: Comment on above: Pattern: Regular 07-10-2018 08:21-0400 Pulse Oximetry 96 % Marleni Lockwoodciro [facility] Work Phone: Comment on above: Room air 07-10-2018 08:21-0400 Respiratory Rate 16 /min El Mitchell LPN [facility] Work Phone: Comment on above: Pattern: Unlabored 07-10-2018 08:21-0400 SaO2% (BldA) [Mass fraction] 96 % El Mitchell LPN [facility]; [facility] Work Phone: Comment on above: Room air 07-10-2018 08:21-0400 Weight 118.85 kg Marleni Holly [facility] Work Phone: 05-26-2018 09:43-0400 BMI (Body Mass Index) 37.03 kg/m2 MICHAEL Parkinson LPN [facility] Work Phone: 05-26-2018 09:43-0400 Body Temperature 97.9 [degF] MICHAEL Parkinson LPN [facility] Work Phone: Comment on above: Method: Temporal 05-26-2018 09:43-0400 Body weight 123.83 kg MICHAEL Parkinson LPN [facility] Work Phone: 05-26-2018 09:43-0400 BP Diastolic 80 mm[Hg] MICHAEL Parkinson [employer]LEMENT[employer] INSTRUCTIONAL [employer]ACH [facility] Work Phone: Comment on above: Patient Position: Sitting; Cuff Location : Left Arm; Cuff Size: Large 05-26-2018 09:43-0400 BP Systolic 126 mm[Hg] MICHAEL Parkinson LPN [facility] Work Phone: Comment on above: Patient Position: Sitting; Cuff Location : Left Arm; Cuff Size: Large 05-26-2018 09:43-0400 BSA (Body Surface Area) 2.43 m2 MICHAEL Parkinson GERTRUDIS [facility] Work Phone: 05-26-2018 09:43-0400 Height 182.88 cm MICHAEL Parkinson GERTRUDIS [facility] Work Phone: 05-26-2018 09:43-0400 Pulse (Heart Rate) 100 /min MICHAEL Parkinson LPN [facility] Work Phone: Comment on above: Pattern: Regular 05-26-2018 09:43-0400 Pulse Oximetry 98 % Marleni Holly [facility] Work Phone: Comment on above: Room air 05-26-2018 09:43-0400 Respiratory Rate 18 /min MICHAEL Parkinson LPN [facility] Work Phone: Comment on above: Pattern: Unlabored 05-26-2018 09:43-0400 SaO2% (BldA) [Mass fraction] 98 % MICHAEL Iggy GERTRUDIS [facility]; [facility] Work Phone: Comment on above: Room air 05-26-2018 09:43-0400 Weight 123.83 kg Marleni Holly [facility] Work Phone: 05-24-2018 15:23-0400 BMI (Body Mass Index) 37.08 kg/m2 MICHAEL Parkinson LPN [facility] Work Phone: 05-24-2018 15:23-0400 Body Temperature 97.9 [degF] MICHAEL Parkinson LPN [facility] Work Phone: Comment on above: Method: Temporal 05-24-2018 15:23-0400 Body weight 124 kg MICHAEL Parkinson LPN [facility] Work Phone: 05-24-2018 15:23-0400 BP Diastolic 86 mm[Hg] MICHAEL Parkinson LPN [facility] Work Phone: Comment on above: Patient Position: Sitting; Cuff Location : Left Arm; Cuff Size: Standard 05-24-2018 15:23-0400 BP Systolic 124 mm[Hg] MICHAEL Parkinson LPN [facility] Work Phone: Comment on above: Patient Position: Sitting; Cuff Location : Left Arm; Cuff Size: Standard 05-24-2018 15:23-0400 BSA (Body Surface Area) 2.43 m2 MICHAEL Parkinson LPN [facility] Work Phone: 05-24-2018 15:23-0400 Height 182.88 cm MICHAEL Parkinson LPN [facility] Work Phone: 05-24-2018 15:23-0400 Pulse (Heart Rate) 88 /min MICHAEL Parkinson LPN [facility] Work Phone: Comment on above: Pattern: Regular 05-24-2018 15:23-0400 Pulse Oximetry 95 % Marleni Holly [facility] Work Phone: Comment on above: Room air 05-24-2018 15:23-0400 Respiratory Rate 20 /min MICHAEL Parkinson LPN [facility] Work Phone: Comment on above: Pattern: Unlabored 05-24-2018 15:23-0400 SaO2% (BldA) [Mass fraction] 95 % MICHAEL Parkinson LPN [facility]; [facility] Work Phone: Comment on above: Room air 05-24-2018 15:23-0400 Weight 124 kg Marleni Holly [facility] Work Phone: 05-05-2018 14:05-0500 BMI (Body Mass Index) 38.03 kg/m2 Tessa Ward [facility] Work Phone: 05-05-2018 14:05-0500 Body Temperature 97.7 [degF] Tessa Ward [facility] Work Phone: Comment on above: Method: Temporal 05-05-2018 14:05-0500 Body weight 127.18 kg Tessa Ward [facility] Work Phone: 05-05-2018 14:05-0500 BP Diastolic 84 mm[Hg] Tessa Ward [facility] Work Phone: Comment on above: Patient Position: Sitting; Cuff Location : Left Arm; Cuff Size: Standard 05-05-2018 14:05-0500 BP Systolic 124 mm[Hg] Tessa Ward [facility] Work Phone: Comment on above: Patient Position: Sitting; Cuff Location : Left Arm; Cuff Size: Standard 05-05-2018 14:05-0500 BSA (Body Surface Area) 2.46 m2 Tessa Ward [facility] Work Phone: 05-05-2018 14:05-0500 Height 182.88 cm Tessa Ward [facility] Work Phone: 05-05-2018 14:05-0500 Pulse (Heart Rate) 98 /min Tessa Ward [facility] Work Phone: Comment on above: Pattern: Regular 05-05-2018 14:05-0500 Pulse Oximetry 95 % Marleni Holly [facility] Work Phone: Comment on above: Room air 05-05-2018 14:05-0500 Respiratory Rate 18 /min Tessa Ward [facility] Work Phone: Comment on above: Pattern: Unlabored 05-05-2018 14:05-0500 SaO2% (BldA) [Mass fraction] 95 % Tessa Ward [facility]; [facility] Work Phone: Comment on above: Room air 05-05-2018 14:05-0500 Weight 127.18 kg Marleni Holly [facility] Work Phone: 04-11-2017 11:05-0500 BMI (Body Mass Index) 34.31 kg/m2 Luann Jason [employer]LEMENTARY INSTRUCTIONAL COACH [facility] Work Phone: 04-11-2017 11:05-0500 Body Temperature 97.1 [degF] Luann Oneillrb ELEMENTARY INSTRUCTIONAL COACH [facility] Work Phone: 04-11-2017 11:05-0500 Body weight 114.76 kg Luann Jason ELEMENTARY INSTRUCTIONAL COACH [facility] Work Phone: 04-11-2017 11:05-0500 BP Diastolic 82 mm[Hg] Luann Mairb ELEMENTARY INSTRUCTIONAL COACH [facility] Work Phone: Comment on above: Patient Position: Sitting; Cuff Location : Left Arm; Cuff Size: Standard 04-11-2017 11:05-0500 BP Systolic 124 mm[Hg] Luann Jason ELEMENTARY INSTRUCTIONAL COACH [facility] Work Phone: Comment on above: Patient Position: Sitting; Cuff Location : Left Arm; Cuff Size: Standard 04-11-2017 11:05-0500 BSA (Body Surface Area) 2.35 m2 Luann Oneillkev THAKURN [facility] Work Phone: 04-11-2017 11:05-0500 Height 182.88 cm Luann Jason ELEMENTARY INSTRUCTIONAL COACH [facility] Work Phone: 04-11-2017 11:05-0500 Pulse (Heart Rate) 84 /min Luann Jason ELEMENTARY INSTRUCTIONAL COACH [facility] Work Phone: Comment on above: Pattern: Regular 04-11-2017 11:05-0500 Pulse Oximetry 97 % Marleni Holly [facility] Work Phone: Comment on above: Room air 04-11-2017 11:05-0500 Respiratory Rate 17 /min Luann Jason ELEMENTARY INSTRUCTIONAL COACH [facility] Work Phone: Comment on above: Pattern: Unlabored 04-11-2017 11:05-0500 SaO2% (BldA) [Mass fraction] 97 % Luann Eren CABA [facility]; [facility] Work Phone: Comment on above: Room air 04-11-2017 11:05-0500 Weight 114.76 kg Marleni Holly [facility] Work Phone: 02-25-2017 06:58-0500 BMI (Body Mass Index) 36.35 kg/m2 MICHAEL Parkinson LPN [facility] Work Phone: 02-25-2017 06:58-0500 Body Temperature 97.6 [degF] MICHAEL Parkinson LPN [facility] Work Phone: Comment on above: Method: Temporal 02-25-2017 06:58-0500 Body weight 121.56 kg MICHAEL Parkinson LPN [facility] Work Phone: 02-25-2017 06:58-0500 BP Diastolic 78 mm[Hg] MICHAELDEWAYNE Parkinson LPN [facility] Work Phone: Comment on above: Patient Position: Sitting; Cuff Location : Left Arm; Cuff Size: Large 02-25-2017 06:58-0500 BP Systolic 124 mm[Hg] MICHAEL Iggy GERTRUDIS [facility] Work Phone: Comment on above: Patient Position: Sitting; Cuff Location : Left Arm; Cuff Size: Large 02-25-2017 06:58-0500 BSA (Body Surface Area) 2.41 m2 MICHAELDEWAYNE Parkinson LPN [facility] Work Phone: 02-25-2017 06:58-0500 Height 182.88 cm MICHAEL Parkinson LPN [facility] Work Phone: 02-25-2017 06:58-0500 Pulse (Heart Rate) 70 /min MICHAEL [facility]ggy [facility]UDIS [facility] Work Phone: Comment on above: Pattern: Regular 02-25-2017 06:58-0500 Pulse Oximetry 98 % Marleni Lockwoodlarissalevon [facility] Work Phone: Comment on above: Room air 02-25-2017 06:58-0500 Respiratory Rate 20 /min MICHAEL Parkinson ELEMENTARY INSTRUCTIONAL COACH [facility] Work Phone: Comment on above: Pattern: Unlabored 02-25-2017 06:58-0500 SaO2% (BldA) [Mass fraction] 98 % MICHAEL Parkinson ELEMENTARY INSTRUCTIONAL COACH [facility]; [facility] Work Phone: Comment on above: Room air 02-25-2017 06:58-0500 Weight 121.56 kg Marleni Holly [facility] Work Phone: 02-14-2017 09:12-0500 BMI (Body Mass Index) 36.35 kg/m2 Luann Slarb ELEMENTARY INSTRUCTIONAL COACH [facility] Work Phone: 02-14-2017 09:12-0500 Body Temperature 97.5 [degF] Luann Slarb ELEMENTARY INSTRUCTIONAL COACH [facility] Work Phone: 02-14-2017 09:12-0500 Body weight 121.56 kg Luann Slarb ELEMENTARY INSTRUCTIONAL COACH [facility] Work Phone: 02-14-2017 09:12-0500 BP Diastolic 84 mm[Hg] Luann Slarb ELEMENTARY INSTRUCTIONAL COACH [facility] Work Phone: Comment on above: Patient Position: Sitting; Cuff Location : Left Arm; Cuff Size: Standard 02-14-2017 09:12-0500 BP Systolic 134 mm[Hg] Luann Slarb ELEMENTARY INSTRUCTIONAL COACH [facility] Work Phone: Comment on above: Patient Position: Sitting; Cuff Location : Left Arm; Cuff Size: Standard 02-14-2017 09:12-0500 BSA (Body Surface Area) 2.41 m2 Luann Slarb ELEMENTARY INSTRUCTIONAL COACH [facility] Work Phone: 02-14-2017 09:12-0500 Height 182.88 cm Luann Slarb ELEMENTARY INSTRUCTIONAL COACH [facility] Work Phone: 02-14-2017 09:12-0500 Pulse (Heart Rate) 105 /min Luann Slarb ELEMENTARY INSTRUCTIONAL COACH [facility] Work Phone: Comment on above: Pattern: Regular 02-14-2017 09:12-0500 Pulse Oximetry 97 % Marleni Holly [facility] Work Phone: Comment on above: Room air 02-14-2017 09:12-0500 Respiratory Rate 17 /min Luann Eren CABA [facility] Work Phone: Comment on above: Pattern: Unlabored 02-14-2017 09:12-0500 SaO2% (BldA) [Mass fraction] 97 % Luann Eren CABA [facility]; [facility] Work Phone: Comment on above: Room air 02-14-2017 09:12-0500 Weight 121.56 kg Marleni Lockwoodlevon [facility] Work Phone: 04-10-2015 08:23-0500 BP Diastolic 78 mm[Hg] [facility] Work Phone: Comment on above: Patient Position: Sitting; Cuff Location : Left Arm; Cuff Size: Standard pre aerosol 04-10-2015 08:23-0500 BP Systolic 122 mm[Hg] [facility] Work Phone: Comment on above: Patient Position: Sitting; Cuff Location : Left Arm; Cuff Size: Standard pre aerosol 04-10-2015 08:23-0500 Pulse (Heart Rate) 106 /min [facility] Work Phone: Comment on above: Pattern: Regular pre aerosol 04-10-2015 08:23-0500 Respiratory Rate 90 /min [facility] Work Phone: Comment on above: Pattern: Unlabored pre aerosol 04-10-2015 07:39-0500 BMI (Body Mass Index) 27.85 kg/m2 Marine Ybarra RN [facility] Work Phone: 04-10-2015 07:39-0500 Body Temperature 98.9 [degF] Marine Ybarra RN [facility] Work Phone: Comment on above: Method: Temporal 04-10-2015 07:39-0500 Body weight 93.16 kg Marine Ybarra RN [facility] Work Phone: 04-10-2015 07:39-0500 BP Diastolic 78 mm[Hg] Marine Ybarra RN [facility] Work Phone: Comment on above: Patient Position: Sitting; Cuff Location : Left Arm; Cuff Size: Standard 04-10-2015 07:39-0500 BP Systolic 132 mm[Hg] Marine Ybarra RN [facility] Work Phone: Comment on above: Patient Position: Sitting; Cuff Location : Left Arm; Cuff Size: Standard 04-10-2015 07:39-0500 BSA (Body Surface Area) 2.15 m2 Marine Ybarra RN [facility] Work Phone: 04-10-2015 07:39-0500 Height 182.88 cm Marine Ybarra RN [facility] Work Phone: 04-10-2015 07:39-0500 Pulse (Heart Rate) 124 /min Marine Ybarra RN [facility] Work Phone: Comment on above: Pattern: Regular 04-10-2015 07:39-0500 Pulse Oximetry 93 % Marleni Mandielarissalevon [facility] Work Phone: Comment on above: Room air 04-10-2015 07:39-0500 Respiratory Rate 16 /min Marine Ybarra RN [facility] Work Phone: Comment on above: Pattern: Unlabored 04-10-2015 07:39-0500 SaO2% (BldA) [Mass fraction] 93 % Marine Ybarra RN [facility]; [facility] Work Phone: Comment on above: Room air 04-10-2015 07:39-0500 Weight 93.16 kg Marleni Holly [facility] Work Phone: 12-14-2013 08:21-0400 BMI (Body Mass Index) 27.85 kg/m2 Marleni Grandelevon [facility] Work Phone: 12-14-2013 08:21-0400 Body Temperature 98.2 [degF] Marleni Grandelevon [facility] Work Phone: Comment on above: Method: Oral 12-14-2013 08:21-0400 Body weight 93.16 kg Marleni Holly [facility] Work Phone: 12-14-2013 08:21-0400 BP Diastolic 72 mm[Hg] Marleni Holly [facility] Work Phone: Comment on above: Patient Position: Sitting; Cuff Location : Left Arm; Cuff Size: Standard 12-14-2013 08:21-0400 BP Systolic 122 mm[Hg] Marleni Holly [facility] Work Phone: Comment on above: Patient Position: Sitting; Cuff Location : Left Arm; Cuff Size: Standard 12-14-2013 08:21-0400 BSA (Body Surface Area) 2.15 m2 Marleni Holly [facility] Work Phone: 12-14-2013 08:21-0400 Height 182.88 cm Marleni Holly [facility] Work Phone: 12-14-2013 08:21-0400 Pulse (Heart Rate) 76 /min Marleni Holly [facility] Work Phone: Comment on above: Pattern: Regular 12-14-2013 08:21-0400 Pulse Oximetry 98 % Marleni Holly [facility] Work Phone: Comment on above: Room air 12-14-2013 08:21-0400 Respiratory Rate 16 /min Marleni Holly [facility] Work Phone: 12-14-2013 08:21-0400 SaO2% (BldA) [Mass fraction] 98 % Marleni Holly NICKING MACHINE OPERATOR Work Phone: [facility]; [facility] Work Phone: Comment on above: Room air 12-14-2013 08:21-0400 Weight 93.16 kg Marleni Holly [facility] Work Phone: 11-30-2013 09:12-0400 Body Temperature 98.4 [degF] Marleni Holly [facility] Work Phone: Comment on above: Method: Oral 11-30-2013 09:12-0400 Body weight 93.16 kg Marleni Holly [facility] Work Phone: 11-30-2013 09:12-0400 BP Diastolic 76 mm[Hg] Marleni Holly [facility] Work Phone: Comment on above: Patient Position: Sitting; Cuff Location : Left Arm; Cuff Size: Standard 11-30-2013 09:12-0400 BP Systolic 138 mm[Hg] Marleni Holly [facility] Work Phone: Comment on above: Patient Position: Sitting; Cuff Location : Left Arm; Cuff Size: Standard 11-30-2013 09:12-0400 Pulse (Heart Rate) 88 /min Marleni Holly [facility] Work Phone: Comment on above: Pattern: Regular 11-30-2013 09:12-0400 Pulse Oximetry 97 % Marleni Holly [facility] Work Phone: Comment on above: Room air 11-30-2013 09:12-0400 Respiratory Rate 17 /min Marleni Holly [facility] Work Phone: 11-30-2013 09:12-0400 SaO2% (BldA) [Mass fraction] 97 % Marleni Holly NICKING MACHINE OPERATOR Work Phone: [facility]; [facility] Work Phone: Comment on above: Room air 11-30-2013 09:12-0400 Weight 93.16 kg Marleni Holly [facility] Work Phone: Encounters Encounter Date Encounter Type Care Provider Facility Start: 03-26-2024 End: 03-26-[address] [facility] Facility:[facility] Start: 03-26-2024 End: 03-26-2024 Patient encounter procedure Mirela Medina APRN.NICKING MACHINE OPERATOR Work Phone: [facility] Comment on above: Sinobronchitis (Prim bharati Dx); History of asthma Start: 03-02-2024 End: 03-02-2024 ambulatory Fritz Murphy Facility:[facility] Start: 01-12-2024 End: 01-12-2024 ambulatory [facility] Facility:[facility] Start: 01-06-2024 End: 01-06-2024 Office outpatient new 30 minutes Apolonia Prather MD Work Phone: Urology Comment on above: Encounter for fertil ity testing (Primary Dx) Start: 01-06-2024 End: 01-06-2024 ambulatory Fritz Watsoni Facility:[facility] Start: 11-15-2023 End: 11-15-2023 ambulatory Fritz Bonechrisi Facility:[facility] Start: 10-20-2023 End: 10-20-2023 ambulatory Fritz Bonezzi Facility:[facility] Start: 09-16-2023 End: 09-16-2023 ambulatory Fritz Bonechrisi Facility:[facility] Start: 07-26-2023 End: 07-26-2023 ambulatory Catina Lainez WELDING MACHINE OPERATOR ELECTROSLAG Facility:[facility] Start: 06-06-2023 End: 06-06-2023 ambulatory Catina Lainez WELDING MACHINE OPERATOR ELECTROSLAG Facility:[facility] Start: 04-08-2023 End: 04-08-2023 ambulatory Fritz aWtsoni Facility:[facility] Start: 01-31-2023 Telephone encounter Mirela villar APRN.NICKING MACHINE OPERATOR Work Phone: [facility] Comment on above: Results Start: 01-30-2023 End: 01-30-2023 Patient encounter procedure Mirela Medina APRN.CNP Work Phone: [facility] Comment on above: Lower resp. tract in fection (Primary Dx); Sore throat; History of asthma Start: 11-20-2022 End: 11-20-2022 Emergency department patient visit Dr. Fritz Murphy Work Phone: [facility] Work Phone: Start: 10-21-2022 End: 10-21-[address] [facility] Work Phone: Start: 08-26-2022 End: 08-26-[address] [facility] Work Phone: Start: 02-01-2022 ambulatory Charmaine Mccoy NICKING MACHINE OPERATOR Comp [facility] Start: 01-25-2022 End: 01-25-2022 Annotation/Addendum Charmaine Mccoy CNP Work Phone: [facility] Start: 01-20-2022 End: 02-02-2022 Hospital discharge day management 30 min/< Charmaine Mccoy CNP Work Phone: [facility] Start: 01-20-2022 Review Charmaine Mccoy CNP Work Phone: [facility] Start: 01-14-2022 Non-patient / Non-visit Dr. Orona Work Phone: [facility] Start: 01-14-2022 Non-patient / Non-visit Dr. Orona Work Phone: [facility] Start: 01-13-2022 Non-patient / Non-visit Dr. Orona Work Phone: [facility] Start: 01-13-2022 End: 01-14-2022 Evaluation and management of inpatient Dr. Fritz Murphy Work Phone: [facility] Start: 01-12-2022 End: 01-12-2022 Emergency department patient visit [facility] Start: 01-04-2022 End: 01-11-2022 Office outpatient visit 15 minutes Charmaine Mccoy CNP Work Phone: [facility] Start: 11-20-2021 End: 11-20-[address] [facility] Start: 09-25-2021 End: 09-25-[address] [facility] Start: 09-02-2021 End: 09-02-2021 Patient encounter procedure Marleni Holly Work Phone: [facility] Start: 08-28-2021 End: 08-28-2021 Office outpatient visit 15 minutes Marleni Holly Work Phone: [facility] Start: 08-28-2021 Review Marleni Holly Work Phone: [facility] Start: 08-27-2021 End: 11-08-2021 Office outpatient visit 5 minutes Marleni Holly Work Phone: [facility] Start: 08-27-2021 Review Marleni Holly Work Phone: [facility] Start: 08-04-2021 End: 08-04-2021 Office outpatient visit 25 minutes Marleni Holly Work Phone: [facility] Start: 03-06-2021 End: 03-06-2021 Office outpatient visit 15 minutes Marleni Holly NICKING MACHINE OPERATOR Work Phone: [facility] Start: 08-29-2020 End: 08-29-2020 Office outpatient visit 40 minutes Marleni Holly NICKING MACHINE OPERATOR Work Phone: [facility] Start: 06-03-2020 End: 06-03-2020 Office outpatient visit 15 minutes Marleni Holly [facility] Start: 05-16-2020 End: 05-17-2020 Office outpatient visit 25 minutes Marleni Holly [facility] Start: 11-23-2019 End: 12-05-2019 Office outpatient visit 10 minutes aMrleni Holly [facility] Start: 11-23-2019 Review Marleni Christianelevon [facility] Start: 03-08-2019 End: 03-08-2019 Office outpatient visit 15 minutes Marleni Holly [facility] Start: 10-13-2018 Review Marleni Christianea [facility] Start: 09-04-2018 End: 09-04-2018 Office outpatient visit 15 minutes Marleni Holly [facility] Start: 07-10-2018 End: 07-10-2018 Office outpatient visit 15 minutes Marleni Holly [facility] Start: 07-10-2018 Review Marleni Christianelevon [facility] Start: 05-26-2018 End: 05-29-2018 Office outpatient visit 25 minutes Marleni Holly [facility] Start: 05-24-2018 End: 05-24-2018 Office outpatient visit 15 minutes Marleni Ciesa [facility] Start: 05-15-2018 End: 05-15-2018 Phone Encounter Marleni Holly [facility] Watch Assembler al Medicine Start: 05-07-2018 End: 05-07-2018 Annotation/Addendum Marleni Holly [facility] Watch Assembler al Medicine Start: 05-05-2018 End: 05-05-2018 Office outpatient visit 25 minutes Marleni Holly [facility] Start: 04-11-2017 End: 04-11-2017 Office outpatient visit 15 minutes Marleni Holly [facility] Start: 02-25-2017 End: 02-25-2017 Office outpatient visit 10 minutes Marleni Holly [facility] Start: 02-15-2017 End: 02-15-2017 Annotation/Addendum Marleni Holly [facility] Start: 02-14-2017 End: 02-14-2017 Office outpatient visit 25 minutes Marleni Holly [facility] Start: 09-05-2016 End: 09-05-2016 Emergency department patient visit KALEY SUMMERS Facility:[facility] Start: 04-10-2015 End: 04-10-2015 Office outpatient visit 15 minutes Marleni Holly [facility] Start: 12-14-2013 End: 12-14-2013 Office outpatient visit [facility] Start: 11-30-2013 End: 11-30-2013 Office outpatient visit 25 minutes [facility] Procedures Date Procedure Procedure Detail Performing Clinician Start: 01-30-2023 BRIAN GAUTHIER (POC) Ramonita Pate APRN.NICKING MACHINE OPERATOR Work Phone: Start: 11-20-2022 End: 11-20-2022 Emergency Department Summary Procedure Note: See Note; NOTES: [facility] Medical Records Department [address] [place] [id number] Emergency Department Summary 11/20/22 MR#: [id number] Acct: [id number] Name: MART BAUMANN Rep #: [id number] : [id number] From: Bert Castanon MD PCP: Dr. 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 He was on Eliquis and then they took him off of them. He has never had a PE or DVT. He has had prior leg ultrasounds all of which were negative. Basically for 2 days since yesterday he has had right calf discomfort. Denies any injury or trauma. Denies any swelling. Chief Complaint: Lower Extremity Injury Informant: patient Occured/Mechanism Mechanism/Context: No injury and No blunt trauma Onset/Context/Timing Onset: Today and Yesterday Context: Gradual Onset Timing: Continuous Quality of Pain: Dull and Aching Current Severity: Mild Maximum Severity: Mild Associated Symptoms Associated Symptoms: Negative for Parasthesia, Weakness or Loss of Funtion Narrative Narrative: 37-year-old male prior renal infarct. Complaining of right calf pain. Denies injury or trauma. He has never had a DVT. Is never had a PE. He denies any recent travel, surgery or immobilization. He did have a renal infarct. He said he is anxious that he may develop a clot. He was previously on blood thinners for 6 months and then taken off by his doctors. Prior similar symptoms: No Recent Illness/Hospitalization: No PFSH PFSH Medical History Acute asthma exacerbation Acute bronchitis Acute hypoxic respiratory insufficiency Allergic rhinitis Bronchial asthma Maxillary sinusitis Microscopic hematuria Renal infarct Home Medications albuterol sulfate 2.5 mg/3 mL (0.083 %) solution for nebulization 2.5 mg inhalation Q4H PRN Shortness Of Breath Or Wheezing 01/13/22 [History Last Taken Unknown] benralizumab 30 mg/mL subcutaneous syringe (Fasenra) 30 mg subcut Q60D ASTHMA #1 mL 03/05/22 [Rx Last Taken Unknown] Allergy/AdvReac Type Severity Reaction Status Date / Time No Known Allergies Allergy Verified 11/20/22 22:09 Family History Father Asthma Diabetes Hypertension Grandmother Asthma Surgical History H/O sinus surgery History of ankle surgery History of repair of anterior cruciate ligament of right knee S/P left knee arthroscopy Social History Smoking Status: Former smoker Tobacco: How many years used: 10 how long ago did patient quit smokin, 1ppd second hand exposure: Yes alcohol intake: never substance use type: does not use ROS ROS ED ROS Narrative Is any recent illness. Review of Systems ROS Unobtainable: Denies due to encephalopathy Constitutional Constitutional ED: Denies chills or fever(s) Eyes Eyes: Denies blurry vision ENT ENT ED: Denies ear pain Cardiovascular Cardiovascular: Denies chest pain Respiratory/Chest Respiratory/Chest: Denies cough or dyspnea Gastrointestinal Gastrointestinal: Denies abdominal pain Genitourinary Genitourinary ED: Denies dysuria or hematuria Musculoskeletal Musculoskeletal: Denies arthralgias Integumentary Denies abscess or Abrasions Neurologic Neurologic: Denies headache(s) Psychiatric Psychiatric: Denies anxiety or depression Endocrine Endocrinology: Denies polydipsia Hematologic/Lymphatic Hematologic/Lymphatic: Denies easy bleeding or easy bruising Allergic/Immunologic Allergic/Immunologic ED: Denies mouth swelling or tongue swelling EXAM Physical Exam Narrative Exam Narrative: 37-year-old male vital signs stable afebrile. Pulse ox 95% on room air no signs hypoxia. He is in no distress. Mom present in room. HEENT exam unremarkable. Neck nontender no JVD. Lungs clear to auscultation bilateral. Heart regular rhythm no murmur. Abdomen soft nontender. Moving all 4 extremities. Neurovascular intact. Specifically right lower extremity he has full range of motion to his right hip, knee and ankle. There is no swelling. He has minimal tenderness to his right proximal lateral calf. There is no redness or warmth. There is no swelling. There is no cord. Right foot is neurovascular intact with normal DP pulse. The appearance of the right leg is normal. Const Vital Signs: 11/20/22 22:07 Temperature 97.5 F L Temperature Source Temporal Pulse Rate 97 Respiratory Rate 16 Blood Pressure 137/88 H Blood Pressure Mean 104 Pulse Ox 95 Oxygen Delivery Method Room Air Positive well nourished and well developed; Negative for cachectic, contractures or unkempt General Appearance ED: well developed and NAD; Negative for unkempt, cachectic or contractures Nutritional Appearance: Negative for cachectic HEENT Reports moist mucous membranes normocephalic and atraumatic; Negative for trauma or tenderness Eyes PERRL General Eye ED: Negative for other Neck full ROM and supple Thyroid: Negative for tender Lymph Lymphatic: Negative for other Chest Wall inspection of chest normal and palpation of chest normal Chest: Negative for other Resp normal respiratory effort, no retractions and clear to auscultation bilaterally Effort and Inspection: Negative for pain with movement Auscultation: Negative for rales, rhonchi or wheezes Cardio regular rate, regular rhythm, S1 normal heart sound, S2 normal heart sound and no murmurs Rate: Negative for bradycardia or tachycardic Rhythm: Negative for abnormal rhythm Bruits: Negative for other GI non-tender, non-distended and no masses Inspection: Negative for abdominal distention Auscultation: normoactive bowel sounds Palpation: soft; Negative for tender or guarding Bladder / Kidney Exam: No other Back/Spine no CVA tenderness General Back: Negative for CVA tenderness Cervical Spine: Negative for cervical spine tenderness Thoracic Spine / Upper Back: Negative for thoracic spinal tenderness Lumbar Spine / Lower Back: Negative for lumbar spinal tenderness Extremity normal to inspection and full ROM Extremity Narrative: Right lower leg normal appearance. Normal range of motion. No swelling. No redness or warmth. Right foot is neurovascular intact. Normal DP pulse. Joints are nontender nonswollen. There is no ecchymosis. Very minimal right proximal lateral calf tenderness. General Extremety ED: Negative for cyanosis or edema General Extremity: Negative for cyanosis or edema Neuro oriented x3, CN's II-XII intact bilaterally, moves all extremities and no sensory deficits noted Sensorium / Orientation: alert, oriented to person, oriented to place and oriented to time; Negative for orientation impaired, confused, lethargic or stuporous Motor Exam: strength 5/5 throughout Psych mental status grossly normal Appearance: Negative for unkempt Speech: No other Mood Affect: Negative for anxious Skin no wounds Lesions: no lesions Rashes: no rashes Trauma: Negative for abrasion or laceration MDM MDM MDM Narrative Medical decision making narrative: 37-year-old male with atraumatic right calf discomfort. His exam is benign. He had a prior renal infarct there is never had a DVT or PE. I have ordered a noninvasive study that will be done Tuesday morning. Risk benefits I do not think he should be put on anticoagulation at this time until a blood clot would be confirmed. My clinical suspicion is very low. It is also below the knee. He had no trauma and has no bony tenderness or swelling I do not think he warrants any x-rays. There is no signs of infection. Patient and his mom are comfortable with the plan. They will follow-up with noninvasive testing on Tuesday. Tylenol and Motrin for pain. History Record Review Discussion w/independent historian: Patient and Family Discharge Plan Triage Chief Complaint: Lower Extremity Injury ED Provider: Bert Castanon Dx/Rx/DC Orders Clinical Impression: Leg pain, right Prescriptions: No Action albuterol sulfate 2.5 MG/3 ML solution for nebulization 2.5 mg inhalation Q4H PRN (Reason: Shortness Of Breath Or Wheezing) Fasenra 30 mg/mL syringe 30 mg SUBCUT Q60D Qty: 1 6RF Primary Care Provider: Fritz Murphy Referrals: Fritz Murphy MD [Primary Care Provider] - As Needed Activity Restrictions/Additional Instructions: Motrin and Tylenol for pain. At this time I think it is very unlikely there will be a blood clot in your leg. We will call you Tuesday morning. If they do not call you by 11 AM on Tuesday morning call the emergency department and we will make sure that the ultrasound of your leg gets done. Typically they call in the morning and set it up that same morning. Disposition Disposition: Home, Self Care What to do if you have Problems For any increased pain, shortness of breath, bleeding, nausea or vomiting, chest pain, or any unexpected problems, contact your Primary Care Provider. Call [facility] ([phone]) or report to the closest Emergency Room. Call 911 if necessary. 11/20/222231 <Electronically signed by Bert Castanon MD> Cosigner Signature (if applicable): CC: Dr. Fritz Murphy MD Signed Charmaine Mccoy NICKING MACHINE OPERATOR Work Phone: Start: 10-21-2022 End: 10-21-2022 Pulmonary Visit Report Procedure Note: See Note; NOTES: [facility] [place] [address] [place] [address] OFFICE VISIT Date of Service: 10/21/22 MR#: [id number] Acct: [id number] Name: MART BAUMANN Rep #: [id number] : 1985 Provider: MOUNA Lainez Age/Sex: 37/M Location: [facility].PMW Status: Signed Assessment and Plan Assessment and Plan (1) Severe asthma: Status: Acute Qualifiers: Asthma persistence: persistent Asthma complication type: unspecified Qualified Code(s): J45.50 - Severe persistent asthma, uncomplicated Plan: Stable. Symptoms slightly worse today than baseline. He does report that about a week before his Fasenra injection is due he becomes slightly more symptomatic. He has noticed wheezing today. Fasenra injection was provided today. If the patient does not see symptom resolution or significant improvement by the end of the day tomorrow he is to call the office for a prednisone burst. We did discuss the possibility of using a maintenance inhaler the week before his injection is due. He states he typically does not have the problems that he was experiencing today, therefore we are going to hold off on this. If he decides to add a maintenance inhaler he will contact the office by phone and a prescription order will be placed. Otherwise, follow-up in 1 year. He continues to experience significant benefit from the Fasenra injections. Orders: Orders Fasenra Injection Today J45.50 - Severe persistent asthma, uncomplicated Plan Details Follow Up: 1 Year ([facility]) HPI Annual Follow up/ Injection Chief Complaint: Routine follow-up HPI Comments Details: This patient presents to the office today for follow-up of his severe persistent asthma. He is ambulatory and currently on room air. He has not recently been seen in the ED or urgent care for any respiratory illness. He has not required any antibiotics or prednisone for any breathing problems. He is compliant with use of Fasenra bimonthly injections. He has not recently needed to use his albuterol rescue inhaler. Typically is not experiencing any shortness of breath. He did notice that today for the first time he had some wheezing. He denies any cough, sputum production or hemoptysis. He denies any chest t ightness, chest pain or palpitations. He has not had any fever, chills or body aches. Intake Vital Signs 08/26/22 07:19 10/21/22 07:54 Height 6 ft 6 ft Weight: 260 lb BMI 35.2 BP 143/90 H 142/87 H Blood Pressure Location Rt brachial Lt brachial Position Sitting Sitting Respiration 20 H 20 H Pulse 63 68 Pulse Source Monitor Monitor Temp 96.0 F L 97.1 F L Temperature Source Temporal Artery Pulse Oximetry (%) 95 97 Oxygen Delivery Method room air room air Intake Visit Reasons: Annual Follow up/ Injection Chief Complaint: Asthma Director Systems Required: No DME Vendor: n/a Accompanied by: Self Is patient in pain?: No Allergies No Known Allergies Allergy (Verified 10/21/22 14:06) Medications albuterol sulfate 2.5 mg/3 mL (0.083 %) solution for nebulization 2.5 mg inhalation Q4H PRN Shortness Of Breath Or Wheezing 01/13/22 [History Confirmed 10/21/22] benralizumab 30 mg/mL subcutaneous syringe (Fasenra) 30 mg subcut Q60D ASTHMA #1 mL 03/05/22 [Rx Confirmed 10/21/22] PFSH Medical History (Reviewed 10/21/22 @ 14:12 by Catina Lainez WELDING MACHINE OPERATOR ELECTROSLAG, WELDING MACHINE OPERATOR ELECTROSLAG-C) Acute asthma exacerbation Acute bronchitis Acute hypoxic respiratory insufficiency Allergic rhinitis Bronchial asthma Maxillary sinusitis Microscopic hematuria Renal infarct Surgical History (Reviewed 10/21/22 @ 14:12 by Catina Lainez WELDING MACHINE OPERATOR ELECTROSLAG, WELDING MACHINE OPERATOR ELECTROSLAG-C) H/O sinus surgery History of ankle surgery History of repair of anterior cruciate ligament of right knee S/P left knee arthroscopy Family History (Reviewed 10/21/22 @ 14:12 by Catina Lainez WELDING MACHINE OPERATOR ELECTROSLAG, WELDING MACHINE OPERATOR ELECTROSLAG-C) Father Asthma Diabetes Hypertension Grandmother Asthma Social History Smoking Status: Former smoker Tobacco: How many years used: 10 how long ago did patient quit smokin, 1ppd second hand exposure: Yes alcohol intake: never substance use type: does not use Exam Const Constitutional: Positive conversant, cooperative, in no acute respiratory distress, healthy appearing, well developed, well nourished, good hygiene and obese Head Head: Yes normocephalic and Yes atraumatic Eyes Eye: Positive clear conjunctiva; Negative nystagmus Ears Ear: Positive hearing normal and external ears normal Nose Nose: Yes external nose normal Mouth Mouth: Positive oral mucosae normal Neck Neck: Positive normal visual inspection, full ROM and trachea midline; Negative JVD Chest Wall Chest: Positive normal inspection of the chest and symmetric chest movement Resp lung sounds: Positive diminished lung sounds, normal expiratory time and normal respiratory effort; Negative rhonchi or rales Cardio Cardiac: Positive regular rate, regular rhythm, S1 normal, S2 normal and normal PMI; Negative murmur GI GI: Positive normal to inspection and obese Genitourinary: Positive deferred Musc Musculoskeletal: Positive steady gait and ROM normal; Negative kyphosis or scoliosis Skin Pulmonary Skin Exam: Positive intact; Negative lesion, rash or ulcers Extremities Extremities: No clubbing and No cyanosis Neuro Neurologic: Yes no focal neuro deficits, Yes conversant, Yes cooperative, Yes normal cognition, Yes normal coordination, Yes normal concentration and Yes understands questions Psych Appearance: Positive grossly normal, eye contact and well kempt Mental Status: Positive mental status grossly normal Mood: Positive congruent mood Affect: Positive normal affect Office Procedures Asthma Injection Procedure: Details:: Patient presented for Fasenra injection. Patient tolerated treatment well. The patient was monitored for 15 minutes after treatment. Patient shows no signs of adverse reaction. Reviewed signs and symptoms of reaction. Patient instructed to call the office with new or worsening symptoms. Patient advised to report to the emergency department during after hours if necessary. Patient departed from the office with no signs of distress. patient provided medication via [facility] pharmacy. Office Meds benralizumab 30 mg/mL subcutaneous syringe Performing Provider: Catina Lainez NP, WELDING MACHINE OPERATOR ELECTROSLAG-C Performing Location: Pulmonary Medicine [facility] Administered by: Belkys Rascon on 10/21/22 14:10 Dose Route Admin Location Dispensed Lot Number Expiration Date [facility] Man ufacturer 30 mg subcut left arm 1 mL [id number] 07/29/24 8443-4180-59 [place] Coding Level of Care Code Off vis,est,level 3 Diagnoses Severe persistent asthma, unspecified whether complicated J45.50 Asthma persistence: persistent Asthma complication type: unspecified 10/21/22 0662 <Electronically signed by Catina Lainez NP WELDING MACHINE OPERATOR ELECTROSLAG-C> Date Catina Lainez NP WELDING MACHINE OPERATOR ELECTROSLAG-C Cosigner Signature: Date (if applicable) CC: Charmaine Mccoy [facility] Work Phone: Start: 08-26-2022 End: 08-26-2022 Office Visit Report Procedure Note: See Note; NOTES: [facility] [address] [place] [address] OFFICE VISIT Date of Service: 08/26/22 MR#: [id number] Acct: [id number] Patient: MART BAUMANN Rep #: [id number] : 1985 Provider: Dr. Chilo Thomas MD Age/Sex: 37/M Location: [facility] Status: Signed Intake Vital Signs 05/07/22 07:40 07/02/22 07:25 08/26/22 07:19 Height 6 ft 6 ft 6 ft BP 132/81 H 141/79 H 143/90 H Blood Pressure Location Rt brachial Rt brachial Rt brachial Position Sitting Sitting Sitting Respiration 18 20 H 20 H Pulse 73 67 63 Pulse Source Monitor Monitor Monitor Temp 97.7 F L 98.0 F 96.0 F L Temp Source Temporal Temporal Temporal Pulse Oximetry (%) 95 97 95 Oxygen Delivery Method room air room air room air Intake Visit Reasons: Injection Chief Complaint: Asthma Director Systems Required: No Accompanied by: Self Is patient in pain?: No Allergies No Known Allergies Allergy (Verified 08/26/22 07:18) Office Procedures Asthma Injection Procedure: Details:: Patient presented for Fasenra injection. Patient tolerated treatment well. The patient was monitored for 15 minutes after treatment. Patient shows no signs of adverse reaction. Reviewed signs and symptoms of reaction. Patient instructed to call the office with new or worsening symptoms. Patient advised to report to the emergency department during after hours if necessary. Patient departed from the office with no signs of distress. Pt provided medication via special[facility] pharmacy. Office Meds benralizumab 30 mg/mL subcutaneous syringe Performing Provider: Chilo Thomas MD Performing Location: Pulmonary Medicine [facility] Administered by: Belkys Rascon on 08/26/22 07:20 Dose Route Admin Location Dispensed Lot Number Expiration Date [facility] Man ufacturer 30 mg subcut right arm 1 mL [id number] 06/28/24 9696-7107-73 [place] 08/26/22 0905 <Electronically signed by Chilo Thomas MD> Date Chilo Sorenson Signature: Date (if applicable) CC: Charmaine Mccoy NICKING MACHINE OPERATOR Work Phone: Start: 07-02-2022 End: 07-02-2022 Office Visit Report Procedure Note: See Note; NOTES: [facility] [address] [place] [address] OFFICE VISIT Date of Service: 07/02/22 MR#: [id number] Acct: [id number] Patient: MART BAUMANN Rep #: [id number] : 1985 Provider: Dr. Jeremy Lowe DO Age/Sex: 37/M Location: [facility] Status: Signed Intake Vital Signs 07/02/22 07:25 Height 6 ft BP 141/79 H Blood Pressure Location Rt brachial Position Sitting Respiration 20 H Pulse 67 Pulse Source Monitor Temp 98.0 F Temp Source Temporal Pulse Oximetry (%) 97 Oxygen Delivery Method room air Intake Visit Reasons: Injection Chief Complaint: Asthma Director Systems Required: No Accompanied by: Self Is patient in pain?: No Allergies No Known Allergies Allergy (Verified 07/02/22 07:25) Medications albuterol sulfate 2.5 mg/3 mL (0.083 %) solution for nebulization 2.5 mg inhalation Q4H PRN Shortness Of Breath Or Wheezing 01/13/22 [History Confirmed 07/02/22] dextroamphetamine-amphetami ne ER 10 mg 24hr capsule,extend release (Adderall XR) 10 mg PO DAILY ADHD 01/13/22 [History Confirmed 07/02/22] apixaban 5 mg tablet (Eliquis) 5 mg PO BID #60 tabs 01/14/22 [Rx Confirmed 07/02/22] apixaban 5 mg tablet (Eliquis) 10 mg PO BID #28 tabs 01/14/22 [Rx Confirmed 07/02/22] benralizumab 30 mg/mL subcutaneous syringe (Fasenra) 30 mg subcut Q60D ASTHMA #1 mL 03/05/22 [Rx Confirmed 07/02/22] Office Procedures Asthma Injection Procedure: Details:: Patient presented for Fasenra injection. Patient tolerated treatment well. The patient was monitored for 15 minutes after treatment. Patient shows no signs of adverse reaction. Reviewed signs and symptoms of reaction. Patient instructed to call the office with new or worsening symptoms. Patient advised to report to the emergency department during after hours if necessary. Patient departed from the office with no signs of distress. Medication provided by patient Via [facility]. Office Meds benralizumab Performing Provider: Jeremy Lowe DO Administered by: Belkys Rascon on 07/02/22 07:27 Dose Route Admin Location Lot Number Expiration Date [employer] Manufactu rer 30 mg subcut right arm [id number] 04/28/24 9609-8799-82 [place] 07/02/22 0757 <Electronically signed by Jeremy Lowe DO> Date Jeremy Lowe DO Cosigner Signature: Date (if applicable) CC: Charmaine Mccoy NICKING MACHINE OPERATOR Work Phone: Start: 05-07-2022 End: 05-07-2022 Office Visit Report Procedure Note: See Note; NOTES: [facility] [address] [place], [place] [address] [place] [address] OFFICE VISIT Date of Service: 05/07/22 MR#: [id number] Acct: [id number] Patient: MART BAUMANN Rep #: [id number] : 1985 Provider: Dr. Jeremy Lowe DO Age/Sex: 37/M Location: [facility].PM[facility] Status: Signed Intake Vital Signs 01/15/22 08:54 05/07/22 07:40 Height 6 ft 6 ft BP 132/81 H Blood Pressure Location Rt brachial Position Sitting Respiration 18 Pulse 73 Pulse Source Monitor Temp 97.7 F L Temp Source Temporal Pulse Oximetry (%) 95 Oxygen Delivery Method room air Intake Visit Reasons: Injection Chief Complaint: Asthma Director Systems Required: No Accompanied by: Self Is patient in pain?: No Allergies No Known Allergies Allergy (Verified 05/07/22 07:37) Office Procedures Asthma Injection Procedure: Details:: Patient presented for Fasenra injection. Patient tolerated treatment well. The patient was monitored for 15 minutes after treatment. Patient shows no signs of adverse reaction. Reviewed signs and symptoms of reaction. Patient instructed to call the office with new or worsening symptoms. Patient advised to report to the emergency department during after hours if necessary. Patient departed from the office with no signs of distress. Office Meds benralizumab Performing Provider: Jeremy Lowe DO Administered by: Belkys Rascon on 05/07/22 07:38 Dose Route Admin Location Lot Number Expiration Date NDC Manufactu rer 30 mg subcut right arm [id number] 03/31/24 8870-6981-79 [place] 05/07/22 0841 <Electronically signed by Jeremy Lowe DO> Date Jeremy Lowe DO Cosigner Signature: Date (if applicable) CC: Charmaine Mccoy [facility] Work Phone: Start: 03-11-2022 End: 03-11-2022 Office Visit Report Procedure Note: See Note; NOTES: [facility] [address] [place] [address] OFFICE VISIT Date of Service: 03/11/22 MR#: [id number] Acct: [id number] Patient: MART BAUMANN Rep #: [id number] : 1985 Provider: MOUNA Lainez Age/Sex: 37/M Location: [facility] Status: Signed Intake Vital Signs 01/13/22 17:24 03/11/22 08:05 Height 6 ft 6 ft Weight: 264 lb BMI 35.8 BP 145/89 H Blood Pressure Location Rt brachial Position Sitting Respiration 18 Pulse 78 Pulse Source Monitor Temp 96.9 F L Temp Source Temporal Pulse Oximetry (%) 96 Oxygen Delivery Method room air Intake Visit Reasons: Injection Chief Complaint: Asthma Director Systems Required: No Accompanied by: Self Is patient in pain?: No Allergies No Known Allergies Allergy (Verified 03/11/22 08:05) Office Procedures Asthma Injection Procedure: Details:: Patient presented for [] injection. Patient tolerated treatment well. The patient was monitored for [] minutes after treatment. Patient shows no signs of adverse reaction. Reviewed signs and symptoms of reaction. Patient instructed to call the office with new or worsening symptoms. Patient advised to report to the emergency department during after hours if necessary. Patient departed from the office with no signs of distress. Injections Procedure performed by: Belkys Rascon Site of injection: Sub-Q Office Meds benralizumab Performing Provider: MOUNA Gutierrez NP Administered by: Belkys Rascon on 03/11/22 06:43 Dose Route Admin Location Lot Number Expiration Date NDC Manufactu rer 30 mg subcut right arm [id number] 11/29/23 0948-8267-12 [facility] Nursing Note Patient presented for Fasenra injection. Patient tolerated treatment well. The patient was monitored for 15 minutes after treatment. Patient shows no signs of adverse reaction. Reviewed signs and symptoms of reaction. Patient instructed to call the office with new or worsening symptoms. Patient advised to report to the emergency department during after hours if necessary. Patient departed from the office with no signs of distress. 03/11/22 0857 <Electronically signed by Catina MENDOZAC> Date Catina FREIRE Cosigner Signature: Date (if applicable) CC: Charmaine Mccoy [facility] Work Phone: Start: 01-15-2022 End: 01-15-2022 Pulmonary Visit Report Procedure Note: See Note; NOTES: [facility] [place] [address] [place] [address] OFFICE VISIT Date of Service: 01/15/22 MR#: [id number] Acct: [id number] Name: MART BAUMANN Rep #: [id number] : 1985 Provider: MOUNA Lainez Age/Sex: 37/M [facility] Status: Signed Assessment and Plan Assessment and Plan Orders: Orders Fasenra Injection Today J45.50 - Severe persistent asthma, uncomplicated Intake Vital Signs 07/31/21 08:02 01/14/22 15:24 01/15/22 08:54 01/15/22 09:03 Height 6 ft 6 ft 6 ft Weight: 255 lb 8.252 oz BP 152/82 H Blood Pressure Location Rt brachial Position Sitting Respiration 16 Pulse 80 Pulse Source Monitor Temp 97.5 F L Temperature Source Temporal Artery Pulse Oximetry (%) 97 Oxygen Delivery Method room air Intake Visit Reasons: Injection Chief Complaint: right flank pain renal infarct Allergies No Known Allergies Allergy (Verified 01/13/22 11:35) PFSH Medical History Acute asthma exacerbation Acute bronchitis Acute hypoxic respiratory insufficiency Allergic rhinitis Bronchial asthma Maxillary sinusitis Surgical History H/O sinus surgery History of ankle surgery History of repair of anterior cruciate ligament of right knee S/P left knee arthroscopy Family History Father Asthma Diabetes Hypertension Grandmother Asthma Social History Smoking Status: Former smoker Tobacco: How many years used: 10 how long ago did patient quit smokin, 1ppd second hand exposure: Yes alcohol intake: never substance use type: does not use Office Procedures Asthma Injection Procedure: Details:: Patient presented for [] injection. Patient tolerated treatment well. The patient was monitored for [] minutes after treatment. Patient shows no signs of adverse reaction. Reviewed signs and symptoms of reaction. Patient instructed to call the office with new or worsening symptoms. Patient advised to report to the emergency department during after hours if necessary. Patient departed from the office with no signs of distress. Office Meds benralizumab Performing Provider: Catina Lainez NP, WELDING MACHINE OPERATOR ELECTROSLAG-C Administered by: Gena Chang on 01/15/22 09:03 Dose Route Admin Location Lot Number Expiration Date NDC Manufactu rer 30 mg subcut RT ARM [id number] 12/29/22 5435-2494-47 [employer] Supplemental Info Patient presented for FASENRA injection. Patient tolerated treatment well. The patient was monitored for 15 minutes after treatment. Patient shows no signs of adverse reaction. Reviewed signs and symptoms of reaction. Patient instructed to call the office with new or worsening symptoms. Patient advised to report to the emergency department during after hours if necessary. Patient departed from the office with no signs of distress. Coding Level of Care Code Off vis,est,level 1 01/15/22916 <Electronically signed by Catina Lainez NP WELDING MACHINE OPERATOR ELECTROSLAG-C> Date Catina Lainez NP WELDING MACHINE OPERATOR ELECTROSLAG-C Cosigner Signature: Date (if applicable) CC: Charmaine Mccoy [facility] Work Phone: Start: 01-13-2022 End: 01-13-2022 Abdomen/Pelvis W IV Cont ONLY Procedure Note: See Note; NOTES: [facility] Imaging Services [address] [place] [address] Abdomen/Pelvis W IV Cont ONLY MR#: [id number] Acct: [id number] Name: MART BAUMANN Rep #: [id number] : 1985 M 37 From: Anderson ramos MD PCP: Dr. Fritz Murphy MD Status: REG ER Study: Abdomen/Pelvis W IV Cont ONLY Date of Exam: Exam# [id number] Ordering Dr: Oc Botello DO STUDY: CT ABDOMEN AND PELVIS WITH CONTRAST REASON FOR EXAM: Male, 37 years old. Right flank pain. Dark urine. Nausea and vomiting. RADIATION DOSAGE (If Supplied By Facility): CTDIvol = ( 25.08 ) mGy, DLP = ( 3257.42 ) mGycm TECHNIQUE: Transaxial images were obtained from the dome of the diaphragm to the symphysis pubis without oral contrast. IV 100mL Isovue-370 was administered. Sagittal and coronal images were reconstructed. Individualized dose optimization techniques were used for this CT. COMPARISON: Comparison is made with prior examination dated 02/20/2012. FINDINGS: The visualized lung bases are unremarkable. The visualized portions of the heart are within normal limits. Normal liver. Normal gallbladder and extrahepatic biliary system. Normal spleen. Normal pancreas. Normal bilateral adrenal glands. Heterogeneous enhancement of the right kidney more prominent in the upper and mid poles. This may represent either findings suggestive of a pyelonephritis versus possible renal infarcts. Normal left kidney. Normal visualized stomach. Normal small intestine. Normal colon. The appendix is visualized and appears normal. There is scattered atherosclerotic calcification of the abdominal aorta, without a demonstrated aneurysm. Normal inferior vena cava. There is borderline retroperitoneal lymphadenopathy with enlarged nodes no greater than 10mm in the short axis diameter. Normal urinary bladder. Normal abdominal wall. There are mild degenerative changes of the visualized lumbar spine. CT/Abdomen/Pelvis W IV Cont ONLY IMPRESSION: Heterogeneous enhancement of the right kidney as described preferentially along its lateral and upper mid poles. This may represent either an inflammatory process such as acute pyelonephritis versus possible infarcts. Follow-up is recommended. Electronically Signed: Anderson Payne MD at 14:02 EST , CC: Dr. Fritz Murphy MD; Dr. Oc Botello DO Gasoline Dragline Operator: Signed Charmaine Mccoy [facility] Work Phone: Start: 01-13-2022 Computed tomography of abdomen and pelvis with intravenous contrast Dr. Fritz Murphy Work Phone: Start: 01-13-2022 CT angiography of chest with contrast Dr. Fritz Murphy Work Phone: Start: 01-13-2022 End: 01-13-2022 CTA Chest W/WO Contrast Procedure Note: See Note; NOTES: [facility] Imaging Services [address] [place] [address] CTA Chest W/WO Contrast MR#: [id number] Acct: [id number] Name: MART BAUMANN Rep #: [id number] : 1985 M 37 From: Anderson ramos MD PCP: Dr. Fritz Murphy MD Status: REG ER Study: CTA Chest W/WO Contrast Date of Exam: 01/13/22 Exam# [id number] Ordering Dr: Oc Botello DO STUDY: CTA CHEST REASON FOR EXAM: Male, 37 years old. Right flank pain. Dark urine. Nausea and vomiting. RADIATION DOSAGE (If Supplied By Facility): CTDIvol = ( 25.08 ) mGy, DLP = ( 3257.42 ) mGycm TECHNIQUE: The examination was performed with the intravenous administration of IV 100mL Isovue-370. Post-processing of the angiographic images was performed, with multiplanar reformation and 3D reconstruction. Individualized dose optimization techniques were used for this CT. COMPARISON: None. FINDINGS: There are small benign appearing bilateral axillary lymph nodes Normal enhancement of the main pulmonary artery and right and left pulmonary arteries. Normal enhancement of the bilateral peripheral pulmonary arteries. There is no demonstrated pulmonary embolism. Normal thoracic aorta and visualized great vessels. There is no demonstrated aortic dissection. Normal heart and pericardium. Normal mediastinum. Calcified right hilar lymph nodes Normal visualized trachea and bronchi. The lungs are well expanded. Minimal increased linear markings at the right lung base suggestive of linear atelectasis. Normal pleura. Normal chest wall structures. Normal osseous structures. Fatty infiltration of the liver CT/CTA Chest W/WO Contrast IMPRESSION: Normal CTA chest examination, without a demonstrated pulmonary embolism or arterial dissection. Mild linear atelectasis at the right lung base. Electronically Signed: Anderson Payne MD at 14:04 EST , CC: Dr. Fritz Murphy MD; Dr. Oc Botello DO Gasoline Dragline Operator: Signed Charmaine Darius [facility] Work Phone: Start: 11-20-2021 End: 11-20-2021 Office Visit Report Procedure Note: See Note; NOTES: [address] [place] [address] OFFICE VISIT Date of Service: 11/20/21 MR#: [id number] Acct: [id number] Patient: MART BAUMANN Rep #: [id number] : 1985 Provider: MOUNA Lainez Age/Sex: 36/M Location: [facility].PMW Status: Signed Intake Vital Signs 11/20/21 07:42 BP 137/71 H Blood Pressure Location Lt brachial Position Sitting Respiration 16 Pulse 83 Pulse Source Monitor Temp 98.6 F Temp Source Temporal Pulse Oximetry (%) 95 Oxygen Delivery Method room air Intake Visit Reasons: Injection Chief Complaint: Asthma Allergies No Known Allergies Allergy (Verified 06/08/21 07:59) Office Procedures Asthma Injection Procedure: Details:: Patient presented for [] injection. Patient tolerated treatment well. The patient was monitored for [] minutes after treatment. Patient shows no signs of adverse reaction. Reviewed signs and symptoms of reaction. Patient instructed to call the office with new or worsening symptoms. Patient advised to report to the emergency department during after hours if necessary. Patient departed from the office with no signs of distress. Office Meds benralizumab Performing Provider: Catina Lainez NP, WELDING MACHINE OPERATOR ELECTROSLAG-C Administered by: Gena Chang on 11/20/21 07:40 Dose Route Admin Location Lot Number Expiration Date NDC Manufactu rer 30 mg subcut Lt Arm [id number] 12/29/22 8815-7644-50 [facility] Patient presented for Fasenra injection. Patient tolerated treatment well. The patient was monitored for 15 minutes after treatment. Patient shows no signs of adverse reaction. Reviewed signs and symptoms of reaction. Patient instructed to call the office with new or worsening symptoms. Patient advised to report to the emergency department during after hours if necessary. Patient departed from the office with no signs of distress. 11/20/21 1152 <Electronically signed by Catina MENDOZAC> Date Catina Lainez NP, NP-C Cosigner Signature: Date (if applicable) CC: Marleni Holly Work Phone: Start: 09-25-2021 End: 09-25-2021 Office Visit Report Procedure Note: See Note; NOTES: [facility] [address] [place], [place] [address] [place] [address] OFFICE VISIT Date of Service: 09/25/21 MR#: [id number] Acct: [id number] Patient: MART BAUMANN Rep #: [id number] : 1985 Provider: Dr. Jeremy Lowe DO Age/Sex: 36/M Location: [facility] Status: Signed Intake Vital Signs 09/25/21 07:53 BP 127/75 H Blood Pressure Location Lt brachial Position Sitting Respiration 16 Pulse 76 Pulse Source Monitor Temp 97.6 F L Temp Source Temporal Pulse Oximetry (%) 96 Oxygen Delivery Method room air Intake Visit Reasons: Injection Chief Complaint: Asthma Allergies No Known Allergies Allergy (Verified 06/08/21 07:59) Office Meds benralizumab Performing Provider: Jeremy Lowe DO Administered by: Gena Chang on 09/25/21 07:55 Dose Route Admin Location Lot Number Expiration Date NDC Manufactu rer 30 mg subcut Lt Arm [id number] 08/28/22 4362-2431-90 [facility] Patient tolerated Fasenra injection well. Monitored for 15 minutes. Patient aware to contact office with any questions or concerns. 09/25/21 0836 <Electronically signed by Jeremy Lowe DO> Date Jeremy Lowe DO Cosigner Signature: Date (if applicable) CC: Marleni Holly Work Phone: Start: 07-31-2021 End: 07-31-2021 Pulmonary Visit Report Comments: See Note; NOTES: [facility] [place] [address] [place] [address] OFFICE VISIT Date of Service: 07/31/21 MR#: [id number] Acct: [id number] Name: MART BAUMANN Rep #: [id number] : 1985 Provider: MOUNA Lainez Age/Sex: 36/M Location: [facility].W Status: Signed Assessment and Plan Assessment and Plan (1) Severe asthma: Status: Acute Qualifiers: Asthma persistence: persistent Asthma complication type: unspecified Qualified Code(s): J45.50 - Severe persistent asthma, uncomplicated Orders: Orders: Fasenra Injection Today Plan - Catina Lainez NP, KELLYC: No signs of exacerbation of asthma today. No change in maintenance medications, continue Fasenra. No additional testing at this time. Contact the office with any signs of new or worsening symptoms. Follow-up in 6 months. Plan Details Follow Up: 6 Months ([facility]) HPI FOLLOW UP Chief Complaint: Routine follow-up HPI Comments Details: This patient presents to the office today to follow-up on his severe persistent asthma. He is ambulatory and currently on room air. He has not been seen in the ED or urgent care for any respiratory illnesses recently. He has not required any antibiotics or prednisone for any breathing problems. The patient is compliant with Fasenra bimonthly injections. Since starting the Fasenra he has not required the use of any inhalers. He is quite pleased with his response to the Fasenra injections. He is no longer requiring frequent bursts of prednisone. His quality of life has significantly improved. Currently he denies any shortness of breath whatsoever. He denies any cough, sputum production or hemoptysis. He denies any wheezing, chest tightness, chest pain or palpitations. He also denies any fever, chills or body aches. Intake Vital Signs 07/31/21 08:02 Height 6 ft Weight: 258 lb 6 oz BMI 35.0 BP 132/75 H Blood Pressure Location Lt brachial Position Sitting Respiration 16 Pulse 90 Pulse Source Monitor Temp 97.5 F L Temperature Source Temporal Artery Pulse Oximetry (%) 95 Oxygen Delivery Method room air Intake Visit Reasons: FOLLOW UP Allergies No Known Allergies Allergy (Verified 06/08/21 07:59) Medications albuterol sulfate 2.5 mg INHALATION Q4H PRN #25 vial 03/20/21 [Rx Confirmed 07/31/21] albuterol sulfate 2.5 mg INHALATION Q4H PRN #25 vial 03/20/21 [Rx Confirmed 07/31/21] benralizumab [Fasenra] mg SUBCUT 03/20/21 [History Confirmed 07/31/21] [facility] Medical History (Updated 07/31/21 @ 12:35 by Catina Lainez NP, WELDING MACHINE OPERATOR ELECTROSLAG-C) Acute asthma exacerbation Acute bronchitis Acute hypoxic respiratory insufficiency Allergic rhinitis Bronchial asthma Maxillary sinusitis Surgical History H/O sinus surgery Family History Father Asthma Diabetes Hypertension Grandmother Asthma Social History Smoking Status: Former smoker Tobacco: How many years used: 10 how long ago did patient quit smokin, 1ppd second hand exposure: Yes alcohol intake: never substance use type: does not use Review of Systems Resp Respiratory: Yes as per HPI Exam Const Constitutional: Positive conversant, cooperative, in no acute respiratory distress, healthy appearing, well developed, well nourished, good hygiene and obese Head Head: Yes normocephalic and Yes atraumatic Eyes Eye: Positive clear conjunctiva; Negative nystagmus Ears Ear: Positive hearing normal and external ears normal; Negative hard of hearing Nose Nose: Yes external nose normal Mouth Mouth: Positive oral mucosae normal Neck Neck: Positive normal visual inspection, full ROM and trachea midline; Negative lymphadenopathy, JVD or tender Chest Wall Chest: Positive normal inspection of the chest and symmetric chest movement; Negative increased A/P diameter Resp lung sounds: Positive clear to auscultation, good air exchange, normal expiratory time and normal respiratory effort; Negative diminished lung sounds, wheezes, rhonchi or rales Cardio Cardiac: Positive regular rate, regular rhythm, S1 normal, S2 normal and normal PMI; Negative murmur GI GI: Positive normal to inspection and obese Genitourinary: Positive deferred Musc Musculoskeletal: Positive steady gait and ROM normal; Negative kyphosis or scoliosis Skin Pulmonary Skin Exam: Positive intact; Negative lesion, rash or ulcers Extremities Extremities: No clubbing and No cyanosis Neuro Neurologic: Yes no focal neuro deficits, Yes conversant, Yes cooperative, Yes normal cognition, Yes normal coordination, Yes normal concentration and Yes understands questions Psych Appearance: Positive grossly normal, eye contact and well kempt Mental Status: Positive mental status grossly normal Mood: Positive congruent mood Affect: Positive normal affect Office Meds benralizumab Performing Provider: Catina Lainez NP, WELDING MACHINE OPERATOR ELECTROSLAG-C Administered by: Gena Chang on 07/31/21 08:14 Dose Route Admin Location Lot Number Expiration Date [facility] Manufactu rer 30 mg subcut Lt Arm [id number] 08/28/22 [id number] [employer] Coding Level of Care Code Off vis,est,level 3 Diagnoses Severe asthma J45.50 Asthma persistence: persistent Asthma complication type: unspecified 07/31/21 1236 <Electronically signed by Catina Lainez NP WELDING MACHINE OPERATOR ELECTROSLAG-C> Date Catina Lainez NP WELDING MACHINE OPERATOR ELECTROSLAG-C Cosigner Signature: Date (if applicable) CC: Dr. Fritz Murphy MD Marleni Holly Work Phone: Start: 06-08-2021 End: 06-08-2021 Office Visit Report Comments: See Note; NOTES: [facility] [address] [place] [address] OFFICE VISIT Date of Service: 06/08/21 MR#: [id number] Acct: [id number] Patient: MART BAUMANN Rep #: [id number] : 1985 Provider: MOUNA Lainez Age/Sex: 36/M [facility] Status: Signed Intake Vital Signs 06/08/21 07:58 Height 5 ft 10 in Weight: 258 lb BMI 37.0 BP 130/86 H Blood Pressure Location Rt brachial Position Sitting Respiration 17 Pulse 74 Pulse Source Monitor Temp 98.5 F Temp Source Temporal Pulse Oximetry (%) 94 Oxygen Delivery Method room air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 05-09-2020 End: 05-09-2020 Office Visit Report Comments: See Note; NOTES: [facility] [address] [place] [address] OFFICE VISIT Date of Service: 05/09/20 MR#: [id number] Acct: [id number] Patient: MART BAUMANN Rep #: [id number] : 1985 Provider: MOUNA Lainez Age/Sex: 35/M Location: [facility].PMW Status: Signed Intake Vital Signs 05/09/20 BP 131/80 H 05/09/20 Blood Pressure Location Rt brachial 05/09/20 Position Sitting 05/09/20 Respiration 19 H 05/09/20 Pulse 87 05/09/20 Pulse Source Monitor 05/09/20 Temp 98.6 F 05/09/20 Temp Source Tympanic 05/09/20 Pulse Oximetry (%) 98 05/09/20 Oxygen Delivery Method room air 05/09/20 BP 126/82 H 05/09/20 Blood Pressure Location Lt brachial 05/09/20 Position Sitting 05/09/20 Respiration 16 05/09/20 Pulse 87 05/09/20 Pulse Source Monitor 05/09/20 Temp 98.6 F 05/09/20 Temp Source Tympanic 05/09/20 Pulse Oximetry (%) 98 05/09/20 Oxygen Delivery Method room air Intake Visit Reasons: Injection Allergies No Known Allergies Allergy (Verified 05/09/20 07:56) Medications Fluticasone/Vilanterol [Breo Ellipta 100-25 Mcg INH] 2 puff IH DAILY 04/21/19 [History Confirmed 05/09/20] diphenhydramine HCl 50 mg capsule 50 mg PO ONCE PRN cap 07/27/19 [History Confirmed 05/09/20] prednisone 20 mg tablet 60 mg PO QDAY #15 tab 01/09/20 [Rx Confirmed 05/09/20] Office Procedures benralizumab 30 mg/mL subcutaneous syringe 30 mg subcut ONCE Procedure performed by: Amanda Murray Lot number: [id number] Partner Manager: [employer] date: 04/28/21 Dose of injection: 1mL Site of injection: Sub-Q Medication Given: Yes Office Meds benralizumab Performing Provider: Catina Lainez NP, WELDING MACHINE OPERATOR ELECTROSLAG-C Administered by: Amanda Murray on 05/09/20 07:57 Dose Route Admin Location Lot Number Expiration Date NDC Manufactu rer 30 mg subcut right arm [id number] 04/28/21 2607-7324-29 [employer] Assessment Plan Orders Orders: Fasenra Injection Today J45.50 05/09/20828 <Electronically signed by Catina Lainez NP WELDING MACHINE OPERATOR ELECTROSLAG-C> Date Catina Lainez NP WELDING MACHINE OPERATOR ELECTROSLAG-C Cosigner Signature: Date (if applicable) CC: MOUNA Yepez Elayne Holly Start: 03-14-2020 End: 03-14-2020 Office Visit Report Comments: See Note; NOTES: [facility] [address] [place], [place] [address] [place] [address] OFFICE VISIT Date of Service: 03/14/20 MR#: [id number] Acct: [id number] Patient: MART BAUMANN Rep #: [id number] : 1985 Provider: Dr. Chilo Thomas MD Age/Sex: 35/M Location: [facility].PMW Status: Signed Intake Vital Signs 03/14/20 BP 106/65 03/14/20 Blood Pressure Location Lt brachial 03/14/20 Position Sitting 03/14/20 Respiration 18 03/14/20 Pulse 82 03/14/20 Pulse Source Monitor 03/14/20 Temp 36.7 C 03/14/20 Temp Source Tympanic 03/14/20 Pulse Oximetry (%) 96 03/14/20 Oxygen Delivery Method room air 03/14/20 BP 117/75 03/14/20 Blood Pressure Location Lt brachial 03/14/20 Position Sitting 03/14/20 Respiration 18 03/14/20 Pulse 80 03/14/20 Pulse Source Monitor 03/14/20 Temp 36.7 C 03/14/20 Temp Source Tympanic 03/14/20 Pulse Oximetry (%) 96 03/14/20 Oxygen Delivery Method room air Intake Visit Reasons: Injection Allergies No Known Allergies Allergy (Verified 03/14/20 08:21) Medications Fluticasone/Vilanterol [Breo Ellipta 100-25 Mcg INH] 2 puff IH DAILY 04/21/19 [History Confirmed 03/14/20] diphenhydramine HCl 50 mg capsule 50 mg PO ONCE PRN cap 07/27/19 [History Confirmed 03/14/20] prednisone 20 mg tablet 60 mg PO QDAY #15 tab 01/09/20 [Rx Confirmed 03/14/20] Office Procedures benralizumab 30 mg/mL subcutaneous syringe 30 mg subcut ONCE Procedure performed by: Leia Carr Meds benralizumab Performing Provider: Chilo Thomas MD Administered by: Leia Augustin on 03/14/20 08:00 Dose Route Admin Location Lot Number Expiration Date NDC Manufactu rer 30 mg subcut LEFT ARM [id number] 12/29/20 0027-2281-97 [employer] Assessment Plan Orders Orders: Fasenra Injection Today J45.50 03/14/20 1002 <Electronically signed by Chilo Thomas MD> Date Chilo Thomas MD Cosigner Signature: Date (if applicable) CC: Marleni Holly Start: 01-18-2020 End: 01-18-2020 Office Visit Report Comments: See Note; NOTES: [facility] [address] [address] OFFICE VISIT Date of Service: 01/18/20 MR#: [id number] Acct: [id number] Patient: MART BAUMANN Levon Rep #: [id number] : 1985 Provider: MOUNA Lainez Age/Sex: 35/M Location: [facility].PMW Status: Signed Intake Vital Signs 01/18/20 BP 126/79 H 01/18/20 Blood Pressure Location Rt brachial 01/18/20 Position Sitting 01/18/20 Respiration 16 01/18/20 Pulse 78 01/18/20 Pulse Source Monitor 01/18/20 Temp 97.1 F L 01/18/20 Temp Source Tympanic 01/18/20 Pulse Oximetry (%) 97 01/18/20 Oxygen Delivery Method room air 01/18/20 BP 132/80 H 01/18/20 Blood Pressure Location Lt brachial 01/18/20 Position Sitting 01/18/20 Respiration 16 01/18/20 Pulse 81 01/18/20 Pulse Source Monitor 01/18/20 Temp 97.1 F L 01/18/20 Temp Source Tympanic 01/18/20 Pulse Oximetry (%) 97 01/18/20 Oxygen Delivery Method room air Intake Visit Reasons: Injection Allergies No Known Allergies Allergy (Verified 01/18/20 08:19) Medications Fluticasone/Vilanterol [Breo Ellipta 100-25 Mcg INH] 2 puff IH DAILY 04/21/19 [History Confirmed 01/18/20] diphenhydramine HCl 50 mg capsule 50 mg PO ONCE PRN cap 07/27/19 [History Confirmed 01/18/20] prednisone 20 mg tablet 60 mg PO QDAY #15 tab 01/09/20 [Rx Confirmed 01/18/20] Office Procedures benralizumab 30 mg/mL subcutaneous syringe 30 mg subcut ONCE Procedure performed by: Leia Carr Meds benralizumab Performing Provider: Catina Lainez NP, WELDING MACHINE OPERATOR ELECTROSLAG-C Administered by: Leia Augustin on 01/18/20 08:07 Dose Route Admin Location Lot Number Expiration Date NDC Manufactu rer 30 mg subcut LEFT ARM [id number] 12/29/20 6786-4078-02 [employer] Assessment Plan Orders Orders: Fasenra Injection Today J45.50 01/18/20 1045 <Electronically signed by Catina Lainez NP WELDING MACHINE OPERATOR ELECTROSLAG-C> Date Catina Lainez NP WELDING MACHINE OPERATOR ELECTROSLAGBairon Cosigner Signature: Date (if applicable) CC: WELDING MACHINE OPERATOR ELECTROSLAGBairon Marleni Holly Start: 11-30-2019 End: 11-30-2019 Office Visit Report Comments: See Note; NOTES: [facility] [address] [place] [address] OFFICE VISIT Date of Service: 11/30/19 MR#: [id number] Acct: [id number] Patient: MART BAUMANN Rep #: [id number] : 1985 Provider: MOUNA Lainez Age/Sex: 34/M Location: [facility].W Status: Signed Intake Vital Signs 11/30/19 BP 133/86 H 11/30/19 Blood Pressure Location Lt brachial 11/30/19 Position Sitting 11/30/19 Respiration 18 11/30/19 Pulse 68 11/30/19 Pulse Source Monitor 11/30/19 Temp 97.3 F L 11/30/19 Temp Source Tympanic 11/30/19 Pulse Oximetry (%) 97 11/30/19 Oxygen Delivery Method room air Intake Visit Reasons: FLU AND PNE SHOT Allergies No Known Allergies Allergy (Verified 11/30/19 09:29) Medications Fluticasone/Vilanterol [Breo Ellipta 100-25 Mcg INH] 2 puff IH DAILY 04/21/19 [History Confirmed 11/30/19] diphenhydramine HCl 50 mg capsule 50 mg PO ONCE PRN cap 07/27/19 [History Confirmed 11/30/19] Immunizations Flucelvax Quad (PF) Performing Provider: KELLY Gutierrez NPC Administered by: Leia Augustin on 11/30/19 08:00 Dose Route Admin Location Lot Number Expiration Date NDC Manufactu rer 60 mcg IM Left Deltoid [id number] 08/09/20 55285-991-37 SEQIRUS VIS Given Date VIS Provided VIS Publication Date 11/30/19 Single Vaccine 14 Eligibility Eligibility Date Funding Source None Pneumovax-23 Performing Provider: Catina Lainez NP, WELDING MACHINE OPERATOR ELECTROSLAG-C Administered by: Leia Augustin on 11/30/19 08:05 Dose Route Admin Location Lot Number Expiration Date NDC Manufactu rer 0.5 mL IM Right Deltoid [id number] 05/10/21 2986-2570-58 [employer] VIS Given Date VIS Provided VIS Publication Date 11/30/19 Single Vaccine 14 Eligibility Eligibility Date Funding Source None Assessment Plan Orders Orders: Influenza Immunization Today Z23 Pneumonia Immunization Today Z23 11/30/19 0947 <Electronically signed by Catina Lainez WELDING MACHINE OPERATOR ELECTROSLAG WELDING MACHINE OPERATOR ELECTROSLAG-C> Date Catina Lainez NP WELDING MACHINE OPERATOR ELECTROSLAG-C Cosigner Signature: Date (if applicable) CC: WELDING MACHINE OPERATOR ELECTROSLAGVladC Marleni Elayne Holly Start: 11-23-2019 End: 11-23-2019 Office Visit Report Comments: See Note; NOTES: [place] [id number] [place] [address] OFFICE VISIT Date of Service: 11/23/19 MR#: [id number] Acct: [id number] Patient: MART BAUMANN Rep #: [id number] : 1985 Provider: MOUNA Lainez Age/Sex: 34/M Location: [facility].PMW Status: Signed Intake Vital Signs 11/23/19 BMI 36.1 11/23/19 BP 135/88 11/23/19 BP 136/82 H 11/23/19 Blood Pressure Location Rt brachial 11/23/19 Position Sitting 11/23/19 Respiration 18 11/23/19 Pulse 80 11/23/19 Pulse Source Monitor 11/23/19 Temp 97.3 F L 11/23/19 Temp Source Tympanic 11/23/19 Pulse Oximetry (%) 98 11/23/19 Oxygen Delivery Method room air 11/23/19 Height 6 ft 11/23/19 BP 135/88 H 11/23/19 Blood Pressure Location Lt brachial 11/23/19 Position Sitting 11/23/19 Respiration 18 11/23/19 Pulse 85 11/23/19 Pulse Source Monitor 11/23/19 Temp 97.3 F L 11/23/19 Pulse Oximetry (%) 97 11/23/19 Oxygen Delivery Method room air Intake Visit Reasons: injection Allergies No Known Allergies Allergy (Verified 11/23/19 08:14) Medications Fluticasone/Vilanterol [Breo Ellipta 100-25 Mcg INH] 2 puff IH DAILY 04/21/19 [History Confirmed 09/21/19] diphenhydramine HCl 50 mg capsule 50 mg PO ONCE PRN cap 07/27/19 [History Confirmed 09/21/19] Office Procedures benralizumab 30 mg/mL subcutaneous syringe 30 mg subcut ONCE Procedure performed by: Leia Carr Meds benralizumab Performing Provider: Catina Lainez NP, NP-C Administered by: Leia Augustin on 11/23/19 07:50 Dose Route Admin Location Lot Number Expiration Date NDC Manufactu rer 30 mg subcut LEFT ARM [id number] 11/28/20 4309-9758-83 [employer] [facility] Assessment Plan Orders Orders: Fasenra Injection Today J45.50 11/23/19 0843 <Electronically signed by Catina Lainez NP WELDING MACHINE OPERATOR ELECTROSLAG-C> Date Catina Lainez NP WELDING MACHINE OPERATOR ELECTROSLAG-C Cosigner Signature: Date (if applicable) CC: MOUNA Lockwoodlarissalevon Start: 09-21-2019 End: 09-21-2019 Office Visit Report Comments: See Note; NOTES: [place] [address] [address] OFFICE VISIT Date of Service: 09/21/19 MR#: [id number] Acct: [id number] Patient: MART BAUMANN Rep #: [id number] : 1985 Provider: MOUNA Lainez Age/Sex: 34/M Location: [facility].PMW Status: Signed Intake Vital Signs 09/21/19 BP 130/82 H 09/21/19 Blood Pressure Location Lt brachial 09/21/19 Position Sitting 09/21/19 Respiration 17 09/21/19 Pulse 78 09/21/19 Pulse Source Monitor 09/21/19 Temp 97.5 F L 09/21/19 Temp Source Temporal 09/21/19 Pulse Oximetry (%) 96 09/21/19 Oxygen Delivery Method room air 09/21/19 BP 138/84 H 09/21/19 Blood Pressure Location Lt brachial 09/21/19 Position Sitting 09/21/19 Respiration 18 09/21/19 Pulse 77 09/21/19 Pulse Source Monitor 09/21/19 Temp 97.4 F L 09/21/19 Temp Source Temporal 09/21/19 Pulse Oximetry (%) 97 09/21/19 Oxygen Delivery Method room air Intake Visit Reasons: Injection Allergies No Known Allergies Allergy (Verified 09/21/19 08:07) Medications Fluticasone/Vilanterol [Breo Ellipta 100-25 Mcg INH] 2 puff IH DAILY 04/21/19 [History Confirmed 09/21/19] diphenhydramine HCl 50 mg capsule 50 mg PO ONCE PRN cap 07/27/19 [History Confirmed 09/21/19] Office Procedures benralizumab 30 mg/mL subcutaneous syringe 30 mg subcut ONCE Procedure performed by: Amanda Murray Lot number: [id number] Partner Manager: [employer] date: 10/29/20 Dose of injection: 1ML Site of injection: Sub-Q Medication Given: Yes Office Meds benralizumab Performing Provider: MOUNA Gutierrez Administered by: Amanda Murray on 09/21/19 08:09 Dose Route Admin Location Lot Number Expiration Date NDC Manufactu rer 30 mg subcut LEFT ARM [id number] 10/29/20 8025-3661-28 [employer] Assessment Plan Orders Orders: Fasenra Injection Today J45.50 09/21/19 0826 <Electronically signed by Catina FREIRE> Date Catina Sorenson Signature: Date (if applicable) CC: MOUNA Marleni Holly Start: 07-27-2019 End: 07-27-2019 Office Visit Report Comments: See Note; NOTES: [facility] [address] [place] [address] OFFICE VISIT Date of Service: 07/27/19 MR#: [id number] Acct: [id number] Patient: MART BAUMANN Rep #: [id number] : 1985 Provider: MOUNA Lainez Age/Sex: 34/M Location: [facility]W Status: Signed Intake Vital Signs 07/27/19 BMI 36.1 07/27/19 Height 6 ft 07/27/19 BP 130/76 H 07/27/19 Blood Pressure Location Rt brachial 07/27/19 Position Sitting 07/27/19 Respiration 18 07/27/19 Pulse 77 07/27/19 Pulse Source Monitor 07/27/19 Temp 97.7 F L 07/27/19 Temp Source Tympanic 07/27/19 Pulse Oximetry (%) 98 07/27/19 Oxygen Delivery Method room air 07/27/19 Height 6 ft 07/27/19 BP 134/80 H 07/27/19 Blood Pressure Location Lt brachial 07/27/19 Position Sitting 07/27/19 Respiration 18 07/27/19 Pulse 73 07/27/19 Pulse Source Monitor 07/27/19 Temp 97.7 F L 07/27/19 Temp Source Tympanic 07/27/19 Pulse Oximetry (%) 98 07/27/19 Oxygen Delivery Method room air Intake Visit Reasons: Injection Allergies No Known Allergies Allergy (Verified 07/27/19 07:58) Medications Fluticasone/Vilanterol [Breo Ellipta 100-25 Mcg INH] 2 puff IH DAILY 04/21/19 [History Confirmed 07/27/19] diphenhydramine HCl 50 mg capsule 50 mg PO ONCE PRN cap 07/27/19 [History Confirmed 07/27/19] Office Procedures benralizumab 30 mg/mL subcutaneous syringe 30 mg subcut ONCE Procedure performed by: Leia Carr Meds benralizumab Performing Provider: MOUNA Gutierrez Administered by: Leia Augustin on 07/27/19 07:48 Dose Route Admin Location Lot Number Expiration Date NDC Manufactu rer 30 mg subcut LEFT ARM [id number] 09/27/20 5263-8342-65 [employer] Assessment Plan Orders Orders: Fasenra Injection Today J45.50 07/27/19817 <Electronically signed by Catina FREIRE> Date Catina FREIRE Cosigner Signature: Date (if applicable) CC: MOUNA Holly Marleni Holly Start: 06-01-2019 End: 06-01-2019 Office Visit Report Comments: See Note; NOTES: [address] [place] [address] OFFICE VISIT Date of Service: 06/01/19 MR#: [id number] Acct: [id number] Patient: MART BAUMANN Rep #: [id number] : 1985 Provider: MOUNA Lainez Age/Sex: 34/M Location: [facility].PMW Status: Signed Intake Vital Signs06/01/19 BMI 36.1 06/01/19 Height 6 ft 06/01/19 BP 130/81 H 06/01/19 Blood Pressure Location Lt brachial 06/01/19 Position Sitting 06/01/19 Respiration 18 06/01/19 Pulse 78 06/01/19 Pulse Source Monitor 06/01/19 Temp 97.3 F L 06/01/19 Temp Source Oral 06/01/19 Pulse Oximetry (%) 98 06/01/19 Oxygen Delivery Method room air Intake Visit Reasons: Injection Allergies No Known Allergies Allergy (Verified 06/01/19 07:29) Medications Clindamycin HCl [Cleocin] 300 mg PO Q6H #40 cap 04/21/19 [Rx Confirmed 06/01/19] Fluticasone/Vilanterol [Breo Ellipta 100-25 Mcg INH] 2 puff IH DAILY 04/21/19 [History Confirmed 06/01/19] Office Procedures benralizumab 30 mg/mL subcutaneous syringe 30 mg subcut ONCE Procedure performed by: Leia Carr Meds benralizumab Performing Provider: MOUNA Gutierrez Administered by: Leia Augustin on 06/01/19 07:53 Dose Route Admin Location Lot Number Expiration Date NDC Partner Manager 30 mg subcut LEFT ARM [id number] 09/27/20 7832-7803-85 [employer] Assessment AND Plan Orders Orders: 06/01/19 0944 <Electronically signed by Catina FREIRE> Date Catina FREIRE Cosigner Signature: Date (if applicable) CC: MOUNA Holly Start: 04-21-2019 End: 04-21-2019 Discharge Instruction Comments: See Note; NOTES: [facility] Medical Records Department [address] [place] [address] Discharge Instruction 04/21/19 0713 MR#: [id number] Acct: [id number] Name: MART BAUMANN Levon Rep #: [id number] : 1985 34 From: Lon Suresh DO PCP: MOUNA So Status: REG ER ED Disposition - Plan for ED Patient: Instructions: Dental Pain Prescriptions: Clindamycin HCl [Cleocin] 300 mg PO Q6H #40 cap Transmission Status: Pending to [facility] Referrals: Marleni Holly NP-C [Primary Care Provider] - Additional Instructions: call your dentist for follow up appointment What to do if you have Problems For any increased pain, shortness of breath, bleeding, nausea or vomiting, chest pain, or any unexpected problems, contact your Primary Care Provider. Call [facility] ([phone]) or report to the closest Emergency Room. Call 911 if necessary. 04/21/19 0714 <Electronically signed by Lon Suresh DO> Date Lon Suresh DO Cosigner Signature (If Indicated): Date CC: MOUNA Holly Start: 04-21-2019 End: 04-21-2019 Emergency Department Summary Comments: See Note; NOTES: [facility] Medical Records Department [address] [place] [address] Emergency Department Summary 04/21/19 0708 MR#: [id number] Acct: [id number] Name: MART BAUMANN Rep #: [id number] : 1985 34 From: Lon Suresh DO PCP: MOUNA So Status: REG ER - ER Visit Summary Date of Service: 04/21/19 Chief Complaint: [Dental pain] History of Present Illness: The patient is a 34 M [presents to the emergency department complaint of dental pain that started this morning. Patient states that he had wisdom teeth extracted from the right side of his mouth 5 days ago. The dentist also attempted to remove the left wisdom teeth unsuccessfully. Patient was started on amoxicillin and given Tylenol with codeine for pain. He had been doing relatively well until this morning he woke up with severe pain to the left side of his face and a hard time opening his mouth secondary to the pain. He denies any fevers.] Physical Examination: [HEENT-PERRLA, EOMI. Cranial nerves II through XII grossly intact. TMs clear. Mucous membranes moist. No adenopathy. Dental extractions noted to the right upper and lower molars numbers 1 and 32. Evaluation of the left side of the dentition notes that he has some tenderness to palpation over the left #16 and 17 molars however I do not appreciate any soft tissue swelling or abscess. There is some minimal erythema noted. Patient has no facial swelling that is noted or facial cellulitis. Uvula is in the midline. Significant adenopathy noted. Cardiovascular-regular rate and rhythm without murmur or ectopy Lungs-clear to auscultation, chest wall stable without crepitus or subcu emphysema Abdomen-normoactive bowel sounds, soft, nontender, no rebound or rigidity, no peritoneal signs. Extremities-intact 4, normal range of motion, normal pulses, atraumatic] Test Results: [None indicated] Emergency Department Course and Treatment: [Patient was given a dose of clindamycin in the emergency department. He is to continue with the Tylenol with codeine as well as the Advil. Patient will attempt to contact his oral surgeon today. Patient advised to return if fever, increased swelling, or condition should worsen anyway.] Treatment Plan: [Patient to follow-up with his oral surgeon. We will switch him to clindamycin.] Disposition: [Discharged home in stable condition] Impression: [Dental pain status post attempted extraction of left upper and lower molars] This note was generated with Flick[employer] dictation software. It may contain incorrect words, spelling, and punctuation that were not noted in review of the chart prior to signing ED Disposition - Plan for ED Patient: Referrals: Marleni Holly, WELDING MACHINE OPERATOR ELECTROSLAG-C [Primary Care Provider] - What to do if you have Problems For any increased pain, shortness of breath, bleeding, nausea or vomiting, chest pain, or any unexpected problems, contact your Primary Care Provider. Call [facility] ([phone]) or report to the closest Emergency Room. Call 911 if necessary. 04/21/19 0713 <Electronically signed by Lon Suresh DO> Date Lon Suresh DO Cosigner Signature (If Indicated): Date CC: MOUNA Marleni Holly Start: 04-05-2019 End: 04-05-2019 Office Visit Report Comments: See Note; NOTES: [facility] [address] [place] [address] OFFICE VISIT Date of Service: 04/05/19 MR#: [id number] Acct: [id number] Patient: MART BAUMANN Rep #: [id number] : 1985 Provider: MOUNA Lainez Age/Sex: 34/M Location: [facility].W Status: Signed Intake Vital Signs04/05/19 BMI 35.2 04/05/19 BP 120/76 Intake Visit Reasons: injection Allergies No Known Allergies Allergy (Verified 04/05/19 08:35) Medications Albuterol Inhaler [Ventolin Hfa] 2 puff INHALATION Q4H PRN PRN 05/20/13 [History Confirmed 04/05/19] Fexofenadine/Pseudoephedrin e [Chelly-D 12 Hour Tablet] 1 ea PO DAILY 11/16/16 [History Confirmed 04/05/19] Acetaminophen [Tylenol Tablet] 500 mg PO Q4H PRN tab 05/21/18 [Rx Confirmed 04/05/19] Guaifenesin/Codeine [Robitussin AC] 10 ml PO Q6H PRN PRN #250 ml 05/21/18 [Rx Confirmed 04/05/19] montelukast 10 mg tablet 10 mg PO QPM #30 tab 06/05/18 [Rx Confirmed 04/05/19] fluticasone furoate 200 mcg-vilanterol 25 mcg/dose inhalation powder 1 inh INHALATION QDAY #60 ea 06/06/18 [Rx Confirmed 04/05/19] atomoxetine 60 mg capsule 60 mg PO QAM 07/03/18 [History Confirmed 04/05/19] dextroamphetamine-amphetami ne 15 mg tablet 15 mg PO DAILY 07/03/18 [History Confirmed 04/05/19] mometasone 50 mcg/actuation nasal spray 1 spray INTRANASAL DAILY 01/19/19 [History Confirmed 04/05/19] benralizumab 30 mg/mL subcutaneous syringe 30 mg SC Q8W #1 ml 01/23/19 [Rx Confirmed 04/05/19] benralizumab 30 mg/mL subcutaneous syringe 30 mg SC Q4W 0 Days #1 ml 03/08/19 [Rx Confirmed 04/05/19] flu vac qs 2018-(4 yr up) CD 60 mcg (15 mcg x 4)/0.5 mL IM susp 0.5 ml IM ONCE #0.5 ml 03/08/19 [Rx Confirmed 04/05/19] pneumoc 13-sindy conj-dip cr(PF) 0.5 mL IM syringe 0.5 ml IM ONCE #0.5 ml 03/08/19 [Rx Confirmed 04/05/19] Office Meds benralizumab Performing Provider: MOUNA Gutierrez Administered by: Leia Augustin on 04/05/19 08:00 Dose Route Admin Location Lot Number Expiration Date NDC Partner Manager 30 mg subcut LEFT ARM [id number] 10/29/19 1037-1735-30 [facility] Assessment AND Plan Orders Orders: 04/05/19 1331 <Electronically signed by Catina FREIRE> Date Catina FREIRE Cosigner Signature: Date (if applicable) CC: MOUNA Marleni Holly Start: 03-08-2019 End: 03-08-2019 Office Visit Report Comments: See Note; NOTES: [facility] [address] OFFICE VISIT Date of Service: 03/08/19 MR#: [id number] Acct: [id number] Patient: MART BAUMANN Rep #: [id number] : 1985 Provider: MOUNA Lainez Age/Sex: 34/M Location: [facility].PMW Status: Signed Intake Vital Signs01/09/20 BMI 35.2 03/08/19 Height 6 ft 03/08/19 BP 142/76 H 03/08/19 Blood Pressure Location Lt brachial 03/08/19 Position Sitting 03/08/19 Respiration 18 Intake Visit Reasons: injection Allergies No Known Allergies Allergy (Verified 02/05/19 07:07) Medications Albuterol Inhaler [Ventolin Hfa] 2 puff INHALATION Q4H PRN PRN 05/20/13 [History Confirmed 03/08/19] Fexofenadine/Pseudoephedrin e [Chelly-D 12 Hour Tablet] 1 ea PO DAILY 11/16/16 [History Confirmed 03/08/19] Acetaminophen [Tylenol Tablet] 500 mg PO Q4H PRN tab 05/21/18 [Rx Confirmed 03/08/19] Guaifenesin/Codeine [Robitussin AC] 10 ml PO Q6H PRN PRN #250 ml 05/21/18 [Rx Confirmed 03/08/19] montelukast 10 mg tablet 10 mg PO QPM #30 tab 06/05/18 [Rx Confirmed 03/08/19] fluticasone furoate 200 mcg-vilanterol 25 mcg/dose inhalation powder 1 inh INHALATION QDAY #60 ea 06/06/18 [Rx Confirmed 03/08/19] atomoxetine 60 mg capsule 60 mg PO QAM 07/03/18 [History Confirmed 03/08/19] dextroamphetamine-amphetami ne 15 mg tablet 15 mg PO DAILY 07/03/18 [History Confirmed 03/08/19] mometasone 50 mcg/actuation nasal spray 1 spray INTRANASAL DAILY 01/19/19 [History Confirmed 03/08/19] benralizumab 30 mg/mL subcutaneous syringe 30 mg SC Q8W #1 ml 01/23/19 [Rx Confirmed 03/08/19] benralizumab 30 mg/mL subcutaneous syringe 30 mg SC Q4W 0 Days #1 ml 03/08/19 [Rx Confirmed 03/08/19] flu vac qs 2018-(4 yr up) CD 60 mcg (15 mcg x 4)/0.5 mL IM susp 0.5 ml IM ONCE #0.5 ml 03/08/19 [Rx Confirmed 03/08/19] pneumoc 13-sindy conj-dip cr(PF) 0.5 mL IM syringe 0.5 ml IM ONCE #0.5 ml 03/08/19 [Rx Confirmed 03/08/19] Office Procedures benralizumab 30 mg/mL subcutaneous syringe 30 mg subcut ONCE Procedure performed by: Leia Lot number: [id number] Partner Manager: [employer] date: 08/27/20 Dose of injection: 0.5ML Site of injection: other (LEFT ARM) Medication Given: Yes Office Meds benralizumab Performing Provider: MOUNA Gutierrez Administered by: Leia Augustin on 03/08/19 13:45 Dose Route Admin Location Lot Number Expiration Date ND Partner Manager 30 mg subcut LEFT ARM [id number] 08/27/20 1551-0876-94 [employer] Flucelvax Quad (PF) Performing Provider: MOUNA Gutierrez Administered by: Leia Augustin on 03/08/19 14:00 Dose Route Admin Location Lot Number Expiration Date [facility] Partner Manager 60 mcg IM LEFT DELTOID [id number] 08/28/19 02217-592-39 [facility] Immunizations Prevnar 13 (PF) Performing Provider: MOUNA Gutierrez Administered by: Leia Augustin on 03/08/19 14:05 Dose Route Admin Location Lot Number Expiration Date [facility] Partner Manager 0.5 mL IM Right Deltoid [id number] 06/28/20 1919-5532-32 [employer] VIS Given Date VIS Provided VIS Publication Date 03/08/19 Single Vaccine 19 Eligibility Eligibility Date Funding Source Assessment AND Plan Orders Orders: Medications New: pneumoc 13-sindy conj-dip cr(PF) (Prevnar 13 (PF)) as a single 0.5 mL IM ONCE 0.5 mL 0RF dose Refilled: 03/08/19 1546 <Electronically signed by Catina FREIRE> Date Catina FREIRE Cosigner Signature: Date (if applicable) CC: MOUNA Marleni Holly Start: 02-05-2019 End: 02-05-2019 Office Visit Report Comments: See Note; NOTES: [facility] [address] [place] [address] OFFICE VISIT Date of Service: 02/05/19 MR#: [id number] Acct: [id number] Patient: MART BAUMANN Rep #: [id number] : 1985 Provider: MOUNA Lainez Age/Sex: 34/M Location: [facility] Status: Signed Intake Vital Signs02/05/19 Blood Pressure 116/68 02/05/19 Blood Pressure Location Lt brachial 02/05/19 Blood Pressure Position Sitting Intake Visit Reasons: injection Accompanied by: Self Allergies No Known Allergies Allergy (Verified 02/05/19 07:07) Medications Albuterol Inhaler [Ventolin Hfa] 2 puff INHALATION Q4H PRN PRN 05/20/13 [History Confirmed 02/05/19] Fexofenadine/Pseudoephedrin e [Chelly-D 12 Hour Tablet] 1 ea PO DAILY 11/16/16 [History Confirmed 02/05/19] Acetaminophen [Tylenol Tablet] 500 mg PO Q4H PRN tab 05/21/18 [Rx Confirmed 02/05/19] Guaifenesin/Codeine [Robitussin AC] 10 ml PO Q6H PRN PRN #250 ml 05/21/18 [Rx Confirmed 02/05/19] montelukast 10 mg tablet 10 mg PO QPM #30 tab 06/05/18 [Rx Confirmed 02/05/19] fluticasone furoate 200 mcg-vilanterol 25 mcg/dose inhalation powder 1 inh INHALATION QDAY #60 ea 06/06/18 [Rx Confirmed 02/05/19] atomoxetine 60 mg capsule 60 mg PO QAM 07/03/18 [History Confirmed 02/05/19] dextroamphetamine-amphetami ne 15 mg tablet 15 mg PO DAILY 07/03/18 [History Confirmed 02/05/19] mometasone 50 mcg/actuation nasal spray 1 spray INTRANASAL DAILY 01/19/19 [History Confirmed 02/05/19] benralizumab 30 mg/mL subcutaneous syringe 30 mg SC Q4W 0 Days #1 ml 01/23/19 [Rx Confirmed 02/05/19] benralizumab 30 mg/mL subcutaneous syringe 30 mg SC Q8W #1 ml 01/23/19 [Rx Confirmed 02/05/19] Office Meds benralizumab Performing Provider: MOUNA Gutierrez Administered by: Dominga Dawson on 02/05/19 07:09 Dose Route Admin Location Lot Number Expiration Date NDC Partner Manager 30 mg subcut Lt arm [id number] 07/29/20 0198-9654-34 [employer] Comments: Initial injection of Fasenra administered. Will monitor patient for 120 minutes post injection. BMJ 60 minutes into injection pt reports itching to entire Lt arm with notable red markings to lower portion of arm/wrist. VS taken, WNL. 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 Pt left office after assessed again by CSM. No s/sx of distress noted. Assessment AND Plan Orders Orders: Medications Discontinued: benralizumab Discontinued Reason: Off30 mg subcut ONCE 1 mL 0RF J45.50 Dominga Dawson ice Medication has been Documented as giv en Nursing Note Patient is complaining of itching of bilateral arms. No rashes visible. Lung sounds are clear. Patient denies any shortness of breath. Vital signs are stable. He does admit that he had similar symptoms with the first 2 allergy desensitization injections. He does have Benadryl with him, his own personal medication. I have advised him to go ahead and take 50 mg p.o. Discussed the case with Dr. Thomas. Discussed with the patient signs and symptoms of further allergic reactions and when he should proceed to the emergency department for evaluation. He conveys understanding. 02/05/19929 <Electronically signed by Catina FREIRE> Date Catina FREIRE Cosigner Signature: Date (if applicable) CC: MOUNA Holly Start: 01-19-2019 End: 01-19-2019 Pulmonary Visit Report Comments: See Note; NOTES: [facility] [address] [place] [address] OFFICE VISIT Date of Service: 01/19/19 MR#: [id number] Acct: [id number] Name: MART BAUMANN Rep #: [id number] : 1985 Provider: MOUNA Lainez Age/Sex: 34/M Location: [facility].PMW Status: Signed Assessment AND Plan Problems 1. Severe persistent asthma with acute exacerbation J45.51 2. Seasonal allergic rhinitis due to pollen J30.1 Plan Deteriorated. NIOX procedure performed in the office today does support that the patient is experiencing a significant exacerbation of his asthma at this time. Treating with a Kenalog injection in the office today as well as a prednisone burst. Obtaining a fresh/recent CBC with differential to evaluate for continued eosinophil elevation. Patient also has noted IgE elevation and many seasonal allergies. He would be appropriate for many biologic injections, at this time we will proceed with prior authorization to begin Fasenra injections. Patient is agreeable. Continue all maintenance medications. Consider repeating a PFT. Follow-up with myself in 2 weeks to make sure he has returned to normal, at that time he can receive his annual influenza vaccine as well as a pneumonia vaccine. Orders Orders: Medications New: mometasone 50 mcg/actuation (Nason1 spray intranasal DAILY ex) prednisone administer with food60 mg (3 x 20 mg) PO QDAY 15 tabs MOUNA Gutierrez or milk 0RF Discontinued: Kenalog (triamcinolone acetonide)90 mg (2.25 mL) intra-articular OJ45.901 Dominga Dawson Discontinued Reason: Office NCE 2.25 mL 0RF NS Medication has been Documented as given Plan Detail Follow Up 2 Weeks HPI wheezing/chest tightness: Chief Complaint: Shortness of breath HPI Comments Details: This patient presents to the office today for an acute visit regarding shortness of breath. He is ambulatory and currently on room air. He reports that his symptoms have been ongoing for about the past 2 weeks. He has noticed an increase in wheezing and shortness of breath as well as chest tightness and a moist but nonproductive cough. He continues compliance with Breo daily. He reports rinsing his mouth out after each use. And he denies any medication side effect such as sore throat or thrush. He is also compliant with Chelly-D daily as well as Singulair daily. In addition to Nasonex daily. He has not experienced any hemoptysis. He denies any fever, chills or body aches. He reports that typically in the fall he has an exacerbation of his asthma so terribly that he ends up hospitalized. This is approximately the fourth exacerbation of his asthma this year. He admits that recently [place] and knows that he has seasonal triggers such as many trees and weeds. Intake Vital Signs01/19/19 Body Mass Index (BMI) 37.1 01/19/19 Height 6 ft 01/19/19 Weight: 261 lb Intake Visit Reasons: wheezing/chest tightness Chief Complaint: SOB/wheezing/chest tightness Accompanied by: Self Allergies No Known Allergies Allergy (Verified 01/19/19 14:50) Medications Albuterol Inhaler [Ventolin Hfa] 2 puff INHALATION Q4H PRN PRN 05/20/13 [History Confirmed 01/19/19] Fexofenadine/Pseudoephedrin e [Chelly-D 12 Hour Tablet] 1 ea PO DAILY 11/16/16 [History Confirmed 01/19/19] Acetaminophen [Tylenol Tablet] 500 mg PO Q4H PRN tab 05/21/18 [Rx Confirmed 01/19/19] Guaifenesin/Codeine [Robitussin AC] 10 ml PO Q6H PRN PRN #250 ml 05/21/18 [Rx Confirmed 01/19/19] montelukast 10 mg tablet 10 mg PO QPM #30 tab 06/05/18 [Rx Confirmed 01/19/19] fluticasone furoate 200 mcg-vilanterol 25 mcg/dose inhalation powder 1 inh INHALATION QDAY #60 ea 06/06/18 [Rx Confirmed 01/19/19] atomoxetine 60 mg capsule 60 mg PO QAM 07/03/18 [History Confirmed 01/19/19] dextroamphetamine-amphetami ne 15 mg tablet 15 mg PO DAILY 07/03/18 [History Confirmed 01/19/19] mometasone 50 mcg/actuation nasal spray 1 spray INTRANASAL DAILY 01/19/19 [History Confirmed 01/19/19] prednisone 20 mg tablet 60 mg PO QDAY #15 tab 01/19/19 [Rx Confirmed 01/19/19] [facility] Medical History Acute bronchitis (Acute) Maxillary sinusitis (Acute) Acute hypoxic respiratory insufficiency (Resolved) Acute asthma exacerbation (Acute) Allergic rhinitis (Chronic) Bronchial asthma (Chronic) Surgical History H/O sinus surgery (Resolved) Family History Father Asthma Diabetes Hypertension Grandmother Asthma Social History (Updated 01/19/19 @ 16:48 by MOUNA Gutierrez) Smoking Status: Former smoker Tobacco: How many years used: 10 how long ago did patient quit smokin, 1ppd second hand exposure: Yes alcohol intake: never substance use type: does not use Review of Systems Const CONSTITUTIONAL: No anorexia, No body ache, No chills, No daytime sleepiness, No fever(s), No night sweats, No stops breathing during sleep, No weight loss, No weight gain, No sleeping in chair, No orthopnea, No fatigue, No headache(s), No frequent colds, No seasonal allergies, No other EETM Ear Nose Throat Mouth: No hoarseness, No Dry mouth in morning, No change in vision, No itchy eyes, No eye pain, No Swallowing Difficulty, No ear pain, No nose bleed, No headache(s), No mouth pain, No nasal congestion, No nasal discharge, No sinus pain, No sinus pressure, No sore throat, No other Cardio Cadriovascular: No chest pain, No chest pain at rest, No chest pain with activity, No irregular heart rhythm, No shortness of breath when lying down, No palpitations, No other Resp Respiratory: Yes as per HPI, No shortness of breath at rest, No pain with cough, No chest congestion, Yes 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), No chest tightness, No pain on inspiration, No Inhalers, No Increase use of Rescue Inhalers, No snoring, No apnea, Yes other (wheezing/SOB) Gastro Gastrointestional: Negative bloody stools, change in appetite, difficulty swallowing, reflux, hematemesis, melena stool, loose stool, constipation or other Genitourinary: Negative blood in urine, nocturia, pain with urination or other Musc Musculoskeletal: Negative body pain, back pain, neck pain or other Skin/Breast Skin/Breast: No dry skin, No itching, No unusual bruising, No breast lump, No other Neuro Neurological: Negative restless legs, confusion, weakness or other Psych Psychocological: Negative abnormal sleep pattern, anxiety, thoughts of hurting self/others, hopelessness or other Lymph Lymphatic: No easy bleeding, No easy bruising, No other Exam Const Constitutional: Positive conversant, cooperative, in no acute respiratory distress, healthy appearing, well developed, well nourished and good hygiene Head Head: Yes normocephalic, Yes atraumatic Eyes Eye: Positive clear conjunctiva; negative nystagmus or scleral abnormality Ears Ear: Positive external ears normal; negative hearing normal or hard of hearing Nose Nose: Yes external nose normal Mouth Mouth: Positive oral mucosae normal, good dentition, posterior oropharynx is adequate and post nasal drip; negative oral thrush present Mallampati Score: I: Mallampati Score Neck Neck: Positive normal visual inspection, full ROM and trachea midline; negative lymphadenopathy, JVD or tender Chest Wall Chest: Positive normal inspection of the chest and symmetric chest movement; negative increased A/P diameter Resp lung sounds: Positive diminished, wheezes, normal expiratory time and increased work of breathing; negative rhonchi, rales, dullness to percussion or use of accessory muscles Cardio Cardiac: Positive regular rate, regular rhythm, S1 normal and S2 normal; negative murmur GI GI: Positive normal to inspection; negative distended Genitourinary: Positive deferred Musc Musculoskeletal: Positive steady gait and ROM normal; negative kyphosis or scoliosis Skin Pulmonary Skin Exam: Positive intact; negative lesion, rash or ulcers Pulses Pulse: Yes radial pulses present Extremities Extremities: Yes capillary refill normal, No clubbing, No cyanosis, No edema Neuro Neurologic: Yes no focal neuro deficits, Yes conversant, Yes cooperative, Yes normal cognition, Yes normal coordination, Yes normal concentration, Yes understands questions Lymph Lymphatic: No lymphadenopathy, No tenderness, No cervical adenopathy Psych Appearance: Positive grossly normal, eye contact and well kempt Mental Status: Positive mental status grossly normal Mood: Positive congruent mood Affect: Positive normal affect Office Procedures NIOX NIOX Result NIOX: 80 Office Meds Kenalog Performing Provider: MOUNA Gutierrez Administered by: Dominga Dawson on 01/19/19 15:45 Dose Route Admin Location Lot Number Expiration Date NDC Partner Manager 90 mg IM Lt Gluteal [id number] 04/28/20 8012-3570-16 [employer] [facility] NetworkMERCY MCCUNE-BROOKS HOSPITALDraftKings Coding Level of Care Code Off vis,est,level 4 Diagnoses Severe persistent asthma with acute exacerbation J45.51 Asthma severity: severe Asthma persistence: persistent Seasonal allergic rhinitis due to pollen J30.1 Allergic rhinitis trigger: pollen Allergic rhinitis seasonality: seasonal 01/19/19 1648 <Electronically signed by Catina FREIRE> Date Catina FREIRE Cosigner Signature: Date (if applicable) CC: MOUNA Yepez Elayne Holly Start: 07-03-2018 End: 07-03-2018 Pulmonary Visit Report Comments: See Note; NOTES: [facility] Pulmonary Medicine [address] [place] [address] OFFICE VISIT Date of Service: 07/03/18 MR#: [id number] Acct: [id number] Name: MART BAUMANN Rep #: [id number] : 1985 Provider: Catina Lainez Age/Sex: 33/M Location: [facility] Status: Signed Assessment AND Plan 1. Severe persistent asthma with status asthmaticus J45.52 Plan No signs of exacerbation of asthma today. No change in maintenance medications. No additional testing at this time. Contact the office with any signs of new or worsening symptoms. Follow-up in 3 months. If the patient has additional exacerbations while on maximal medical management he would be a candidate for biologic injections. Consider Fasenra or Nucala, given the degree of elevation of his eosinophil count. Technically would be a candidate for Xolair as well. Laboratory Tests WBC 8.8 2. Seasonal allergic rhinitis due to pollen J30.1 Plan Continue current maintenance medications. Follow-up with Dr. Thomas in 3 months. Plan Detail Other Medications New: Follow Up 3 Months ([facility]) HPI 1 M FU: Chief Complaint: shortness of breath HPI Comments Details: This patient presents to the office today to follow-up on his severe allergic asthma. He is ambulatory and currently on room air. Since his last office visit he has not been seen in the ED or urgent care for any respiratory illnesses. He has not required any antibiotics or prednisone for any breathing problems. He has been compliant with Breo daily. He reports rinsing his mouth out after each use. He denies any medication side effects such as sore throat or thrush. He has been compliant with Flonase daily. Chelly and Singulair daily. He has not needed to use his rescue inhaler. Currently he denies any wheezing, chest tightness, chest pain or palpitations. He denies any cough, sputum production or hemoptysis. He denies any shortness of breath. He has not expands any fever, chills or body aches. He continues following with ear nose and throat for allergy desensitization injections. Intake Vital Signs07/03/18 Body Mass Index (BMI) 37.1 07/03/18 Height 6 ft 07/03/18 Weight: 274 lb Intake Visit Reasons: 1 M FU Chief Complaint: SOB Accompanied by: Self Allergies No Known Allergies Allergy (Verified 07/03/18 07:38) Medications Albuterol Inhaler [Ventolin Hfa] 2 puff INHALATION Q4H PRN PRN 05/20/13 [History Confirmed 07/03/18] Fexofenadine/Pseudoephedrin e [Chelly-D 12 Hour Tablet] 1 ea PO DAILY 11/16/16 [History Confirmed 07/03/18] Acetaminophen [Tylenol Tablet] 500 mg PO Q4H PRN tab 05/21/18 [Rx Confirmed 07/03/18] Guaifenesin/Codeine [Robitussin AC] 10 ml PO Q6H PRN PRN #250 ml 05/21/18 [Rx Confirmed 07/03/18] fluticasone propionate 50 mcg/actuation nasal spray,suspension 1 spray INTRANASAL DAILY #16 g 06/05/18 [Rx Confirmed 07/03/18] montelukast 10 mg tablet 10 mg PO QPM #30 tab 06/05/18 [Rx Confirmed 07/03/18] fluticasone furoate 200 mcg-vilanterol 25 mcg/dose inhalation powder 1 inh INHALATION QDAY #60 ea 06/06/18 [Rx Confirmed 07/03/18] atomoxetine 60 mg capsule 60 mg PO QAM 07/03/18 [History Confirmed 07/03/18] dextroamphetamine-amphetami ne 15 mg tablet 15 mg PO DAILY 07/03/18 [History Confirmed 07/03/18] PFS Medical History Acute hypoxic respiratory insufficiency (Resolved) Acute asthma exacerbation (Acute) Allergic rhinitis (Chronic) Bronchial asthma (Chronic) Acute bronchitis (Acute) Maxillary sinusitis (Acute) Surgical History H/O sinus surgery (Resolved) Family History Father Asthma Diabetes Hypertension Grandmother Asthma Social History Smoking Status: Former smoker Tobacco: How many years used: 10 how long ago did patient quit smokin, 1ppd second hand exposure: Yes alcohol intake: never substance use type: does not use Review of Systems Const CONSTITUTIONAL: No anorexia, No body ache, No chills, No daytime sleepiness, No fever(s), No night sweats, No stops breathing during sleep, No weight loss, No weight gain, No sleeping in chair, No orthopnea, No fatigue, No headache(s), No frequent colds, No seasonal allergies, No other EETM Ear Nose Throat Mouth: No hoarseness, No Dry mouth in morning, No change in vision, No itchy eyes, No eye pain, No Swallowing Difficulty, No ear pain, No nose bleed, No headache(s), No mouth pain, No nasal congestion, No nasal discharge, No sinus pain, No sinus pressure, No sore throat, No other Cardio Cadriovascular: No chest pain, No chest pain at rest, No chest pain with activity, No irregular heart rhythm, No shortness of breath when lying down, No palpitations, No other Resp Respiratory: Yes as per HPI, No shortness of breath at rest, No pain with cough, No chest congestion, No cough, No chest tightness, No pain on inspiration, No Inhalers, No Increase use of Rescue Inhalers, No snoring, No apnea, No other Gastro Gastrointestional: Negative bloody stools, change in appetite, difficulty swallowing, reflux, hematemesis, melena stool, loose stool, constipation or other Genitourinary: Negative blood in urine, nocturia, pain with urination or other Musc Musculoskeletal: Negative body pain, back pain, neck pain or other Skin/Breast Skin/Breast: No dry skin, No itching, No unusual bruising, No breast lump, No other Neuro Neurological: Negative restless legs, confusion, weakness or other Psych Psychocological: Positive abnormal sleep pattern (medication related); negative anxiety, thoughts of hurting self/others, hopelessness or other Lymph Lymphatic: No easy bleeding, No easy bruising, No other Exam Const Constitutional: Positive conversant, cooperative, in no acute respiratory distress, healthy appearing, well developed, well nourished and good hygiene Head Head: Yes normocephalic, Yes atraumatic Eyes Eye: Positive clear conjunctiva; negative nystagmus or scleral abnormality Ears Ear: Positive external ears normal; negative hearing normal or hard of hearing Nose Nose: Yes external nose normal Mouth Mouth: Positive oral mucosae normal, good dentition, posterior oropharynx is adequate and post nasal drip; negative oral thrush present Mallampati Score: I: Mallampati Score Neck Neck: Positive normal visual inspection, full ROM and trachea midline; negative lymphadenopathy, JVD or tender Chest Wall Chest: Positive normal inspection of the chest and symmetric chest movement; negative increased A/P diameter Resp lung sounds: Positive clear to auscultation, good air exchange and normal expiratory time; negative rhonchi, rales, dullness to percussion or use of accessory muscles Cardio Cardiac: Positive regular rate, regular rhythm, S1 normal and S2 normal; negative murmur GI GI: Positive normal to inspection; negative distended Genitourinary: Positive deferred Musc Musculoskeletal: Positive steady gait and ROM normal; negative kyphosis or scoliosis Skin Pulmonary Skin Exam: Positive intact; negative lesion, rash or ulcers Pulses Pulse: Yes radial pulses present Extremities Extremities: Yes capillary refill normal, No clubbing, No cyanosis, No edema Neuro Neurologic: Yes no focal neuro deficits, Yes conversant, Yes cooperative, Yes normal cognition, Yes normal coordination, Yes normal concentration, Yes understands questions Lymph Lymphatic: No lymphadenopathy, No tenderness, No cervical adenopathy Psych Appearance: Positive grossly normal, eye contact and well kempt Mental Status: Positive mental status grossly normal Mood: Positive congruent mood Affect: Positive normal affect Coding Level of Care Code Off vis,est,level 3 Diagnoses Severe persistent asthma with status asthmaticus J45.52 Asthma severity: severe Asthma persistence: persistent Seasonal allergic rhinitis due to pollen J30.1 Allergic rhinitis trigger: pollen Allergic rhinitis seasonality: seasonal 07/03/18 1027 <Electronically signed by Catina FREIRE> Date Catina FREIRE Cosigner Signature: Date (if applicable) CC: ADAM Marleni Lockwoodlarissalevon Holly Start: 06-06-2018 End: 06-06-2018 Pulmonary Visit Report Comments: See Note; NOTES: [facility] Medicine of [address] [place] [address] OFFICE VISIT Date of Service: 06/05/18 MR#: [id number] Acct: [id number] Name: MART BAUMANN Rep #: [id number] : 1985 Provider: Catina Lainez Age/Sex: 33/M Location: [facility].PMW Status: Signed Assessment AND Plan 1. Severe persistent asthma with acute exacerbation J45.51 Plan Patient is having daily symptoms of asthma, therefore I am going to step up his therapy to include Singulair nightly, as well as low days daily. Continue Brio, however increasing to 200 mcg / 25 mcg (instead of 100 mcg / 25 mcg). Follow-up in 1 month to evaluate his response to these new medications. If his symptoms are not better controlled with these additional medications he may be appropriate for biologic therapy. This was briefly discussed with the patient. He was given information to further research on his own. Discussed the case with Dr. Thomas. 2. Viral upper respiratory infection J06.9 Plan Appears to be improved. Likely the cause of his recent asthma exacerbation. Plan Detail Other Medications New: Discontinued: fluticasone furoate-vilanterol 100-25 mcg/dose Rin1 inh Inhalation DAILY 1 device 6RF se mouth after each use Discontinued Reason: Orde r Changed Follow Up 1 Month ([facility]) [facility] hospital f/u: Chief Complaint: Shortness of breath HPI Comments Details: This is a 33 year old M, currently under the care of Marleni Holly NP, here to follow up after a recent hospitalization at [facility], from May 20 - May 21, 2018 for asthma with status asthmaticus secondary to viral upper respiratory infection. The hospital stay was relatively non-complicated. 11 pages of hospital documentation was reviewed, and found to be significant for a chest x-ray completed on May 19 was interpreted as being a normal x-ray examination of the chest, and a positive human Metaphneumo virus swab. He did temporarily require supplemental oxygen. Upon discharge, the patient completed a 12 day course of prednisone. Today, he presents to the office ambulatory and currently on room air. He believes he has improved since hospital discharge. He states that he always feels better while on prednisone, but a few days after completing the prednisone he begins to feel like crap again. He admits that on a daily basis he uses his rescue inhaler several times. He believes he has gotten so used to his symptoms that he is chronically short of breath, chronically wheezing but goes along with his activities of daily living because he believes that this is all the better symptom resolution he can get. He experiences shortness of breath on exertion. He frequently has a dry cough. Denies any sputum production or hemoptysis. He frequently has wheezing, and chest tightness. He denies any chest pain or palpitations. He has not experienced any fever, chills or body aches. He is compliant with Brio daily. He reports rinsing his mouth out after each use. He denies any medication side effects such as sore throat or thrush. He frequently uses Chelly-D. He has been following with ENT. He reports that he has skin allergy testing due very soon. He admits that he knows he is allergic to dust, cats and dogs. 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 He tries to reduce the allergens in his home environment as much as possible, he has done such activities as placing filters in his furnace, using allergy reduction maintenance. Intake Vital Signs06/05/18 Height 6 ft 06/05/18 Weight: 274 lb 06/05/18 Body Mass Index (BMI) 37.1 Intake Visit Reasons: hospital f/u Chief Complaint: SOB Accompanied by: Self Allergies No Known Allergies Allergy (Verified 06/05/18 11:55) Medications Albuterol Inhaler [Ventolin Hfa] 2 puff INHALATION Q4H PRN PRN 05/20/13 [History Confirmed 06/05/18] Fexofenadine/Pseudoephedrin e [Chelly-D 12 Hour Tablet] 1 ea PO DAILY 11/16/16 [History Confirmed 06/05/18] Acetaminophen [Tylenol Tablet] 500 mg PO Q4H PRN tab 05/21/18 [Rx Confirmed 06/05/18] Guaifenesin/Codeine [Robitussin AC] 10 ml PO Q6H PRN PRN #250 ml 05/21/18 [Rx Confirmed 06/05/18] fluticasone propionate 50 mcg/actuation nasal spray,suspension 1 spray INTRANASAL DAILY #16 g 06/05/18 [Rx Confirmed 06/05/18] montelukast 10 mg tablet 10 mg PO QPM #30 tab 06/05/18 [Rx Confirmed 06/05/18] fluticasone furoate 200 mcg-vilanterol 25 mcg/dose inhalation powder 1 inh INHALATION QDAY #60 ea 06/06/18 [Rx Confirmed 06/06/18] [facility] Medical History Acute hypoxic respiratory insufficiency (Resolved) Acute asthma exacerbation (Acute) Allergic rhinitis (Chronic) Bronchial asthma (Chronic) Acute bronchitis (Acute) Maxillary sinusitis (Acute) Surgical History H/O sinus surgery (Resolved) Family History Father Asthma Diabetes Hypertension Grandmother Asthma Social History Smoking Status: Former smoker Tobacco: How many years used: 10 how long ago did patient quit smokin, 1ppd second hand exposure: Yes alcohol intake: never substance use type: does not use Review of Systems Const CONSTITUTIONAL: No anorexia, No body ache, No chills, No daytime sleepiness, No fever(s), No night sweats, No stops breathing during sleep, No weight loss, No weight gain, No sleeping in chair, No orthopnea, Yes fatigue, No headache(s), No frequent colds, No seasonal allergies, No other EETM Ear Nose Throat Mouth: No hoarseness, No Dry mouth in morning, No change in vision, No itchy eyes, No eye pain, No Swallowing Difficulty, No ear pain, No nose bleed, No headache(s), No mouth pain, No nasal congestion, No nasal discharge, No sinus pain, No sinus pressure, No sore throat, No other Cardio Cadriovascular: No chest pain, No chest pain at rest, No chest pain with activity, No irregular heart rhythm, No shortness of breath when lying down, No palpitations, No other Resp Respiratory: Yes as per HPI, No shortness of breath at rest, No pain with cough, No chest congestion, No cough, No chest tightness, No pain on inspiration, No Inhalers, No Increase use of Rescue Inhalers, No snoring, No apnea, No other Gastro Gastrointestional: Negative bloody stools, change in appetite, difficulty swallowing, reflux, hematemesis, melena stool, loose stool, constipation or other Genitourinary: Negative blood in urine, nocturia, pain with urination or other Musc Musculoskeletal: Negative body pain, back pain, neck pain or other Skin/Breast Skin/Breast: No dry skin, No itching, No unusual bruising, No breast lump, No other Neuro Neurological: Negative restless legs, confusion, weakness or other Psych Psychocological: Negative abnormal sleep pattern, anxiety, thoughts of hurting self/others, hopelessness or other Lymph Lymphatic: No easy bleeding, No easy bruising, No other Exam Const Constitutional: Positive conversant, cooperative, in no acute respiratory distress, healthy appearing, well developed, well nourished and good hygiene Head Head: Yes normocephalic, Yes atraumatic Eyes Eye: Positive clear conjunctiva and nystagmus; negative scleral abnormality Ears Ear: Positive external ears normal; negative hearing normal or hard of hearing Nose Nose: Yes external nose normal Mouth Mouth: Positive oral mucosae normal, good dentition and posterior oropharynx is adequate; negative oral thrush present Mallampati Score: I: Mallampati Score Neck Neck: Positive normal visual inspection, full ROM and trachea midline; negative lymphadenopathy, JVD or tender Chest Wall Chest: Positive normal inspection of the chest and symmetric chest movement; negative increased A/P diameter Resp lung sounds: Positive good air exchange, diminished, wheeze present on forced exhalation and normal expiratory time; negative rhonchi, rales, dullness to percussion or use of accessory muscles Cardio Cardiac: Positive regular rate, regular rhythm, S1 normal, S2 normal and normal PMI; negative murmur GI GI: Positive normal to inspection; negative distended Genitourinary: Positive deferred Musc Musculoskeletal: Positive steady gait and ROM normal; negative kyphosis or scoliosis Skin Pulmonary Skin Exam: Positive intact; negative lesion, rash or ulcers Pulses Pulse: Yes radial pulses present Extremities Extremities: Yes capillary refill normal, No clubbing, No cyanosis, No edema Neuro Neurologic: Yes no focal neuro deficits, Yes conversant, Yes cooperative, Yes normal cognition, Yes normal coordination, Yes normal concentration, Yes understands questions, No tremor Lymph Lymphatic: No lymphadenopathy, No tenderness, No cervical adenopathy Psych Appearance: Positive grossly normal, eye contact and well kempt Mental Status: Positive mental status grossly normal Mood: Positive congruent mood Affect: Positive normal affect Coding Level of Care Code Off vis,est,level 4 Diagnoses Severe persistent asthma with acute exacerbation J45.51 Asthma persistence: persistent Asthma severity: severe Viral upper respiratory infection J06.9 06/06/18 1509 <Electronically signed by Catina FREIRE> Date Catina FREIRE Cosigner Signature: Date (if applicable) CC: Marleni Holly Start: 05-19-2018 End: 05-19-2018 Emergency Department Summary Comments: See Note; NOTES: [facility] Medical Records Department [address] [place] [address] Emergency Department Summary 05/19/18 2135 MR#: [id number] Acct: [id number] Name: MART BAUMANN Rep #: [id number] : 1985 33 From: Mandeep Doherty MD PCP: Marleni Holly NP Status: REG ER History of Present Illness Chief Complaint: Shortness of Breath Detail of Chief Complaint: History of asthma and respiratory failure Informant: Patient Context: Onset with activity, Sudden Onset Timing: Continuous Quality: Difficulty breathing with wheezing and cough Location: Respiratory Current Severity: Severe Maximum Severity: Severe Worsened by: Activity and coughing Relieved by: Nothing Associated Symptoms: Runny nose, aches, subjective fever Narrative: Patient is a 33-year-old gentleman has history of asthma. He presents with difficult to breathing and wheezing. Onset several days ago. He does have URI type symptoms. Denies headache, photophobia, neck pain or neck stiffness. He denies chest pain. He denies GI or symptoms. He denies rash. He denies any neurologic symptoms. - Past Medical History (1) Acute asthma exacerbation Status: Acute (2) Acute hypoxic respiratory insufficiency Status: Resolved (3) Allergic rhinitis Status: Chronic (4) Bronchial asthma Status: Chronic Past Medical History - Allergies and Home Meds Allergies/Adverse Reactions: Allergies No Known Allergies Allergy (Verified 05/19/18 20:31) Primary Care Physician: Marleni Holly, ADAM-C [Primary Care Provider] - Prior records reviewed: Yes Surgical History: no surgical history Lives: Alone Smoking Status: Former smoker Alcohol: None - Family History Maternal Family History: Family History (Last Updated 05/18/18 @ 10:54 by Leia Boykin) Father Asthma Diabetes Hypertension Grandmother Asthma Family History: Reports: No pertinent history Paternal Family History: Family History (Last Updated 05/18/18 @ 10:54 by Leia Boykin) Father Asthma Diabetes Hypertension Grandmother Asthma Family History: Reports: Asthma, Diabetes, Hypertension Review of Systems General: Reports: Chills, Fever, Subjective, Sweats. Denies: Weight loss Eyes: Denies: Visual changes - bilaterally, Blurred vision - left, Diplopia ENT: Denies: Rhinorrhea, Sore throat Cardiovascular: Reports: Palpitations. Denies: Chest pain Respiratory: Reports: Dyspnea, Cough, Sputum, Dyspnea on exertion. Denies: Orthopnea, Paroxysmal nocturnal dyspnea Gastrointestinal: Denies: Abdominal pain, Nausea, Vomiting, Diarrhea, Melena, Hematochezia Genitourinary: Denies: Dysuria, Hematuria, Frequency Musculoskeletal: Denies: Back pain, Extremity Pain Skin: Denies: Rash, Wounds Neurological: Denies: Headache, Weakness, Numbness Allergy: Denies: Uticaria, Swelling of the mouth Physical Exam Vital Signs/Narrative: Vital Signs Inital Vital Signs reviewed: Yes General: Well nourished, Well developed, Acute Distress Head: Normocephalic, Atraumatic Eyes: Perrl, EOMI. Negative for: Pale conjunctiva, Scleral icterus ENT: Moist mucous membranes, TM's clear, Nasal congestion Neck: Supple, Nontender, No lymphadenopathy, No JVD Cardiovascular: Regular rhythm, No murmurs, Normal S1, Normal S2, Tachycardia Respiratory: Wheezing, Decreased Air Movement, - - With respiratory distress and use of accessory muscles. Abdomen: Soft, Nontender, Nondistended, Normal bowel sounds, No masses Rectal: Deferred Back: Nontender, Normal Inspection Extremities: Nontender, No edema. Negative for: Calf Tenderness Skin: Normal color, No rash, - - Face is flushed Neurological: Alert, Oriented x3, Cranial nerves II-XII grossly intact, Normal Strength, Normal Sensation Psychological: Normal affect, Normal Mood Diagnostic/Tx/Re-eval Chest X-Ray - ED: 2 View, Read by ED Physician, Normal, Heart, Lungs, Mediastinum, Bony Structures, No Acute Disease 05/19/18 21:55 Chest PA and Lateral [RAD] Stat 05/19/18 20:37 Mucosa - Nasopharyngeal Influenza Types A,B Direct FA (DEUCE) - Final Laboratory Results WBC 8.8 RBC 5.11 Hgb 16.0 Hct 45.7 MCV 89.4 MCH 31.3 MCHC 35.0 RDW 12.4 RDW Differential 40.1 Plt Count 245 - Medical Decision Making Patient with acute exacerbation of asthma secondary to respiratory infection. Baseline blood work was obtained and chest x-ray to evaluate for pneumonia. He was treated with DuoNeb, albuterol systemic steroids. He was reassessed at 21: 35. He is still tachypneic with wheezing heard throughout. He is still tachycardic. Patient has been examined multiple times. He is presently on oxygen. He still tachypneic with significant wheezing. Will administer fourth and fifth aerosol treatment and hospitalist has been paged for admission. ED Disposition - Plan for ED Patient: Disposition: Acute Care Hospital [facility] Diagnosis: Asthma with status asthmaticus, Viral upper respiratory infection Referrals: Marleni Holly, WELDING MACHINE OPERATOR [employer]LECTROS[employer]-C [Primary Care Provider] - What to do if you have Problems For any increased pain, shortness of breath, bleeding, nausea or vomiting, chest pain, or any unexpected problems, contact your Primary Care Provider. Call [facility] ([phone]) or report to the closest Emergency Room. Call 911 if necessary. 05/19/18 6534 <Electronically signed by Mandeep Doherty MD> Date Mandeep Doherty MD Cosigner Signature (If Indicated): Date CC: Marleni Holly WELDING MACHINE OPERATOR ELECTROSLAG; Chilo Holly Start: 05-05-2018 End: 05-06-2018 Chest PA and Lateral Comments: See Note; NOTES: [facility] Imaging Services [address] [place] [address] Chest PA and Lateral MR#: [id number] Acct: [id number] Name: MART BAUMANN Rep #: [id number] : 1985 M 33 From: Mushtaq Steele MD PCP: Fritz Murphy MD Status: REG CLI Study: Chest PA and Lateral Date of Exam: 05/05/18 Exam# [id number] Ordering Dr: Korey Adkins MD STUDY: X-RAY CHEST REASON FOR EXAM: Male, 33 years old. Cough TECHNIQUE: PA and lateral views of the chest. COMPARISON: 07/14/2015 FINDINGS: The lungs are clear and expanded. There is no demonstrated pleural abnormality. Normal size heart. Normal mediastinum and brie. Normal visualized pulmonary arteries. Normal visualized aortic arch and descending thoracic aorta. Normal visualized thoracic spine. Normal visualized ribs, clavicles, and shoulders. There is no demonstrated abnormality of the visualized soft tissue structures of the upper abdomen. RAD/Chest PA and Lateral IMPRESSION: No airspace consolidation or pleural effusion. Electronically Signed: Muhstaq Steele MD at 16:48 EST , Service support , CC: Myke Adkins MD; Fritz Murphy MD Gasoline Dragline Operator: Signed Marleni Holly Start: 12-07-2015 End: 12-07-2015 Pulmonary Function Report Comp Comments: See Note; NOTES: [facility] [facility]Neurology [address] [place] [address] Pulmonary Function Test (Comp) MR#: [id number] Acct: [id number] Name: MART BAUMANN Rep #: [id number] : 1985 30 From: Chilo Thomas MD Referring Dr: Chilo Thomas MD Status: REG CLI Ordering Dr: Chilo Thomas MD Date: 12/05/15 Location: [facility] Sex: M C DATE OF SERVICE: 12/05/2015 BRIEF HISTORY OF PRESENT ILLNESS: The patient is a 30-year-old male, currently under the care of myself, who presents for a complete pulmonary function test secondary to a diagnosis of asthma. The respiratory therapist reported good patient effort and reproducible results. INTERPRETATION: Forced expiration spirometry demonstrates a mild large airways obstructive ventilatory defect. There is improvement following bronchodilators, but this does not reach significance by ATS criteria. Spirograms are of good quality and do not plateau indicating slowly emptying areas of the lung. The respiratory flow volume loop shows decreased expiratory flow rates at all lung volumes consistent with airways obstruction. Lung volumes by body plethysmography show an elevated total lung capacity at 9.08 liters, 120% of predicted. FRC and RV are elevated at 138% and 215% predicted respectively. These findings are consistent with air trapping with hyperinflation. Diffusion capacity by single breath carbon monoxide is preserved at 115% of predicted. Airway resistance is normal. No previous studies are available for comparison. IMPRESSION: Mild large airways obstructive ventilatory defect resulting in air trapping and hyperinflation. CHILO THOMAS MD T: NTS JOB: [id number] 12/07/15 0710 <Electronically signed by Chilo Thomas MD> Date Chilo Thomas MD CC: Chilo Thomas MD; Fritz Murphy MD Date Dictated: 12/06/1549 Date Transcribed: 12/06/15648 Gasoline Dragline Operator: Signed Marleni Holly Start: 10-23-2015 End: 10-23-2015 Chest without Contrast Comments: See Note; NOTES: [facility] Imaging Services [address] [place] [id number] [address] 4d Chest without Contrast MR#: [id number] Acct: [id number] Name: MART BAUMANN Rep #: [id number] : 1985 [facility] From: Anderson Payne MD PCP: Fritz Murphy MD Status: REG CLI Study: Chest without Contrast Date of Exam: 10/23/15 Exam# [id number] Ordering Dr: Catina Lainez WELDING MACHINE OPERATOR ELECTROSLAG-Hina STUDY: CT CHEST WITHOUT CONTRAST REASON FOR EXAM: Male, 30 years old. Asthma. RADIATION DOSAGE (If Supplied By Facility): CTDIvol = ( 19.45 ) mGy, DLP = ( 747.39 ) mGycm TECHNIQUE: Transaxial imaging was performed without the administration of intravenous contrast material. Individualized dose optimization techniques were used for this CT. COMPARISON: None. FINDINGS: The lungs are normal. There is no demonstrated pleural abnormality. Normal heart and pericardium. Small residual thymus is seen within the anterior mediastinum. Calcified right hilar lymph nodes. Normal unenhanced pulmonary arteries. Normal aorta arch and descending thoracic aorta. Normal osseous structures. There is no demonstrated abnormality of the visualized upper abdomen. CT/Chest without Contrast IMPRESSION: Normal unenhanced CT Chest examination. Electronically Signed: Anderson Payne MD at 10:59 EDT Tel [phone], Service support [phone], CC: Catina Lainez; Fritz Murphy MD Gasoline Dragline Operator: Signed Marleni Holly Start: 07-24-2015 End: 07-24-2015 Sinus/Facial Bone Comments: See Note; NOTES: [facility] Imaging Services [address] [place] [id number] Verdana 4d Sinus/Facial Bone MR#: [id number] Acct: [id number] Name: MART BAUMANN Rep #: [id number] : 1985 [facility] From: Valencia Cook MD PCP: Fritz Murphy MD Status: REG CLI Study: Sinus/Facial Bone Date of Exam: 07/24/15 Exam# [id number] Ordering Dr: Korey Adkins MD STUDY: CT MAXILLOFACIAL SINUSES REASON FOR EXAM: Male, 30 years old. SINUS PAIN AND PRESSURE, DIZZINESS RADIATION DOSAGE (If Supplied By Facility): CTDIvol = ( 43.4 ) mGy, DLP = ( 1106.78 ) mGycm TECHNIQUE: The patient was scanned in a multi detector CT scanner. High resolution axial imaging was performed without the administration of intravenous contrast material. Sagittal and coronal images were reconstructed. Individualized dose optimization techniques were used for this CT. COMPARISON: None. FINDINGS: FRONTAL SINUSES: Marked mucosal thickening within the frontal sinuses consistent with chronic sinusitis. ETHMOIDAL SINUSES: Marked mucosal thickening is noted consistent with chronic sinusitis. MAXILLARY SINUSES: Marked mucosal thickening is noted consistent with chronic sinusitis. SPHENOIDAL SINUSES: Marked mucosal thickening is noted consistent with chronic sinusitis. There is a large defect in the medial wall of the right and left maxillary sinuses from prior surgery. Decreased size of the middle turbinates due to prior surgery. Normal bilateral inferior turbinates. There is a defect in the posterior aspect of the nasal septum. There is patency of the bilateral nasal airways. The visualized bilateral orbital contents are normal. IMPRESSION: Chronic sinusitis. Postsurgical changes in the maxillary sinuses, middle turbinates and in the nasal septum. Electronically Signed: Valencia Cook MD at 8:06 EDT Tel , Service support [phone], CC: Myke Adkins MD; Fritz Murphy MD Gasoline Dragline Operator: Signed Marleni Holly Start: 07-14-2015 End: 07-14-2015 History and Physical Exam Comments: See Note; NOTES: [facility] Medical Records Department [address] [place] [address] History and Physical 07/14/15 2245 MR#: [id number] Acct: [id number] Name: MART BAUMANN Rep #: [id number] : 1985 30 From: Bret Torre MD PCP: Fritz Murphy MD Status: REG ER Y Location: ED Problem List (1) Asthma Status: Acute Qualifiers: Asthma severity: severe persistent Asthma complication type: with acute exacerbation Qualifier Code: (J45.51) Severe persistent asthma with (acute) exacerbation (2) Hypoxia Status: Acute History of Present Illness Date of Admission: 07/14/15 Chief Complaint: shortness of breath The patient is a 30 year old male patient with chronic shortness of breath for the past one year presents to the ER in acute respiratory distress. The patient was breathing rapidly and shallow upon arrival. His initial pulse oxygenation was 89% on room air and is now 92% on 3liters of oxygen. He has received four breathing treatment and IV solumedrol. He has improved but continues to be short of breath. He has no chest pain, fever or nausea. Hospitalist service called to admit the patient for shortness of breath. Eosinophils are markedly elevated and undelying allergy trigger is suspected. Past Medical History Allergies No Known Allergies Allergy (Verified 04/05/14 10:09) Home Medications: Ambulatory Orders Medication Instructions Recorded Albuterol Inhaler [Ventolin Hfa] 2 puff INHALATION Q4H PRN PRN 05/20/13 Ascorbic Acid [Vitamin C] 500 mg PO DAILY@0800 04/05/14 Fluticasone 0.05% [Flonase Nasal 1 spray NASAL BID 04/05/14 [place]] Fluticasone/Salmeterol [Advair 1 puff INHALATION BID 07/14/15 250/50 Mcg Diskus] Surgical History: no surgical history Smoking Status: Never smoker - *Family History Maternal History Items: No pertinent history Review of Systems Constitutional: Denies: Chills, Fever, Weight Change HEENT: Denies: Head Aches, Sinus Congestion, Sinus Drainage Cardiovascular: Denies: Chest Pain, Palpitations Respiratory: Reports: Cough, Shortness of breath at rest, Wheezing. Denies: Sputum production Gastrointestinal: Denies: Abdominal Pain, Nausea, Vomiting Genitourinary: Denies: Dysuria Musculoskeletal: Denies: Joint Pain, Joint Tenderness Skin: Denies: Rash, Wounds Neurological: Denies: Numbness, Tingling, Focal weakness Psychiatric: Denies: Anxiety, Depression, Homicidal Ideations, Suicidal Ideations Hematologic/ Lymphatic: Denies: Easy Bruising, Easy Bleeding VTE Information - Inpt Only VTE Present on Admission: No VTE Mechan Device Prophylaxis: None VTE Pharm Prophylaxis ordered?: Yes - Physical Exam General: Alert, Oriented x3, Cooperative HEENT: Atraumatic, Normocephalic Neck: Supple Lungs: No rhonchi, No rales, Diminished, Short of Breath, Tachypneic, Wheezes Cardiovascular: Regular rate, Normal S1, Normal S2, No murmurs Abdomen: Bowel Sounds Present, Soft, Non Tender Extremities: No edema, Capillary Refill Less than 3 Seconds Skin: No rashes, No breakdown Musculoskeletal: No Tenderness to Palpation of Joints or Extremities Neurological: Neuro grossly intact Psych/Mental Status: Normal Affect, Appropriate Vital Signs Temp Pulse Resp BP Pulse Ox 96.8 F 105 18 135/71 92 07/14/15 21:11 07/14/15 22:25 07/14/15 22:25 07/14/15 22:25 07/14/15 22:25 Oxygen Flow Rate 3 Oxygen Delivery Method Nasal Cannula Weight: 244 lb 11.41 oz Body Mass Index (BMI) 34.1 Laboratory Tests Past 24 Hrs 07/14/15 21:20 WBC 13.4 H RBC 5.21 Hgb 16.6 H Hct 46.4 MCV 89.1 MCH 31.9 MCHC 35.8 RDW 12.3 RDW Differential 40.2 Plt Count 281 MPV 9.9 Immature Gran % (Auto) 0.400 Neut % (Auto) 50.3 Lymph % (Auto) 24.3 [place] % (Auto) 6.5 Eos % (Auto) 17.5 H Baso % (Auto) 1.0 Absolute Neuts (auto) 6.7 Absolute Lymphs (auto) 3.26 Total Counted Not Reportable Differential Comment SCANNED Diff Path Review May foll Sodium 143 Potassium 3.5 Chloride 110 H Carbon Dioxide 25.0 Anion Gap 8 BUN 10 Creatinine 1.03 Estim Creat Clear Calc 109.66 Est GFR (MDRD) Af Amer 107 Est GFR (MDRD) Non-Af 89 BUN/Creatinine Ratio 9.7 L Glucose 117 H Lactic Acid 1.7 Calcium 8.5 Assessment/Plan Active and Suspected Problems Asthma (Acute) Hypoxia (Acute) Plan - admit to PCU - IV solumedrol 60mg q 6hrs - Oxygen per protocol - duoneb inh q 4hrs - levaquin 500mg IV q day - cbc, bmp in am - zone 8 allergy test - LMWH for DVT prophylaxis 07/14/15 3241 <Electronically signed by Bret Torre MD> Date Bret Torre MD Cosigner Signature (if applicable): Date CC: Fritz Murphy MD; Bret Torre MD Signed Marleni Lockwoodlarissalevon Jaw Luann Slarb Comment on above: 2009 Jaw Tessa Sylvia Comment on above: 2009 Jaw El Baumann Comment on above: 2009 Jaw MICHAEL Parkinson Comment on above: 2009 Jaw El Baumann Comment on above: 2009 Jaw Luann Slarb Comment on above: 2009 Harry Baumann Comment on above: 2009 Jaw MICHAEL Iggy Comment on above: 2009 Jaw Luann Slarb Comment on above: 2009 Jaw MICHAEL Iggy ELEMENTARY INSTRUCTIONAL COACH Comment on above: 2009 Jaw MICHAEL Iggy ELEMENTARY INSTRUCTIONAL COACH Comment on above: 2009 Jaw MICHAEL Iggy ELEMENTARY INSTRUCTIONAL COACH Comment on above: 2009 Jaw Luann Slarb LP N Comment on above: 2009 Jaw Tiffany Alvarez PN Comment on above: 2009 Jaw Luann Slarb LP N Comment on above: 2009 Knee Luann Slarb Comment on above: Bilateral-ACL, MCL 2 002 Knee Tessa Sylvia Comment on above: Bilateral-ACL, MCL 2 002 Knee El Baumann Comment on above: Bilateral-ACL, MCL 2 002 Knee MICHAEL Iggy Comment on above: Bilateral-ACL, MCL 2 002 Knee El Baumann Comment on above: Bilateral-ACL, MCL 2 002 Knee Luann Slarb Comment on above: Bilateral-ACL, MCL 2 002 Knee El Baumann Comment on above: Bilateral-ACL, MCL 2 002 Knee MICHAEL Iggy Comment on above: Bilateral-ACL, MCL 2 002 Knee Luann Slarb Comment on above: Bilateral-ACL, MCL 2 002 Knee MICHAEL Iggy ELEMENTARY INSTRUCTIONAL COACH Comment on above: Bilateral-ACL, MCL 2 002 Knee MICHAEL Iggy ELEMENTARY INSTRUCTIONAL COACH Comment on above: Bilateral-ACL, MCL 2 002 Knee MICHAEL Iggy ELEMENTARY INSTRUCTIONAL COACH Comment on above: Bilateral-ACL, MCL 2 002 Knee Luann Slarb LP N Comment on above: Bilateral-ACL, MCL 2 002 Knee Tiffany Alvarez PN Comment on above: Bilateral-ACL, MCL 2 002 Knee Luann Slarb LP N Comment on above: Bilateral-ACL, MCL 2 002 Left knee meniscal clean up 2021 Luann Slarb ELEMENTARY INSTRUCTIONAL COACH Tarsal tunnel Luann Slarb Tarsal tunnel Tessa Locklea r Tarsal tunnel El Baumann Tarsal tunnel MICHAEL Iggy Tarsal tunnel El Baumann Tarsal tunnel Luann Slarb Tarsal tunnel El Baumann Tarsal tunnel MICHAEL Iggy Tarsal tunnel Luann Slarb Tarsal tunnel MICHAEL Iggy ELEMENTARY INSTRUCTIONAL COACH Tarsal tunnel MICHAEL Iggy ELEMENTARY INSTRUCTIONAL COACH Tarsal tunnel MICHAEL Iggy ELEMENTARY INSTRUCTIONAL COACH Tarsal tunnel Luann Slarb L PN Tarsal tunnel Tiffany Sabina ELEMENTARY INSTRUCTIONAL COACH Tarsal tunnel Luann Slarb L PN Viral antigen assay Dr. Fritz Murphy Work Phone: Plan of Treatment Date Care Activity Detail Author Start: 01-12-2024 End: 01-12-2024 ambulatory 01/12/2024 8:00 AM EST Procedure [facility] [address] [place] [address] BASIC SEMEN ANALYSIS-collection at facility [facility] Comment on above: BASIC SEMEN ANALYSIS -collection at facility Start: 01-06-2024 End: 04-06-2024 BASIC SEMEN ANALYSIS BASIC SEMEN ANALYSIS Andrology Routine Encounter for fertility testing Expected: 01/06/2024, Expires: 04/06/2024 [facility] Work Phone: Comment on above: Expected: 01/06/2024 , Expires: 04/06/2024 Start: 10-30-2023 Covid-19 Vaccine ( season) Covid-19 Vaccine ( season) [facility] Start: 10-30-2023 Influenza vaccination Influenza Vacc ine (#1) [facility] Start: 10-29-2022 Covid-19 Vaccine ( season) Covid-19 Vaccine ( season) [facility] Start: 10-29-2022 Influenza vaccination Influenza Vacc ine (#1) [facility] Start: 02-28-2022 Depression Assessment Depression Ass essment [facility] Start: 01-25-2022 Comprehensive metabo lic panel METABOLIC PANEL, COMPREHENSIVE (47784) [facility] Work Phone: Comment on above: Do around 2022 Start: 01-20-2022 Procedure Education Eprescribe d prescriptions (G8553) [facility] Work Phone: Start: 01-20-2022 Provider Instruction s for Treatment [facility] Work Phone: Start: 01-20-2022 Urnls dip stick/tabl et reagent auto microscopy URINALYSIS, W/ MICRO (44119) [facility]; [facility] Work Phone: Start: 01-20-2022 Blood count complete auto&auto difrntl wbc CBC, PLATELETS & AUT DIFF (14078) [facility]; [facility] Work Phone: Start: 01-20-2022 Comprehensive metabo lic panel METABOLIC PANEL, COMPREHENSIVE (90536) [facility]; [facility] Work Phone: Start: 01-14-2022 Patient discharge [facility] Work Phone: Start: 01-13-2022 Ambulation without limitation [facility] Work Phone: Start: 01-13-2022 Assessment of risk o f venous thromboembolism [facility] Work Phone: Start: 01-13-2022 Catheterization of vein [facility] Work Phone: Start: 01-13-2022 Incentive spirometry [facility] Work Phone: Start: 01-13-2022 Inhalation therapy procedure [facility] Work Phone: Start: 01-13-2022 Insertion of cathete r into peripheral vein [facility] Work Phone: Start: 01-13-2022 Measuring intake and output [facility] Work Phone: Start: 01-13-2022 Providing care accor ding to standard [facility] Work Phone: Start: 01-13-2022 Referral to service [facility] Work Phone: Start: 01-13-2022 Following clinical pathway protocol [facility] Work Phone: Start: 01-13-2022 Factor V Leiden genotype [facility] Work Phone: Start: 01-13-2022 Procedure [facility] Work Phone: Start: 01-13-2022 End: 01-13-2022 [facility] Work Phone: Start: 01-13-2022 Verification routine [facility] Work Phone: Start: 01-13-2022 Admission procedure [facility] Work Phone: Start: 01-13-2022 Patient referral to dietitian [facility] Work Phone: Start: 01-04-2022 Procedure Education Eprescribe d prescriptions (G8553) [facility] Work Phone: Start: 09-02-2021 Basic metabolic pane l calcium total METABOLIC PANEL, BASIC (38803) [facility]; [facility] Work Phone: Comment on above: prior to next ov mar or april 2022 Start: 09-02-2021 Lipid panel LIPID PANEL (72689) [facility]; [facility] Work Phone: Comment on above: prior to next ov in mar or april 2022fasting Start: 08-28-2021 Procedure Education Eprescribe d prescriptions (G8553) [facility]; [facility] Work Phone: Start: 08-28-2021 Blood count complete auto&auto difrntl wbc CBC with auto diff (19460) [facility]; [facility] Work Phone: Start: 08-28-2021 Assay of thyroid stimulating hormone tsh TSH (87779) [facility]; [facility] Work Phone: Start: 08-28-2021 Urnls dip stick/tabl et reagent auto microscopy URINALYSIS, W/ MICRO (24497) [facility]; [facility] Work Phone: Start: 08-28-2021 Comprehensive metabo lic panel METABOLIC PANEL, COMPREHENSIVE (22659) [facility]; [facility] Work Phone: Start: 08-28-2021 Blood count manual c ell count each CBC with auto diff (37518) [facility]; [facility] Work Phone: Start: 08-28-2021 25 hydroxy includes fractions if performed CALCIFEDIOL (24911) [facility]; [facility] Work Phone: Start: 08-28-2021 Lipid panel LIPID PANEL (47326) [facility]; [facility] Work Phone: Start: 08-27-2021 Drug screen non tlc devices Urine Drug Screen -Medicare (Office - Urine Drug Screen 9 Panel) (56686) [facility]; [facility] Work Phone: Comment on above: negative for all exc ept amphetamines had 2 count adderall 15mg capsules on him. ayden farah Start: 03-06-2021 Procedure Education Eprescribe d prescriptions (G8553) [facility]; [facility] Work Phone: Start: 06-03-2020 Procedure Education Eprescribe d prescriptions (G8553) [facility]; [facility] Work Phone: Start: 06-03-2020 Provider Instruction s for Treatment COVID SCREENING FORM [facility]; [facility] Work Phone: Start: 11-23-2019 Procedure Education Eprescribe d prescriptions (G8553) [facility] Work Phone: Start: 10-13-2018 Procedure Education Eprescribe d prescriptions (G8553) [facility] Work Phone: Start: 07-10-2018 Procedure Education Eprescribe d prescriptions (G8553) [facility] Work Phone: Start: 07-10-2018 Provider Instruction s for Treatment Follow up in 3 months [facility] Work Phone: Start: 05-24-2018 Procedure Education Eprescribe d prescriptions (G8553) [facility] Work Phone: Start: 05-24-2018 Provider Instruction s for Treatment Follow up in 1 month [facility] Work Phone: Start: 05-07-2018 Protein total xcpt refractometry urine UPEP (78224) [facility] Work Phone: Start: 05-07-2018 Protein electrophore tic fractj&quantj serum SPEP (24559) [facility] Work Phone: Start: 05-07-[address] ain bodies/parasits SMEAR+INTERP SPECL STAIN (68489) [facility] Work Phone: Start: 05-05-2018 Blood count complete auto&auto difrntl wbc CBC, Platelets & Auto Diff (90342) [facility] Work Phone: Start: 05-05-2018 Comprehensive metabo lic panel Metabolic Panel, Comprehensive (89414) [facility] Work Phone: Start: 05-05-2018 25 hydroxy includes fractions if performed CALCIFEDIOL (91621) [facility] Work Phone: Start: 05-05-2018 Lipid panel LIPID PANEL (89834) [facility] Work Phone: Start: 05-05-2018 Procedure Education Eprescribe d prescriptions (G8553) [facility] Work Phone: Start: 05-05-2018 Provider Instruction s for Treatment [facility] Work Phone: Start: 2018 Lipid 1996 panel - S clement or Plasma Lipid Screening [facility] Start: 2018 Lipid panel Lipid Screening [facility] Start: 04-11-2017 Procedure Education Eprescribe d prescriptions (G8553) [facility] Work Phone: Start: 04-04-2017 Lipid panel Comprehens [facility] Work Phone: Start: 02-14-2017 Procedure Education Eprescribe d prescriptions (G8553) [facility] Work Phone: Start: 02-14-2017 Provider Instruction s for Treatment Follow up -Make apt with Dr. Murphy in next week or two, Dr. Murphy Oked this for aDD work up [facility] Work Phone: Start: 04-10-2015 Procedure Education Eprescribe d prescriptions (G8553) [facility] Work Phone: Start: 12-14-2013 Provider Instruction s for Treatment [facility] Work Phone: Start: 11-30-2013 Provider Instruction s for Treatment Follow up in 1 week [facility] Work Phone: Start: 2002 Hepatitis B Vaccine (1 of 3 - 19+ 3-dose series) Hepatitis B Vaccine (1 of 3 - 19+ 3-dose series) [facility] Start: 2002 Urine microalbumin profile DTaP,Tdap,Td Vaccine (1 - Tdap) [facility] Start: 2001 Anxiety Screening Anxiety Screening [facility] Start: 2001 Depression Screening Depression Scre [facility] Start: 2001 Hepatitis C Screening Hepatitis C [facility] Start: 2001 Hepatitis C screening Hepatitis C [facility] Start: 2001 HIV Screening HIV Screening [facility] Start: 2001 HIV screening HIV Screening [facility] Start: 1983 Hepatitis B Vaccine (1 of 3 - 3-dose series) Hepatitis B Vaccine (1 of 3 - 3-dose series) [facility] Antithrombin III assay [facility] Work Phone: Antithrombin III ass ay, functional [facility] Work Phone: Beta 2 glycoprotein 1 IgA Ab [Presence] in Serum [facility] Work Phone: Beta 2 glycoprotein 1 IgG Ab [Presence] in Serum [facility] Work Phone: Beta 2 glycoprotein 1 IgM Ab [Presence] in Serum [facility] Work Phone: Cardiac event recording [facility] Work Phone: Cardiolipin IgG Ab [Units/volume] in Serum or Plasma [facility] Work Phone: Cardiolipin IgM Ab [Units/volume] in Serum or Plasma [facility] Work Phone: F5 gene mutations fo und [Identifier] in Blood or Tissue by Molecular genetics method [employer] [facility] Work Phone: Influenza virus A an d B RNA and SARS-CoV-2 (COVID-19) N gene panel - Respiratory specimen by CONG with probe detection COVID & INFLUENZA A/B NAAT, ROUTINE Microbiology Routine Lower resp. tract infection Ordered: 01/30/2023 [facility] Work Phone: Comment on above: Ordered: 01/30/2023 Patient referral [facility] Work Phone: Procedure [facility] Work Phone: Protein C [Units/vol ume] in Platelet poor plasma by Coagulation assay [facility] Work Phone: Protein C Ag actual/normal in Platelet poor plasma by Immunoassay [facility] Work Phone: SARS-CoV-2 (COVID-19 ) Ag [Presence] in Respiratory specimen by Rapid immunoassay [facility] Work Phone: Targeted analysis fo r gene mutation [facility] Work Phone: [facility] Work Phone: [facility] Work Phone: [facility] Work Phone: [facility] Work Phone: [facility] Work Phone: [facility] Work Phone: [facility] Work Phone: Immunizations Immunization Date Immunization Notes Care Provider [facility] 07-16-2020 Covid (Pfizer) Dr. Fritz serrato Work Phone: [facility] 11-30-2019 influenza, injectable,quadrivalent, preservative free, pediatric Dr. Fritz Murphy Work Phone: [facility] 11-30-2019 pneumococcal polysaccharide vaccine, [address] Fritz Murphy Work Phone: [facility] 11-30-2019 influenza virus vacc ine, unspecified formulation Mirela Medina APRNYordanNICKING MACHINE OPERATOR Work Phone: [facility] 03-08-2019 pneumococcal conjuga te vaccine, [address] Fritz Murphy Work Phone: [facility] Payers Date Payer Category Payer Self-pay [id number] 2022 Unknown 2014 Unknown [id number] 1985 Unknown [id number] 2.16.84 [id number] Unknown [id number] 2.16.8 [id number] Unknown [id number] 2.16.8 [id number] Unknown [id number] 2.16.8 [id number] Unknown [id number] 2.16.8 [id number] Unknown [id number] 2.16.8 [id number] Unknown [id number] 2.16.8 [id number] Unknown [id number] 2.16.8 [id number] Unknown [id number] 2.16.8 [id number] Social History Date Type Detail Facility Alcohol use: Never smoker [facility] Work Phone: Tobacco use: Never smoker. [facility] Work Phone: Alcohol use: Alcohol use: [facility]; [facility] Work Phone: Tobacco use: Tobacco use: [facility]; [facility] Work Phone: Start: 01-13-2022 End: 11-20-2022 Tobacco smoking status NHIS Unknown if ever smoked [facility] Start: 07-15-2015 None [facility] Start: 05-20-2018 Alone [facility] Start: 05-21-2018 Chew [facility] Start: 1985 Sex Assigned At Male [facility] Start: 03-14-2021 End: 03-26-2024 Tobacco smoking status NHIS Ex-smoker [facility] History of tobacco use Current smoker [facility] Start: 03-14-2021 End: 03-26-2024 Tobacco use and exposure User of smokeless tobacco [facility] History of tobacco use Chews Tobacco [facility] Start: 03-14-2021 End: 03-26-2024 History of Social function [facility] Start: 03-14-2021 End: 03-26-2024 Tobacco use panel [facility] Start: 1985 Sex Assigned At Not on file [facility] Goals Date Patient Goal Desired Activity /State Functional Status Date Assessment Result Facility 01-14-2022 Functional status Ambulates [facility] Work Phone: Mental Status Date Assessment Result Facility 01-14-2022 Cognitive function Voice/Name [facility] Work Phone: Clinical Notes 11-20-2022 to 03-26-2024 Mirela Medina APRN.CNP - 03/26/2024 10:56 AM ESTPatient Apolonia Glynn MD - 01/05/2024 7:08 PM ESTTelephone Encounter - Mirela Medina APRN.CNP - 01/31/2023 7:14 AM EST Note Date & Type Note Facility 03-26-2024 Note HNO ID: [id number] Author: MIRELA MEDINA APRN.NICKING MACHINE OPERATOR Service: ? Author Type: Nurse Practitioner Type: Progress Notes Filed: 03/26/2024 11:06 Note Text: Subjective HPI HPI Mart Baumann is a 39 year old male who presents today for CC of cough, congestion, st. This started 1 week ago. Has tried otc medication for relief. Symptoms are worsened by nothing. Risk factors sick exposures and hx of asthma. .Patient presents with: Cough: Cough, ST, congestion and wheezing x 1 week History reviewed. No pertinent past medical history. No past surgical history on file. ALLERGIES Patient has no known allergies. MEDICATIONS albuterol HFA (PROVENTIL HFA, VENTOLIN HFA) 90 mcg/actuation inhaler Inhale 2 Puffs as instructed every 4 hours as needed for wheezing/shortness of breath. benralizumab (FASENRA PEN SUBCUTANEOUS) Inject subcutaneously. No family history on file. Social History Tobacco Use Smoking status: Former Smokeless tobacco: Current Types: Chew Review of Systems Constitutional: Negative for fever. HENT: Positive for congestion and sore throat. Negative for ear pain and nosebleeds. Respiratory: Positive for cough and sputum production. Negative for shortness of breath and wheezing. Cardiovascular: Negative for chest pain. Musculoskeletal: Negative for neck pain. Skin: Negative for itching and rash. Objective Blood pressure 122/80, pulse 82, temperature 36.8 ?C (98.3 ?F), temperature source Tympanic, resp. rate 16, weight 129.7 kg (285 lb 15 oz), SpO2 96%. Physical Exam Constitutional: General: He is not in acute distress. Appearance: He is not toxic-appearing or diaphoretic. HENT: Head: Normocephalic and atraumatic. Cardiovascular: Rate and Rhythm: Normal rate and regular rhythm. Heart sounds: Normal heart sounds, S1 normal and S2 normal. Pulmonary: Effort: Pulmonary effort is normal. Breath sounds: Examination of the left-lower field reveals rhonchi. Rhonchi present. No decreased breath sounds, wheezing or rales. Lymphadenopathy: Cervical: No cervical adenopathy. Right cervical: No superficial cervical adenopathy. Left cervical: No superficial cervical adenopathy. Neurological: Mental Status: He is alert and oriented to person, place, and time. Gait: Gait is intact. ASSESSMENT/PLAN: 1. Sinobronchitis - ICD9: 473.9, 490, ICD10: J32.9, J40 (primary diagnosis) - Will begin treatment with as per antibiotic as written, see orders - Supportive care with plenty of fluids, rest, and analgesia prn. - Follow up in 3-5 days if symptoms persist or worsen. - PREDNISONE 20 MG TABLET - DOXYCYCLINE MONOHYDRATE 100 MG TABLET 2. History of asthma - ICD9: V12.69, ICD10: Z87.09 Mirela Medina APRN.BEN [facility] 03-26-2024 History of Presen t illness Narrative Subjective HPI HPI Mart Baumann is a 39 year old male who presents today for CC of cough, congestion, st. This started 1 week ago. Has tried otc medication for relief. Symptoms are worsened by nothing. Risk factors sick exposures and hx of asthma. .Patient presents with: Cough: Cough, ST, congestion and wheezing x 1 week History reviewed. No pertinent past medical history. No past surgical history on file. ALLERGIES Patient has no known allergies. MEDICATIONS albuterol HFA (PROVENTIL HFA, VENTOLIN HFA) 90 mcg/actuation inhaler Inhale 2 Puffs as instructed every 4 hours as needed for wheezing/shortness of breath. benralizumab (FASENRA PEN SUBCUTANEOUS) Inject subcutaneously. No family history on file. Social History Tobacco Use Smoking status: Former Smokeless tobacco: Current Types: Chew Review of Systems Constitutional: Negative for fever. HENT: Positive for congestion and sore throat. Negative for ear pain and nosebleeds. Respiratory: Positive for cough and sputum production. Negative for shortness of breath and wheezing. Cardiovascular: Negative for chest pain. Musculoskeletal: Negative for neck pain. Skin: Negative for itching and rash. Objective Blood pressure 122/80, pulse 82, temperature 36.8 C (98.3 F), temperature source Tympanic, resp. rate 16, weight 129.7 kg (285 lb 15 oz), SpO2 96%. Physical Exam Constitutional: General: He is not in acute distress. Appearance: He is not toxic-appearing or diaphoretic. HENT: Head: Normocephalic and atraumatic. Cardiovascular: Rate and Rhythm: Normal rate and regular rhythm. Heart sounds: Normal heart sounds, S1 normal and S2 normal. Pulmonary: Effort: Pulmonary effort is normal. Breath sounds: Examination of the left-lower field reveals rhonchi. Rhonchi present. No decreased breath sounds, wheezing or rales. Lymphadenopathy: Cervical: No cervical adenopathy. Right cervical: No superficial cervical adenopathy. Left cervical: No superficial cervical adenopathy. Neurological: Mental Status: He is alert and oriented to person, place, and time. Gait: Gait is intact. ASSESSMENT/PLAN: 1. Sinobronchitis - ICD9: 473.9, 490, ICD10: J32.9, J40 (primary diagnosis) - Will begin treatment with as per antibiotic as written, see orders - Supportive care with plenty of fluids, rest, and analgesia prn. - Follow up in 3-5 days if symptoms persist or worsen. - PREDNISONE 20 MG TABLET - DOXYCYCLINE MONOHYDRATE 100 MG TABLET 2. History of asthma - ICD9: V12.69, ICD10: Z87.09 Mirela Medina APRN.NICKING MACHINE OPERATOR documented in this encounter [facility] 01-06-2024 Instructions Apolonia Prather MD - 01/06/2024 2:59 PM EST APPOINTMENT FOR SEMEN ANALYSIS & SEMEN SAMPLE COLLECTION In order to serve you better, semen analysis will be conducted by appointment only. [place]: To schedule an appointment, call the [facility] at from Tuesday through Tuesday between 8:00am - 4.00pm. Appointments will be available between 7:30am - 2.30pm Tuesday through Tuesday. [facility]: To schedule an appointment, the patient must call the Andrology Center. Appointments can be scheduled at the [facility] Tuesday through Tuesday (except Tuesday). [place]: To schedule an appointment, call [phone]. Appointments can be scheduled at the [place] facility on Tuesday and Tuesday only. [place]: To schedule an appointment, call the [facility] at from Tuesday through Tuesday between 8:00am - 4.00pm. Appointments will be available between 8:00AM and 10:00AM Tuesday through Tuesday. [facility] Fabrice Edmonds [facility] [address], [address] [facility] [address] [place], [place] [address] [place], [place] [address] [facility] [place], [place] [address] [facility] [address] [facility] [address] Second floor - [facility] [place], [place] [address] [place], [place] [address] Please bring a test driver s license or other picture identification with you for the visit. Identification of the person dropping off the specimen or picking it up for insemination has to be documented by noting the test driver's license number or any other picture identification along with the relationship to patient. On-Site Collection -The patient must refrain from sexual intercourse, masturbation (or any other form of emission) for a minimum of 2 days but no more than 7 days prior to semen testing. -The patient will be provided with a clean, sterile plastic container labelled with [facility] patient ID. -The patient will be provided with a lubricant. The patient must not use saliva when collecting the specimen as it may adversely affect sample quality. -The semen sample will be collected by masturbation and ejaculated directly into the specimen container. At-Home Collection with Scheduled Appointment -Refrain from sexual intercourse, masturbation (or any other form of emission) for a minimum of 2 days but no more than 7 days prior to semen testing. -Use only the sterile collection container provided by the laboratory or a sterile urine collection cup purchased from a pharmacy for collecting the sample. Do not use other containers which are not sterilized and cleaned because they may interfere with sperm activity causing false results. - The specimen must be collected by masturbation (manual stimulation) only, directly into the sterile collection cup. The entire specimen should be submitted since the first few drops of the ejaculate contain the major portion of sperm. -Sample may be also be collected in a special condom provided by the lab. Commercial lubricants, soap, lotions, saliva or water should not be used to aid collection. Use only the Surgilube that is provided by the laboratory. DO NOT get Surgilube into the collection cup. -Clearly label the container with your last and first name, date of and time of collection or the label provided by the [facility]. -Keep the sample close to the body when transporting the sample to the lab. -The specimen must be delivered to the laboratory within 1 hour of the collection. IF YOU WILL BE CRYOPRESERVING (FREEZING) SPERM: If your doctor has recommended that you cryopreserve sperm, you will need to have bloodwork done to rule out communicable diseases like HIV and hepatitis. This bloodwork is not always covered by insurance. If your insurance will cover infection testing for tissue storage, let your doctor know and he/she can place the orders through [facility] laboratory. If your insurance will not cover this testing, please go to any of the following lab locations to have blood drawn:[place], [place], [place], [place], [place], [place]. You will be billed a self-pay amount of $139. documented in this encounter [facility] 01-05-2024 Note HNO ID: [id number] Author: APOLONIA PRATHER MD Service: ? 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 Fertility history Primary fertility Trial of unprotected timed intercourse 8 months Prior children: No Hx undescended testicles/peds hernias: No Hx testicular trauma: No surgeries (including hernia repairs): No Puberty age: Similar to peers Family hx of CF No Family hx of infertility: No Prior semen analyses: No Prior urological/fertility treatments: No Environmental/gonadotoxic exposures: No Exposure history Febrile illnesses within 6 months: No Testosterone or anabolic steroid use: OTC Testosterone boosters previously; last used 1 year ago Previous chemotherapy or radiation: No Regular scrotal heat: No Smoker: No Marijuana use: No Genitourinary history Scrotal pain: No Hx infections (E/O, UTIs, prostatitis): No Hematuria: No Voiding symptoms: No Hx stone disease: No Libido: Intact Erectile dysfunction: No Potential medication interactions None Supplements: Female factor evaluation (she is not present) -Partner name: Nicki (we may discuss patient care with her and her team) -Age: 32 yrs -Prior pregnancies: -Periods: Regular -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 PAST SURGICAL HISTORY No past surgical history on file. FAMILY HISTORY No family history on file. SOCIAL HISTORY Social History Tobacco Use Smoking status: Former Smokeless tobacco: Current Types: Chew Career: [employer] MEDICATIONS Current Outpatient Medications Medication Sig albuterol HFA (PROVENTIL HFA, VENTOLIN HFA) 90 mcg/actuation inhaler Inhale 2 Puffs as instructed every 4 hours as needed for wheezing/shortness of breath. benralizumab (FASENRA PEN SUBCUTANEOUS) Inject subcutaneously. amphetamine-dextroamphetamine (ADDERALL) 15 mg tablet Take 15 mg by mouth once daily. (Patient not taking: Reported on 01/30/2023) No current facility-administered medications for this visit. CURRENT ALLERGIES Allergies As of Date: 01/06/2024 (No Known Allergies) Fully Assessed 01/06/2024 REVIEW OF SYSTEMS A ROS was performed and pertinent negatives and positives can be found in the HPI PHYSICAL EXAM There were no vitals filed for this visit. There is no height or weight on file to calculate BMI. Exam: Consents General: Well-nourished Psychiatric: Normal affect Neurologic: AANDOx3 HEENT: Normocephalic, EOMI CV: Hemodynamically stable, warm and well-perfused Resp: Breathing comfortably on RA Abdomen: Soft, nontender, no masses, no organomegaly Extremities: No significant edema noted Skin: Skin color, texture, turgor normal Inguinal: No adenopathy, no hernia noted Phallus: circumcised, no palpable plaques, normal elasticity Meatus: Orthotopic Scrotum: No lesions, normal rugae Right Left Testicle 22mL 22mL Epididymis Palpable, unremarkable Palpable unremarkable Vas Deferens Palpable Palpable Varicocele - - The sensitive examination was discussed with the Patient or Patient's Authorized High Climber. As applicable, any other physician, advance practice provider, medical student, or other health professional student that will be observing or involved in the sensitive examination for educational or training purposes was discussed with the Patient or Authorized High Climber. The Patient or Authorized High Climber has agreed to proceed with the sensitive examination. (Sensitive examination includes inspection and/or palpation of the breasts, pelvis, prostate and anorectal regions) DATA Pertinent Labs No results found for: KARYOTYPE, CHRMY, CHYINT, TESTOST, FSH, LH, PROL, ESTRAD, HCT, PSA, HBA1C No results found for: TESTOST No results found for: TESTFREE No results found for: PSA No results found for: HCT ASSESSMENT 1. 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 Risk factor for infertility include: prior testosterone OTC supplement. Previous work-up notable for none. We discussed the definition and prevalence of infertility and specifically of male factor infertility. We discussed the known risk factors for low sperm counts as they related to his history. We discussed his exam findings. We discussed further workup with a semen analysis. Further testing may include hormonal evaluation, (more content not included)... [facility] 01-05-2024 History of Presen t illness Narrative Images from the original note were not included. 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 Fertility history Primary fertility Trial of unprotected timed intercourse 8 months Prior children: No Hx undescended testicles/peds hernias: No Hx testicular trauma: No surgeries (including hernia repairs): No Puberty age: Similar to peers Family hx of CF No Family hx of infertility: No Prior semen analyses: No Prior urological/fertility treatments: No Environmental/gonadotoxic exposures: No Exposure history Febrile illnesses within 6 months: No Testosterone or anabolic steroid use: OTC Testosterone boosters previously; last used 1 year ago Previous chemotherapy or radiation: No Regular scrotal heat: No Smoker: No Marijuana use: No Genitourinary history Scrotal pain: No Hx infections (E/O, UTIs, prostatitis): No Hematuria: No Voiding symptoms: No Hx stone disease: No Libido: Intact Erectile dysfunction: No Potential medication interactions None Supplements: Female factor evaluation (she is not present) -Partner name: Nicki (we may discuss patient care with her and her team) -Age: 32 yrs -Prior pregnancies: -Periods: Regular -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 PAST SURGICAL HISTORY No past surgical history on file. FAMILY HISTORY No family history on file. SOCIAL HISTORY Social History Tobacco Use Smoking status: Former Smokeless tobacco: Current Types: Chew Career: [employer] MEDICATIONS Current Outpatient Medications Medication Sig albuterol HFA (PROVENTIL HFA, VENTOLIN HFA) 90 mcg/actuation inhaler Inhale 2 Puffs as instructed every 4 hours as needed for wheezing/shortness of breath. benralizumab (FASENRA PEN SUBCUTANEOUS) Inject subcutaneously. amphetamine-dextroamphetamine (ADDERALL) 15 mg tablet Take 15 mg by mouth once daily. (Patient not taking: Reported on 01/30/2023) No current facility-administered medications for this visit. CURRENT ALLERGIES Allergies As of Date: 01/06/2024 (No Known Allergies) Fully Assessed 01/06/2024 REVIEW OF SYSTEMS A ROS was performed and pertinent negatives and positives can be found in the HPI PHYSICAL EXAM There were no vitals filed for this visit. There is no height or weight on file to calculate BMI. Exam: Consents General: Well-nourished Psychiatric: Normal affect Neurologic: A&Ox3 HEENT: Normocephalic, EOMI CV: Hemodynamically stable, warm and well-perfused Resp: Breathing comfortably on RA Abdomen: Soft, nontender, no masses, no organomegaly Extremities: No significant edema noted Skin: Skin color, texture, turgor normal Inguinal: No adenopathy, no hernia noted Phallus: circumcised, no palpable plaques, normal elasticity Meatus: Orthotopic Scrotum: No lesions, normal rugae Right Left Testicle 22mL 22mL Epididymis Palpable, unremarkable Palpable unremarkable Vas Deferens Palpable Palpable Varicocele - - The sensitive examination was discussed with the Patient or Patient's Authorized High Climber. As applicable, any other physician, advance practice provider, medical student, or other health professional student that will be observing or involved in the sensitive examination for educational or training purposes was discussed with the Patient or Authorized High Climber. The Patient or Authorized High Climber has agreed to proceed with the sensitive examination. (Sensitive examination includes inspection and/or palpation of the breasts, pelvis, prostate and anorectal regions) DATA Pertinent Labs No results found for: KARYOTYPE, CHRMY, CHYINT, TESTOST, FSH, LH, PROL, ESTRAD, HCT, PSA, HBA1C No results found for: TESTOST No results found for: TESTFREE No results found for: PSA No results found for: HCT ASSESSMENT 1. 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 Risk factor for infertility include: prior testosterone OTC supplement. Previous work-up notable for none. We discussed the definition and prevalence of infertility and specifically of male factor infertility. We discussed the known risk factors for low sperm counts as they related to his history. We discussed his exam findings. We discussed further workup with a semen analysis. Further testing may include hormonal evaluation, the role for genetic testing in his situation, and further imaging. We also briefly discussed potential treatment options including ongoing attempts at spontaneous conception, empiric medical therapies, surgical interventions, and assisted reproductive technologies including IUI and IVF/ICSI. All questions were answered to his satisfaction. I explained that the first step in evaluation for male infertility is semen analysis. I provided instructions for proper sample collection. He will complete this at his earliest convenience. From there, we will schedule further testing as indicated. PLAN -SA -RTC pending results Time: I spent a total of 30 minutes on the date of the service reviewing patient history and preparing for the visit, gathering a history, performing an examination, ordering and interpreting tests, prescribing medication, counseling the patient, coordinating care, and/or completing appropriate documentation. Apolonia Prather M.D. Clinical Fellow, Andrology [facility] documented in this encounter [facility] 01-31-2023 Miscellaneous Notes Notified via Gertrud[facility]. Patient to call pcp and discuss antiviral treatment if desired. documented in this encounter [facility] 01-30-2023 History of Presen t illness Narrative Subjective HPI HPI Mart Baumann is a 38 year old male who presents today for CC of cough, congestion, wheezing, st. This started today. Has tried otc medication for relief. Symptoms are worsened by nothing. Risk factors sick exposures recently. Hx of severe asthma. Nonsmoker. .Patient presents with: Chest Congestion: cough and sore throat x this am No past medical history on file. No past surgical history on file. ALLERGIES Patient has no known allergies. MEDICATIONS benralizumab (FASENRA PEN SUBCUTANEOUS) Inject subcutaneously. predniSONE (DELTASONE) 10 mg tablet Take 4 tabs daily for 3 days, then 2 tabs daily for 3 days, then 1 tab daily for 3 days with food. doxycycline monohydrate 100 mg tablet Take 1 tablet by mouth two times a day for 7 days. albuterol HFA (PROVENTIL HFA, VENTOLIN HFA) 90 mcg/actuation inhaler Inhale 2 Puffs as instructed every 4 hours as needed for wheezing/shortness of breath. amphetamine-dextroamphetamine (ADDERALL) 15 mg tablet Take 15 mg by mouth once daily. (Patient not taking: Reported on 01/30/2023) No family history on file. Social History Tobacco Use Smoking status: Former Smokeless tobacco: Current Types: Chew Review of Systems Constitutional: Positive for malaise/fatigue. Negative for fever. HENT: Positive for congestion and sore throat. Negative for ear pain and nosebleeds. Respiratory: Positive for cough and wheezing. Negative for shortness of breath. Cardiovascular: Negative for chest pain. Gastrointestinal: Negative for diarrhea and vomiting. Musculoskeletal: Negative for neck pain. Skin: Negative for rash. Objective Blood pressure 142/84, pulse 92, temperature 36.9 C (98.4 F), resp. rate 16, weight 118.8 kg (262 lb), SpO2 95%. Physical Exam Constitutional: General: He is not in acute distress. Appearance: He is not toxic-appearing or diaphoretic. HENT: Head: Normocephalic and atraumatic. Cardiovascular: Rate and Rhythm: Normal rate and regular rhythm. Heart sounds: Normal heart sounds, S1 normal and S2 normal. Pulmonary: Effort: Pulmonary effort is normal. Breath sounds: Wheezing (scattered bilat) and rhonchi (scattered bilat) present. No decreased breath sounds or rales. Lymphadenopathy: Cervical: No cervical adenopathy. Right cervical: No superficial cervical adenopathy. Left cervical: No superficial cervical adenopathy. Neurological: Mental Status: He is alert and oriented to person, place, and time. Gait: Gait is intact. ASSESSMENT/PLAN: 1. Lower resp. tract infection - ICD9: 519.8, ICD10: J22 (primary diagnosis) No xray at time of exam. - Discussed supportive care - Limit exposure to smoke and other inhaled irritants - Discussed possible red flags and when to seek medical attention - Follow up in 3-5 days or sooner if no better or worse -If you experience chest pain/shortness of breath go to ER - DOXYCYCLINE MONOHYDRATE 100 MG TABLET - COVID & INFLUENZA A/B NAAT, ROUTINE 2. Sore throat - ICD9: 462, ICD10: J02.9 Negative, viral - STREP A MOLECULAR (POC) 3. History of asthma - ICD9: V12.69, ICD10: Z87.09 - PREDNISONE 10 MG TABLET - ALBUTEROL SULFATE HFA 90 MCG/ACTUATION AEROSOL INHALER Mirela Medina APRN.NICKING MACHINE OPERATOR documented in this encounter [facility] 11-20-2022 Discharge summary Note Date/Time [facility] 20, [facility]22 [facility] [address] [place] [address] Emergency Department Summary 11/20/22 MR#: [id number] Acct: [id number] Name: MART BAUMANN Rep #:[id number] : 1985 37 From: Bert Castanon MD PCP: Dr. 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 He was on Eliquis and then they took him off of them. He has never hada PE or DVT. He has had prior leg ultrasounds all of which were negative. Basically for 2 days since yesterday he has had right calf discomfort. Denies any injury or trauma. Denies any swelling. Chief Complaint: Lower Extremity Injury Informant: patient Occured/Mechanism Mechanism/Context: No injury and No blunt trauma Onset/Context/Timing Onset: Today and Yesterday Context: Gradual Onset Timing: Continuous Quality of Pain: Dull and Aching Current Severity: Mild Maximum Severity: Mild Associated Symptoms Associated Symptoms: Negative for Parasthesia, Weakness or Loss of Funtion Narrative Narrative: 37-year-old male prior renal infarct. Complaining of right calf pain. Denies injury or trauma. He has never had a DVT. Is never had a PE. He denies any recent travel, surgery or immobilization. He did have a renal infarct. He saidhe is anxious that he may develop a clot. He was previously on blood thinners for 6 months and then taken off by his doctors. Prior similar symptoms: No Recent Illness/Hospitalization: No PFSH PFSH Medical History Acute asthma exacerbation Acute bronchitis Acute hypoxic respiratory insufficiency Allergic rhinitis Bronchial asthma Maxillary sinusitis Microscopic hematuria Renal infarct Home Medications albuterol sulfate 2.5 mg/3 mL (0.083 %) solution for nebulization 2.5 mg inhalation Q4H PRN Shortness Of Breath Or Wheezing 01/13/22 [History Last Taken Unknown] benralizumab 30 mg/mL subcutaneous syringe (Fasenra) 30 mg subcut Q60D ASTHMA #1mL 03/05/22 [Rx Last Taken Unknown] Allergy/AdvReac Type Severity Reaction Status Date / Time No Known Allergies Allergy Verified 11/20/22 22:09 Family History Father Asthma Diabetes Hypertension Grandmother Asthma Surgical History H/O sinus surgery History of ankle surgery History of repair of anterior cruciate ligament of right knee S/P left knee arthroscopy Social History Smoking Status: Former smoker Tobacco: How many years used: 10 how long ago did patient quit smokin, 1ppd second hand exposure: Yes alcohol intake: never substance use type: does not use ROS ROS ED ROS Narrative Is any recent illness. Review of Systems ROS Unobtainable: Denies due to encephalopathy Constitutional Constitutional ED: Denies chills or fever(s) Eyes Eyes: Denies blurry vision ENT ENT ED: Denies ear pain Cardiovascular Cardiovascular: Denies chest pain Respiratory/Chest Respiratory/Chest: Denies cough or dyspnea Gastrointestinal Gastrointestinal: Denies abdominal pain Genitourinary Genitourinary ED: Denies dysuria or hematuria Musculoskeletal Musculoskeletal: Denies arthralgias Integumentary Denies abscess or Abrasions Neurologic Neurologic: Denies headache(s) Psychiatric Psychiatric: Denies anxiety or depression Endocrine Endocrinology: Denies polydipsia Hematologic/Lymphatic Hematologic/Lymphatic: Denies easy bleeding or easy bruising Allergic/Immunologic Allergic/Immunologic ED: Denies mouth swelling or tongue swelling EXAM Physical Exam Narrative Exam Narrative: 37-year-old male vital signs stable afebrile. Pulse ox 95% on room air no signshypoxia. He is in no distress. Mom present in room. HEENT exam unremarkable. Neck nontender no JVD. Lungs clear to auscultation bilateral. Heart regular rhythm no murmur. Abdomen soft nontender. Moving all 4 extremities. Neurovascular intact. Specifically right lower extremity he has full range of motion to his right hip, knee and ankle. There is no swelling. He has minimal tenderness to his right proximal lateral calf. There is no redness or warmth. There is no swelling. There is no cord. Right foot is neurovascular intact with normal DP pulse. The appearance of the right leg is normal. Const Vital Signs: 11/20/22 22:07 Temperature 97.5 F L Temperature Source Temporal Pulse Rate 97 Respiratory Rate 16 Blood Pressure 137/88 H Blood Pressure Mean 104 Pulse Ox 95 Oxygen Delivery Method Room Air Positive well nourished and well developed; Negative for cachectic, contracturesor unkempt General Appearance ED: well developed and NAD; Negative for unkempt, cachectic or contractures Nutritional Appearance: Negative for cachectic HEENT Reports moist mucous membranes normocephalic and atraumatic; Negative for trauma or tenderness Eyes PERRL General Eye ED: Negative for other Neck full ROM and supple Thyroid: Negative for tender Lymph Lymphatic: Negative for other Chest Wall inspection of chest normal and palpation of chest normal Chest: Negative for other Resp normal respiratory effort, no retractions and clear to auscultation bilaterally Effort and Inspection: Negative for pain with movement Auscultation: Negative for rales, rhonchi or wheezes Cardio regular rate, regular rhythm, S1 normal heart sound, S2 normal heart sound and no murmurs Rate: Negative for bradycardia or tachycardic Rhythm: Negative for abnormal rhythm Bruits: Negative for other GI non-tender, non-distended and no masses Inspection: Negative for abdominal distention Auscultation: normoactive bowel sounds Palpation: soft; Negative for tender or guarding Bladder / Kidney Exam: No other Back/Spine no CVA tenderness General Back: Negative for CVA tenderness Cervical Spine: Negative for cervical spine tenderness Thoracic Spine / Upper Back: Negative for thoracic spinal tenderness Lumbar Spine / Lower Back: Negative for lumbar spinal tenderness Extremity normal to inspection and full ROM Extremity Narrative: Right lower leg normal appearance. Normal range of motion. No swelling. No redness or warmth. Right foot is neurovascular intact. Normal DP pulse. Joints are nontender nonswollen. There is no ecchymosis. Very minimal right proximal lateral calf tenderness. General Extremety ED: Negative for cyanosis or edema General Extremity: Negative for cyanosis or edema Neuro oriented x3, CN's II-XII intact bilaterally, moves all extremities and no sensory deficits noted Sensorium / Orientation: alert, oriented to person, oriented to place and oriented to time; Negative for orientation impaired, confused, lethargic or stuporous Motor Exam: strength 5/5 throughout Psych mental status grossly normal Appearance: Negative for unkempt Speech: No other Mood & Affect: Negative for anxious Skin no wounds Lesions: no lesions Rashes: no rashes Trauma: Negative for abrasion or laceration MDM MDM MDM Narrative Medical decision making narrative: 37-year-old male with atraumatic right calf discomfort. His exam is benign. Hehad a prior renal infarct there is never had a DVT or PE. I have ordered a noninvasive study that will be done Tuesday morning. Risk benefits I do not think he should be put on anticoagulation at this time until a blood clot would be confirmed. My clinical suspicion is very low. It is also below the knee. He had no trauma and has no bony tenderness or swelling I do not think he warrants any x-rays. There is no signs of infection. Patient and his mom are comfortable with the plan. They will follow-up with noninvasive testing on Tuesday. Tylenol and Motrin for pain. History & Record Review Discussion w/independent historian: Patient and Family Discharge Plan Triage Chief Complaint: Lower Extremity Injury ED Provider: Bert Castanon Dx/Rx/DC Orders Clinical Impression: Leg pain, right Prescriptions: No Action albuterol sulfate 2.5 MG/3 ML solution for nebulization 2.5 mg inhalation Q4H PRN (Reason: Shortness Of Breath Or Wheezing) Fasenra 30 mg/mL syringe 30 mg SUBCUT Q60D Qty: 1 6RF Primary Care Provider: Fritz Murphy Referrals: Fritz Murphy MD [Primary Care Provider] - As Needed Activity Restrictions/Additional Instructions: Motrin and Tylenol for pain. At this time I think it is very unlikely there will be a blood clot in your leg. We will call you Tuesday morning. If they do not call you by 11 AM on Tuesday morning call the emergency department and we will make sure that the ultrasound of your leg gets done. Typically they call in the morning and set it up that same morning. Disposition Disposition: Home, Self Care What to do if you have Problems For any increased pain, shortness of breath, bleeding, nausea or vomiting, chestpain, or any unexpected problems, contact your Primary Care Provider. Call [facility] ([phone]) or report to the closest Emergency Room. Call 911 if necessary. 11/20/222231 <Electronically signed by Bert Castanon MD> Cosigner Signature (if applicable): CC: Dr. Fritz Murphy MD ~ Signed [facility] Work Phone: [phone] Hospital Discharge instructions Additional Instructions Motrin and Tylenol for pain. At this time I think it is very unlikely there will be a blood clot in your leg. We will call you Tuesday morning. If they do not call you by 11 AM on Tuesday morning call the emergency department and we will make sure that the ultrasound of your leg gets done. Typically they call in the morning and set it up that same morning.[facility] Work Phone: Evaluation note* Diagnosis Onset Date Resolution Status Acute right flank pain acute Leukocytosis acute Microscopic hematuria acute Renal infarct acute [facility] Work Phone: Evaluation note* Diagnosis Onset Date Resolution Status Severe asthma acute [facility] Work Phone: Evaluation note* Diagnosis Lower resp. tract infection- Primary Other diseases of respiratory system, not elsewhere classified Sore throat Acute pharyngitis History of asthma Personal history of other diseases of respiratory system [facility] Encounter for fertility testing- Primary [facility] Diagnosis Sinobronchitis- Primary Unspecified sinusitis (chronic) History of asthma Personal history of other diseases of respiratory system [facility] Name Dates Details Patient Instructions Indication:ADD (attention deficit disorder) Start:29-Aug-2020 Instruction Type:Provider Instructions for Treatment How to Access Health Informa tion Online using Patient Portal and 3rd [employer] Apps Indication:ADD (attention deficit disorder) Start:29-Aug-2020 Instruction Type:Patient Education Patient Instructions Indication:ADD (attention deficit disorder) Start:03-Jun-2020 Instruction Type:Provider Instructions for Treatment How to Access Health Informa tion Online using Patient Portal and 3rd [employer] Apps Indication:ADD (attention deficit disorder) Start:03-Jun-2020 Instruction Type:Patient Education How to access health informa tion online Indication:ADD (attention deficit disorder) Start:23-Nov-2019 Instruction Type:Patient Education How to access health informa tion online - Detail Indication:ADD (attention deficit disorder) Start:23-Nov-2019 Instruction Type:Patient Education Patient Instructions Indication:ADD (attention deficit disorder) Start:23-Nov-2019 Instruction Type:Provider Instructions for Treatment How to access health informa tion online Indication:ADD (attention deficit disorder) Start:04-Sep-2018 Instruction Type:Patient Education How to access health informa tion online - Detail Indication:ADD (attention deficit disorder) Start:04-Sep-2018 Instruction Type:Patient Education Patient Instructions Indication:ADD (attention deficit disorder) Start:04-Sep-2018 Instruction Type:Provider Instructions for Treatment How to access health informa tion online Indication:Nonsmoker Start:10-Jul-2018 Instruction Type:Patient Education How to access health informa tion online - Detail Indication:Nonsmoker Start:10-Jul-2018 Instruction Type:Patient Education Patient Instructions Indication:Nonsmoker Start:10-Jul-2018 Instruction Type:Provider Instructions for Treatment How to access health informa tion online Indication:ADD (attention deficit disorder) Start:26-May-2018 Instruction Type:Patient Education How to access health informa tion online - Detail Indication:ADD (attention deficit disorder) Start:26-May-2018 Instruction Type:Patient Education Patient Instructions Indication:ADD (attention deficit disorder) Start:26-May-2018 Instruction Type:Provider Instructions for Treatment How to access health informa tion online Indication:Nonsmoker Start:24-May-2018 Instruction Type:Patient Education How to access health informa tion online - Detail Indication:Nonsmoker Start:24-May-2018 Instruction Type:Patient Education Patient Instructions Indication:Nonsmoker Start:24-May-2018 Instruction Type:Provider Instructions for Treatment How to access health informa tion online Indication:Nonsmoker Start:05-May-2018 Instruction Type:Patient Education How to access health informa tion online - Detail Indication:Nonsmoker Start:05-May-2018 Instruction Type:Patient Education Patient Instructions Indication:Nonsmoker Start:05-May-2018 Instruction Type:Provider Instructions for Treatment How to access health informa tion online Indication:ADD (attention deficit disorder) Start:11-Apr-2017 Instruction Type:Patient Education How to access health informa tion online - Detail Indication:ADD (attention deficit disorder) Start:11-Apr-2017 Instruction Type:Patient Education Patient Instructions Indication:ADD (attention deficit disorder) Start:11-Apr-2017 Instruction Type:Provider Instructions for Treatment How to access health informa tion online Indication:ADD (attention deficit disorder) Start:25-Feb-2017 Instruction Type:Patient Education How to access health informa tion online - Detail Indication:ADD (attention deficit disorder) Start:25-Feb-2017 Instruction Type:Patient Education Patient Instructions Indication:ADD (attention deficit disorder) Start:25-Feb-2017 Instruction Type:Provider Instructions for Treatment How to access health informa tion online Indication:Asthma, allergic Start:14-Feb-2017 Instruction Type:Patient Education How to access health informa tion online - Detail Indication:Asthma, allergic Start:14-Feb-2017 Instruction Type:Patient Education Patient Instructions Indication:Asthma, allergic Start:14-Feb-2017 Instruction Type:Provider Instructions for Treatment How to access health informa tion online Indication:Acute asthma exacerbation (Renamed from Asthma with acute exacerbation) Start:10-Apr-2015 Instruction Type:Patient Education How to access health informa tion online - Detail Indication:Acute asthma exacerbation (Renamed from Asthma with acute exacerbation) Start:10-Apr-2015 Instruction Type:Patient Education Patient Instructions Indication:Acute asthma exacerbation (Renamed from Asthma with acute exacerbation) Start:10-Apr-2015 Instruction Type:Provider Instructions for Treatment Patient Instructions Indication:ALLERGIC RHINITIS DUE TO OTHER ALLERGEN Start:14-Dec-2013 Instruction Type:Provider Instructions for Treatment [facility]; [facility] Work Phone: Instructions* Name Dates Details Patient Instructions Indication:ADD (attention deficit disorder) Start:06-Mar-2021 Instruction Type:Provider Instructions for Treatment How to Access Health Informa tion Online using Patient Portal and 3rd [employer] Apps Indication:ADD (attention deficit disorder) Start:06-Mar-2021 Instruction Type:Patient Education Patient Instructions Indication:ADD (attention deficit disorder) Start:29-Aug-2020 Instruction Type:Provider Instructions for Treatment How to Access Health Informa tion Online using Patient Portal and 3rd [employer] Apps Indication:ADD (attention deficit disorder) Start:29-Aug-2020 Instruction Type:Patient Education Patient Instructions Indication:ADD (attention deficit disorder) Start:03-Jun-2020 Instruction Type:Provider Instructions for Treatment How to Access Health Informa tion Online using Patient Portal and 3rd [employer] Apps Indication:ADD (attention deficit disorder) Start:03-Jun-2020 Instruction Type:Patient Education How to access health informa tion online Indication:ADD (attention deficit disorder) Start:23-Nov-2019 Instruction Type:Patient Education How to access health informa tion online - Detail Indication:ADD (attention deficit disorder) Start:23-Nov-2019 Instruction Type:Patient Education Patient Instructions Indication:ADD (attention deficit disorder) Start:23-Nov-2019 Instruction Type:Provider Instructions for Treatment How to access health informa tion online Indication:ADD (attention deficit disorder) Start:04-Sep-2018 Instruction Type:Patient Education How to access health informa tion online - Detail Indication:ADD (attention deficit disorder) Start:04-Sep-2018 Instruction Type:Patient Education Patient Instructions Indication:ADD (attention deficit disorder) Start:04-Sep-2018 Instruction Type:Provider Instructions for Treatment How to access health informa tion online Indication:Nonsmoker Start:10-Jul-2018 Instruction Type:Patient Education How to access health informa tion online - Detail Indication:Nonsmoker Start:10-Jul-2018 Instruction Type:Patient Education Patient Instructions Indication:Nonsmoker Start:10-Jul-2018 Instruction Type:Provider Instructions for Treatment How to access health informa tion online Indication:ADD (attention deficit disorder) Start:26-May-2018 Instruction Type:Patient Education How to access health informa tion online - Detail Indication:ADD (attention deficit disorder) Start:26-May-2018 Instruction Type:Patient Education Patient Instructions Indication:ADD (attention deficit disorder) Start:26-May-2018 Instruction Type:Provider Instructions for Treatment How to access health informa tion online Indication:Nonsmoker Start:24-May-2018 Instruction Type:Patient Education How to access health informa tion online - Detail Indication:Nonsmoker Start:24-May-2018 Instruction Type:Patient Education Patient Instructions Indication:Nonsmoker Start:24-May-2018 Instruction Type:Provider Instructions for Treatment How to access health informa tion online Indication:Nonsmoker Start:05-May-2018 Instruction Type:Patient Education How to access health informa tion online - Detail Indication:Nonsmoker Start:05-May-2018 Instruction Type:Patient Education Patient Instructions Indication:Nonsmoker Start:05-May-2018 Instruction Type:Provider Instructions for Treatment How to access health informa tion online Indication:ADD (attention deficit disorder) Start:11-Apr-2017 Instruction Type:Patient Education How to access health informa tion online - Detail Indication:ADD (attention deficit disorder) Start:11-Apr-2017 Instruction Type:Patient Education Patient Instructions Indication:ADD (attention deficit disorder) Start:11-Apr-2017 Instruction Type:Provider Instructions for Treatment How to access health informa tion online Indication:ADD (attention deficit disorder) Start:25-Feb-2017 Instruction Type:Patient Education How to access health informa tion online - Detail Indication:ADD (attention deficit disorder) Start:25-Feb-2017 Instruction Type:Patient Education Patient Instructions Indication:ADD (attention deficit disorder) Start:25-Feb-2017 Instruction Type:Provider Instructions for Treatment How to access health informa tion online Indication:Asthma, allergic Start:14-Feb-2017 Instruction Type:Patient Education How to access health informa tion online - Detail Indication:Asthma, allergic Start:14-Feb-2017 Instruction Type:Patient Education Patient Instructions Indication:Asthma, allergic Start:14-Feb-2017 Instruction Type:Provider Instructions for Treatment How to access health informa tion online Indication:Acute asthma exacerbation (Renamed from Asthma with acute exacerbation) Start:10-Apr-2015 Instruction Type:Patient Education How to access health informa tion online - Detail Indication:Acute asthma exacerbation (Renamed from Asthma with acute exacerbation) Start:10-Apr-2015 Instruction Type:Patient Education Patient Instructions Indication:Acute asthma exacerbation (Renamed from Asthma with acute exacerbation) Start:10-Apr-2015 Instruction Type:Provider Instructions for Treatment Patient Instructions Indication:ALLERGIC RHINITIS DUE TO OTHER ALLERGEN Start:14-Dec-2013 Instruction Type:Provider Instructions for Treatment [facility]; [facility] Work Phone: Instructions* Name Dates Details Patient Instructions Indication:ADD (attention deficit disorder) Start:06-Mar-2021 Instruction Type:Provider Instructions for Treatment How to Access Health Informa tion Online using Patient Portal and 3rd [employer] Apps Indication:ADD (attention deficit disorder) Start:06-Mar-2021 Instruction Type:Patient Education Patient Instructions Indication:ADD (attention deficit disorder) Start:29-Aug-2020 Instruction Type:Provider Instructions for Treatment How to Access Health Informa tion Online using Patient Portal and [employer]rd [employer] Apps Indication:ADD (attention deficit disorder) Start:29-Aug-2020 Instruction Type:Patient Education Patient Instructions Indication:ADD (attention deficit disorder) Start:03-Jun-2020 Instruction Type:Provider Instructions for Treatment How to Access Health Informa tion Online using Patient Portal and 3rd [employer] Apps Indication:ADD (attention deficit disorder) Start:03-Jun-2020 Instruction Type:Patient Education How to access health informa tion online Indication:ADD (attention deficit disorder) Start:23-Nov-2019 Instruction Type:Patient Education How to access health informa tion online - Detail Indication:ADD (attention deficit disorder) Start:23-Nov-2019 Instruction Type:Patient Education Patient Instructions Indication:ADD (attention deficit disorder) Start:23-Nov-2019 Instruction Type:Provider Instructions for Treatment How to access health informa tion online Indication:ADD (attention deficit disorder) Start:04-Sep-2018 Instruction Type:Patient Education How to access health informa tion online - Detail Indication:ADD (attention deficit disorder) Start:04-Sep-2018 Instruction Type:Patient Education Patient Instructions Indication:ADD (attention deficit disorder) Start:04-Sep-2018 Instruction Type:Provider Instructions for Treatment How to access health informa tion online Indication:Nonsmoker Start:10-Jul-2018 Instruction Type:Patient Education How to access health informa tion online - Detail Indication:Nonsmoker Start:10-Jul-2018 Instruction Type:Patient Education Patient Instructions Indication:Nonsmoker Start:10-Jul-2018 Instruction Type:Provider Instructions for Treatment How to access health informa tion online Indication:ADD (attention deficit disorder) Start:26-May-2018 Instruction Type:Patient Education How to access health informa tion online - Detail Indication:ADD (attention deficit disorder) Start:26-May-2018 Instruction Type:Patient Education Patient Instructions Indication:ADD (attention deficit disorder) Start:26-May-2018 Instruction Type:Provider Instructions for Treatment How to access health informa tion online Indication:Nonsmoker Start:24-May-2018 Instruction Type:Patient Education How to access health informa tion online - Detail Indication:Nonsmoker Start:24-May-2018 Instruction Type:Patient Education Patient Instructions Indication:Nonsmoker Start:24-May-2018 Instruction Type:Provider Instructions for Treatment How to access health informa tion online Indication:Nonsmoker Start:05-May-2018 Instruction Type:Patient Education How to access health informa tion online - Detail Indication:Nonsmoker Start:05-May-2018 Instruction Type:Patient Education Patient Instructions Indication:Nonsmoker Start:05-May-2018 Instruction Type:Provider Instructions for Treatment How to access health informa tion online Indication:ADD (attention deficit disorder) Start:11-Apr-2017 Instruction Type:Patient Education How to access health informa tion online - Detail Indication:ADD (attention deficit disorder) Start:11-Apr-2017 Instruction Type:Patient Education Patient Instructions Indication:ADD (attention deficit disorder) Start:11-Apr-2017 Instruction Type:Provider Instructions for Treatment How to access health informa tion online Indication:ADD (attention deficit disorder) Start:25-Feb-2017 Instruction Type:Patient Education How to access health informa tion online - Detail Indication:ADD (attention deficit disorder) Start:25-Feb-2017 Instruction Type:Patient Education Patient Instructions Indication:ADD (attention deficit disorder) Start:25-Feb-2017 Instruction Type:Provider Instructions for Treatment How to access health informa tion online Indication:Asthma, allergic Start:14-Feb-2017 Instruction Type:Patient Education How to access health informa tion online - Detail Indication:Asthma, allergic Start:14-Feb-2017 Instruction Type:Patient Education Patient Instructions Indication:Asthma, allergic Start:14-Feb-2017 Instruction Type:Provider Instructions for Treatment How to access health informa tion online Indication:Acute asthma exacerbation (Renamed from Asthma with acute exacerbation) Start:10-Apr-2015 Instruction Type:Patient Education How to access health informa tion online - Detail Indication:Acute asthma exacerbation (Renamed from Asthma with acute exacerbation) Start:10-Apr-2015 Instruction Type:Patient Education Patient Instructions Indication:Acute asthma exacerbation (Renamed from Asthma with acute exacerbation) Start:10-Apr-2015 Instruction Type:Provider Instructions for Treatment Patient Instructions Indication:ALLERGIC RHINITIS DUE TO OTHER ALLERGEN Start:14-Dec-2013 Instruction Type:Provider Instructions for Treatment [facility]; [facility] Work Phone: Instructions* Name Dates Details Patient Instructions Indication:ADD (attention deficit disorder) Start:06-Mar-2021 Instruction Type:Provider Instructions for Treatment How to Access Health Informa tion Online using Patient Portal and [employer]rd [employer] Apps Indication:ADD (attention deficit disorder) Start:06-Mar-2021 Instruction Type:Patient Education Patient Instructions Indication:ADD (attention deficit disorder) Start:29-Aug-2020 Instruction Type:Provider Instructions for Treatment How to Access Health Informa tion Online using Patient Portal and [employer] Apps Indication:ADD (attention deficit disorder) Start:29-Aug-2020 Instruction Type:Patient Education Patient Instructions Indication:ADD (attention deficit disorder) Start:03-Jun-2020 Instruction Type:Provider Instructions for Treatment How to Access Health Informa tion Online using Patient Portal and [employer] Apps Indication:ADD (attention deficit disorder) Start:03-Jun-2020 Instruction Type:Patient Education How to access health informa tion online Indication:ADD (attention deficit disorder) Start:23-Nov-2019 Instruction Type:Patient Education How to access health informa tion online - Detail Indication:ADD (attention deficit disorder) Start:23-Nov-2019 Instruction Type:Patient Education Patient Instructions Indication:ADD (attention deficit disorder) Start:23-Nov-2019 Instruction Type:Provider Instructions for Treatment How to access health informa tion online Indication:ADD (attention deficit disorder) Start:04-Sep-2018 Instruction Type:Patient Education How to access health informa tion online - Detail Indication:ADD (attention deficit disorder) Start:04-Sep-2018 Instruction Type:Patient Education Patient Instructions Indication:ADD (attention deficit disorder) Start:04-Sep-2018 Instruction Type:Provider Instructions for Treatment How to access health informa tion online Indication:Nonsmoker Start:10-Jul-2018 Instruction Type:Patient Education How to access health informa tion online - Detail Indication:Nonsmoker Start:10-Jul-2018 Instruction Type:Patient Education Patient Instructions Indication:Nonsmoker Start:10-Jul-2018 Instruction Type:Provider Instructions for Treatment How to access health informa tion online Indication:ADD (attention deficit disorder) Start:26-May-2018 Instruction Type:Patient Education How to access health informa tion online - Detail Indication:ADD (attention deficit disorder) Start:26-May-2018 Instruction Type:Patient Education Patient Instructions Indication:ADD (attention deficit disorder) Start:26-May-2018 Instruction Type:Provider Instructions for Treatment How to access health informa tion online Indication:Nonsmoker Start:24-May-2018 Instruction Type:Patient Education How to access health informa tion online - Detail Indication:Nonsmoker Start:24-May-2018 Instruction Type:Patient Education Patient Instructions Indication:Nonsmoker Start:24-May-2018 Instruction Type:Provider Instructions for Treatment How to access health informa tion online Indication:Nonsmoker Start:05-May-2018 Instruction Type:Patient Education How to access health informa tion online - Detail Indication:Nonsmoker Start:05-May-2018 Instruction Type:Patient Education Patient Instructions Indication:Nonsmoker Start:05-May-2018 Instruction Type:Provider Instructions for Treatment How to access health informa tion online Indication:ADD (attention deficit disorder) Start:11-Apr-2017 Instruction Type:Patient Education How to access health informa tion online - Detail Indication:ADD (attention deficit disorder) Start:11-Apr-2017 Instruction Type:Patient Education Patient Instructions Indication:ADD (attention deficit disorder) Start:11-Apr-2017 Instruction Type:Provider Instructions for Treatment How to access health informa tion online Indication:ADD (attention deficit disorder) Start:25-Feb-2017 Instruction Type:Patient Education How to access health informa tion online - Detail Indication:ADD (attention deficit disorder) Start:25-Feb-2017 Instruction Type:Patient Education Patient Instructions Indication:ADD (attention deficit disorder) Start:25-Feb-2017 Instruction Type:Provider Instructions for Treatment How to access health informa tion online Indication:Asthma, allergic Start:14-Feb-2017 Instruction Type:Patient Education How to access health informa tion online - Detail Indication:Asthma, allergic Start:14-Feb-2017 Instruction Type:Patient Education Patient Instructions Indication:Asthma, allergic Start:14-Feb-2017 Instruction Type:Provider Instructions for Treatment How to access health informa tion online Indication:Acute asthma exacerbation (Renamed from Asthma with acute exacerbation) Start:10-Apr-2015 Instruction Type:Patient Education How to access health informa tion online - Detail Indication:Acute asthma exacerbation (Renamed from Asthma with acute exacerbation) Start:10-Apr-2015 Instruction Type:Patient Education Patient Instructions Indication:Acute asthma exacerbation (Renamed from Asthma with acute exacerbation) Start:10-Apr-2015 Instruction Type:Provider Instructions for Treatment Patient Instructions Indication:ALLERGIC RHINITIS DUE TO OTHER ALLERGEN Start:14-Dec-2013 Instruction Type:Provider Instructions for Treatment [facility]; [facility] Work Phone: Instructions* Name Dates Details Patient Instructions Indication:ADD (attention deficit disorder) Start:04-Aug-2021 Instruction Type:Provider Instructions for Treatment How to Access Health Informa tion Online using Patient Portal and [employer] Apps Indication:ADD (attention deficit disorder) Start:04-Aug-2021 Instruction Type:Patient Education Patient Instructions Indication:ADD (attention deficit disorder) Start:06-Mar-2021 Instruction Type:Provider Instructions for Treatment How to Access Health Informa tion Online using Patient Portal and [employer] Apps Indication:ADD (attention deficit disorder) Start:06-Mar-2021 Instruction Type:Patient Education Patient Instructions Indication:ADD (attention deficit disorder) Start:29-Aug-2020 Instruction Type:Provider Instructions for Treatment How to Access Health Informa tion Online using Patient Portal and [employer] Apps Indication:ADD (attention deficit disorder) Start:29-Aug-2020 Instruction Type:Patient Education Patient Instructions Indication:ADD (attention deficit disorder) Start:03-Jun-2020 Instruction Type:Provider Instructions for Treatment How to Access Health Informa tion Online using Patient Portal and [employer] Apps Indication:ADD (attention deficit disorder) Start:03-Jun-2020 Instruction Type:Patient Education How to access health informa tion online Indication:ADD (attention deficit disorder) Start:23-Nov-2019 Instruction Type:Patient Education How to access health informa tion online - Detail Indication:ADD (attention deficit disorder) Start:23-Nov-2019 Instruction Type:Patient Education Patient Instructions Indication:ADD (attention deficit disorder) Start:23-Nov-2019 Instruction Type:Provider Instructions for Treatment How to access health informa tion online Indication:ADD (attention deficit disorder) Start:04-Sep-2018 Instruction Type:Patient Education How to access health informa tion online - Detail Indication:ADD (attention deficit disorder) Start:04-Sep-2018 Instruction Type:Patient Education Patient Instructions Indication:ADD (attention deficit disorder) Start:04-Sep-2018 Instruction Type:Provider Instructions for Treatment How to access health informa tion online Indication:Nonsmoker Start:10-Jul-2018 Instruction Type:Patient Education How to access health informa tion online - Detail Indication:Nonsmoker Start:10-Jul-2018 Instruction Type:Patient Education Patient Instructions Indication:Nonsmoker Start:10-Jul-2018 Instruction Type:Provider Instructions for Treatment How to access health informa tion online Indication:ADD (attention deficit disorder) Start:26-May-2018 Instruction Type:Patient Education How to access health informa tion online - Detail Indication:ADD (attention deficit disorder) Start:26-May-2018 Instruction Type:Patient Education Patient Instructions Indication:ADD (attention deficit disorder) Start:26-May-2018 Instruction Type:Provider Instructions for Treatment How to access health informa tion online Indication:Nonsmoker Start:24-May-2018 Instruction Type:Patient Education How to access health informa tion online - Detail Indication:Nonsmoker Start:24-May-2018 Instruction Type:Patient Education Patient Instructions Indication:Nonsmoker Start:24-May-2018 Instruction Type:Provider Instructions for Treatment How to access health informa tion online Indication:Nonsmoker Start:05-May-2018 Instruction Type:Patient Education How to access health informa tion online - Detail Indication:Nonsmoker Start:05-May-2018 Instruction Type:Patient Education Patient Instructions Indication:Nonsmoker Start:05-May-2018 Instruction Type:Provider Instructions for Treatment How to access health informa tion online Indication:ADD (attention deficit disorder) Start:11-Apr-2017 Instruction Type:Patient Education How to access health informa tion online - Detail Indication:ADD (attention deficit disorder) Start:11-Apr-2017 Instruction Type:Patient Education Patient Instructions Indication:ADD (attention deficit disorder) Start:11-Apr-2017 Instruction Type:Provider Instructions for Treatment How to access health informa tion online Indication:ADD (attention deficit disorder) Start:25-Feb-2017 Instruction Type:Patient Education How to access health informa tion online - Detail Indication:ADD (attention deficit disorder) Start:25-Feb-2017 Instruction Type:Patient Education Patient Instructions Indication:ADD (attention deficit disorder) Start:25-Feb-2017 Instruction Type:Provider Instructions for Treatment How to access health informa tion online Indication:Asthma, allergic Start:14-Feb-2017 Instruction Type:Patient Education How to access health informa tion online - Detail Indication:Asthma, allergic Start:14-Feb-2017 Instruction Type:Patient Education Patient Instructions Indication:Asthma, allergic Start:14-Feb-2017 Instruction Type:Provider Instructions for Treatment How to access health informa tion online Indication:Acute asthma exacerbation (Renamed from Asthma with acute exacerbation) Start:10-Apr-2015 Instruction Type:Patient Education How to access health informa tion online - Detail Indication:Acute asthma exacerbation (Renamed from Asthma with acute exacerbation) Start:10-Apr-2015 Instruction Type:Patient Education Patient Instructions Indication:Acute asthma exacerbation (Renamed from Asthma with acute exacerbation) Start:10-Apr-2015 Instruction Type:Provider Instructions for Treatment Patient Instructions Indication:ALLERGIC RHINITIS DUE TO OTHER ALLERGEN Start:14-Dec-2013 Instruction Type:Provider Instructions for Treatment [facility]; [facility] Work Phone: Instructions* Name Dates Details Patient Instructions Indication:ADD (attention deficit disorder) Start:04-Aug-2021 Instruction Type:Provider Instructions for Treatment How to Access Health Informa tion Online using Patient Portal and [employer] Apps Indication:ADD (attention deficit disorder) Start:04-Aug-2021 Instruction Type:Patient Education Patient Instructions Indication:ADD (attention deficit disorder) Start:06-Mar-2021 Instruction Type:Provider Instructions for Treatment How to Access Health Informa tion Online using Patient Portal and [employer] Apps Indication:ADD (attention deficit disorder) Start:06-Mar-2021 Instruction Type:Patient Education Patient Instructions Indication:ADD (attention deficit disorder) Start:29-Aug-2020 Instruction Type:Provider Instructions for Treatment How to Access Health Informa tion Online using Patient Portal and [employer] Apps Indication:ADD (attention deficit disorder) Start:29-Aug-2020 Instruction Type:Patient Education Patient Instructions Indication:ADD (attention deficit disorder) Start:03-Jun-2020 Instruction Type:Provider Instructions for Treatment How to Access Health Informa tion Online using Patient Portal and [employer] Apps Indication:ADD (attention deficit disorder) Start:03-Jun-2020 Instruction Type:Patient Education How to access health informa tion online Indication:ADD (attention deficit disorder) Start:23-Nov-2019 Instruction Type:Patient Education How to access health informa tion online - Detail Indication:ADD (attention deficit disorder) Start:23-Nov-2019 Instruction Type:Patient Education Patient Instructions Indication:ADD (attention deficit disorder) Start:23-Nov-2019 Instruction Type:Provider Instructions for Treatment How to access health informa tion online Indication:ADD (attention deficit disorder) Start:04-Sep-2018 Instruction Type:Patient Education How to access health informa tion online - Detail Indication:ADD (attention deficit disorder) Start:04-Sep-2018 Instruction Type:Patient Education Patient Instructions Indication:ADD (attention deficit disorder) Start:04-Sep-2018 Instruction Type:Provider Instructions for Treatment How to access health informa tion online Start:10-Jul-2018 Instruction Type:Patient Education How to access health informa tion online - Detail Start:10-Jul-2018 Instruction Type:Patient Education Patient Instructions Start:10-Jul-2018 Instruction Type:Provider Instructions for Treatment How to access health informa tion online Indication:ADD (attention deficit disorder) Start:26-May-2018 Instruction Type:Patient Education How to access health informa tion online - Detail Indication:ADD (attention deficit disorder) Start:26-May-2018 Instruction Type:Patient Education Patient Instructions Indication:ADD (attention deficit disorder) Start:26-May-2018 Instruction Type:Provider Instructions for Treatment How to access health informa tion online Start:24-May-2018 Instruction Type:Patient Education How to access health informa tion online - Detail Start:24-May-2018 Instruction Type:Patient Education Patient Instructions Start:24-May-2018 Instruction Type:Provider Instructions for Treatment How to access health informa tion online Start:05-May-2018 Instruction Type:Patient Education How to access health informa tion online - Detail Start:05-May-2018 Instruction Type:Patient Education Patient Instructions Start:05-May-2018 Instruction Type:Provider Instructions for Treatment How to access health informa tion online Indication:ADD (attention deficit disorder) Start:11-Apr-2017 Instruction Type:Patient Education How to access health informa tion online - Detail Indication:ADD (attention deficit disorder) Start:11-Apr-2017 Instruction Type:Patient Education Patient Instructions Indication:ADD (attention deficit disorder) Start:11-Apr-2017 Instruction Type:Provider Instructions for Treatment How to access health informa tion online Indication:ADD (attention deficit disorder) Start:25-Feb-2017 Instruction Type:Patient Education How to access health informa tion online - Detail Indication:ADD (attention deficit disorder) Start:25-Feb-2017 Instruction Type:Patient Education Patient Instructions Indication:ADD (attention deficit disorder) Start:25-Feb-2017 Instruction Type:Provider Instructions for Treatment How to access health informa tion online Indication:Asthma, allergic Start:14-Feb-2017 Instruction Type:Patient Education How to access health informa tion online - Detail Indication:Asthma, allergic Start:14-Feb-2017 Instruction Type:Patient Education Patient Instructions Indication:Asthma, allergic Start:14-Feb-2017 Instruction Type:Provider Instructions for Treatment How to access health informa tion online Indication:Acute asthma exacerbation (Renamed from Asthma with acute exacerbation) Start:10-Apr-2015 Instruction Type:Patient Education How to access health informa tion online - Detail Indication:Acute asthma exacerbation (Renamed from Asthma with acute exacerbation) Start:10-Apr-2015 Instruction Type:Patient Education Patient Instructions Indication:Acute asthma exacerbation (Renamed from Asthma with acute exacerbation) Start:10-Apr-2015 Instruction Type:Provider Instructions for Treatment Patient Instructions Indication:ALLERGIC RHINITIS DUE TO OTHER ALLERGEN Start:14-Dec-2013 Instruction Type:Provider Instructions for Treatment [facility]; [facility] Work Phone: Instructions* Name Dates Details Patient Instructions Indication:ADD (attention deficit disorder) Start:04-Aug-2021 Instruction Type:Provider Instructions for Treatment How to Access Health Informa tion Online using Patient Portal and [employer] Apps Indication:ADD (attention deficit disorder) Start:04-Aug-2021 Instruction Type:Patient Education Patient Instructions Indication:ADD (attention deficit disorder) Start:06-Mar-2021 Instruction Type:Provider Instructions for Treatment How to Access Health Informa tion Online using Patient Portal and [employer] Apps Indication:ADD (attention deficit disorder) Start:06-Mar-2021 Instruction Type:Patient Education Patient Instructions Indication:ADD (attention deficit disorder) Start:29-Aug-2020 Instruction Type:Provider Instructions for Treatment How to Access Health Informa tion Online using Patient Portal and [employer] Apps Indication:ADD (attention deficit disorder) Start:29-Aug-2020 Instruction Type:Patient Education Patient Instructions Indication:ADD (attention deficit disorder) Start:03-Jun-2020 Instruction Type:Provider Instructions for Treatment How to Access Health Informa tion Online using Patient Portal and [employer] Apps Indication:ADD (attention deficit disorder) Start:03-Jun-2020 Instruction Type:Patient Education How to access health informa tion online Indication:ADD (attention deficit disorder) Start:23-Nov-2019 Instruction Type:Patient Education How to access health informa tion online - Detail Indication:ADD (attention deficit disorder) Start:23-Nov-2019 Instruction Type:Patient Education Patient Instructions Indication:ADD (attention deficit disorder) Start:23-Nov-2019 Instruction Type:Provider Instructions for Treatment How to access health informa tion online Indication:ADD (attention deficit disorder) Start:04-Sep-2018 Instruction Type:Patient Education How to access health informa tion online - Detail Indication:ADD (attention deficit disorder) Start:04-Sep-2018 Instruction Type:Patient Education Patient Instructions Indication:ADD (attention deficit disorder) Start:04-Sep-2018 Instruction Type:Provider Instructions for Treatment How to access health informa tion online Indication:Nonsmoker Start:10-Jul-2018 Instruction Type:Patient Education How to access health informa tion online - Detail Indication:Nonsmoker Start:10-Jul-2018 Instruction Type:Patient Education Patient Instructions Indication:Nonsmoker Start:10-Jul-2018 Instruction Type:Provider Instructions for Treatment How to access health informa tion online Indication:ADD (attention deficit disorder) Start:26-May-2018 Instruction Type:Patient Education How to access health informa tion online - Detail Indication:ADD (attention deficit disorder) Start:26-May-2018 Instruction Type:Patient Education Patient Instructions Indication:ADD (attention deficit disorder) Start:26-May-2018 Instruction Type:Provider Instructions for Treatment How to access health informa tion online Indication:Nonsmoker Start:24-May-2018 Instruction Type:Patient Education How to access health informa tion online - Detail Indication:Nonsmoker Start:24-May-2018 Instruction Type:Patient Education Patient Instructions Indication:Nonsmoker Start:24-May-2018 Instruction Type:Provider Instructions for Treatment How to access health informa tion online Indication:Nonsmoker Start:05-May-2018 Instruction Type:Patient Education How to access health informa tion online - Detail Indication:Nonsmoker Start:05-May-2018 Instruction Type:Patient Education Patient Instructions Indication:Nonsmoker Start:05-May-2018 Instruction Type:Provider Instructions for Treatment How to access health informa tion online Indication:ADD (attention deficit disorder) Start:11-Apr-2017 Instruction Type:Patient Education How to access health informa tion online - Detail Indication:ADD (attention deficit disorder) Start:11-Apr-2017 Instruction Type:Patient Education Patient Instructions Indication:ADD (attention deficit disorder) Start:11-Apr-2017 Instruction Type:Provider Instructions for Treatment How to access health informa tion online Indication:ADD (attention deficit disorder) Start:25-Feb-2017 Instruction Type:Patient Education How to access health informa tion online - Detail Indication:ADD (attention deficit disorder) Start:25-Feb-2017 Instruction Type:Patient Education Patient Instructions Indication:ADD (attention deficit disorder) Start:25-Feb-2017 Instruction Type:Provider Instructions for Treatment How to access health informa tion online Indication:Asthma, allergic Start:14-Feb-2017 Instruction Type:Patient Education How to access health informa tion online - Detail Indication:Asthma, allergic Start:14-Feb-2017 Instruction Type:Patient Education Patient Instructions Indication:Asthma, allergic Start:14-Feb-2017 Instruction Type:Provider Instructions for Treatment How to access health informa tion online Indication:Acute asthma exacerbation (Renamed from Asthma with acute exacerbation) Start:10-Apr-2015 Instruction Type:Patient Education How to access health informa tion online - Detail Indication:Acute asthma exacerbation (Renamed from Asthma with acute exacerbation) Start:10-Apr-2015 Instruction Type:Patient Education Patient Instructions Indication:Acute asthma exacerbation (Renamed from Asthma with acute exacerbation) Start:10-Apr-2015 Instruction Type:Provider Instructions for Treatment Patient Instructions Indication:ALLERGIC RHINITIS DUE TO OTHER ALLERGEN Start:14-Dec-2013 Instruction Type:Provider Instructions for Treatment [facility] Work Phone: Instructions* Name Dates Details Patient Instructions Indication:BMI 35.0-35.9,adult Start:28-Aug-2021 Instruction Type:Provider Instructions for Treatment How to Access Health Informa tion Online using Patient Portal and [employer]rd [employer] Apps Indication:BMI 35.0-35.9,adult Start:28-Aug-2021 Instruction Type:Patient Education Patient Instructions Indication:ADD (attention deficit disorder) Start:04-Aug-2021 Instruction Type:Provider Instructions for Treatment How to Access Health Informa tion Online using Patient Portal and [employer]rd [employer] Apps Indication:ADD (attention deficit disorder) Start:04-Aug-2021 Instruction Type:Patient Education Patient Instructions Indication:ADD (attention deficit disorder) Start:06-Mar-2021 Instruction Type:Provider Instructions for Treatment How to Access Health Informa tion Online using Patient Portal and [employer] Apps Indication:ADD (attention deficit disorder) Start:06-Mar-2021 Instruction Type:Patient Education Patient Instructions Indication:ADD (attention deficit disorder) Start:29-Aug-2020 Instruction Type:Provider Instructions for Treatment How to Access Health Informa tion Online using Patient Portal and [employer] Apps Indication:ADD (attention deficit disorder) Start:29-Aug-2020 Instruction Type:Patient Education Patient Instructions Indication:ADD (attention deficit disorder) Start:03-Jun-2020 Instruction Type:Provider Instructions for Treatment How to Access Health Informa tion Online using Patient Portal and [employer] Apps Indication:ADD (attention deficit disorder) Start:03-Jun-2020 Instruction Type:Patient Education How to access health informa tion online Indication:ADD (attention deficit disorder) Start:23-Nov-2019 Instruction Type:Patient Education How to access health informa tion online - Detail Indication:ADD (attention deficit disorder) Start:23-Nov-2019 Instruction Type:Patient Education Patient Instructions Indication:ADD (attention deficit disorder) Start:23-Nov-2019 Instruction Type:Provider Instructions for Treatment How to access health informa tion online Indication:ADD (attention deficit disorder) Start:04-Sep-2018 Instruction Type:Patient Education How to access health informa tion online - Detail Indication:ADD (attention deficit disorder) Start:04-Sep-2018 Instruction Type:Patient Education Patient Instructions Indication:ADD (attention deficit disorder) Start:04-Sep-2018 Instruction Type:Provider Instructions for Treatment How to access health informa tion online Indication:Nonsmoker Start:10-Jul-2018 Instruction Type:Patient Education How to access health informa tion online - Detail Indication:Nonsmoker Start:10-Jul-2018 Instruction Type:Patient Education Patient Instructions Indication:Nonsmoker Start:10-Jul-2018 Instruction Type:Provider Instructions for Treatment How to access health informa tion online Indication:ADD (attention deficit disorder) Start:26-May-2018 Instruction Type:Patient Education How to access health informa tion online - Detail Indication:ADD (attention deficit disorder) Start:26-May-2018 Instruction Type:Patient Education Patient Instructions Indication:ADD (attention deficit disorder) Start:26-May-2018 Instruction Type:Provider Instructions for Treatment How to access health informa tion online Indication:Nonsmoker Start:24-May-2018 Instruction Type:Patient Education How to access health informa tion online - Detail Indication:Nonsmoker Start:24-May-2018 Instruction Type:Patient Education Patient Instructions Indication:Nonsmoker Start:24-May-2018 Instruction Type:Provider Instructions for Treatment How to access health informa tion online Indication:Nonsmoker Start:05-May-2018 Instruction Type:Patient Education How to access health informa tion online - Detail Indication:Nonsmoker Start:05-May-2018 Instruction Type:Patient Education Patient Instructions Indication:Nonsmoker Start:05-May-2018 Instruction Type:Provider Instructions for Treatment How to access health informa tion online Indication:ADD (attention deficit disorder) Start:11-Apr-2017 Instruction Type:Patient Education How to access health informa tion online - Detail Indication:ADD (attention deficit disorder) Start:11-Apr-2017 Instruction Type:Patient Education Patient Instructions Indication:ADD (attention deficit disorder) Start:11-Apr-2017 Instruction Type:Provider Instructions for Treatment How to access health informa tion online Indication:ADD (attention deficit disorder) Start:25-Feb-2017 Instruction Type:Patient Education How to access health informa tion online - Detail Indication:ADD (attention deficit disorder) Start:25-Feb-2017 Instruction Type:Patient Education Patient Instructions Indication:ADD (attention deficit disorder) Start:25-Feb-2017 Instruction Type:Provider Instructions for Treatment How to access health informa tion online Indication:Asthma, allergic Start:14-Feb-2017 Instruction Type:Patient Education How to access health informa tion online - Detail Indication:Asthma, allergic Start:14-Feb-2017 Instruction Type:Patient Education Patient Instructions Indication:Asthma, allergic Start:14-Feb-2017 Instruction Type:Provider Instructions for Treatment How to access health informa tion online Indication:Acute asthma exacerbation (Renamed from Asthma with acute exacerbation) Start:10-Apr-2015 Instruction Type:Patient Education How to access health informa tion online - Detail Indication:Acute asthma exacerbation (Renamed from Asthma with acute exacerbation) Start:10-Apr-2015 Instruction Type:Patient Education Patient Instructions Indication:Acute asthma exacerbation (Renamed from Asthma with acute exacerbation) Start:10-Apr-2015 Instruction Type:Provider Instructions for Treatment Patient Instructions Indication:ALLERGIC RHINITIS DUE TO OTHER ALLERGEN Start:14-Dec-2013 Instruction Type:Provider Instructions for Treatment [facility] Work Phone: Instructions* Name Dates Details Patient Instructions Indication:BMI 35.0-35.9,adult Start:28-Aug-2021 Instruction Type:Provider Instructions for Treatment How to Access Health Informa tion Online using Patient Portal and [employer] Apps Indication:BMI 35.0-35.9,adult Start:28-Aug-2021 Instruction Type:Patient Education Patient Instructions Indication:ADD (attention deficit disorder) Start:04-Aug-2021 Instruction Type:Provider Instructions for Treatment How to Access Health Informa tion Online using Patient Portal and Message [employer] Apps Indication:ADD (attention deficit disorder) Start:04-Aug-2021 Instruction Type:Patient Education Patient Instructions Indication:ADD (attention deficit disorder) Start:06-Mar-2021 Instruction Type:Provider Instructions for Treatment How to Access Health Informa tion Online using Patient Portal and [employer] Apps Indication:ADD (attention deficit disorder) Start:06-Mar-2021 Instruction Type:Patient Education Patient Instructions Indication:ADD (attention deficit disorder) Start:29-Aug-2020 Instruction Type:Provider Instructions for Treatment How to Access Health Informa tion Online using Patient Portal and [employer] Apps Indication:ADD (attention deficit disorder) Start:29-Aug-2020 Instruction Type:Patient Education Patient Instructions Indication:ADD (attention deficit disorder) Start:03-Jun-2020 Instruction Type:Provider Instructions for Treatment How to Access Health Informa tion Online using Patient Portal and [employer] Apps Indication:ADD (attention deficit disorder) Start:03-Jun-2020 Instruction Type:Patient Education How to access health informa tion online Indication:ADD (attention deficit disorder) Start:23-Nov-2019 Instruction Type:Patient Education How to access health informa tion online - Detail Indication:ADD (attention deficit disorder) Start:23-Nov-2019 Instruction Type:Patient Education Patient Instructions Indication:ADD (attention deficit disorder) Start:23-Nov-2019 Instruction Type:Provider Instructions for Treatment How to access health informa tion online Indication:ADD (attention deficit disorder) Start:04-Sep-2018 Instruction Type:Patient Education How to access health informa tion online - Detail Indication:ADD (attention deficit disorder) Start:04-Sep-2018 Instruction Type:Patient Education Patient Instructions Indication:ADD (attention deficit disorder) Start:04-Sep-2018 Instruction Type:Provider Instructions for Treatment How to access health informa tion online Indication:Nonsmoker Start:10-Jul-2018 Instruction Type:Patient Education How to access health informa tion online - Detail Indication:Nonsmoker Start:10-Jul-2018 Instruction Type:Patient Education Patient Instructions Indication:Nonsmoker Start:10-Jul-2018 Instruction Type:Provider Instructions for Treatment How to access health informa tion online Indication:ADD (attention deficit disorder) Start:26-May-2018 Instruction Type:Patient Education How to access health informa tion online - Detail Indication:ADD (attention deficit disorder) Start:26-May-2018 Instruction Type:Patient Education Patient Instructions Indication:ADD (attention deficit disorder) Start:26-May-2018 Instruction Type:Provider Instructions for Treatment How to access health informa tion online Indication:Nonsmoker Start:24-May-2018 Instruction Type:Patient Education How to access health informa tion online - Detail Indication:Nonsmoker Start:24-May-2018 Instruction Type:Patient Education Patient Instructions Indication:Nonsmoker Start:24-May-2018 Instruction Type:Provider Instructions for Treatment How to access health informa tion online Indication:Nonsmoker Start:05-May-2018 Instruction Type:Patient Education How to access health informa tion online - Detail Indication:Nonsmoker Start:05-May-2018 Instruction Type:Patient Education Patient Instructions Indication:Nonsmoker Start:05-May-2018 Instruction Type:Provider Instructions for Treatment How to access health informa tion online Indication:ADD (attention deficit disorder) Start:11-Apr-2017 Instruction Type:Patient Education How to access health informa tion online - Detail Indication:ADD (attention deficit disorder) Start:11-Apr-2017 Instruction Type:Patient Education Patient Instructions Indication:ADD (attention deficit disorder) Start:11-Apr-2017 Instruction Type:Provider Instructions for Treatment How to access health informa tion online Indication:ADD (attention deficit disorder) Start:25-Feb-2017 Instruction Type:Patient Education How to access health informa tion online - Detail Indication:ADD (attention deficit disorder) Start:25-Feb-2017 Instruction Type:Patient Education Patient Instructions Indication:ADD (attention deficit disorder) Start:25-Feb-2017 Instruction Type:Provider Instructions for Treatment How to access health informa tion online Indication:Asthma, allergic Start:14-Feb-2017 Instruction Type:Patient Education How to access health informa tion online - Detail Indication:Asthma, allergic Start:14-Feb-2017 Instruction Type:Patient Education Patient Instructions Indication:Asthma, allergic Start:14-Feb-2017 Instruction Type:Provider Instructions for Treatment How to access health informa tion online Indication:Acute asthma exacerbation (Renamed from Asthma with acute exacerbation) Start:10-Apr-2015 Instruction Type:Patient Education How to access health informa tion online - Detail Indication:Acute asthma exacerbation (Renamed from Asthma with acute exacerbation) Start:10-Apr-2015 Instruction Type:Patient Education Patient Instructions Indication:Acute asthma exacerbation (Renamed from Asthma with acute exacerbation) Start:10-Apr-2015 Instruction Type:Provider Instructions for Treatment Patient Instructions Indication:ALLERGIC RHINITIS DUE TO OTHER ALLERGEN Start:14-Dec-2013 Instruction Type:Provider Instructions for Treatment [facility]; [facility] Work Phone: Instructions* Name Dates Details Patient Instructions Indication:BMI 35.0-35.9,adult Start:28-Aug-2021 Instruction Type:Provider Instructions for Treatment How to Access Health Informa tion Online using Patient Portal and [employer] Apps Indication:BMI 35.0-35.9,adult Start:28-Aug-2021 Instruction Type:Patient Education Patient Instructions Indication:ADD (attention deficit disorder) Start:04-Aug-2021 Instruction Type:Provider Instructions for Treatment How to Access Health Informa tion Online using Patient Portal and [employer] Apps Indication:ADD (attention deficit disorder) Start:04-Aug-2021 Instruction Type:Patient Education Patient Instructions Indication:ADD (attention deficit disorder) Start:06-Mar-2021 Instruction Type:Provider Instructions for Treatment How to Access Health Informa tion Online using Patient Portal and [employer] Apps Indication:ADD (attention deficit disorder) Start:06-Mar-2021 Instruction Type:Patient Education Patient Instructions Indication:ADD (attention deficit disorder) Start:29-Aug-2020 Instruction Type:Provider Instructions for Treatment How to Access Health Informa tion Online using Patient Portal and [employer] Apps Indication:ADD (attention deficit disorder) Start:29-Aug-2020 Instruction Type:Patient Education Patient Instructions Indication:ADD (attention deficit disorder) Start:03-Jun-2020 Instruction Type:Provider Instructions for Treatment How to Access Health Informa tion Online using Patient Portal and [employer] Apps Indication:ADD (attention deficit disorder) Start:03-Jun-2020 Instruction Type:Patient Education How to access health informa tion online Indication:ADD (attention deficit disorder) Start:23-Nov-2019 Instruction Type:Patient Education How to access health informa tion online - Detail Indication:ADD (attention deficit disorder) Start:23-Nov-2019 Instruction Type:Patient Education Patient Instructions Indication:ADD (attention deficit disorder) Start:23-Nov-2019 Instruction Type:Provider Instructions for Treatment How to access health informa tion online Indication:ADD (attention deficit disorder) Start:04-Sep-2018 Instruction Type:Patient Education How to access health informa tion online - Detail Indication:ADD (attention deficit disorder) Start:04-Sep-2018 Instruction Type:Patient Education Patient Instructions Indication:ADD (attention deficit disorder) Start:04-Sep-2018 Instruction Type:Provider Instructions for Treatment How to access health informa tion online Indication:Nonsmoker Start:10-Jul-2018 Instruction Type:Patient Education How to access health informa tion online - Detail Indication:Nonsmoker Start:10-Jul-2018 Instruction Type:Patient Education Patient Instructions Indication:Nonsmoker Start:10-Jul-2018 Instruction Type:Provider Instructions for Treatment How to access health informa tion online Indication:ADD (attention deficit disorder) Start:26-May-2018 Instruction Type:Patient Education How to access health informa tion online - Detail Indication:ADD (attention deficit disorder) Start:26-May-2018 Instruction Type:Patient Education Patient Instructions Indication:ADD (attention deficit disorder) Start:26-May-2018 Instruction Type:Provider Instructions for Treatment How to access health informa tion online Indication:Nonsmoker Start:24-May-2018 Instruction Type:Patient Education How to access health informa tion online - Detail Indication:Nonsmoker Start:24-May-2018 Instruction Type:Patient Education Patient Instructions Indication:Nonsmoker Start:24-May-2018 Instruction Type:Provider Instructions for Treatment How to access health informa tion online Indication:Nonsmoker Start:05-May-2018 Instruction Type:Patient Education How to access health informa tion online - Detail Indication:Nonsmoker Start:05-May-2018 Instruction Type:Patient Education Patient Instructions Indication:Nonsmoker Start:05-May-2018 Instruction Type:Provider Instructions for Treatment How to access health informa tion online Indication:ADD (attention deficit disorder) Start:11-Apr-2017 Instruction Type:Patient Education How to access health informa tion online - Detail Indication:ADD (attention deficit disorder) Start:11-Apr-2017 Instruction Type:Patient Education Patient Instructions Indication:ADD (attention deficit disorder) Start:11-Apr-2017 Instruction Type:Provider Instructions for Treatment How to access health informa tion online Indication:ADD (attention deficit disorder) Start:25-Feb-2017 Instruction Type:Patient Education How to access health informa tion online - Detail Indication:ADD (attention deficit disorder) Start:25-Feb-2017 Instruction Type:Patient Education Patient Instructions Indication:ADD (attention deficit disorder) Start:25-Feb-2017 Instruction Type:Provider Instructions for Treatment How to access health informa tion online Indication:Asthma, allergic Start:14-Feb-2017 Instruction Type:Patient Education How to access health informa tion online - Detail Indication:Asthma, allergic Start:14-Feb-2017 Instruction Type:Patient Education Patient Instructions Indication:Asthma, allergic Start:14-Feb-2017 Instruction Type:Provider Instructions for Treatment How to access health informa tion online Indication:Acute asthma exacerbation (Renamed from Asthma with acute exacerbation) Start:10-Apr-2015 Instruction Type:Patient Education How to access health informa tion online - Detail Indication:Acute asthma exacerbation (Renamed from Asthma with acute exacerbation) Start:10-Apr-2015 Instruction Type:Patient Education Patient Instructions Indication:Acute asthma exacerbation (Renamed from Asthma with acute exacerbation) Start:10-Apr-2015 Instruction Type:Provider Instructions for Treatment Patient Instructions Indication:ALLERGIC RHINITIS DUE TO OTHER ALLERGEN Start:14-Dec-2013 Instruction Type:Provider Instructions for Treatment [facility] Work Phone: Instructions* Name Dates Details Patient Instructions Indication:BMI 35.0-35.9,adult Start:28-Aug-2021 Instruction Type:Provider Instructions for Treatment How to Access Health Informa tion Online using Patient Portal and [employer] Apps Indication:BMI 35.0-35.9,adult Start:28-Aug-2021 Instruction Type:Patient Education Patient Instructions Indication:ADD (attention deficit disorder) Start:04-Aug-2021 Instruction Type:Provider Instructions for Treatment How to Access Health Informa tion Online using Patient Portal and [employer] Apps Indication:ADD (attention deficit disorder) Start:04-Aug-2021 Instruction Type:Patient Education Patient Instructions Indication:ADD (attention deficit disorder) Start:06-Mar-2021 Instruction Type:Provider Instructions for Treatment How to Access Health Informa tion Online using Patient Portal and [employer] Apps Indication:ADD (attention deficit disorder) Start:06-Mar-2021 Instruction Type:Patient Education Patient Instructions Indication:ADD (attention deficit disorder) Start:29-Aug-2020 Instruction Type:Provider Instructions for Treatment How to Access Health Informa tion Online using Patient Portal and [employer] Apps Indication:ADD (attention deficit disorder) Start:29-Aug-2020 Instruction Type:Patient Education Patient Instructions Indication:ADD (attention deficit disorder) Start:03-Jun-2020 Instruction Type:Provider Instructions for Treatment How to Access Health Informa tion Online using Patient Portal and [employer] Apps Indication:ADD (attention deficit disorder) Start:03-Jun-2020 Instruction Type:Patient Education How to access health informa tion online Indication:ADD (attention deficit disorder) Start:23-Nov-2019 Instruction Type:Patient Education How to access health informa tion online - Detail Indication:ADD (attention deficit disorder) Start:23-Nov-2019 Instruction Type:Patient Education Patient Instructions Indication:ADD (attention deficit disorder) Start:23-Nov-2019 Instruction Type:Provider Instructions for Treatment How to access health informa tion online Indication:ADD (attention deficit disorder) Start:04-Sep-2018 Instruction Type:Patient Education How to access health informa tion online - Detail Indication:ADD (attention deficit disorder) Start:04-Sep-2018 Instruction Type:Patient Education Patient Instructions Indication:ADD (attention deficit disorder) Start:04-Sep-2018 Instruction Type:Provider Instructions for Treatment How to access health informa tion online Indication:Nonsmoker Start:10-Jul-2018 Instruction Type:Patient Education How to access health informa tion online - Detail Indication:Nonsmoker Start:10-Jul-2018 Instruction Type:Patient Education Patient Instructions Indication:Nonsmoker Start:10-Jul-2018 Instruction Type:Provider Instructions for Treatment How to access health informa tion online Indication:ADD (attention deficit disorder) Start:26-May-2018 Instruction Type:Patient Education How to access health informa tion online - Detail Indication:ADD (attention deficit disorder) Start:26-May-2018 Instruction Type:Patient Education Patient Instructions Indication:ADD (attention deficit disorder) Start:26-May-2018 Instruction Type:Provider Instructions for Treatment How to access health informa tion online Indication:Nonsmoker Start:24-May-2018 Instruction Type:Patient Education How to access health informa tion online - Detail Indication:Nonsmoker Start:24-May-2018 Instruction Type:Patient Education Patient Instructions Indication:Nonsmoker Start:24-May-2018 Instruction Type:Provider Instructions for Treatment How to access health informa tion online Indication:Nonsmoker Start:05-May-2018 Instruction Type:Patient Education How to access health informa tion online - Detail Indication:Nonsmoker Start:05-May-2018 Instruction Type:Patient Education Patient Instructions Indication:Nonsmoker Start:05-May-2018 Instruction Type:Provider Instructions for Treatment How to access health informa tion online Indication:ADD (attention deficit disorder) Start:11-Apr-2017 Instruction Type:Patient Education How to access health informa tion online - Detail Indication:ADD (attention deficit disorder) Start:11-Apr-2017 Instruction Type:Patient Education Patient Instructions Indication:ADD (attention deficit disorder) Start:11-Apr-2017 Instruction Type:Provider Instructions for Treatment How to access health informa tion online Indication:ADD (attention deficit disorder) Start:25-Feb-2017 Instruction Type:Patient Education How to access health informa tion online - Detail Indication:ADD (attention deficit disorder) Start:25-Feb-2017 Instruction Type:Patient Education Patient Instructions Indication:ADD (attention deficit disorder) Start:25-Feb-2017 Instruction Type:Provider Instructions for Treatment How to access health informa tion online Indication:Asthma, allergic Start:14-Feb-2017 Instruction Type:Patient Education How to access health informa tion online - Detail Indication:Asthma, allergic Start:14-Feb-2017 Instruction Type:Patient Education Patient Instructions Indication:Asthma, allergic Start:14-Feb-2017 Instruction Type:Provider Instructions for Treatment How to access health informa tion online Indication:Acute asthma exacerbation (Renamed from Asthma with acute exacerbation) Start:10-Apr-2015 Instruction Type:Patient Education How to access health informa tion online - Detail Indication:Acute asthma exacerbation (Renamed from Asthma with acute exacerbation) Start:10-Apr-2015 Instruction Type:Patient Education Patient Instructions Indication:Acute asthma exacerbation (Renamed from Asthma with acute exacerbation) Start:10-Apr-2015 Instruction Type:Provider Instructions for Treatment Patient Instructions Indication:ALLERGIC RHINITIS DUE TO OTHER ALLERGEN Start:14-Dec-2013 Instruction Type:Provider Instructions for Treatment [facility]; [facility] Work Phone: Instructions* Name Dates Details Patient Instructions Indication:BMI 35.0-35.9,adult Start:04-Jan-2022 Instruction Type:Provider Instructions for Treatment How to Access Health Informa tion Online using Patient Portal and Message [employer] Apps Indication:BMI 35.0-35.9,adult Start:04-Jan-2022 Instruction Type:Patient Education Patient Instructions Indication:BMI 35.0-35.9,adult Start:28-Aug-2021 Instruction Type:Provider Instructions for Treatment How to Access Health Informa tion Online using Patient Portal and Message [employer] Apps Indication:BMI 35.0-35.9,adult Start:28-Aug-2021 Instruction Type:Patient Education Patient Instructions Indication:ADD (attention deficit disorder) Start:04-Aug-2021 Instruction Type:Provider Instructions for Treatment How to Access Health Informa tion Online using Patient Portal and Message [employer] Apps Indication:ADD (attention deficit disorder) Start:04-Aug-2021 Instruction Type:Patient Education Patient Instructions Indication:ADD (attention deficit disorder) Start:06-Mar-2021 Instruction Type:Provider Instructions for Treatment How to Access Health Informa tion Online using Patient Portal and [employer] Apps Indication:ADD (attention deficit disorder) Start:06-Mar-2021 Instruction Type:Patient Education Patient Instructions Indication:ADD (attention deficit disorder) Start:29-Aug-2020 Instruction Type:Provider Instructions for Treatment How to Access Health Informa tion Online using Patient Portal and [employer] Apps Indication:ADD (attention deficit disorder) Start:29-Aug-2020 Instruction Type:Patient Education Patient Instructions Indication:ADD (attention deficit disorder) Start:03-Jun-2020 Instruction Type:Provider Instructions for Treatment How to Access Health Informa tion Online using Patient Portal and [employer] Apps Indication:ADD (attention deficit disorder) Start:03-Jun-2020 Instruction Type:Patient Education How to access health informa tion online Indication:ADD (attention deficit disorder) Start:23-Nov-2019 Instruction Type:Patient Education How to access health informa tion online - Detail Indication:ADD (attention deficit disorder) Start:23-Nov-2019 Instruction Type:Patient Education Patient Instructions Indication:ADD (attention deficit disorder) Start:23-Nov-2019 Instruction Type:Provider Instructions for Treatment How to access health informa tion online Indication:ADD (attention deficit disorder) Start:04-Sep-2018 Instruction Type:Patient Education How to access health informa tion online - Detail Indication:ADD (attention deficit disorder) Start:04-Sep-2018 Instruction Type:Patient Education Patient Instructions Indication:ADD (attention deficit disorder) Start:04-Sep-2018 Instruction Type:Provider Instructions for Treatment How to access health informa tion online Indication:Nonsmoker Start:10-Jul-2018 Instruction Type:Patient Education How to access health informa tion online - Detail Indication:Nonsmoker Start:10-Jul-2018 Instruction Type:Patient Education Patient Instructions Indication:Nonsmoker Start:10-Jul-2018 Instruction Type:Provider Instructions for Treatment How to access health informa tion online Indication:ADD (attention deficit disorder) Start:26-May-2018 Instruction Type:Patient Education How to access health informa tion online - Detail Indication:ADD (attention deficit disorder) Start:26-May-2018 Instruction Type:Patient Education Patient Instructions Indication:ADD (attention deficit disorder) Start:26-May-2018 Instruction Type:Provider Instructions for Treatment How to access health informa tion online Indication:Nonsmoker Start:24-May-2018 Instruction Type:Patient Education How to access health informa tion online - Detail Indication:Nonsmoker Start:24-May-2018 Instruction Type:Patient Education Patient Instructions Indication:Nonsmoker Start:24-May-2018 Instruction Type:Provider Instructions for Treatment How to access health informa tion online Indication:Nonsmoker Start:05-May-2018 Instruction Type:Patient Education How to access health informa tion online - Detail Indication:Nonsmoker Start:05-May-2018 Instruction Type:Patient Education Patient Instructions Indication:Nonsmoker Start:05-May-2018 Instruction Type:Provider Instructions for Treatment How to access health informa tion online Indication:ADD (attention deficit disorder) Start:11-Apr-2017 Instruction Type:Patient Education How to access health informa tion online - Detail Indication:ADD (attention deficit disorder) Start:11-Apr-2017 Instruction Type:Patient Education Patient Instructions Indication:ADD (attention deficit disorder) Start:11-Apr-2017 Instruction Type:Provider Instructions for Treatment How to access health informa tion online Indication:ADD (attention deficit disorder) Start:25-Feb-2017 Instruction Type:Patient Education How to access health informa tion online - Detail Indication:ADD (attention deficit disorder) Start:25-Feb-2017 Instruction Type:Patient Education Patient Instructions Indication:ADD (attention deficit disorder) Start:25-Feb-2017 Instruction Type:Provider Instructions for Treatment How to access health informa tion online Indication:Asthma, allergic Start:14-Feb-2017 Instruction Type:Patient Education How to access health informa tion online - Detail Indication:Asthma, allergic Start:14-Feb-2017 Instruction Type:Patient Education Patient Instructions Indication:Asthma, allergic Start:14-Feb-2017 Instruction Type:Provider Instructions for Treatment How to access health informa tion online Indication:Acute asthma exacerbation (Renamed from Asthma with acute exacerbation) Start:10-Apr-2015 Instruction Type:Patient Education How to access health informa tion online - Detail Indication:Acute asthma exacerbation (Renamed from Asthma with acute exacerbation) Start:10-Apr-2015 Instruction Type:Patient Education Patient Instructions Indication:Acute asthma exacerbation (Renamed from Asthma with acute exacerbation) Start:10-Apr-2015 Instruction Type:Provider Instructions for Treatment Patient Instructions Indication:ALLERGIC RHINITIS DUE TO OTHER ALLERGEN Start:14-Dec-2013 Instruction Type:Provider Instructions for Treatment [facility]; [facility] Work Phone: Instructions* Name Dates Details Patient Instructions Indication:Nonsmoker Start:20-Jan-2022 Instruction Type:Provider Instructions for Treatment How to Access Health Informa tion Online using Patient Portal and [employer] Apps Indication:Nonsmoker Start:20-Jan-2022 Instruction Type:Patient Education Patient Instructions Indication:BMI 35.0-35.9,adult Start:04-Jan-2022 Instruction Type:Provider Instructions for Treatment How to Access Health Informa tion Online using Patient Portal and [employer] Apps Indication:BMI 35.0-35.9,adult Start:04-Jan-2022 Instruction Type:Patient Education Patient Instructions Indication:BMI 35.0-35.9,adult Start:28-Aug-2021 Instruction Type:Provider Instructions for Treatment How to Access Health Informa tion Online using Patient Portal and [employer] Apps Indication:BMI 35.0-35.9,adult Start:28-Aug-2021 Instruction Type:Patient Education Patient Instructions Indication:ADD (attention deficit disorder) Start:04-Aug-2021 Instruction Type:Provider Instructions for Treatment How to Access Health Informa tion Online using Patient Portal and [employer] Apps Indication:ADD (attention deficit disorder) Start:04-Aug-2021 Instruction Type:Patient Education Patient Instructions Indication:ADD (attention deficit disorder) Start:06-Mar-2021 Instruction Type:Provider Instructions for Treatment How to Access Health Informa tion Online using Patient Portal and [employer] Apps Indication:ADD (attention deficit disorder) Start:06-Mar-2021 Instruction Type:Patient Education Patient Instructions Indication:ADD (attention deficit disorder) Start:29-Aug-2020 Instruction Type:Provider Instructions for Treatment How to Access Health Informa tion Online using Patient Portal and [employer] Apps Indication:ADD (attention deficit disorder) Start:29-Aug-2020 Instruction Type:Patient Education Patient Instructions Indication:ADD (attention deficit disorder) Start:03-Jun-2020 Instruction Type:Provider Instructions for Treatment How to Access Health Informa tion Online using Patient Portal and [employer] Apps Indication:ADD (attention deficit disorder) Start:03-Jun-2020 Instruction Type:Patient Education How to access health informa tion online Indication:ADD (attention deficit disorder) Start:23-Nov-2019 Instruction Type:Patient Education How to access health informa tion online - Detail Indication:ADD (attention deficit disorder) Start:23-Nov-2019 Instruction Type:Patient Education Patient Instructions Indication:ADD (attention deficit disorder) Start:23-Nov-2019 Instruction Type:Provider Instructions for Treatment How to access health informa tion online Indication:ADD (attention deficit disorder) Start:04-Sep-2018 Instruction Type:Patient Education How to access health informa tion online - Detail Indication:ADD (attention deficit disorder) Start:04-Sep-2018 Instruction Type:Patient Education Patient Instructions Indication:ADD (attention deficit disorder) Start:04-Sep-2018 Instruction Type:Provider Instructions for Treatment How to access health informa tion online Indication:Nonsmoker Start:10-Jul-2018 Instruction Type:Patient Education How to access health informa tion online - Detail Indication:Nonsmoker Start:10-Jul-2018 Instruction Type:Patient Education Patient Instructions Indication:Nonsmoker Start:10-Jul-2018 Instruction Type:Provider Instructions for Treatment How to access health informa tion online Indication:ADD (attention deficit disorder) Start:26-May-2018 Instruction Type:Patient Education How to access health informa tion online - Detail Indication:ADD (attention deficit disorder) Start:26-May-2018 Instruction Type:Patient Education Patient Instructions Indication:ADD (attention deficit disorder) Start:26-May-2018 Instruction Type:Provider Instructions for Treatment How to access health informa tion online Indication:Nonsmoker Start:24-May-2018 Instruction Type:Patient Education How to access health informa tion online - Detail Indication:Nonsmoker Start:24-May-2018 Instruction Type:Patient Education Patient Instructions Indication:Nonsmoker Start:24-May-2018 Instruction Type:Provider Instructions for Treatment How to access health informa tion online Indication:Nonsmoker Start:05-May-2018 Instruction Type:Patient Education How to access health informa tion online - Detail Indication:Nonsmoker Start:05-May-2018 Instruction Type:Patient Education Patient Instructions Indication:Nonsmoker Start:05-May-2018 Instruction Type:Provider Instructions for Treatment How to access health informa tion online Indication:ADD (attention deficit disorder) Start:11-Apr-2017 Instruction Type:Patient Education How to access health informa tion online - Detail Indication:ADD (attention deficit disorder) Start:11-Apr-2017 Instruction Type:Patient Education Patient Instructions Indication:ADD (attention deficit disorder) Start:11-Apr-2017 Instruction Type:Provider Instructions for Treatment How to access health informa tion online Indication:ADD (attention deficit disorder) Start:25-Feb-2017 Instruction Type:Patient Education How to access health informa tion online - Detail Indication:ADD (attention deficit disorder) Start:25-Feb-2017 Instruction Type:Patient Education Patient Instructions Indication:ADD (attention deficit disorder) Start:25-Feb-2017 Instruction Type:Provider Instructions for Treatment How to access health informa tion online Indication:Asthma, allergic Start:14-Feb-2017 Instruction Type:Patient Education How to access health informa tion online - Detail Indication:Asthma, allergic Start:14-Feb-2017 Instruction Type:Patient Education Patient Instructions Indication:Asthma, allergic Start:14-Feb-2017 Instruction Type:Provider Instructions for Treatment How to access health informa tion online Indication:Acute asthma exacerbation (Renamed from Asthma with acute exacerbation) Start:10-Apr-2015 Instruction Type:Patient Education How to access health informa tion online - Detail Indication:Acute asthma exacerbation (Renamed from Asthma with acute exacerbation) Start:10-Apr-2015 Instruction Type:Patient Education Patient Instructions Indication:Acute asthma exacerbation (Renamed from Asthma with acute exacerbation) Start:10-Apr-2015 Instruction Type:Provider Instructions for Treatment Patient Instructions Indication:ALLERGIC RHINITIS DUE TO OTHER ALLERGEN Start:14-Dec-2013 Instruction Type:Provider Instructions for Treatment [facility]; [facility] Work Phone: Instructions* Name Dates Details Patient Instructions Indication:Nonsmoker Start:20-Jan-2022 Instruction Type:Provider Instructions for Treatment How to Access Health Informa tion Online using Patient Portal and [employer] Apps Indication:Nonsmoker Start:20-Jan-2022 Instruction Type:Patient Education Patient Instructions Indication:BMI 35.0-35.9,adult Start:04-Jan-2022 Instruction Type:Provider Instructions for Treatment How to Access Health Informa tion Online using Patient Portal and [employer] Apps Indication:BMI 35.0-35.9,adult Start:04-Jan-2022 Instruction Type:Patient Education Patient Instructions Indication:BMI 35.0-35.9,adult Start:28-Aug-2021 Instruction Type:Provider Instructions for Treatment How to Access Health Informa tion Online using Patient Portal and [employer] Apps Indication:BMI 35.0-35.9,adult Start:28-Aug-2021 Instruction Type:Patient Education Patient Instructions Indication:ADD (attention deficit disorder) Start:04-Aug-2021 Instruction Type:Provider Instructions for Treatment How to Access Health Informa tion Online using Patient Portal and [employer] Apps Indication:ADD (attention deficit disorder) Start:04-Aug-2021 Instruction Type:Patient Education Patient Instructions Indication:ADD (attention deficit disorder) Start:06-Mar-2021 Instruction Type:Provider Instructions for Treatment How to Access Health Informa tion Online using Patient Portal and [employer] Apps Indication:ADD (attention deficit disorder) Start:06-Mar-2021 Instruction Type:Patient Education Patient Instructions Indication:ADD (attention deficit disorder) Start:29-Aug-2020 Instruction Type:Provider Instructions for Treatment How to Access Health Informa tion Online using Patient Portal and [employer] Apps Indication:ADD (attention deficit disorder) Start:29-Aug-2020 Instruction Type:Patient Education Patient Instructions Indication:ADD (attention deficit disorder) Start:03-Jun-2020 Instruction Type:Provider Instructions for Treatment How to Access Health Informa tion Online using Patient Portal and [employer] Apps Indication:ADD (attention deficit disorder) Start:03-Jun-2020 Instruction Type:Patient Education How to access health informa tion online Indication:ADD (attention deficit disorder) Start:23-Nov-2019 Instruction Type:Patient Education How to access health informa tion online - Detail Indication:ADD (attention deficit disorder) Start:23-Nov-2019 Instruction Type:Patient Education Patient Instructions Indication:ADD (attention deficit disorder) Start:23-Nov-2019 Instruction Type:Provider Instructions for Treatment How to access health informa tion online Indication:ADD (attention deficit disorder) Start:04-Sep-2018 Instruction Type:Patient Education How to access health informa tion online - Detail Indication:ADD (attention deficit disorder) Start:04-Sep-2018 Instruction Type:Patient Education Patient Instructions Indication:ADD (attention deficit disorder) Start:04-Sep-2018 Instruction Type:Provider Instructions for Treatment How to access health informa tion online Indication:Nonsmoker Start:10-Jul-2018 Instruction Type:Patient Education How to access health informa tion online - Detail Indication:Nonsmoker Start:10-Jul-2018 Instruction Type:Patient Education Patient Instructions Indication:Nonsmoker Start:10-Jul-2018 Instruction Type:Provider Instructions for Treatment How to access health informa tion online Indication:ADD (attention deficit disorder) Start:26-May-2018 Instruction Type:Patient Education How to access health informa tion online - Detail Indication:ADD (attention deficit disorder) Start:26-May-2018 Instruction Type:Patient Education Patient Instructions Indication:ADD (attention deficit disorder) Start:26-May-2018 Instruction Type:Provider Instructions for Treatment How to access health informa tion online Indication:Nonsmoker Start:24-May-2018 Instruction Type:Patient Education How to access health informa tion online - Detail Indication:Nonsmoker Start:24-May-2018 Instruction Type:Patient Education Patient Instructions Indication:Nonsmoker Start:24-May-2018 Instruction Type:Provider Instructions for Treatment How to access health informa tion online Indication:Nonsmoker Start:05-May-2018 Instruction Type:Patient Education How to access health informa tion online - Detail Indication:Nonsmoker Start:05-May-2018 Instruction Type:Patient Education Patient Instructions Indication:Nonsmoker Start:05-May-2018 Instruction Type:Provider Instructions for Treatment How to access health informa tion online Indication:ADD (attention deficit disorder) Start:11-Apr-2017 Instruction Type:Patient Education How to access health informa tion online - Detail Indication:ADD (attention deficit disorder) Start:11-Apr-2017 Instruction Type:Patient Education Patient Instructions Indication:ADD (attention deficit disorder) Start:11-Apr-2017 Instruction Type:Provider Instructions for Treatment How to access health informa tion online Indication:ADD (attention deficit disorder) Start:25-Feb-2017 Instruction Type:Patient Education How to access health informa tion online - Detail Indication:ADD (attention deficit disorder) Start:25-Feb-2017 Instruction Type:Patient Education Patient Instructions Indication:ADD (attention deficit disorder) Start:25-Feb-2017 Instruction Type:Provider Instructions for Treatment How to access health informa tion online Indication:Asthma, allergic Start:14-Feb-2017 Instruction Type:Patient Education How to access health informa tion online - Detail Indication:Asthma, allergic Start:14-Feb-2017 Instruction Type:Patient Education Patient Instructions Indication:Asthma, allergic Start:14-Feb-2017 Instruction Type:Provider Instructions for Treatment How to access health informa tion online Indication:Acute asthma exacerbation (Renamed from Asthma with acute exacerbation) Start:10-Apr-2015 Instruction Type:Patient Education How to access health informa tion online - Detail Indication:Acute asthma exacerbation (Renamed from Asthma with acute exacerbation) Start:10-Apr-2015 Instruction Type:Patient Education Patient Instructions Indication:Acute asthma exacerbation (Renamed from Asthma with acute exacerbation) Start:10-Apr-2015 Instruction Type:Provider Instructions for Treatment Patient Instructions Indication:ALLERGIC RHINITIS DUE TO OTHER ALLERGEN Start:14-Dec-2013 Instruction Type:Provider Instructions for Treatment [facility]; [facility] Work Phone: Instructions* Name Dates Details Patient Instructions Indication:Nonsmoker Start:20-Jan-2022 Instruction Type:Provider Instructions for Treatment How to Access Health Informa tion Online using Patient Portal and Message [employer] Apps Indication:Nonsmoker Start:20-Jan-2022 Instruction Type:Patient Education Patient Instructions Indication:BMI 35.0-35.9,adult Start:04-Jan-2022 Instruction Type:Provider Instructions for Treatment How to Access Health Informa tion Online using Patient Portal and Message [employer] Apps Indication:BMI 35.0-35.9,adult Start:04-Jan-2022 Instruction Type:Patient Education Patient Instructions Indication:BMI 35.0-35.9,adult Start:28-Aug-2021 Instruction Type:Provider Instructions for Treatment How to Access Health Informa tion Online using Patient Portal and Message [employer] Apps Indication:BMI 35.0-35.9,adult Start:28-Aug-2021 Instruction Type:Patient Education Patient Instructions Indication:ADD (attention deficit disorder) Start:04-Aug-2021 Instruction Type:Provider Instructions for Treatment How to Access Health Informa tion Online using Patient Portal and [employer] Apps Indication:ADD (attention deficit disorder) Start:04-Aug-2021 Instruction Type:Patient Education Patient Instructions Indication:ADD (attention deficit disorder) Start:06-Mar-2021 Instruction Type:Provider Instructions for Treatment How to Access Health Informa tion Online using Patient Portal and Message [employer] Apps Indication:ADD (attention deficit disorder) Start:06-Mar-2021 Instruction Type:Patient Education Patient Instructions Indication:ADD (attention deficit disorder) Start:29-Aug-2020 Instruction Type:Provider Instructions for Treatment How to Access Health Informa tion Online using Patient Portal and [employer] Apps Indication:ADD (attention deficit disorder) Start:29-Aug-2020 Instruction Type:Patient Education Patient Instructions Indication:ADD (attention deficit disorder) Start:03-Jun-2020 Instruction Type:Provider Instructions for Treatment How to Access Health Informa tion Online using Patient Portal and [employer] Apps Indication:ADD (attention deficit disorder) Start:03-Jun-2020 Instruction Type:Patient Education How to access health informa tion online Indication:ADD (attention deficit disorder) Start:23-Nov-2019 Instruction Type:Patient Education How to access health informa tion online - Detail Indication:ADD (attention deficit disorder) Start:23-Nov-2019 Instruction Type:Patient Education Patient Instructions Indication:ADD (attention deficit disorder) Start:23-Nov-2019 Instruction Type:Provider Instructions for Treatment How to access health informa tion online Indication:ADD (attention deficit disorder) Start:04-Sep-2018 Instruction Type:Patient Education How to access health informa tion online - Detail Indication:ADD (attention deficit disorder) Start:04-Sep-2018 Instruction Type:Patient Education Patient Instructions Indication:ADD (attention deficit disorder) Start:04-Sep-2018 Instruction Type:Provider Instructions for Treatment How to access health informa tion online Indication:Nonsmoker Start:10-Jul-2018 Instruction Type:Patient Education How to access health informa tion online - Detail Indication:Nonsmoker Start:10-Jul-2018 Instruction Type:Patient Education Patient Instructions Indication:Nonsmoker Start:10-Jul-2018 Instruction Type:Provider Instructions for Treatment How to access health informa tion online Indication:ADD (attention deficit disorder) Start:26-May-2018 Instruction Type:Patient Education How to access health informa tion online - Detail Indication:ADD (attention deficit disorder) Start:26-May-2018 Instruction Type:Patient Education Patient Instructions Indication:ADD (attention deficit disorder) Start:26-May-2018 Instruction Type:Provider Instructions for Treatment How to access health informa tion online Indication:Nonsmoker Start:24-May-2018 Instruction Type:Patient Education How to access health informa tion online - Detail Indication:Nonsmoker Start:24-May-2018 Instruction Type:Patient Education Patient Instructions Indication:Nonsmoker Start:24-May-2018 Instruction Type:Provider Instructions for Treatment How to access health informa tion online Indication:Nonsmoker Start:05-May-2018 Instruction Type:Patient Education How to access health informa tion online - Detail Indication:Nonsmoker Start:05-May-2018 Instruction Type:Patient Education Patient Instructions Indication:Nonsmoker Start:05-May-2018 Instruction Type:Provider Instructions for Treatment How to access health informa tion online Indication:ADD (attention deficit disorder) Start:11-Apr-2017 Instruction Type:Patient Education How to access health informa tion online - Detail Indication:ADD (attention deficit disorder) Start:11-Apr-2017 Instruction Type:Patient Education Patient Instructions Indication:ADD (attention deficit disorder) Start:11-Apr-2017 Instruction Type:Provider Instructions for Treatment How to access health informa tion online Indication:ADD (attention deficit disorder) Start:25-Feb-2017 Instruction Type:Patient Education How to access health informa tion online - Detail Indication:ADD (attention deficit disorder) Start:25-Feb-2017 Instruction Type:Patient Education Patient Instructions Indication:ADD (attention deficit disorder) Start:25-Feb-2017 Instruction Type:Provider Instructions for Treatment How to access health informa tion online Indication:Asthma, allergic Start:14-Feb-2017 Instruction Type:Patient Education How to access health informa tion online - Detail Indication:Asthma, allergic Start:14-Feb-2017 Instruction Type:Patient Education Patient Instructions Indication:Asthma, allergic Start:14-Feb-2017 Instruction Type:Provider Instructions for Treatment How to access health informa tion online Indication:Acute asthma exacerbation (Renamed from Asthma with acute exacerbation) Start:10-Apr-2015 Instruction Type:Patient Education How to access health informa tion online - Detail Indication:Acute asthma exacerbation (Renamed from Asthma with acute exacerbation) Start:10-Apr-2015 Instruction Type:Patient Education Patient Instructions Indication:Acute asthma exacerbation (Renamed from Asthma with acute exacerbation) Start:10-Apr-2015 Instruction Type:Provider Instructions for Treatment Patient Instructions Indication:ALLERGIC RHINITIS DUE TO OTHER ALLERGEN Start:14-Dec-2013 Instruction Type:Provider Instructions for Treatment [facility] Work Phone: Instructions* Name Dates Details Patient Instructions Indication:Nonsmoker Start:20-Jan-2022 Instruction Type:Provider Instructions for Treatment How to Access Health Informa tion Online using Patient Portal and [employer] Apps Indication:Nonsmoker Start:20-Jan-2022 Instruction Type:Patient Education Patient Instructions Indication:BMI 35.0-35.9,adult Start:04-Jan-2022 Instruction Type:Provider Instructions for Treatment How to Access Health Informa tion Online using Patient Portal and [employer] Apps Indication:BMI 35.0-35.9,adult Start:04-Jan-2022 Instruction Type:Patient Education Patient Instructions Indication:BMI 35.0-35.9,adult Start:28-Aug-2021 Instruction Type:Provider Instructions for Treatment How to Access Health Informa tion Online using Patient Portal and [employer] Apps Indication:BMI 35.0-35.9,adult Start:28-Aug-2021 Instruction Type:Patient Education Patient Instructions Indication:ADD (attention deficit disorder) Start:04-Aug-2021 Instruction Type:Provider Instructions for Treatment How to Access Health Informa tion Online using Patient Portal and [employer] Apps Indication:ADD (attention deficit disorder) Start:04-Aug-2021 Instruction Type:Patient Education Patient Instructions Indication:ADD (attention deficit disorder) Start:06-Mar-2021 Instruction Type:Provider Instructions for Treatment How to Access Health Informa tion Online using Patient Portal and [employer] Apps Indication:ADD (attention deficit disorder) Start:06-Mar-2021 Instruction Type:Patient Education Patient Instructions Indication:ADD (attention deficit disorder) Start:29-Aug-2020 Instruction Type:Provider Instructions for Treatment How to Access Health Informa tion Online using Patient Portal and [employer] Apps Indication:ADD (attention deficit disorder) Start:29-Aug-2020 Instruction Type:Patient Education Patient Instructions Indication:ADD (attention deficit disorder) Start:03-Jun-2020 Instruction Type:Provider Instructions for Treatment How to Access Health Informa tion Online using Patient Portal and [employer] Apps Indication:ADD (attention deficit disorder) Start:03-Jun-2020 Instruction Type:Patient Education How to access health informa tion online Indication:ADD (attention deficit disorder) Start:23-Nov-2019 Instruction Type:Patient Education How to access health informa tion online - Detail Indication:ADD (attention deficit disorder) Start:23-Nov-2019 Instruction Type:Patient Education Patient Instructions Indication:ADD (attention deficit disorder) Start:23-Nov-2019 Instruction Type:Provider Instructions for Treatment How to access health informa tion online Indication:ADD (attention deficit disorder) Start:04-Sep-2018 Instruction Type:Patient Education How to access health informa tion online - Detail Indication:ADD (attention deficit disorder) Start:04-Sep-2018 Instruction Type:Patient Education Patient Instructions Indication:ADD (attention deficit disorder) Start:04-Sep-2018 Instruction Type:Provider Instructions for Treatment How to access health informa tion online Indication:Nonsmoker Start:10-Jul-2018 Instruction Type:Patient Education How to access health informa tion online - Detail Indication:Nonsmoker Start:10-Jul-2018 Instruction Type:Patient Education Patient Instructions Indication:Nonsmoker Start:10-Jul-2018 Instruction Type:Provider Instructions for Treatment How to access health informa tion online Indication:ADD (attention deficit disorder) Start:26-May-2018 Instruction Type:Patient Education How to access health informa tion online - Detail Indication:ADD (attention deficit disorder) Start:26-May-2018 Instruction Type:Patient Education Patient Instructions Indication:ADD (attention deficit disorder) Start:26-May-2018 Instruction Type:Provider Instructions for Treatment How to access health informa tion online Indication:Nonsmoker Start:24-May-2018 Instruction Type:Patient Education How to access health informa tion online - Detail Indication:Nonsmoker Start:24-May-2018 Instruction Type:Patient Education Patient Instructions Indication:Nonsmoker Start:24-May-2018 Instruction Type:Provider Instructions for Treatment How to access health informa tion online Indication:Nonsmoker Start:05-May-2018 Instruction Type:Patient Education How to access health informa tion online - Detail Indication:Nonsmoker Start:05-May-2018 Instruction Type:Patient Education Patient Instructions Indication:Nonsmoker Start:05-May-2018 Instruction Type:Provider Instructions for Treatment How to access health informa tion online Indication:ADD (attention deficit disorder) Start:11-Apr-2017 Instruction Type:Patient Education How to access health informa tion online - Detail Indication:ADD (attention deficit disorder) Start:11-Apr-2017 Instruction Type:Patient Education Patient Instructions Indication:ADD (attention deficit disorder) Start:11-Apr-2017 Instruction Type:Provider Instructions for Treatment How to access health informa tion online Indication:ADD (attention deficit disorder) Start:25-Feb-2017 Instruction Type:Patient Education How to access health informa tion online - Detail Indication:ADD (attention deficit disorder) Start:25-Feb-2017 Instruction Type:Patient Education Patient Instructions Indication:ADD (attention deficit disorder) Start:25-Feb-2017 Instruction Type:Provider Instructions for Treatment How to access health informa tion online Indication:Asthma, allergic Start:14-Feb-2017 Instruction Type:Patient Education How to access health informa tion online - Detail Indication:Asthma, allergic Start:14-Feb-2017 Instruction Type:Patient Education Patient Instructions Indication:Asthma, allergic Start:14-Feb-2017 Instruction Type:Provider Instructions for Treatment How to access health informa tion online Indication:Acute asthma exacerbation (Renamed from Asthma with acute exacerbation) Start:10-Apr-2015 Instruction Type:Patient Education How to access health informa tion online - Detail Indication:Acute asthma exacerbation (Renamed from Asthma with acute exacerbation) Start:10-Apr-2015 Instruction Type:Patient Education Patient Instructions Indication:Acute asthma exacerbation (Renamed from Asthma with acute exacerbation) Start:10-Apr-2015 Instruction Type:Provider Instructions for Treatment Patient Instructions Indication:ALLERGIC RHINITIS DUE TO OTHER ALLERGEN Start:14-Dec-2013 Instruction Type:Provider Instructions for Treatment [facility] Work Phone: Instructions* Name Dates Details Patient Instructions Indication:Nonsmoker Start:20-Jan-2022 Instruction Type:Provider Instructions for Treatment How to Access Health Informa tion Online using Patient Portal and [employer] Apps Indication:Nonsmoker Start:20-Jan-2022 Instruction Type:Patient Education Patient Instructions Indication:BMI 35.0-35.9,adult Start:04-Jan-2022 Instruction Type:Provider Instructions for Treatment How to Access Health Informa tion Online using Patient Portal and [employer] Apps Indication:BMI 35.0-35.9,adult Start:04-Jan-2022 Instruction Type:Patient Education Patient Instructions Indication:BMI 35.0-35.9,adult Start:28-Aug-2021 Instruction Type:Provider Instructions for Treatment How to Access Health Informa tion Online using Patient Portal and [employer] Apps Indication:BMI 35.0-35.9,adult Start:28-Aug-2021 Instruction Type:Patient Education Patient Instructions Indication:ADD (attention deficit disorder) Start:04-Aug-2021 Instruction Type:Provider Instructions for Treatment How to Access Health Informa tion Online using Patient Portal and [employer] Apps Indication:ADD (attention deficit disorder) Start:04-Aug-2021 Instruction Type:Patient Education Patient Instructions Indication:ADD (attention deficit disorder) Start:06-Mar-2021 Instruction Type:Provider Instructions for Treatment How to Access Health Informa tion Online using Patient Portal and [employer] Apps Indication:ADD (attention deficit disorder) Start:06-Mar-2021 Instruction Type:Patient Education Patient Instructions Indication:ADD (attention deficit disorder) Start:29-Aug-2020 Instruction Type:Provider Instructions for Treatment How to Access Health Informa tion Online using Patient Portal and [employer] Apps Indication:ADD (attention deficit disorder) Start:29-Aug-2020 Instruction Type:Patient Education Patient Instructions Indication:ADD (attention deficit disorder) Start:03-Jun-2020 Instruction Type:Provider Instructions for Treatment How to Access Health Informa tion Online using Patient Portal and [employer] Apps Indication:ADD (attention deficit disorder) Start:03-Jun-2020 Instruction Type:Patient Education How to access health informa tion online Indication:ADD (attention deficit disorder) Start:23-Nov-2019 Instruction Type:Patient Education How to access health informa tion online - Detail Indication:ADD (attention deficit disorder) Start:23-Nov-2019 Instruction Type:Patient Education Patient Instructions Indication:ADD (attention deficit disorder) Start:23-Nov-2019 Instruction Type:Provider Instructions for Treatment How to access health informa tion online Indication:ADD (attention deficit disorder) Start:04-Sep-2018 Instruction Type:Patient Education How to access health informa tion online - Detail Indication:ADD (attention deficit disorder) Start:04-Sep-2018 Instruction Type:Patient Education Patient Instructions Indication:ADD (attention deficit disorder) Start:04-Sep-2018 Instruction Type:Provider Instructions for Treatment How to access health informa tion online Indication:Nonsmoker Start:10-Jul-2018 Instruction Type:Patient Education How to access health informa tion online - Detail Indication:Nonsmoker Start:10-Jul-2018 Instruction Type:Patient Education Patient Instructions Indication:Nonsmoker Start:10-Jul-2018 Instruction Type:Provider Instructions for Treatment How to access health informa tion online Indication:ADD (attention deficit disorder) Start:26-May-2018 Instruction Type:Patient Education How to access health informa tion online - Detail Indication:ADD (attention deficit disorder) Start:26-May-2018 Instruction Type:Patient Education Patient Instructions Indication:ADD (attention deficit disorder) Start:26-May-2018 Instruction Type:Provider Instructions for Treatment How to access health informa tion online Indication:Nonsmoker Start:24-May-2018 Instruction Type:Patient Education How to access health informa tion online - Detail Indication:Nonsmoker Start:24-May-2018 Instruction Type:Patient Education Patient Instructions Indication:Nonsmoker Start:24-May-2018 Instruction Type:Provider Instructions for Treatment How to access health informa tion online Indication:Nonsmoker Start:05-May-2018 Instruction Type:Patient Education How to access health informa tion online - Detail Indication:Nonsmoker Start:05-May-2018 Instruction Type:Patient Education Patient Instructions Indication:Nonsmoker Start:05-May-2018 Instruction Type:Provider Instructions for Treatment How to access health informa tion online Indication:ADD (attention deficit disorder) Start:11-Apr-2017 Instruction Type:Patient Education How to access health informa tion online - Detail Indication:ADD (attention deficit disorder) Start:11-Apr-2017 Instruction Type:Patient Education Patient Instructions Indication:ADD (attention deficit disorder) Start:11-Apr-2017 Instruction Type:Provider Instructions for Treatment How to access health informa tion online Indication:ADD (attention deficit disorder) Start:25-Feb-2017 Instruction Type:Patient Education How to access health informa tion online - Detail Indication:ADD (attention deficit disorder) Start:25-Feb-2017 Instruction Type:Patient Education Patient Instructions Indication:ADD (attention deficit disorder) Start:25-Feb-2017 Instruction Type:Provider Instructions for Treatment How to access health informa tion online Indication:Asthma, allergic Start:14-Feb-2017 Instruction Type:Patient Education How to access health informa tion online - Detail Indication:Asthma, allergic Start:14-Feb-2017 Instruction Type:Patient Education Patient Instructions Indication:Asthma, allergic Start:14-Feb-2017 Instruction Type:Provider Instructions for Treatment How to access health informa tion online Indication:Acute asthma exacerbation (Renamed from Asthma with acute exacerbation) Start:10-Apr-2015 Instruction Type:Patient Education How to access health informa tion online - Detail Indication:Acute asthma exacerbation (Renamed from Asthma with acute exacerbation) Start:10-Apr-2015 Instruction Type:Patient Education Patient Instructions Indication:Acute asthma exacerbation (Renamed from Asthma with acute exacerbation) Start:10-Apr-2015 Instruction Type:Provider Instructions for Treatment Patient Instructions Indication:ALLERGIC RHINITIS DUE TO OTHER ALLERGEN Start:14-Dec-2013 Instruction Type:Provider Instructions for Treatment [facility]; [facility] Work Phone: Instructions* Name Dates Details Patient Instructions Indication:Nonsmoker Start:20-Jan-2022 Instruction Type:Provider Instructions for Treatment How to Access Health Informa tion Online using Patient Portal and [employer] Apps Indication:Nonsmoker Start:20-Jan-2022 Instruction Type:Patient Education Patient Instructions Indication:BMI 35.0-35.9,adult Start:04-Jan-2022 Instruction Type:Provider Instructions for Treatment How to Access Health Informa tion Online using Patient Portal and [employer] Apps Indication:BMI 35.0-35.9,adult Start:04-Jan-2022 Instruction Type:Patient Education Patient Instructions Indication:BMI 35.0-35.9,adult Start:28-Aug-2021 Instruction Type:Provider Instructions for Treatment How to Access Health Informa tion Online using Patient Portal and [employer] Apps Indication:BMI 35.0-35.9,adult Start:28-Aug-2021 Instruction Type:Patient Education Patient Instructions Indication:ADD (attention deficit disorder) Start:04-Aug-2021 Instruction Type:Provider Instructions for Treatment How to Access Health Informa tion Online using Patient Portal and [employer] Apps Indication:ADD (attention deficit disorder) Start:04-Aug-2021 Instruction Type:Patient Education Patient Instructions Indication:ADD (attention deficit disorder) Start:06-Mar-2021 Instruction Type:Provider Instructions for Treatment How to Access Health Informa tion Online using Patient Portal and [employer] Apps Indication:ADD (attention deficit disorder) Start:06-Mar-2021 Instruction Type:Patient Education Patient Instructions Indication:ADD (attention deficit disorder) Start:29-Aug-2020 Instruction Type:Provider Instructions for Treatment How to Access Health Informa tion Online using Patient Portal and [employer] Apps Indication:ADD (attention deficit disorder) Start:29-Aug-2020 Instruction Type:Patient Education Patient Instructions Indication:ADD (attention deficit disorder) Start:03-Jun-2020 Instruction Type:Provider Instructions for Treatment How to Access Health Informa tion Online using Patient Portal and [employer] Apps Indication:ADD (attention deficit disorder) Start:03-Jun-2020 Instruction Type:Patient Education How to access health informa tion online Indication:ADD (attention deficit disorder) Start:23-Nov-2019 Instruction Type:Patient Education How to access health informa tion online - Detail Indication:ADD (attention deficit disorder) Start:23-Nov-2019 Instruction Type:Patient Education Patient Instructions Indication:ADD (attention deficit disorder) Start:23-Nov-2019 Instruction Type:Provider Instructions for Treatment How to access health informa tion online Indication:ADD (attention deficit disorder) Start:04-Sep-2018 Instruction Type:Patient Education How to access health informa tion online - Detail Indication:ADD (attention deficit disorder) Start:04-Sep-2018 Instruction Type:Patient Education Patient Instructions Indication:ADD (attention deficit disorder) Start:04-Sep-2018 Instruction Type:Provider Instructions for Treatment How to access health informa tion online Indication:Nonsmoker Start:10-Jul-2018 Instruction Type:Patient Education How to access health informa tion online - Detail Indication:Nonsmoker Start:10-Jul-2018 Instruction Type:Patient Education Patient Instructions Indication:Nonsmoker Start:10-Jul-2018 Instruction Type:Provider Instructions for Treatment How to access health informa tion online Indication:ADD (attention deficit disorder) Start:26-May-2018 Instruction Type:Patient Education How to access health informa tion online - Detail Indication:ADD (attention deficit disorder) Start:26-May-2018 Instruction Type:Patient Education Patient Instructions Indication:ADD (attention deficit disorder) Start:26-May-2018 Instruction Type:Provider Instructions for Treatment How to access health informa tion online Indication:Nonsmoker Start:24-May-2018 Instruction Type:Patient Education How to access health informa tion online - Detail Indication:Nonsmoker Start:24-May-2018 Instruction Type:Patient Education Patient Instructions Indication:Nonsmoker Start:24-May-2018 Instruction Type:Provider Instructions for Treatment How to access health informa tion online Indication:Nonsmoker Start:05-May-2018 Instruction Type:Patient Education How to access health informa tion online - Detail Indication:Nonsmoker Start:05-May-2018 Instruction Type:Patient Education Patient Instructions Indication:Nonsmoker Start:05-May-2018 Instruction Type:Provider Instructions for Treatment How to access health informa tion online Indication:ADD (attention deficit disorder) Start:11-Apr-2017 Instruction Type:Patient Education How to access health informa tion online - Detail Indication:ADD (attention deficit disorder) Start:11-Apr-2017 Instruction Type:Patient Education Patient Instructions Indication:ADD (attention deficit disorder) Start:11-Apr-2017 Instruction Type:Provider Instructions for Treatment How to access health informa tion online Indication:ADD (attention deficit disorder) Start:25-Feb-2017 Instruction Type:Patient Education How to access health informa tion online - Detail Indication:ADD (attention deficit disorder) Start:25-Feb-2017 Instruction Type:Patient Education Patient Instructions Indication:ADD (attention deficit disorder) Start:25-Feb-2017 Instruction Type:Provider Instructions for Treatment How to access health informa tion online Indication:Asthma, allergic Start:14-Feb-2017 Instruction Type:Patient Education How to access health informa tion online - Detail Indication:Asthma, allergic Start:14-Feb-2017 Instruction Type:Patient Education Patient Instructions Indication:Asthma, allergic Start:14-Feb-2017 Instruction Type:Provider Instructions for Treatment How to access health informa tion online Indication:Acute asthma exacerbation (Renamed from Asthma with acute exacerbation) Start:10-Apr-2015 Instruction Type:Patient Education How to access health informa tion online - Detail Indication:Acute asthma exacerbation (Renamed from Asthma with acute exacerbation) Start:10-Apr-2015 Instruction Type:Patient Education Patient Instructions Indication:Acute asthma exacerbation (Renamed from Asthma with acute exacerbation) Start:10-Apr-2015 Instruction Type:Provider Instructions for Treatment Patient Instructions Indication:ALLERGIC RHINITIS DUE TO OTHER ALLERGEN Start:14-Dec-2013 Instruction Type:Provider Instructions for Treatment [facility] Work Phone: Summary Purpose Family History No Family History Records Found Relationship Condition Age at Onset Recorded Date/T halima father Asthma Unknown Diabetes mellitus Unknown Hypertension Unknown grandmother Asthma Unknown Advance Directives No Advanced Directives Records Found Advance Directive Response Recorded Date/ Time Advance Directives No November 30, 2019 7:09am Living Will No January 13, 5:02pm Power of [employer] Professor No January 13, 2022 5:02pm Advance Directive Response Recorded Date/ Time Advance Directives No November 30, 2019 8:09am Living Will No November 20, 2022 10:23pm Power of [employer] Professor No October 10:23pm Instructions Name Dates Details ADD (attention deficit disor teddy) : How to access health information online Indication:ADD (attention deficit disorder) ADD (attention deficit disor teddy) : How to access health information online - Detail Indication:ADD (attention deficit disorder) ADD (attention deficit disor teddy) : Patient Instructions Indication:ADD (attention deficit disorder) Asthma, allergic : How to ac cess health information online Indication:Asthma, allergic Asthma, allergic : How to ac cess health information online - Detail Indication:Asthma, allergic Asthma, allergic : Patient I nstructions Indication:Asthma, allergic Acute asthma exacerbation (R enamed from Asthma with acute exacerbation) : How to access health information online Indication:Acute asthma exacerbation (Renamed from Asthma with acute exacerbation) Acute asthma exacerbation (R enamed from Asthma with acute exacerbation) : How to access health information online - Detail Indication:Acute asthma exacerbation (Renamed from Asthma with acute exacerbation) Acute asthma exacerbation (R enamed from Asthma with acute exacerbation) : Patient Instructions Indication:Acute asthma exacerbation (Renamed from Asthma with acute exacerbation) ALLERGIC RHINITIS DUE TO OTH ER ALLERGEN : Patient Instructions Indication:ALLERGIC RHINITIS DUE TO OTHER ALLERGEN Name Dates Details Nonsmoker : How to access he alth information online Indication:Nonsmoker Nonsmoker : How to access he alth information online - Detail Indication:Nonsmoker Nonsmoker : Patient Instruct ions Indication:Nonsmoker ADD (attention deficit disor teddy) : How to access health information online Indication:ADD (attention deficit disorder) ADD (attention deficit disor teddy) : How to access health information online - Detail Indication:ADD (attention deficit disorder) ADD (attention deficit disor teddy) : Patient Instructions Indication:ADD (attention deficit disorder) Asthma, allergic : How to ac cess health information online Indication:Asthma, allergic Asthma, allergic : How to ac cess health information online - Detail Indication:Asthma, allergic Asthma, allergic : Patient I nstructions Indication:Asthma, allergic Acute asthma exacerbation (R enamed from Asthma with acute exacerbation) : How to access health information online Indication:Acute asthma exacerbation (Renamed from Asthma with acute exacerbation) Acute asthma exacerbation (R enamed from Asthma with acute exacerbation) : How to access health information online - Detail Indication:Acute asthma exacerbation (Renamed from Asthma with acute exacerbation) Acute asthma exacerbation (R enamed from Asthma with acute exacerbation) : Patient Instructions Indication:Acute asthma exacerbation (Renamed from Asthma with acute exacerbation) ALLERGIC RHINITIS DUE TO OTH ER ALLERGEN : Patient Instructions Indication:ALLERGIC RHINITIS DUE TO OTHER ALLERGEN Name Dates Details Nonsmoker : How to access he alth information online Indication:Nonsmoker Nonsmoker : How to access he alth information online - Detail Indication:Nonsmoker Nonsmoker : Patient Instruct ions Indication:Nonsmoker ADD (attention deficit disor teddy) : How to access health information online Indication:ADD (attention deficit disorder) ADD (attention deficit disor teddy) : How to access health information online - Detail Indication:ADD (attention deficit disorder) ADD (attention deficit disor teddy) : Patient Instructions Indication:ADD (attention deficit disorder) Asthma, allergic : How to ac cess health information online Indication:Asthma, allergic Asthma, allergic : How to ac cess health information online - Detail Indication:Asthma, allergic Asthma, allergic : Patient I nstructions Indication:Asthma, allergic Acute asthma exacerbation (R enamed from Asthma with acute exacerbation) : How to access health information online Indication:Acute asthma exacerbation (Renamed from Asthma with acute exacerbation) Acute asthma exacerbation (R enamed from Asthma with acute exacerbation) : How to access health information online - Detail Indication:Acute asthma exacerbation (Renamed from Asthma with acute exacerbation) Acute asthma exacerbation (R enamed from Asthma with acute exacerbation) : Patient Instructions Indication:Acute asthma exacerbation (Renamed from Asthma with acute exacerbation) ALLERGIC RHINITIS DUE TO OTH ER ALLERGEN : Patient Instructions Indication:ALLERGIC RHINITIS DUE TO OTHER ALLERGEN Name Dates Details How to access health informa tion online Indication:Nonsmoker Start:10-Jul-2018 Instruction Type:Patient Education How to access health informa tion online - Detail Indication:Nonsmoker Start:10-Jul-2018 Instruction Type:Patient Education Patient Instructions Indication:Nonsmoker Start:10-Jul-2018 Instruction Type:Provider Instructions for Treatment How to access health informa tion online Indication:ADD (attention deficit disorder) Start:26-May-2018 Instruction Type:Patient Education How to access health informa tion online - Detail Indication:ADD (attention deficit disorder) Start:26-May-2018 Instruction Type:Patient Education Patient Instructions Indication:ADD (attention deficit disorder) Start:26-May-2018 Instruction Type:Provider Instructions for Treatment How to access health informa tion online Indication:Nonsmoker Start:24-May-2018 Instruction Type:Patient Education How to access health informa tion online - Detail Indication:Nonsmoker Start:24-May-2018 Instruction Type:Patient Education Patient Instructions Indication:Nonsmoker Start:24-May-2018 Instruction Type:Provider Instructions for Treatment How to access health informa tion online Indication:Nonsmoker Start:05-May-2018 Instruction Type:Patient Education How to access health informa tion online - Detail Indication:Nonsmoker Start:05-May-2018 Instruction Type:Patient Education Patient Instructions Indication:Nonsmoker Start:05-May-2018 Instruction Type:Provider Instructions for Treatment How to access health informa tion online Indication:ADD (attention deficit disorder) Start:11-Apr-2017 Instruction Type:Patient Education How to access health informa tion online - Detail Indication:ADD (attention deficit disorder) Start:11-Apr-2017 Instruction Type:Patient Education Patient Instructions Indication:ADD (attention deficit disorder) Start:11-Apr-2017 Instruction Type:Provider Instructions for Treatment How to access health informa tion online Indication:ADD (attention deficit disorder) Start:25-Feb-2017 Instruction Type:Patient Education How to access health informa tion online - Detail Indication:ADD (attention deficit disorder) Start:25-Feb-2017 Instruction Type:Patient Education Patient Instructions Indication:ADD (attention deficit disorder) Start:25-Feb-2017 Instruction Type:Provider Instructions for Treatment How to access health informa tion online Indication:Asthma, allergic Start:14-Feb-2017 Instruction Type:Patient Education How to access health informa tion online - Detail Indication:Asthma, allergic Start:14-Feb-2017 Instruction Type:Patient Education Patient Instructions Indication:Asthma, allergic Start:14-Feb-2017 Instruction Type:Provider Instructions for Treatment How to access health informa tion online Indication:Acute asthma exacerbation (Renamed from Asthma with acute exacerbation) Start:10-Apr-2015 Instruction Type:Patient Education How to access health informa tion online - Detail Indication:Acute asthma exacerbation (Renamed from Asthma with acute exacerbation) Start:10-Apr-2015 Instruction Type:Patient Education Patient Instructions Indication:Acute asthma exacerbation (Renamed from Asthma with acute exacerbation) Start:10-Apr-2015 Instruction Type:Provider Instructions for Treatment Patient Instructions Indication:ALLERGIC RHINITIS DUE TO OTHER ALLERGEN Start:14-Dec-2013 Instruction Type:Provider Instructions for Treatment Name Dates Details How to access health informa tion online Indication:ADD (attention deficit disorder) Start:04-Sep-2018 Instruction Type:Patient Education How to access health informa tion online - Detail Indication:ADD (attention deficit disorder) Start:04-Sep-2018 Instruction Type:Patient Education Patient Instructions Indication:ADD (attention deficit disorder) Start:04-Sep-2018 Instruction Type:Provider Instructions for Treatment How to access health informa tion online Indication:Nonsmoker Start:10-Jul-2018 Instruction Type:Patient Education How to access health informa tion online - Detail Indication:Nonsmoker Start:10-Jul-2018 Instruction Type:Patient Education Patient Instructions Indication:Nonsmoker Start:10-Jul-2018 Instruction Type:Provider Instructions for Treatment How to access health informa tion online Indication:ADD (attention deficit disorder) Start:26-May-2018 Instruction Type:Patient Education How to access health informa tion online - Detail Indication:ADD (attention deficit disorder) Start:26-May-2018 Instruction Type:Patient Education Patient Instructions Indication:ADD (attention deficit disorder) Start:26-May-2018 Instruction Type:Provider Instructions for Treatment How to access health informa tion online Indication:Nonsmoker Start:24-May-2018 Instruction Type:Patient Education How to access health informa tion online - Detail Indication:Nonsmoker Start:24-May-2018 Instruction Type:Patient Education Patient Instructions Indication:Nonsmoker Start:24-May-2018 Instruction Type:Provider Instructions for Treatment How to access health informa tion online Indication:Nonsmoker Start:05-May-2018 Instruction Type:Patient Education How to access health informa tion online - Detail Indication:Nonsmoker Start:05-May-2018 Instruction Type:Patient Education Patient Instructions Indication:Nonsmoker Start:05-May-2018 Instruction Type:Provider Instructions for Treatment How to access health informa tion online Indication:ADD (attention deficit disorder) Start:11-Apr-2017 Instruction Type:Patient Education How to access health informa tion online - Detail Indication:ADD (attention deficit disorder) Start:11-Apr-2017 Instruction Type:Patient Education Patient Instructions Indication:ADD (attention deficit disorder) Start:11-Apr-2017 Instruction Type:Provider Instructions for Treatment How to access health informa tion online Indication:ADD (attention deficit disorder) Start:25-Feb-2017 Instruction Type:Patient Education How to access health informa tion online - Detail Indication:ADD (attention deficit disorder) Start:25-Feb-2017 Instruction Type:Patient Education Patient Instructions Indication:ADD (attention deficit disorder) Start:25-Feb-2017 Instruction Type:Provider Instructions for Treatment How to access health informa tion online Indication:Asthma, allergic Start:14-Feb-2017 Instruction Type:Patient Education How to access health informa tion online - Detail Indication:Asthma, allergic Start:14-Feb-2017 Instruction Type:Patient Education Patient Instructions Indication:Asthma, allergic Start:14-Feb-2017 Instruction Type:Provider Instructions for Treatment How to access health informa tion online Indication:Acute asthma exacerbation (Renamed from Asthma with acute exacerbation) Start:10-Apr-2015 Instruction Type:Patient Education How to access health informa tion online - Detail Indication:Acute asthma exacerbation (Renamed from Asthma with acute exacerbation) Start:10-Apr-2015 Instruction Type:Patient Education Patient Instructions Indication:Acute asthma exacerbation (Renamed from Asthma with acute exacerbation) Start:10-Apr-2015 Instruction Type:Provider Instructions for Treatment Patient Instructions Indication:ALLERGIC RHINITIS DUE TO OTHER ALLERGEN Start:14-Dec-2013 Instruction Type:Provider Instructions for Treatment Name Dates Details How to access health informa tion online Indication:Nonsmoker Start:13-Oct-2018 Instruction Type:Patient Education How to access health informa tion online - Detail Indication:Nonsmoker Start:13-Oct-2018 Instruction Type:Patient Education Patient Instructions Indication:Nonsmoker Start:13-Oct-2018 Instruction Type:Provider Instructions for Treatment How to access health informa tion online Indication:ADD (attention deficit disorder) Start:04-Sep-2018 Instruction Type:Patient Education How to access health informa tion online - Detail Indication:ADD (attention deficit disorder) Start:04-Sep-2018 Instruction Type:Patient Education Patient Instructions Indication:ADD (attention deficit disorder) Start:04-Sep-2018 Instruction Type:Provider Instructions for Treatment How to access health informa tion online Indication:Nonsmoker Start:10-Jul-2018 Instruction Type:Patient Education How to access health informa tion online - Detail Indication:Nonsmoker Start:10-Jul-2018 Instruction Type:Patient Education Patient Instructions Indication:Nonsmoker Start:10-Jul-2018 Instruction Type:Provider Instructions for Treatment How to access health informa tion online Indication:ADD (attention deficit disorder) Start:26-May-2018 Instruction Type:Patient Education How to access health informa tion online - Detail Indication:ADD (attention deficit disorder) Start:26-May-2018 Instruction Type:Patient Education Patient Instructions Indication:ADD (attention deficit disorder) Start:26-May-2018 Instruction Type:Provider Instructions for Treatment How to access health informa tion online Indication:Nonsmoker Start:24-May-2018 Instruction Type:Patient Education How to access health informa tion online - Detail Indication:Nonsmoker Start:24-May-2018 Instruction Type:Patient Education Patient Instructions Indication:Nonsmoker Start:24-May-2018 Instruction Type:Provider Instructions for Treatment How to access health informa tion online Indication:Nonsmoker Start:05-May-2018 Instruction Type:Patient Education How to access health informa tion online - Detail Indication:Nonsmoker Start:05-May-2018 Instruction Type:Patient Education Patient Instructions Indication:Nonsmoker Start:05-May-2018 Instruction Type:Provider Instructions for Treatment How to access health informa tion online Indication:ADD (attention deficit disorder) Start:11-Apr-2017 Instruction Type:Patient Education How to access health informa tion online - Detail Indication:ADD (attention deficit disorder) Start:11-Apr-2017 Instruction Type:Patient Education Patient Instructions Indication:ADD (attention deficit disorder) Start:11-Apr-2017 Instruction Type:Provider Instructions for Treatment How to access health informa tion online Indication:ADD (attention deficit disorder) Start:25-Feb-2017 Instruction Type:Patient Education How to access health informa tion online - Detail Indication:ADD (attention deficit disorder) Start:25-Feb-2017 Instruction Type:Patient Education Patient Instructions Indication:ADD (attention deficit disorder) Start:25-Feb-2017 Instruction Type:Provider Instructions for Treatment How to access health informa tion online Indication:Asthma, allergic Start:14-Feb-2017 Instruction Type:Patient Education How to access health informa tion online - Detail Indication:Asthma, allergic Start:14-Feb-2017 Instruction Type:Patient Education Patient Instructions Indication:Asthma, allergic Start:14-Feb-2017 Instruction Type:Provider Instructions for Treatment How to access health informa tion online Indication:Acute asthma exacerbation (Renamed from Asthma with acute exacerbation) Start:10-Apr-2015 Instruction Type:Patient Education How to access health informa tion online - Detail Indication:Acute asthma exacerbation (Renamed from Asthma with acute exacerbation) Start:10-Apr-2015 Instruction Type:Patient Education Patient Instructions Indication:Acute asthma exacerbation (Renamed from Asthma with acute exacerbation) Start:10-Apr-2015 Instruction Type:Provider Instructions for Treatment Patient Instructions Indication:ALLERGIC RHINITIS DUE TO OTHER ALLERGEN Start:14-Dec-2013 Instruction Type:Provider Instructions for Treatment Name Dates Details How to access health informa tion online Indication:ADD (attention deficit disorder) Start:04-Sep-2018 Instruction Type:Patient Education How to access health informa tion online - Detail Indication:ADD (attention deficit disorder) Start:04-Sep-2018 Instruction Type:Patient Education Patient Instructions Indication:ADD (attention deficit disorder) Start:04-Sep-2018 Instruction Type:Provider Instructions for Treatment How to access health informa tion online Indication:Nonsmoker Start:10-Jul-2018 Instruction Type:Patient Education How to access health informa tion online - Detail Indication:Nonsmoker Start:10-Jul-2018 Instruction Type:Patient Education Patient Instructions Indication:Nonsmoker Start:10-Jul-2018 Instruction Type:Provider Instructions for Treatment How to access health informa tion online Indication:ADD (attention deficit disorder) Start:26-May-2018 Instruction Type:Patient Education How to access health informa tion online - Detail Indication:ADD (attention deficit disorder) Start:26-May-2018 Instruction Type:Patient Education Patient Instructions Indication:ADD (attention deficit disorder) Start:26-May-2018 Instruction Type:Provider Instructions for Treatment How to access health informa tion online Indication:Nonsmoker Start:24-May-2018 Instruction Type:Patient Education How to access health informa tion online - Detail Indication:Nonsmoker Start:24-May-2018 Instruction Type:Patient Education Patient Instructions Indication:Nonsmoker Start:24-May-2018 Instruction Type:Provider Instructions for Treatment How to access health informa tion online Indication:Nonsmoker Start:05-May-2018 Instruction Type:Patient Education How to access health informa tion online - Detail Indication:Nonsmoker Start:05-May-2018 Instruction Type:Patient Education Patient Instructions Indication:Nonsmoker Start:05-May-2018 Instruction Type:Provider Instructions for Treatment How to access health informa tion online Indication:ADD (attention deficit disorder) Start:11-Apr-2017 Instruction Type:Patient Education How to access health informa tion online - Detail Indication:ADD (attention deficit disorder) Start:11-Apr-2017 Instruction Type:Patient Education Patient Instructions Indication:ADD (attention deficit disorder) Start:11-Apr-2017 Instruction Type:Provider Instructions for Treatment How to access health informa tion online Indication:ADD (attention deficit disorder) Start:25-Feb-2017 Instruction Type:Patient Education How to access health informa tion online - Detail Indication:ADD (attention deficit disorder) Start:25-Feb-2017 Instruction Type:Patient Education Patient Instructions Indication:ADD (attention deficit disorder) Start:25-Feb-2017 Instruction Type:Provider Instructions for Treatment How to access health informa tion online Indication:Asthma, allergic Start:14-Feb-2017 Instruction Type:Patient Education How to access health informa tion online - Detail Indication:Asthma, allergic Start:14-Feb-2017 Instruction Type:Patient Education Patient Instructions Indication:Asthma, allergic Start:14-Feb-2017 Instruction Type:Provider Instructions for Treatment How to access health informa tion online Indication:Acute asthma exacerbation (Renamed from Asthma with acute exacerbation) Start:10-Apr-2015 Instruction Type:Patient Education How to access health informa tion online - Detail Indication:Acute asthma exacerbation (Renamed from Asthma with acute exacerbation) Start:10-Apr-2015 Instruction Type:Patient Education Patient Instructions Indication:Acute asthma exacerbation (Renamed from Asthma with acute exacerbation) Start:10-Apr-2015 Instruction Type:Provider Instructions for Treatment Patient Instructions Indication:ALLERGIC RHINITIS DUE TO OTHER ALLERGEN Start:14-Dec-2013 Instruction Type:Provider Instructions for Treatment Name Dates Details How to access health informa tion online Indication:ADD (attention deficit disorder) Start:23-Nov-2019 Instruction Type:Patient Education How to access health informa tion online - Detail Indication:ADD (attention deficit disorder) Start:23-Nov-2019 Instruction Type:Patient Education Patient Instructions Indication:ADD (attention deficit disorder) Start:23-Nov-2019 Instruction Type:Provider Instructions for Treatment How to access health informa tion online Indication:ADD (attention deficit disorder) Start:04-Sep-2018 Instruction Type:Patient Education How to access health informa tion online - Detail Indication:ADD (attention deficit disorder) Start:04-Sep-2018 Instruction Type:Patient Education Patient Instructions Indication:ADD (attention deficit disorder) Start:04-Sep-2018 Instruction Type:Provider Instructions for Treatment How to access health informa tion online Indication:Nonsmoker Start:10-Jul-2018 Instruction Type:Patient Education How to access health informa tion online - Detail Indication:Nonsmoker Start:10-Jul-2018 Instruction Type:Patient Education Patient Instructions Indication:Nonsmoker Start:10-Jul-2018 Instruction Type:Provider Instructions for Treatment How to access health informa tion online Indication:ADD (attention deficit disorder) Start:26-May-2018 Instruction Type:Patient Education How to access health informa tion online - Detail Indication:ADD (attention deficit disorder) Start:26-May-2018 Instruction Type:Patient Education Patient Instructions Indication:ADD (attention deficit disorder) Start:26-May-2018 Instruction Type:Provider Instructions for Treatment How to access health informa tion online Indication:Nonsmoker Start:24-May-2018 Instruction Type:Patient Education How to access health informa tion online - Detail Indication:Nonsmoker Start:24-May-2018 Instruction Type:Patient Education Patient Instructions Indication:Nonsmoker Start:24-May-2018 Instruction Type:Provider Instructions for Treatment How to access health informa tion online Indication:Nonsmoker Start:05-May-2018 Instruction Type:Patient Education How to access health informa tion online - Detail Indication:Nonsmoker Start:05-May-2018 Instruction Type:Patient Education Patient Instructions Indication:Nonsmoker Start:05-May-2018 Instruction Type:Provider Instructions for Treatment How to access health informa tion online Indication:ADD (attention deficit disorder) Start:11-Apr-2017 Instruction Type:Patient Education How to access health informa tion online - Detail Indication:ADD (attention deficit disorder) Start:11-Apr-2017 Instruction Type:Patient Education Patient Instructions Indication:ADD (attention deficit disorder) Start:11-Apr-2017 Instruction Type:Provider Instructions for Treatment How to access health informa tion online Indication:ADD (attention deficit disorder) Start:25-Feb-2017 Instruction Type:Patient Education How to access health informa tion online - Detail Indication:ADD (attention deficit disorder) Start:25-Feb-2017 Instruction Type:Patient Education Patient Instructions Indication:ADD (attention deficit disorder) Start:25-Feb-2017 Instruction Type:Provider Instructions for Treatment How to access health informa tion online Indication:Asthma, allergic Start:14-Feb-2017 Instruction Type:Patient Education How to access health informa tion online - Detail Indication:Asthma, allergic Start:14-Feb-2017 Instruction Type:Patient Education Patient Instructions Indication:Asthma, allergic Start:14-Feb-2017 Instruction Type:Provider Instructions for Treatment How to access health informa tion online Indication:Acute asthma exacerbation (Renamed from Asthma with acute exacerbation) Start:10-Apr-2015 Instruction Type:Patient Education How to access health informa tion online - Detail Indication:Acute asthma exacerbation (Renamed from Asthma with acute exacerbation) Start:10-Apr-2015 Instruction Type:Patient Education Patient Instructions Indication:Acute asthma exacerbation (Renamed from Asthma with acute exacerbation) Start:10-Apr-2015 Instruction Type:Provider Instructions for Treatment Patient Instructions Indication:ALLERGIC RHINITIS DUE TO OTHER ALLERGEN Start:14-Dec-2013 Instruction Type:Provider Instructions for Treatment Name Dates Details How to access health informa tion online Indication:ADD (attention deficit disorder) Start:23-Nov-2019 Instruction Type:Patient Education How to access health informa tion online - Detail Indication:ADD (attention deficit disorder) Start:23-Nov-2019 Instruction Type:Patient Education Patient Instructions Indication:ADD (attention deficit disorder) Start:23-Nov-2019 Instruction Type:Provider Instructions for Treatment How to access health informa tion online Indication:ADD (attention deficit disorder) Start:04-Sep-2018 Instruction Type:Patient Education How to access health informa tion online - Detail Indication:ADD (attention deficit disorder) Start:04-Sep-2018 Instruction Type:Patient Education Patient Instructions Indication:ADD (attention deficit disorder) Start:04-Sep-2018 Instruction Type:Provider Instructions for Treatment How to access health informa tion online Indication:Nonsmoker Start:10-Jul-2018 Instruction Type:Patient Education How to access health informa tion online - Detail Indication:Nonsmoker Start:10-Jul-2018 Instruction Type:Patient Education Patient Instructions Indication:Nonsmoker Start:10-Jul-2018 Instruction Type:Provider Instructions for Treatment How to access health informa tion online Indication:ADD (attention deficit disorder) Start:26-May-2018 Instruction Type:Patient Education How to access health informa tion online - Detail Indication:ADD (attention deficit disorder) Start:26-May-2018 Instruction Type:Patient Education Patient Instructions Indication:ADD (attention deficit disorder) Start:26-May-2018 Instruction Type:Provider Instructions for Treatment How to access health informa tion online Indication:Nonsmoker Start:24-May-2018 Instruction Type:Patient Education How to access health informa tion online - Detail Indication:Nonsmoker Start:24-May-2018 Instruction Type:Patient Education Patient Instructions Indication:Nonsmoker Start:24-May-2018 Instruction Type:Provider Instructions for Treatment How to access health informa tion online Indication:Nonsmoker Start:05-May-2018 Instruction Type:Patient Education How to access health informa tion online - Detail Indication:Nonsmoker Start:05-May-2018 Instruction Type:Patient Education Patient Instructions Indication:Nonsmoker Start:05-May-2018 Instruction Type:Provider Instructions for Treatment How to access health informa tion online Indication:ADD (attention deficit disorder) Start:11-Apr-2017 Instruction Type:Patient Education How to access health informa tion online - Detail Indication:ADD (attention deficit disorder) Start:11-Apr-2017 Instruction Type:Patient Education Patient Instructions Indication:ADD (attention deficit disorder) Start:11-Apr-2017 Instruction Type:Provider Instructions for Treatment How to access health informa tion online Indication:ADD (attention deficit disorder) Start:25-Feb-2017 Instruction Type:Patient Education How to access health informa tion online - Detail Indication:ADD (attention deficit disorder) Start:25-Feb-2017 Instruction Type:Patient Education Patient Instructions Indication:ADD (attention deficit disorder) Start:25-Feb-2017 Instruction Type:Provider Instructions for Treatment How to access health informa tion online Indication:Asthma, allergic Start:14-Feb-2017 Instruction Type:Patient Education How to access health informa tion online - Detail Indication:Asthma, allergic Start:14-Feb-2017 Instruction Type:Patient Education Patient Instructions Indication:Asthma, allergic Start:14-Feb-2017 Instruction Type:Provider Instructions for Treatment How to access health informa tion online Indication:Acute asthma exacerbation (Renamed from Asthma with acute exacerbation) Start:10-Apr-2015 Instruction Type:Patient Education How to access health informa tion online - Detail Indication:Acute asthma exacerbation (Renamed from Asthma with acute exacerbation) Start:10-Apr-2015 Instruction Type:Patient Education Patient Instructions Indication:Acute asthma exacerbation (Renamed from Asthma with acute exacerbation) Start:10-Apr-2015 Instruction Type:Provider Instructions for Treatment Patient Instructions Indication:ALLERGIC RHINITIS DUE TO OTHER ALLERGEN Start:14-Dec-2013 Instruction Type:Provider Instructions for Treatment Name Dates Details How to access health informa tion online Indication:ADD (attention deficit disorder) Start:23-Nov-2019 Instruction Type:Patient Education How to access health informa tion online - Detail Indication:ADD (attention deficit disorder) Start:23-Nov-2019 Instruction Type:Patient Education Patient Instructions Indication:ADD (attention deficit disorder) Start:23-Nov-2019 Instruction Type:Provider Instructions for Treatment How to access health informa tion online Indication:ADD (attention deficit disorder) Start:04-Sep-2018 Instruction Type:Patient Education How to access health informa tion online - Detail Indication:ADD (attention deficit disorder) Start:04-Sep-2018 Instruction Type:Patient Education Patient Instructions Indication:ADD (attention deficit disorder) Start:04-Sep-2018 Instruction Type:Provider Instructions for Treatment How to access health informa tion online Indication:Nonsmoker Start:10-Jul-2018 Instruction Type:Patient Education How to access health informa tion online - Detail Indication:Nonsmoker Start:10-Jul-2018 Instruction Type:Patient Education Patient Instructions Indication:Nonsmoker Start:10-Jul-2018 Instruction Type:Provider Instructions for Treatment How to access health informa tion online Indication:ADD (attention deficit disorder) Start:26-May-2018 Instruction Type:Patient Education How to access health informa tion online - Detail Indication:ADD (attention deficit disorder) Start:26-May-2018 Instruction Type:Patient Education Patient Instructions Indication:ADD (attention deficit disorder) Start:26-May-2018 Instruction Type:Provider Instructions for Treatment How to access health informa tion online Indication:Nonsmoker Start:24-May-2018 Instruction Type:Patient Education How to access health informa tion online - Detail Indication:Nonsmoker Start:24-May-2018 Instruction Type:Patient Education Patient Instructions Indication:Nonsmoker Start:24-May-2018 Instruction Type:Provider Instructions for Treatment How to access health informa tion online Indication:Nonsmoker Start:05-May-2018 Instruction Type:Patient Education How to access health informa tion online - Detail Indication:Nonsmoker Start:05-May-2018 Instruction Type:Patient Education Patient Instructions Indication:Nonsmoker Start:05-May-2018 Instruction Type:Provider Instructions for Treatment How to access health informa tion online Indication:ADD (attention deficit disorder) Start:11-Apr-2017 Instruction Type:Patient Education How to access health informa tion online - Detail Indication:ADD (attention deficit disorder) Start:11-Apr-2017 Instruction Type:Patient Education Patient Instructions Indication:ADD (attention deficit disorder) Start:11-Apr-2017 Instruction Type:Provider Instructions for Treatment How to access health informa tion online Indication:ADD (attention deficit disorder) Start:25-Feb-2017 Instruction Type:Patient Education How to access health informa tion online - Detail Indication:ADD (attention deficit disorder) Start:25-Feb-2017 Instruction Type:Patient Education Patient Instructions Indication:ADD (attention deficit disorder) Start:25-Feb-2017 Instruction Type:Provider Instructions for Treatment How to access health informa tion online Indication:Asthma, allergic Start:14-Feb-2017 Instruction Type:Patient Education How to access health informa tion online - Detail Indication:Asthma, allergic Start:14-Feb-2017 Instruction Type:Patient Education Patient Instructions Indication:Asthma, allergic Start:14-Feb-2017 Instruction Type:Provider Instructions for Treatment How to access health informa tion online Indication:Acute asthma exacerbation (Renamed from Asthma with acute exacerbation) Start:10-Apr-2015 Instruction Type:Patient Education How to access health informa tion online - Detail Indication:Acute asthma exacerbation (Renamed from Asthma with acute exacerbation) Start:10-Apr-2015 Instruction Type:Patient Education Patient Instructions Indication:Acute asthma exacerbation (Renamed from Asthma with acute exacerbation) Start:10-Apr-2015 Instruction Type:Provider Instructions for Treatment Patient Instructions Indication:ALLERGIC RHINITIS DUE TO OTHER ALLERGEN Start:14-Dec-2013 Instruction Type:Provider Instructions for Treatment Name Dates Details Nonsmoker : How to access he alth information online Indication:Nonsmoker Nonsmoker : How to access he alth information online - Detail Indication:Nonsmoker Nonsmoker : Patient Instruct ions Indication:Nonsmoker ADD (attention deficit disor teddy) : How to access health information online Indication:ADD (attention deficit disorder) ADD (attention deficit disor teddy) : How to access health information online - Detail Indication:ADD (attention deficit disorder) ADD (attention deficit disor teddy) : Patient Instructions Indication:ADD (attention deficit disorder) Asthma, allergic : How to ac cess health information online Indication:Asthma, allergic Asthma, allergic : How to ac cess health information online - Detail Indication:Asthma, allergic Asthma, allergic : Patient I nstructions Indication:Asthma, allergic Acute asthma exacerbation (R enamed from Asthma with acute exacerbation) : How to access health information online Indication:Acute asthma exacerbation (Renamed from Asthma with acute exacerbation) Acute asthma exacerbation (R enamed from Asthma with acute exacerbation) : How to access health information online - Detail Indication:Acute asthma exacerbation (Renamed from Asthma with acute exacerbation) Acute asthma exacerbation (R enamed from Asthma with acute exacerbation) : Patient Instructions Indication:Acute asthma exacerbation (Renamed from Asthma with acute exacerbation) ALLERGIC RHINITIS DUE TO OTH ER ALLERGEN : Patient Instructions Indication:ALLERGIC RHINITIS DUE TO OTHER ALLERGEN Name Dates Details How to access health informa tion online Indication:Nonsmoker Start:10-Jul-2018 Instruction Type:Patient Education How to access health informa tion online - Detail Indication:Nonsmoker Start:10-Jul-2018 Instruction Type:Patient Education Patient Instructions Indication:Nonsmoker Start:10-Jul-2018 Instruction Type:Provider Instructions for Treatment How to access health informa tion online Indication:ADD (attention deficit disorder) Start:26-May-2018 Instruction Type:Patient Education How to access health informa tion online - Detail Indication:ADD (attention deficit disorder) Start:26-May-2018 Instruction Type:Patient Education Patient Instructions Indication:ADD (attention deficit disorder) Start:26-May-2018 Instruction Type:Provider Instructions for Treatment How to access health informa tion online Indication:Nonsmoker Start:24-May-2018 Instruction Type:Patient Education How to access health informa tion online - Detail Indication:Nonsmoker Start:24-May-2018 Instruction Type:Patient Education Patient Instructions Indication:Nonsmoker Start:24-May-2018 Instruction Type:Provider Instructions for Treatment How to access health informa tion online Indication:Nonsmoker Start:05-May-2018 Instruction Type:Patient Education How to access health informa tion online - Detail Indication:Nonsmoker Start:05-May-2018 Instruction Type:Patient Education Patient Instructions Indication:Nonsmoker Start:05-May-2018 Instruction Type:Provider Instructions for Treatment How to access health informa tion online Indication:ADD (attention deficit disorder) Start:11-Apr-2017 Instruction Type:Patient Education How to access health informa tion online - Detail Indication:ADD (attention deficit disorder) Start:11-Apr-2017 Instruction Type:Patient Education Patient Instructions Indication:ADD (attention deficit disorder) Start:11-Apr-2017 Instruction Type:Provider Instructions for Treatment How to access health informa tion online Indication:ADD (attention deficit disorder) Start:25-Feb-2017 Instruction Type:Patient Education How to access health informa tion online - Detail Indication:ADD (attention deficit disorder) Start:25-Feb-2017 Instruction Type:Patient Education Patient Instructions Indication:ADD (attention deficit disorder) Start:25-Feb-2017 Instruction Type:Provider Instructions for Treatment How to access health informa tion online Indication:Asthma, allergic Start:14-Feb-2017 Instruction Type:Patient Education How to access health informa tion online - Detail Indication:Asthma, allergic Start:14-Feb-2017 Instruction Type:Patient Education Patient Instructions Indication:Asthma, allergic Start:14-Feb-2017 Instruction Type:Provider Instructions for Treatment How to access health informa tion online Indication:Acute asthma exacerbation (Renamed from Asthma with acute exacerbation) Start:10-Apr-2015 Instruction Type:Patient Education How to access health informa tion online - Detail Indication:Acute asthma exacerbation (Renamed from Asthma with acute exacerbation) Start:10-Apr-2015 Instruction Type:Patient Education Patient Instructions Indication:Acute asthma exacerbation (Renamed from Asthma with acute exacerbation) Start:10-Apr-2015 Instruction Type:Provider Instructions for Treatment Patient Instructions Indication:ALLERGIC RHINITIS DUE TO OTHER ALLERGEN Start:14-Dec-2013 Instruction Type:Provider Instructions for Treatment Name Dates Details How to access health informa tion online Indication:ADD (attention deficit disorder) Start:23-Nov-2019 Instruction Type:Patient Education How to access health informa tion online - Detail Indication:ADD (attention deficit disorder) Start:23-Nov-2019 Instruction Type:Patient Education Patient Instructions Indication:ADD (attention deficit disorder) Start:23-Nov-2019 Instruction Type:Provider Instructions for Treatment How to access health informa tion online Indication:ADD (attention deficit disorder) Start:04-Sep-2018 Instruction Type:Patient Education How to access health informa tion online - Detail Indication:ADD (attention deficit disorder) Start:04-Sep-2018 Instruction Type:Patient Education Patient Instructions Indication:ADD (attention deficit disorder) Start:04-Sep-2018 Instruction Type:Provider Instructions for Treatment How to access health informa tion online Indication:Nonsmoker Start:10-Jul-2018 Instruction Type:Patient Education How to access health informa tion online - Detail Indication:Nonsmoker Start:10-Jul-2018 Instruction Type:Patient Education Patient Instructions Indication:Nonsmoker Start:10-Jul-2018 Instruction Type:Provider Instructions for Treatment How to access health informa tion online Indication:ADD (attention deficit disorder) Start:26-May-2018 Instruction Type:Patient Education How to access health informa tion online - Detail Indication:ADD (attention deficit disorder) Start:26-May-2018 Instruction Type:Patient Education Patient Instructions Indication:ADD (attention deficit disorder) Start:26-May-2018 Instruction Type:Provider Instructions for Treatment How to access health informa tion online Indication:Nonsmoker Start:24-May-2018 Instruction Type:Patient Education How to access health informa tion online - Detail Indication:Nonsmoker Start:24-May-2018 Instruction Type:Patient Education Patient Instructions Indication:Nonsmoker Start:24-May-2018 Instruction Type:Provider Instructions for Treatment How to access health informa tion online Indication:Nonsmoker Start:05-May-2018 Instruction Type:Patient Education How to access health informa tion online - Detail Indication:Nonsmoker Start:05-May-2018 Instruction Type:Patient Education Patient Instructions Indication:Nonsmoker Start:05-May-2018 Instruction Type:Provider Instructions for Treatment How to access health informa tion online Indication:ADD (attention deficit disorder) Start:11-Apr-2017 Instruction Type:Patient Education How to access health informa tion online - Detail Indication:ADD (attention deficit disorder) Start:11-Apr-2017 Instruction Type:Patient Education Patient Instructions Indication:ADD (attention deficit disorder) Start:11-Apr-2017 Instruction Type:Provider Instructions for Treatment How to access health informa tion online Indication:ADD (attention deficit disorder) Start:25-Feb-2017 Instruction Type:Patient Education How to access health informa tion online - Detail Indication:ADD (attention deficit disorder) Start:25-Feb-2017 Instruction Type:Patient Education Patient Instructions Indication:ADD (attention deficit disorder) Start:25-Feb-2017 Instruction Type:Provider Instructions for Treatment How to access health informa tion online Indication:Asthma, allergic Start:14-Feb-2017 Instruction Type:Patient Education How to access health informa tion online - Detail Indication:Asthma, allergic Start:14-Feb-2017 Instruction Type:Patient Education Patient Instructions Indication:Asthma, allergic Start:14-Feb-2017 Instruction Type:Provider Instructions for Treatment How to access health informa tion online Indication:Acute asthma exacerbation (Renamed from Asthma with acute exacerbation) Start:10-Apr-2015 Instruction Type:Patient Education How to access health informa tion online - Detail Indication:Acute asthma exacerbation (Renamed from Asthma with acute exacerbation) Start:10-Apr-2015 Instruction Type:Patient Education Patient Instructions Indication:Acute asthma exacerbation (Renamed from Asthma with acute exacerbation) Start:10-Apr-2015 Instruction Type:Provider Instructions for Treatment Patient Instructions Indication:ALLERGIC RHINITIS DUE TO OTHER ALLERGEN Start:14-Dec-2013 Instruction Type:Provider Instructions for Treatment Name Dates Details Nonsmoker : How to access he alth information online Indication:Nonsmoker Nonsmoker : How to access he alth information online - Detail Indication:Nonsmoker Nonsmoker : Patient Instruct ions Indication:Nonsmoker ADD (attention deficit disor teddy) : How to access health information online Indication:ADD (attention deficit disorder) ADD (attention deficit disor teddy) : How to access health information online - Detail Indication:ADD (attention deficit disorder) ADD (attention deficit disor teddy) : Patient Instructions Indication:ADD (attention deficit disorder) Asthma, allergic : How to ac cess health information online Indication:Asthma, allergic Asthma, allergic : How to ac cess health information online - Detail Indication:Asthma, allergic Asthma, allergic : Patient I nstructions Indication:Asthma, allergic Acute asthma exacerbation (R enamed from Asthma with acute exacerbation) : How to access health information online Indication:Acute asthma exacerbation (Renamed from Asthma with acute exacerbation) Acute asthma exacerbation (R enamed from Asthma with acute exacerbation) : How to access health information online - Detail Indication:Acute asthma exacerbation (Renamed from Asthma with acute exacerbation) Acute asthma exacerbation (R enamed from Asthma with acute exacerbation) : Patient Instructions Indication:Acute asthma exacerbation (Renamed from Asthma with acute exacerbation) ALLERGIC RHINITIS DUE TO OTH ER ALLERGEN : Patient Instructions Indication:ALLERGIC RHINITIS DUE TO OTHER ALLERGEN Name Dates Details ADD (attention deficit disor teddy) : How to access health information online Indication:ADD (attention deficit disorder) ADD (attention deficit disor teddy) : How to access health information online - Detail Indication:ADD (attention deficit disorder) ADD (attention deficit disor teddy) : Patient Instructions Indication:ADD (attention deficit disorder) Nonsmoker : How to access he alth information online Indication:Nonsmoker Nonsmoker : How to access he alth information online - Detail Indication:Nonsmoker Nonsmoker : Patient Instruct ions Indication:Nonsmoker Asthma, allergic : How to ac cess health information online Indication:Asthma, allergic Asthma, allergic : How to ac cess health information online - Detail Indication:Asthma, allergic Asthma, allergic : Patient I nstructions Indication:Asthma, allergic Acute asthma exacerbation (R enamed from Asthma with acute exacerbation) : How to access health information online Indication:Acute asthma exacerbation (Renamed from Asthma with acute exacerbation) Acute asthma exacerbation (R enamed from Asthma with acute exacerbation) : How to access health information online - Detail Indication:Acute asthma exacerbation (Renamed from Asthma with acute exacerbation) Acute asthma exacerbation (R enamed from Asthma with acute exacerbation) : Patient Instructions Indication:Acute asthma exacerbation (Renamed from Asthma with acute exacerbation) ALLERGIC RHINITIS DUE TO OTH ER ALLERGEN : Patient Instructions Indication:ALLERGIC RHINITIS DUE TO OTHER ALLERGEN Name Dates Details Patient Instructions Indication:ADD (attention deficit disorder) Start:03-Jun-2020 Instruction Type:Provider Instructions for Treatment How to Access Health Informa tion Online using Patient Portal and [employer] Apps Indication:ADD (attention deficit disorder) Start:03-Jun-2020 Instruction Type:Patient Education How to access health informa tion online Indication:ADD (attention deficit disorder) Start:23-Nov-2019 Instruction Type:Patient Education How to access health informa tion online - Detail Indication:ADD (attention deficit disorder) Start:23-Nov-2019 Instruction Type:Patient Education Patient Instructions Indication:ADD (attention deficit disorder) Start:23-Nov-2019 Instruction Type:Provider Instructions for Treatment How to access health informa tion online Indication:ADD (attention deficit disorder) Start:04-Sep-2018 Instruction Type:Patient Education How to access health informa tion online - Detail Indication:ADD (attention deficit disorder) Start:04-Sep-2018 Instruction Type:Patient Education Patient Instructions Indication:ADD (attention deficit disorder) Start:04-Sep-2018 Instruction Type:Provider Instructions for Treatment How to access health informa tion online Indication:Nonsmoker Start:10-Jul-2018 Instruction Type:Patient Education How to access health informa tion online - Detail Indication:Nonsmoker Start:10-Jul-2018 Instruction Type:Patient Education Patient Instructions Indication:Nonsmoker Start:10-Jul-2018 Instruction Type:Provider Instructions for Treatment How to access health informa tion online Indication:ADD (attention deficit disorder) Start:26-May-2018 Instruction Type:Patient Education How to access health informa tion online - Detail Indication:ADD (attention deficit disorder) Start:26-May-2018 Instruction Type:Patient Education Patient Instructions Indication:ADD (attention deficit disorder) Start:26-May-2018 Instruction Type:Provider Instructions for Treatment How to access health informa tion online Indication:Nonsmoker Start:24-May-2018 Instruction Type:Patient Education How to access health informa tion online - Detail Indication:Nonsmoker Start:24-May-2018 Instruction Type:Patient Education Patient Instructions Indication:Nonsmoker Start:24-May-2018 Instruction Type:Provider Instructions for Treatment How to access health informa tion online Indication:Nonsmoker Start:05-May-2018 Instruction Type:Patient Education How to access health informa tion online - Detail Indication:Nonsmoker Start:05-May-2018 Instruction Type:Patient Education Patient Instructions Indication:Nonsmoker Start:05-May-2018 Instruction Type:Provider Instructions for Treatment How to access health informa tion online Indication:ADD (attention deficit disorder) Start:11-Apr-2017 Instruction Type:Patient Education How to access health informa tion online - Detail Indication:ADD (attention deficit disorder) Start:11-Apr-2017 Instruction Type:Patient Education Patient Instructions Indication:ADD (attention deficit disorder) Start:11-Apr-2017 Instruction Type:Provider Instructions for Treatment How to access health informa tion online Indication:ADD (attention deficit disorder) Start:25-Feb-2017 Instruction Type:Patient Education How to access health informa tion online - Detail Indication:ADD (attention deficit disorder) Start:25-Feb-2017 Instruction Type:Patient Education Patient Instructions Indication:ADD (attention deficit disorder) Start:25-Feb-2017 Instruction Type:Provider Instructions for Treatment How to access health informa tion online Indication:Asthma, allergic Start:14-Feb-2017 Instruction Type:Patient Education How to access health informa tion online - Detail Indication:Asthma, allergic Start:14-Feb-2017 Instruction Type:Patient Education Patient Instructions Indication:Asthma, allergic Start:14-Feb-2017 Instruction Type:Provider Instructions for Treatment How to access health informa tion online Indication:Acute asthma exacerbation (Renamed from Asthma with acute exacerbation) Start:10-Apr-2015 Instruction Type:Patient Education How to access health informa tion online - Detail Indication:Acute asthma exacerbation (Renamed from Asthma with acute exacerbation) Start:10-Apr-2015 Instruction Type:Patient Education Patient Instructions Indication:Acute asthma exacerbation (Renamed from Asthma with acute exacerbation) Start:10-Apr-2015 Instruction Type:Provider Instructions for Treatment Patient Instructions Indication:ALLERGIC RHINITIS DUE TO OTHER ALLERGEN Start:14-Dec-2013 Instruction Type:Provider Instructions for Treatment Chief Complaint and Reason for Visit Chief Complaint Injection Injection RENAL INFARCT RENAL INFARCT Reason for Visit Acute right flank pa in Leukocytosis Microscopic hematuria Renal infarct Chief Complaint Injection Injection RENAL INFARCT RENAL INFARCT RENAL INFARCT Reason for Visit Acute right flank pa in Leukocytosis Microscopic hematuria Renal infarct Chief Complaint Injection Annual Follow up/ Injection right calf pain Reason for Visit Severe asthma Health Concerns Infection Onset Date Last Indicated Resolved Time COVID-19 Confirmed 01/30/2023 01/30/2023 Additional Source Comments (unrecognized sect ion and content) No Status Records FoundNo Status Records FoundNo Status Records FoundNo Status Records FoundNo Status Records FoundNo Status Records Found INFORMATION SOURCE (unrecogn ized section and content) DATE CREATED AUTHOR 08/24/2017 [facility] DATE CREATED AUTHOR AUTHOR'S ORGANIZ ATION 11/03/2020 [facility] ([place]) DATE CREATED AUTHOR AUTHOR'S ORGANIZ ATION 01/13/2022 [facility] DATE CREATED AUTHOR AUTHOR'S ORGANIZ ATION 02/01/2022 [facility] DATE CREATED AUTHOR AUTHOR'S ORGANIZ ATION 03/09/2024 [facility] DATE CREATED AUTHOR AUTHOR'S ORGANIZ ATION 03/27/2024 [facility] Goals (unrecognized section and content) Goals may be documented in a n alternate sectionGoals may be documented in an alternate section Care Teams (unrecognized sec tion and content) Team Status: Active Member Role Status Dates Marleni Holly NP, WELDING MACHINE OPERATOR ELECTROSLAG-C Family Provider Active Dr. Fritz Murphy MD Primary Care Provider Active Team Status: Inactive Member Role Status Dates Dr. Fritz Murphy MD Primary Care Provider, Referring Provider Active Dr. Chilo Thomas MD Attending Provider Active Team Status: Inactive Member Role Status Dates Dr. Fritz Murphy MD Primary Care Provider, Referring Provider Active Catina Lainez WELDING MACHINE OPERATOR ELECTROSLAG, WELDING MACHINE OPERATOR ELECTROSLAG-C Attending Provider Active Team Status: Inactive Member Role Status Dates Dr. Fritz Murphy MD Primary Care Provider Active Dr. Bret Castanon MD Emergency Provider Active Credit Review Analyst Relationship Specialty Start Date End Date Fritz Murphy MD [address] [facility] [address] [place] [address] PCP - General Internal Medicine 01/30/23 Credit Review Analyst Relationship Specialty Start Date End Date Fritz Murphy MD [address] [facility] [address] [place] [address] PCP - General Internal Medicine 01/30/23 Credit Review Analyst Relationship Specialty Start Date End Date Fritz Murphy MD [address] [facility] [address] [place] [address] PCP - General Internal Medicine 01/30/23 Source Comments (unrecognize d section and content) In the event this informatio n is protected by the Federal Confidentiality of Alcohol and Drug Abuse Patient Records regulations: The Federal rules restrict any use of the information to criminally investigate or prosecute any alcohol or drug abuse patient.[facility] the event this information is protected by the Federal Confidentiality of Alcohol and Drug Abuse Patient Records regulations: The Federal rules restrict any use of the information to criminally investigate or prosecute any alcohol or drug abuse patient.[facility] the event this information is protected by the Federal Confidentiality of Alcohol and Drug Abuse Patient Records regulations: The Federal rules restrict any use of the information to criminally investigate or prosecute any alcohol or drug abuse patient.[facility] the event this information is protected by the Federal Confidentiality of Alcohol and Drug Abuse Patient Records regulations: The Federal rules restrict any use of the information to criminally investigate or prosecute any alcohol or drug abuse patient.[facility] Reason for Visit (unrecogniz ed section and content) Reason Comments Chest Congestion cough and sore throa t x this am Reason Comments Results Reason Comments Consult Infertility wanting sperm count Reason Comments Cough Cough, ST, congestio n and wheezing x 1 week FOR RECORDS PERTAINING TO PATIENTS WHO ARE OR HAVE BEEN ENROLLED IN A CHEMICAL DEPENDENCY/SUBSTANCEABUSE PROGRAM, SOME INFORMATION MAY BE OMITTED. This clinical summary was aggregated from multiple sources. Caution should be exercised in using it in the provision of clinical care. This summary normalizes information from multiple sources, and as a consequence, information in this document may materially change the coding, format and clinical context of patient data. In addition, data may be omitted in some cases. CLINICAL DECISIONS SHOULD BE BASED ON THE PRIMARY CLINICAL RECORDS. [facility] [employer] [facility]. provides no warranty or guarantee of the accuracy or completeness of information in this document.
[2024-08-18 16:39] LABS: Absolute Lymphocyte Count 2.11 X10^3/uL (0.83-4.51); Absolute Neutrophil Count 5.5 X10^3/uL (2.0-7.7); Basophil# 0.02 X10^3/uL; Basophil% 0.2 % (0-1); Hematocrit 43.7 % (40-54); Hemoglobin 14.9 g/dL (13.0-16.5); Lymphocyte # 2.11 X10^3/ul (0.83-4.51); Lymphocyte % 24.9 % (19-41); Mean Corp Hgb Conc 34.1 g/dL (32-36); Mean Corpuscular Hgb 30.8 pg (27.0-32.0); Mean Corpuscular Volume 90.3 fL (80-94); Mean Platelet Vol. 9.4 fl (6.2-12.0); Monocyte# 0.81 X10^3/uL; Monocyte% 9.6 % (0-10); NRBC Flagged by Analyzer 0 % (0-5); Neutrophil % 64.8 % (47-70); Platelet Count 269 K/mm3 (150-450); RBC Distribution Width CV 12.1 % (11.6-14.6); RBC Distribution Width SD 40.3 fl (35.1-43.9); Red Blood Count 4.84 M/mm3 (4.6-6.2); White Blood Count 8.5 K/mm3 (4.4-11.0)
[2024-08-18 16:45] LABS: AST(SGOT) 24 U/L (<=37); Alanine Aminotransfer ALT/SGPT 33 U/L (<=46); Albumin, Serum 4.3 g/dL (3.5-5.0); Alkaline Phosphatase 66 U/L (40-129); Anion Gap 12 (5-15); BUN 17 mg/dL (4-19); Bilirubin, Direct 0.16 mg/dL (0.00-0.30); Calcium,Total 9.3 mg/dL (7.6-11.0); Carbon Dioxide 22.9 mmol/L (21.0-32.0); Chloride 104 mmol/L (98-108); Creatinine, Serum 1.04 mg/dL (0.70-1.20); EST Glomerular Filtration Rate 93 (>60); Estimated Creatinine Clearance 121.05 ml/min (50-250); Globulin 2.9 g/dL (2.2-4.2); Glucose 90 mg/dL (70-99); Protein, Total 7.2 g/dL (5.9-8.4); Sodium Level 138 mmol/L (133-145); Total Bilirubin 0.43 mg/dL (0.00-1.30)
[2024-08-18 17:00] VITALS: BP 128/63; PULSE 66; RESP 14; O2SAT 98
[2024-08-18 17:06] LABS: Bacteria 0 SEEN /hpf (None Seen); Mucous, Urine 0 SEEN /hpf (<or=2+)
[2024-08-18 17:36] LABS: Color, Urine Straw (Yellow); Glucose, Dipstick Normal (Normal); Ketone-Dipstick Negative (Negative); Leukocyte Esterase-Dipstick Negative /ul (Negative); Nitrite-Dipstick Negative (Negative); Occult Blood-Urine Negative /ul (Negative); Protein-Dipstick Negative (Negative); Urine Bilirubin Dipstick Negative (Negative); Urine Clarity Clear (Clear); Urine Urobilinogen Normal (Normal)
[2024-08-18] MEDS: 0.9% Normal Saline (1000mL) 1,000 ML 150 ML IV (17:51)
[2024-08-18 18:00] VITALS: BP 118/61; PULSE 61; RESP 14; O2SAT 96
[2024-08-18 18:26] LABS: Red Blood Cells-Urine 0-5 SEEN /hpf (0-5); Squamous Epithelial Cells - UA 0-5 SEEN /hpf (0-5); White Blood Cells 0-5 SEEN /hpf (0-5)
[2024-08-18 18:44] LABS: International Normalized Ratio 0.9; Prothrombin Time (Protime)PT. 12.7 SECONDS (11.7-14.9)
[2024-08-18 18:45] LABS: Partial Thromboplast Time 26.4 Seconds (24.1-36.2)
[2024-08-18 19:00] VITALS: BP 128/82; PULSE 98; RESP 12; TEMP 36.9; O2SAT 98
== END 2024-08-18 19:09 | disposition home or self-care (01) ==
PROVIDERS: Emergency Provider Emergency Medicine; PCP Internal Medicine; Visit Provider Emergency Medicine
DX: R10.9 Unspecified abdominal pain (principal); M54.9 Dorsalgia, unspecified; J45.909 Unspecified asthma, uncomplicated; Z79.899 Other long term (current) drug therapy; Z87.891 Personal history of nicotine dependence
CPT/HCPCS: 71275; 74174; 80048; 80076; 81001; 85025; 85610; 85730; 96361; 96374; 96375; 99285; Q9967; A4216; J2405